=== PATIENT | female | born 1970 | race Caucasian/White ===

== ENCOUNTER 2018-01-24 02:21 | Inpatient (IN) | payer OTHER ==
[~2018-01-24] VITALS: Ht 157.5 cm; Wt 61.3 kg
[2018-01-24] VITALS (36 sets, daily range): BP systolic 116–159; BP diastolic 58–101; PULSE 80–172; RESP 15–47; TEMP 97.8–98.2; O2SAT 87–98
[~2018-01-24 02:21] MED LIST: AMLO5 PO; CLON.1 PO; FOLI1 PO; THIA100T PO; VITA100T15 PO
[2018-01-24] MEDS ORDERED: PROCHLORPERAZINE INJ 10 MG/2 ML VIAL IV PUSH ONE (02:45)
[2018-01-24] MEDS ORDERED: LORazepam 2 MG/ML VIAL IV PUSH ONE (02:45)
[2018-01-24] MEDS ORDERED: SODIUM CHLOR 0.9% 1000 ML INJ 1,000 ML IV ONE (02:45)
--- NOTE | 2018-01-24 02:48 | PD ---
HPI Chief Complaint: Alcohol/Drug Intoxication Time Seen by Provider: 02:38 Travel History International Travel<30 days: No Contact w/Intl Traveler<30days: No Traveled to known affect area: No History of Present Illness HPI The patient is a 47-year-old female who presents to the emergency department for possible alcohol withdrawal. The patient states she drinks heavily on a daily basis. The patient states her and herself will finish a large bottle of vodka and 1-1/2 days. The patient stopped drinking approximately 2 AM Tuesday morning, developed nausea and vomiting on Tuesday afternoon, presents to the emergency department tonight for tremors with persistent nausea and vomiting. The patient does have a history of alcohol withdrawal. She denies any abdominal pain, does complain of tremors, hallucinations, nausea, and vomiting. She denies any fever but does note intermittent chills with her tremors. Symptoms are moderate. She denies any illicit drug use. PFSH Past Medical History Depression: Yes Cancer: No Cardiovascular Problems: No Diabetes: No Diminished Hearing: No Endocrine: No Genitourinary: No Headaches: No Immune Disorder: No Musculoskeletal: No Neurologic: No Psychiatric: No Reproductive: No Respiratory: No Seizures: No : 1 Para: 1 Past Surgical History Section: Yes Other Surgery: Yes (LUMPECTOMY X2) Social History Alcohol Use: Yes (3 MIXED DRINKS TODAY) Tobacco Use: No Substance Use: Yes Allergies-Medications (Allergen,Severity, Reaction): Coded Allergies: No Known Allergies (Unverified , 05/08/15) Reported Meds & Prescriptions Reported Meds & Active Scripts Active No Active Prescriptions or Reported Medications Review of Systems Except as stated in HPI: all other systems reviewed are Neg General / Constitutional: No: Fever HENT: Positive: Lightheadedness Cardiovascular: No: Chest Pain or Discomfort Respiratory: No: Shortness of Breath Gastrointestinal: Positive: Nausea, Vomiting, No: Abdominal Pain Musculoskeletal: Positive: Weakness Neurologic: No: Change in Mentation Psychiatric: Positive: Substance Abuse (Alcohol abuse) Physical Exam Narrative GENERAL: Awake, alert, pleasant 47-year-old female who appears her stated age and is in no acute respiratory distress. SKIN: Focused skin assessment warm/dry. HEAD: Atraumatic. Normocephalic. EYES: Pupils equal and round. No scleral icterus. No injection or drainage. ENT: No nasal bleeding or discharge. Dry mucous membranes. NECK: Trachea midline. No JVD. CARDIOVASCULAR: Regular, tachycardic with a heart rate of 120. RESPIRATORY: No accessory muscle use. Clear to auscultation. Breath sounds equal bilaterally. GASTROINTESTINAL: Abdomen soft, non-tender, nondistended. No rebound tenderness. MUSCULOSKELETAL: Tremulous. NEUROLOGICAL: Awake and alert. No obvious cranial nerve deficits. Motor grossly within normal limits. Normal speech. Nonfocal. PSYCHIATRIC: Appears slightly agitated. Data Data Last Documented VS Vital Signs Date Time Temp Pulse Resp B/P (MAP) Pulse Ox O2 Delivery O2 Flow Rate FiO2 01/24/18 03:09 Room Air 01/24/18 02:29 97.8 120 18 126/58 (80) 98 Orders Orders Complete Blood Count With Diff (01/24/18 02:38) Comprehensive Metabolic Panel (01/24/18 02:38) Lipase (01/24/18 02:38) Alcohol (Ethanol) (01/24/18 02:38) Magnesium (Mg) (01/24/18 02:38) Urinalysis - C+S If Indicated (01/24/18 02:38) Sodium Chlor 0.9% 1000 Ml Inj (Ns 1000 M (01/24/18 02:45) Lorazepam Inj (Ativan Inj) (01/24/18 02:45) Prochlorperazine Inj (Compazine Inj) (01/24/18 02:45) Potassium Chlor 20 Meq Premix (Kcl 20 Me (01/24/18 03:30) Magnesium Sulfate 1 Gm Premix (Magnesium (01/24/18 03:30) Admit Order (Ed Use Only) (01/24/18 03:28) Labs Laboratory Tests Test 01/24/18 02:40 White Blood Count 9.1 TH/MM3 Red Blood Count 4.35 MIL/MM3 Hemoglobin 13.9 GM/DL Hematocrit 40.5 % Mean Corpuscular Volume 93.1 FL Mean Corpuscular Hemoglobin 32.0 PG Mean Corpuscular Hemoglobin Concent 34.4 % Red Cell Distribution Width 17.2 % Platelet Count 204 TH/MM3 Mean Platelet Volume 9.7 FL Neutrophils (%) (Auto) 66.1 % Lymphocytes (%) (Auto) 22.1 % Monocytes (%) (Auto) 11.3 % Eosinophils (%) (Auto) 0.0 % Basophils (%) (Auto) 0.5 % Neutrophils # (Auto) 6.1 TH/MM3 Lymphocytes # (Auto) 2.0 TH/MM3 Monocytes # (Auto) 1.0 TH/MM3 Eosinophils # (Auto) 0.0 TH/MM3 Basophils # (Auto) 0.0 TH/MM3 CBC Comment DIFF FINAL Differential Comment Blood Urea Nitrogen 7 MG/DL Creatinine 1.10 MG/DL Random Glucose 160 MG/DL Total Protein 9.2 GM/DL Albumin 3.1 GM/DL Calcium Level 9.3 MG/DL Magnesium Level 0.8 MG/DL Alkaline Phosphatase 246 U/L Aspartate Amino Transf (AST/SGOT) 304 U/L Alanine Aminotransferase (ALT/SGPT) 73 U/L Total Bilirubin 3.1 MG/DL Sodium Level 133 MEQ/L Potassium Level 2.7 MEQ/L Chloride Level 88 MEQ/L Carbon Dioxide Level 26.1 MEQ/L Anion Gap 19 MEQ/L Estimat Glomerular Filtration Rate 53 ML/MIN Lipase 69 U/L Ethyl Alcohol Level LESS THAN 3 MG/DL MDM Medical Decision Making Medical Screen Exam Complete: Yes Emergency Medical Condition: Yes Medical Record Reviewed: Yes Interpretation(s) Laboratory Tests Test 01/24/18 02:40 White Blood Count 9.1 TH/MM3 Red Blood Count 4.35 MIL/MM3 Hemoglobin 13.9 GM/DL Hematocrit 40.5 % Mean Corpuscular Volume 93.1 FL Mean Corpuscular Hemoglobin 32.0 PG Mean Corpuscular Hemoglobin Concent 34.4 % Red Cell Distribution Width 17.2 % Platelet Count 204 TH/MM3 Mean Platelet Volume 9.7 FL Neutrophils (%) (Auto) 66.1 % Lymphocytes (%) (Auto) 22.1 % Monocytes (%) (Auto) 11.3 % Eosinophils (%) (Auto) 0.0 % Basophils (%) (Auto) 0.5 % Neutrophils # (Auto) 6.1 TH/MM3 Lymphocytes # (Auto) 2.0 TH/MM3 Monocytes # (Auto) 1.0 TH/MM3 Eosinophils # (Auto) 0.0 TH/MM3 Basophils # (Auto) 0.0 TH/MM3 CBC Comment DIFF FINAL Differential Comment Blood Urea Nitrogen 7 MG/DL Creatinine 1.10 MG/DL Random Glucose 160 MG/DL Total Protein 9.2 GM/DL Albumin 3.1 GM/DL Calcium Level 9.3 MG/DL Magnesium Level 0.8 MG/DL Alkaline Phosphatase 246 U/L Aspartate Amino Transf (AST/SGOT) 304 U/L Alanine Aminotransferase (ALT/SGPT) 73 U/L Total Bilirubin 3.1 MG/DL Sodium Level 133 MEQ/L Potassium Level 2.7 MEQ/L Chloride Level 88 MEQ/L Carbon Dioxide Level 26.1 MEQ/L Anion Gap 19 MEQ/L Estimat Glomerular Filtration Rate 53 ML/MIN Lipase 69 U/L Ethyl Alcohol Level LESS THAN 3 MG/DL Differential Diagnosis Differential diagnosis includes delirium tremors, alcohol withdrawal, alcohol abuse, hypomagnesemia, hypokalemia, dehydration, acute kidney injury, anxiety. Narrative Course IV was established, labs are drawn and sent, and the patient was placed on cardiac telemetry monitoring and continuous pulse oximetry monitoring. The patient was administered Ativan 2 mg intravenously and 1 L of IV fluids. Magnesium level and potassium level were sent to lab. The patient's white count is unremarkable. Potassium was low at 2.7, magnesium is low at 0.8. Therefore, potassium and magnesium were replaced intravenously. The patient's CIWA score was 20. The patient's LFTs are elevated, AST greater than ALT consistent with alcoholic hepatitis. The patient will require IV fluids, replacement of electrolytes, and continuing Ativan for delirium tremors and alcohol withdrawal. Therefore, the on-call stock parts inspector was paged for admission. Critical Care Narrative Aggregate critical care time was 35 minutes. Time to perform other separately billable procedures was not included in the critical care time. My time did not include minutes spent treating any other patients simultaneously or on activities that did not directly contribute to the patient's treatment. The services I provided to this patient were to treat and/or prevent clinically significant deterioration that could result in: Seizure, respiratory distress, aspiration, hypoxia, anoxia, arrhythmia, . I provided critical care services requiring my management, as noted below: Chart data review, documentation time, medication orders and management, vital sign assessments/reviewing monitor data, ordering and reviewing lab tests, ordering and interpreting/reviewing x-rays and diagnostic studies, care of the patient and discussion of the patient with the admitting physicians. Physician Communication Physician Communication The on-call stock parts inspector was paged for admission. I discussed the patient with Dr. Kim who agrees with admission. Diagnosis Primary Impression: DTs (delirium tremens) Additional Impressions: Alcohol withdrawal Qualified Codes: F10.231 - Alcohol dependence with withdrawal delirium Hypokalemia Hypomagnesemia LFT elevation Admitting Information Admitting Physician Requests: Admit Scripts No Active Prescriptions or Reported Meds Condition: Stable Wellington Garber MD January 24, 2018 02:48
[2018-01-24 02:58] LABS: AUTOMATED NEUTROPHIL # 6.1 TH/MM3 (1.8-7.7); BASOPHIL % 0.5 % (0.0-2.0); HEMATOCRIT 40.5 % (35.0-46.0); HEMOGLOBIN 13.9 GM/DL (11.6-15.3); LYMPH % 22.1 % (9.0-44.0); MEAN CELL VOLUME 93.1 FL (80.0-100.0); MEAN CORPUSCULAR HGB CONC 34.4 % (32.0-36.0); MEAN PLATELET VOLUME 9.7 FL (7.0-11.0); MONO % 11.3 % (0.0-8.0); NEUT % 66.1 % (16.0-70.0); PLATELET COUNT 204 TH/MM3 (150-450); RED BLOOD COUNT 4.35 MIL/MM3 (4.00-5.30); RED CELL DISTRIBUTION WIDTH 17.2 % (11.6-17.2); WHITE BLOOD COUNT 9.1 TH/MM3 (4.0-11.0)
[2018-01-24 03:18] LABS: ALBUMIN 3.1 GM/DL (3.4-5.0); ALKALINE PHOSPHATASE 246 U/L (45-117); ALT (GPT) 73 U/L (10-53); AST (GOT) 304 U/L (15-37); BICARBONATE 26.1 MEQ/L (21.0-32.0); BLOOD UREA NITROGEN 7 MG/DL (7-18); CALCIUM 9.3 MG/DL (8.5-10.1); CHLORIDE 88 MEQ/L (98-107); GLOMERULAR FILTRATION RATE 53 ML/MIN (>89); GLUCOSE,RANDOM 160 MG/DL (74-106); MAGNESIUM 0.8 MG/DL (1.5-2.5); SODIUM (NA) 133 MEQ/L (136-145); TOTAL BILIRUBIN ADULT 3.1 MG/DL (0.2-1.0); TOTAL PROTEIN 9.2 GM/DL (6.4-8.2)
[2018-01-24] MEDS: MAGNESIUM SULFATE 1 GM PREMIX 100 ML IV SCH ×2 (03:30→05:03)
[2018-01-24] MEDS: POTASSIUM CHLOR 20 MEQ PREMIX 100 ML IV SCH ×2 (03:30→06:02)
[2018-01-24 05:19] LABS: BILIRUBIN, URINE NEG (NEG); BLOOD, URINE TRACE (NEG); GLUCOSE,URINE NEG (NEG); KETONE, URINE NEG (NEG); NITRITE,URINE NEG (NEG); URINE LEUKOCYTE ESTERASE TRACE (NEG)
[2018-01-24 05:24] LABS: BACTERIA, URINE OCC /hpf; RBC, URINE 0-3 /hpf (0-3); SQUAMOUS EPITHELIAL CELL URINE 0-5 /hpf (0-5); URINE COLOR ORANGE (YELLW/STRAW)
[2018-01-24] MEDS ORDERED: SODIUM CHLOR 0.9% 1000 ML INJ 1,000 ML IV SCH (05:43)
[2018-01-24] MEDS ORDERED: BISACODYL 10 MG SUPP RECTAL PRN (05:45)
[2018-01-24] MEDS ORDERED: MAGNESIUM HYDROXIDE SUSP 30 ML CUP PO PRN (05:45)
[2018-01-24] MEDS ORDERED: ACETAMINOPHEN 325 MG TAB PO PRN (05:45)
[2018-01-24] MEDS ORDERED: LACTULOSE SYRUP 20 GM/30 ML CUP PO PRN (05:45)
[2018-01-24] MEDS ORDERED: SENNOSIDES 8.6 MG TAB PO PRN (05:45)
[2018-01-24] MEDS ORDERED: NURSING INFORMATION XX SCH (05:45)
[2018-01-24] MEDS ORDERED: CHLORHEXIDINE GLUCONATE 2 % 1 PACK (2 CLOTHS) TOP PRN (05:45)
[2018-01-24] MEDS ORDERED: RESP: ALBUTEROL 2.5 MG/IPRATROPIUM 0.5 MG NEB (PRN) INH (05:45)
[2018-01-24] MEDS ORDERED: POTASSIUM PHOSPHATE INJ 30 MMOL in SODIUM CHLOR 0.9% 250 ML INJ 250 ML IV PRN (06:00)
[2018-01-24] MEDS ORDERED: SODIUM PHOSPHATE INJ 30 MMOL in SODIUM CHLOR 0.9% 250 ML INJ 240 ML IV PRN (06:00)
[2018-01-24] MEDS ORDERED: MAGNESIUM SULFATE INJ 4 GM in SODIUM CHLORIDE 0.9% INJ 92 ML IV PRN (06:00)
[2018-01-24] MEDS ORDERED: FLUMAZENIL 0.5 MG/5 ML VIAL IV PUSH PRN (06:00)
[2018-01-24] MEDS ORDERED: POTASSIUM PHOSPHATE MONOBASIC 500 MG TAB PO/TUBE PRN (06:00)
[2018-01-24] MEDS ORDERED: LORazepam 1 MG TAB PO PRN (06:00)
[2018-01-24] MEDS ORDERED: ONDANSETRON ODT 4 MG TAB PO PRN (06:00)
[2018-01-24] MEDS ORDERED: POTASSIUM PHOSPHATE MONOBASIC 500 MG TAB PO PRN (06:00)
[2018-01-24] MEDS ORDERED: MAGNESIUM OXIDE 400 MG TAB PO PRN (06:00)
[2018-01-24] MEDS ORDERED: POTASSIUM CHLOR 40 MEQ PREMIX 100 ML IV PRN ×2 (06:00)
[2018-01-24] MEDS ORDERED: POTASSIUM CHLORIDE 25 MEQ EFFERVESCENT TAB PO PRN (06:00)
[2018-01-24 06:07] LABS: PHOSPHORUS 2.7 MG/DL (2.5-4.9)
--- NOTE | 2018-01-24 06:25 | HHI.HP ---
HPI Service Critical Care Medicine Primary Care Physician No Primary Care Physician Admission Diagnosis Delirium tremors, alcohol withdrawal, hypomagnesemia, hypokalemia, a Diagnosis: Travel History International Travel<30 Days: No Contact w/Intl Traveler <30 Da: No Traveled to Known Affected Are: No History of Present Illness 47-year-old female with past medical history of alcohol dependence who presents to [facility] emergency department due to concern for alcohol withdrawal. She states that she and her share a 1.5 L of vodka chased with rubia servando every 2.5 days. She stopped drinking on Tuesday. She has been tremulous, has experienced some hallucinations and therefore her father brought her in. She states she intends to quit drinking indefinitely. She has been nauseous and vomited x1, nonbloody nonbilious. She denies headache or fall. CIWA was 20 upon presentation to the ED. She has received ativan 4 mg IV. She has also received 1 L normal saline bolus, Compazine 10 mg IV, magnesium 2 g IV. Review of Systems Constitutional: DENIES: Fever Cardiovascular: DENIES: Chest pain, Syncope Gastrointestinal: COMPLAINS OF: Nausea, Vomiting, DENIES: Abdominal pain, Bloody stools Genitourinary: DENIES: Dysuria Musculoskeletal: DENIES: Back pain, Neck pain Neurologic: COMPLAINS OF: Tremor, DENIES: Headache Psychiatric: COMPLAINS OF: Confusion, Hallucinations Past Family Social History Allergies: Coded Allergies: No Known Allergies (Unverified , 05/08/15) Past Medical History Alcohol dependence She states she She had IUD removed ~ 10 months ago due to PID Past Surgical History section Lumpectomy 2 Reported Medications None Family History Father had alcoholism. Social History Lifetime non-smoker. Her smokes heavily She and her shares sips out of a 1.5 L of vodka and go through that every 2-1/2 days. She used to work as a field sales manager. She has been out of work for 3 weeks because she states it is too stressful type of work and she does not want to do it anymore. Physical Exam Vital Signs Vital Signs Date Time Temp Pulse Resp B/P (MAP) Pulse Ox O2 Delivery O2 Flow Rate FiO2 01/24/18 06:20 98.0 95 18 154/87 (109) 98 Nasal Cannula 01/24/18 05:03 97.8 104 18 153/89 (110) 98 Room Air 01/24/18 03:48 105 18 158/85 (109) 98 Room Air 01/24/18 03:09 Room Air 01/24/18 02:29 97.8 120 18 126/58 (80) 98 Physical Exam Pulse 127, sinus tachycardia on monitor blood pressure 155/79 sats 96% on room air GENERAL: Overweight female who is sitting up in ED stretcher, tremulous, conversant. SKIN: Warm and dry. There is some ecchymosis over her right tibia. HEAD: Atraumatic. Normocephalic. EYES: Pupils equal and round, 4 mm and reactive to 2 mm bilaterally.. No scleral icterus. No injection or drainage. ENT: No nasal bleeding or discharge. Mucous membranes dry NECK: Trachea midline. No JVD. CARDIOVASCULAR: Tachycardic, sinus tachycardia on the monitor with rate in the 120s. No murmurs rubs or gallops. RESPIRATORY: Mildly tachypneic but is breathing comfortably with no accessory muscle use. Clear to auscultation. Breath sounds equal bilaterally. GASTROINTESTINAL: Abdomen soft, non-tender, nondistended. Hepatic and splenic margins not palpable. Bowel sounds present. MUSCULOSKELETAL: Extremities without clubbing, cyanosis, or edema. No obvious deformities. NEUROLOGICAL: Awake and alert, tremulous. Currently denies hallucinations but she states she knows she was hallucinating earlier. 5 out of 5 strength in all extremities. She follows commands. Oriented to self, year, [facility]. Normal speech Laboratory Laboratory Tests Test 01/24/18 02:40 01/24/18 05:08 White Blood Count 9.1 Red Blood Count 4.35 Hemoglobin 13.9 Hematocrit 40.5 Mean Corpuscular Volume 93.1 Mean Corpuscular Hemoglobin 32.0 Mean Corpuscular Hemoglobin Concent 34.4 Red Cell Distribution Width 17.2 Platelet Count 204 Mean Platelet Volume 9.7 Neutrophils (%) (Auto) 66.1 Lymphocytes (%) (Auto) 22.1 Monocytes (%) (Auto) 11.3 Eosinophils (%) (Auto) 0.0 Basophils (%) (Auto) 0.5 Neutrophils # (Auto) 6.1 Lymphocytes # (Auto) 2.0 Monocytes # (Auto) 1.0 Eosinophils # (Auto) 0.0 Basophils # (Auto) 0.0 CBC Comment DIFF FINAL Differential Comment Blood Urea Nitrogen 7 Creatinine 1.10 Random Glucose 160 Total Protein 9.2 Albumin 3.1 Calcium Level 9.3 Phosphorus Level 2.7 Magnesium Level 0.8 Alkaline Phosphatase 246 Aspartate Amino Transf (AST/SGOT) 304 Alanine Aminotransferase (ALT/SGPT) 73 Total Bilirubin 3.1 Sodium Level 133 Potassium Level 2.7 Chloride Level 88 Carbon Dioxide Level 26.1 Anion Gap 19 Estimat Glomerular Filtration Rate 53 Lipase 69 Ethyl Alcohol Level LESS THAN 3 Urine Color ORANGE Urine Turbidity CLEAR Urine pH 7.0 Urine Specific [place] LESS/EQUAL 1.005 Urine Protein 30 Urine Glucose (UA) NEG Urine Ketones NEG Urine Occult Blood TRACE Urine Nitrite NEG Urine Bilirubin NEG Urine Urobilinogen 1.0 Urine Leukocyte Esterase TRACE Urine RBC 0-3 Urine WBC 3-5 Urine Squamous Epithelial Cells 0-5 Urine Bacteria OCC Microscopic Urinalysis Comment CULT NOT INDICATED Result Diagram: 01/24/18 02401/24/18 0240 Caprini VTE Risk Assessment Caprini VTE Risk Assessment: Mod/High Risk (score >= 2) Caprini Risk Assessment Model Point Value = 1 Point Value = 2 Point Value = 3 Point Value = 5 Age 41-60 Minor surgery BMI > 25 kg/m2 Swollen legs Varicose veins or History of unexplained or recurrent spontaneous Oral contraceptives or hormone replacement Sepsis (< 1 month) Serious lung disease, including pneumonia (< 1 month) Abnormal pulmonary function Acute myocardial infarction Congestive heart failure (< 1 month) History of inflammatory bowel disease Medical patient at bed rest Age 61-74 Arthroscopic surgery Major open surgery (> 45 min) Laparoscopic surgery (> 45 min) Malignancy Confined to bed (> 72 hours) Immobilizing plaster cast Central venous access Age >= 75 History of VTE Family history of VTE Factor V Leiden Prothrombin [id number] Lupus anticoagulant Anticardiolipin antibodies Elevated serum homocysteine Heparin-induced thrombocytopenia Other congenital or acquired thrombophilia Stroke (< 1 month) Elective arthroplasty Hip, pelvis, or leg fracture Acute spinal cord injury (< 1 month) Prophylaxis Regimen Total Risk Factor Score Risk Level Prophylaxis Regimen 0-1 Low Early ambulation 2 Moderate Order ONE of the following: *Sequential Compression Device (SCD) *Heparin 5000 units SQ BID 3-4 Higher Order ONE of the following medications: *Heparin 5000 units SQ TID *Enoxaparin/Lovenox 40 mg SQ daily (WT < 150 kg, CrCl > 30 mL/min) *Enoxaparin/Lovenox 30 mg SQ daily (WT < 150 kg, CrCl > 10-29 mL/min) *Enoxaparin/Lovenox 30 mg SQ BID (WT < 150 kg, CrCl > 30 mL/min) AND/OR *Sequential Compression Device (SCD) 5 or more Highest Order ONE of the following medications: *Heparin 5000 units SQ TID (Preferred with Epidurals) *Enoxaparin/Lovenox 40 mg SQ daily (WT < 150 kg, CrCl > 30 mL/min) *Enoxaparin/Lovenox 30 mg SQ daily (WT < 150 kg, CrCl > 10-29 mL/min) *Enoxaparin/Lovenox 30 mg SQ BID (WT < 150 kg, CrCl > 30 mL/min) AND *Sequential Compression Device (SCD) Assessment and Plan Problem List: (1) EtOH dependence ICD Code: F10.20 - EtOH dependence Status: Acute (2) Tachycardia ICD Code: R00.0 - Tachycardia Status: Acute (3) Hypokalemia ICD Code: E87.6 - Hypokalemia Status: Acute (4) Hypomagnesemia ICD Code: E83.42 - Hypomagnesemia Status: Acute (5) Alcohol withdrawal ICD Code: F10.239 - Alcohol dependence with withdrawal, unspecified Status: Acute (6) LFT elevation ICD Code: R79.89 - LFT elevation Status: Acute (7) DTs (delirium tremens) ICD Code: F10.231 - Alcohol dependence with withdrawal delirium Status: Acute (8) Chronic hyponatremia ICD Code: E87.1 - Hypo-osmolality and hyponatremia Status: Acute Assessment and Plan NEURO: Alcohol dependence Alcohol withdrawal Librium 25 mg p.o. every 6 hours. Ativan as needed per CIWA protocol Add Precedex as needed Vitamin supplementation with thiamine/multivitamin/folic acid. RESP: Secondhand smoke exposure On room air She states has been is no longer smoking in the home CV: Sinus tachycardia due to alcohol withdrawal IVF as per below GI: Transaminitis Follow-up labs for discriminate function. Clear liquid diet Viral hepatitis panel Liver ultrasound FEN/RENAL: Hypokalemia Hypomagnesemia Acute dehydration Hyponatremia Received 1 L normal saline bolus in the emergency department. We will continue to 0.9 NaCl with 20 mg of KCl per liter at 100 milliliters per hour. Has received magnesium 2 g IV. Will reassess magnesium and replace per ICU electrolyte replacement protocol. Replace potassium per protocol. ID: Afebrile. No leukocytosis. Monitor for signs and symptoms of infection HEME: Monitor CBC. Follow-up coags. ENDO: Stress hyperglycemia. Follow glucose q8 and initiate low-dose insulin sliding scale as indicated. PROPH: SCDs for DVT prophylaxis. Will initiate pharmacologic DVT prophylaxis depending on results of coags. Famotidine for stress ulcer prophylaxis. ACCESS: Peripheral IV providing adequate access at this time. Full code Level 3 H&P Problem Qualifiers (1) Alcohol withdrawal: Qualified Codes: F10.231 - Alcohol dependence with withdrawal delirium Gail Middleton MD January 24, 2018 06:25
[2018-01-24] MEDS: LORazepam 2 MG/ML VIAL IV PUSH PRN ×10 (06:38→23:26)
[2018-01-24] MEDS ORDERED: MULTIVITAMIN INJ 10 ML, THIAMINE INJ 100 MG, FOLIC ACID INJ 1 MG in DEXT 5%-NACL 0.45% ... IV ONE (08:00)
[2018-01-24] MEDS: NS + KCL 20 MEQ INJ 1,000 ML IV SCH ×2 (09:26→17:15)
[2018-01-24] MEDS: FAMOTIDINE 20 MG/2 ML VIAL IV PUSH SCH ×2 (09:27→20:24)
[2018-01-24] MEDS: SODIUM CHLORIDE 0.9% FLUSH 10 ML FLUSH IV FLUSH SCH ×2 (09:27→20:25)
[2018-01-24] MEDS: chlordiazePOXIDE 25 MG CAP PO SCH ×4 (09:27→23:08)
[2018-01-24] MEDS: DOCUSATE SODIUM 50 MG/SENNA 8.6 MG TAB PO SCH ×2 (09:27→21:00)
--- NOTE | 2018-01-24 10:54 | RADRPT ---
EXAM DATE: 01/24/2018 10:32 AM EDT AGE/SEX: 47 years / Female INDICATIONS: Elevated labs. CLINICAL DATA: This is the patient's initial encounter. Patient reports that signs and symptoms have been present for 1 day and indicates a pain score of 4/10. MEDICAL/SURGICAL HISTORY: . ETOH abuse. Hallucinations. section. D&C. Lumpectomy x 2. COMPARISON: No prior [facility] exams available for comparison. [facility], US ABDOMEN C OMPLETE 2015-03-18 MEASUREMENTS (cm x cm x cm): Liver:__ 21.0 cm length Common Bile Duct:__ 4mm Right Kidney:__ 12.2 x 6.0 x 4.7 cm Spleen:__ 9.0 FINDINGS: Liver: The liver appears to be diffusely enlarged. There is increased echogenicity throughout the li kayla parenchyma suggestive of either fatty infiltration versus hepatocellular disease. No dilated bili shonda ducts are demonstrated. Portal Vein: Hepatopedal flow seen in portal vein. Common Duct: No intraluminal mass or stone visualized. Gallbladder: No evidence of gallstones. The gallbladder wall is mildly thickened at 4 mm. Pancreas: The visualized portions are within normal limits. Right Kidney: Normal in size shape and echogenicity. No hydronephrosis. Small extrarenal pelvis. CONCLUSION: 1. No evidence of gallstones or biliary tract obstruction. 2. Hepatomegaly with increased echogenicity throughout the liver suggestive of fatty infiltration an d/or hepatocellular disease. Electronically signed by: Milad Harvey MD 01/24/2018 10:53 AM EDT
[2018-01-24] MEDS: DEXMEDETOMIDINE INJ 200 MCG in SODIUM CHLORIDE 0.9% INJ 50 ML IV PRN ×2 (14:05→20:24)
[2018-01-25] VITALS (30 sets, daily range): BP systolic 97–159; BP diastolic 59–117; PULSE 84–182; RESP 22–63; TEMP 97.8–98.6; O2SAT 80–97
[2018-01-25 00:07] LABS: BICARBONATE 27.8 MEQ/L (21.0-32.0); CALCIUM 8.1 MG/DL (8.5-10.1); CREATININE 0.49 MG/DL (0.50-1.00); MAGNESIUM 1.5 MG/DL (1.5-2.5); PHOSPHORUS 1.1 MG/DL (2.5-4.9)
[2018-01-25] MEDS: MAGNESIUM SULFATE INJ 2 GM in SODIUM CHLORIDE 0.9% INJ 96 ML IV PRN (00:41)
[2018-01-25] MEDS: DEXMEDETOMIDINE INJ 200 MCG in SODIUM CHLORIDE 0.9% INJ 50 ML IV PRN ×4 (00:57→19:16)
[2018-01-25] MEDS: LORazepam 2 MG/ML VIAL IV PUSH PRN ×6 (01:48→21:55)
[2018-01-25] MEDS: CHLORHEXIDINE GLUCONATE 2 % 1 PACK (2 CLOTHS) TOP SCH (04:00)
[2018-01-25] MEDS: chlordiazePOXIDE 25 MG CAP PO SCH ×3 (05:40→17:20)
[2018-01-25] MEDS: NS + KCL 20 MEQ INJ 1,000 ML IV SCH ×3 (09:14→19:33)
[2018-01-25 10:12] LABS: AUTOMATED NEUTROPHIL # 4.6 TH/MM3 (1.8-7.7); BASOPHIL % 0.7 % (0.0-2.0); EOSINOPHIL % 0.2 % (0.0-4.0); HEMATOCRIT 37.7 % (35.0-46.0); HEMOGLOBIN 12.7 GM/DL (11.6-15.3); LYMPH % 25.2 % (9.0-44.0); LYMPHOCYTE # 1.7 TH/MM3 (1.0-4.8); MEAN CELL VOLUME 92.6 FL (80.0-100.0); MEAN CORPUSCULAR HEMOGLOBIN 31.2 PG (27.0-34.0); MEAN CORPUSCULAR HGB CONC 33.7 % (32.0-36.0); MEAN PLATELET VOLUME 10.1 FL (7.0-11.0); MONO % 6.5 % (0.0-8.0); MONOCYTE # 0.4 TH/MM3 (0-0.9); NEUT % 67.4 % (16.0-70.0); PLATELET COUNT 228 TH/MM3 (150-450); RED BLOOD COUNT 4.07 MIL/MM3 (4.00-5.30); RED CELL DISTRIBUTION WIDTH 17.2 % (11.6-17.2); WHITE BLOOD COUNT 6.7 TH/MM3 (4.0-11.0)
[2018-01-25 10:34] LABS: CHLORIDE 108 MEQ/L (98-107); SODIUM (NA) 144 MEQ/L (136-145)
[2018-01-25 10:37] LABS: CALCIUM 7.8 MG/DL (8.5-10.1)
[2018-01-25 10:38] LABS: INTERNATIONAL NORMALIZED RATIO 1.1 RATIO; PROTHROMBIN TIME - PATIENT 11.2 SEC (9.8-11.6)
[2018-01-25] MEDS: FAMOTIDINE 20 MG/2 ML VIAL IV PUSH SCH ×2 (10:41→21:55)
[2018-01-25] MEDS: DOCUSATE SODIUM 50 MG/SENNA 8.6 MG TAB PO SCH ×2 (10:41→21:00)
[2018-01-25] MEDS: SODIUM CHLORIDE 0.9% FLUSH 10 ML FLUSH IV FLUSH SCH ×2 (10:42→21:55)
[2018-01-25 11:06] LABS: ALBUMIN 2.3 GM/DL (3.4-5.0); ALKALINE PHOSPHATASE 177 U/L (45-117); ALT (GPT) 43 U/L (10-53); AST (GOT) 136 U/L (15-37); BICARBONATE 22.8 MEQ/L (21.0-32.0); BLOOD UREA NITROGEN 4 MG/DL (7-18); CREATININE 0.42 MG/DL (0.50-1.00); GLOMERULAR FILTRATION RATE 160 ML/MIN (>89); GLUCOSE,RANDOM 98 MG/DL (74-106); MAGNESIUM 1.6 MG/DL (1.5-2.5); PHOSPHORUS 3.1 MG/DL (2.5-4.9); TOTAL BILIRUBIN ADULT 1.7 MG/DL (0.2-1.0); TOTAL PROTEIN 7.2 GM/DL (6.4-8.2)
[2018-01-25] MEDS: POTASSIUM CHLOR 20 MEQ PREMIX 100 ML IV PRN ×2 (12:27→15:09)
--- NOTE | 2018-01-25 17:25 | HHI.CCPN ---
Subjective Remarks/Hospital Course 01/24: 47-year-old female with past medical history of alcohol dependence who presents to [facility] emergency department due to concern for alcohol withdrawal. She states that she and her share a 1.5 L of vodka chased with rubia servando every 2.5 days. She stopped drinking on Tuesday. She has been tremulous, has experienced some hallucinations and therefore her father brought her in. She states she intends to quit drinking indefinitely. She has been nauseous and vomited x1, nonbloody nonbilious. She denies headache or fall. CIWA was 20 upon presentation to the ED. She has received ativan 4 mg IV. She has also received 1 L normal saline bolus, Compazine 10 mg IV, magnesium 2 g IV. 01/25: Laying in bed on Precedex currently. Arouses easily. No she is at the intensive care unit at [facility]. Knew the month and year however was off on the date. Objective Vital Signs Date Time Temp Pulse Resp B/P (MAP) Pulse Ox O2 Delivery O2 Flow Rate FiO2 01/25/18 12:00 92 01/25/18 12:00 97.9 36 128/74 (92) 94 01/24/18 13:10 Room Air Intake and Output 01/25/18 01/25/18 01/26/18 08:00 16:00 00:00 Intake Total 1310 ml 484 ml Output Total 700 ml Balance 610 ml 484 ml Result Diagram: 01/25/18 1005 01/25/18 1005 Objective Remarks GENERAL: Overweight female who is laying in bed, drowsy though easily arousable not in any acute distress. SKIN: Warm and dry. There is some ecchymosis over her right tibia. HEAD: Atraumatic. Normocephalic. EYES: Pupils equal and round, 4 mm and reactive to 2 mm bilaterally.. No scleral icterus. No injection or drainage. ENT: No nasal bleeding or discharge. Mucous membranes dry NECK: Trachea midline. No JVD. CARDIOVASCULAR: Tachycardic, sinus tachycardia on the monitor with rate in the 120s. No murmurs rubs or gallops. RESPIRATORY: Mildly tachypneic but is breathing comfortably with no accessory muscle use. Clear to auscultation. Breath sounds equal bilaterally. GASTROINTESTINAL: Abdomen soft, non-tender, nondistended. Hepatic and splenic margins not palpable. Bowel sounds present. MUSCULOSKELETAL: Extremities without clubbing, cyanosis, or edema. No obvious deformities. NEUROLOGICAL: Drowsy, arousable easily, following commands, tremulous. 5 out of 5 strength in all extremities. She follows commands. Oriented to self, year , hospital. Normal speech A/P Problem List: (1) EtOH dependence ICD Code: F10.20 - EtOH dependence Status: Acute (2) Tachycardia ICD Code: R00.0 - Tachycardia Status: Acute (3) Hypokalemia ICD Code: E87.6 - Hypokalemia Status: Acute (4) Hypomagnesemia ICD Code: E83.42 - Hypomagnesemia Status: Acute (5) Alcohol withdrawal ICD Code: F10.239 - Alcohol dependence with withdrawal, unspecified Status: Acute (6) LFT elevation ICD Code: R79.89 - LFT elevation Status: Acute (7) DTs (delirium tremens) ICD Code: F10.231 - Alcohol dependence with withdrawal delirium Status: Acute (8) Chronic hyponatremia ICD Code: E87.1 - Hypo-osmolality and hyponatremia Status: Acute Assessment and Plan NEURO: Alcohol dependence Alcohol withdrawal Librium 25 mg p.o. every 6 hours. Ativan as needed per [facility] protocol Precedex as needed Vitamin supplementation with thiamine/multivitamin/folic acid. RESP: Secondhand smoke exposure On room air She states has been is no longer smoking in the home CV: Sinus tachycardia due to alcohol withdrawal IVF as per below GI: Transaminitis Follow-up labs for discriminate function. Clear liquid diet Viral hepatitis panel Liver ultrasound FEN/RENAL: Hypokalemia Hypomagnesemia Acute dehydration Hyponatremia Received 1 L normal saline bolus in the emergency department. We will continue to 0.9 NaCl with 20 mg of KCl per liter at 100 milliliters per hour. Has received magnesium 2 g IV. Monitor and replete electrolytes. ID: Afebrile. No leukocytosis. Monitor for signs and symptoms of infection HEME: Monitor CBC. Follow-up coags. ENDO: Stress hyperglycemia. Follow glucose q8 and initiate low-dose insulin sliding scale as indicated. PROPH: SCDs for DVT prophylaxis. Will initiate pharmacologic DVT prophylaxis depending on results of coags. Famotidine for stress ulcer prophylaxis. ACCESS: Peripheral IV providing adequate access at this time. Full code Problem Qualifiers (1) Alcohol withdrawal: Qualified Codes: F10.231 - Alcohol dependence with withdrawal delirium William Chauhan MD January 25, 2018 17:24
[2018-01-26] VITALS (48 sets, daily range): BP systolic 76–135; BP diastolic 52–89; PULSE 96–148; RESP 36–83; TEMP 98–100.1; O2SAT 92–100
[2018-01-26] MEDS: DEXMEDETOMIDINE INJ 200 MCG in SODIUM CHLORIDE 0.9% INJ 50 ML IV PRN ×3 (01:02→22:17)
[2018-01-26] MEDS: LORazepam 2 MG/ML VIAL IV PUSH PRN ×7 (02:29→18:59)
[2018-01-26] MEDS: SODIUM CHLORIDE 0.9% FLUSH 10 ML FLUSH IV FLUSH PRN (02:30)
[2018-01-26] MEDS: CHLORHEXIDINE GLUCONATE 2 % 1 PACK (2 CLOTHS) TOP SCH (04:00)
[2018-01-26 05:05] LABS: AUTOMATED NEUTROPHIL # 7.2 TH/MM3 (1.8-7.7); BASOPHIL % 0.3 % (0.0-2.0); HEMATOCRIT 34.6 % (35.0-46.0); HEMOGLOBIN 11.4 GM/DL (11.6-15.3); LYMPHOCYTE # 1.2 TH/MM3 (1.0-4.8); MEAN CELL VOLUME 94.3 FL (80.0-100.0); MEAN CORPUSCULAR HEMOGLOBIN 31.2 PG (27.0-34.0); MEAN CORPUSCULAR HGB CONC 33.1 % (32.0-36.0); MEAN PLATELET VOLUME 9.4 FL (7.0-11.0); MONO % 5.4 % (0.0-8.0); MONOCYTE # 0.5 TH/MM3 (0-0.9); NEUT % 81.3 % (16.0-70.0); PLATELET COUNT 205 TH/MM3 (150-450); RED BLOOD COUNT 3.67 MIL/MM3 (4.00-5.30); WHITE BLOOD COUNT 8.9 TH/MM3 (4.0-11.0)
[2018-01-26] MEDS: chlordiazePOXIDE 25 MG CAP PO SCH ×4 (05:50→17:14)
[2018-01-26] MEDS: NS + KCL 20 MEQ INJ 1,000 ML IV SCH ×2 (05:51→16:02)
[2018-01-26 05:55] LABS: CALCIUM 7.3 MG/DL (8.5-10.1); CALCIUM-PROTEIN CORRECTED 7.5 MG/DL (8.5-10.1); CREATININE 0.36 MG/DL (0.50-1.00); TOTAL BILIRUBIN ADULT 1.5 MG/DL (0.2-1.0); TOTAL PROTEIN 6.7 GM/DL (6.4-8.2)
[2018-01-26] MEDS ORDERED: LORazepam 2 MG/ML VIAL IV PUSH SCH (08:00)
[2018-01-26] MEDS: FAMOTIDINE 20 MG/2 ML VIAL IV PUSH SCH ×2 (08:17→20:27)
[2018-01-26] MEDS: SODIUM CHLORIDE 0.9% FLUSH 10 ML FLUSH IV FLUSH SCH ×2 (08:18→20:27)
[2018-01-26] MEDS: DOCUSATE SODIUM 50 MG/SENNA 8.6 MG TAB PO SCH ×2 (08:18→20:27)
[2018-01-26] MEDS: POTASSIUM CHLOR 20 MEQ PREMIX 100 ML IV PRN ×2 (08:32→10:44)
[2018-01-26] MEDS: QUEtiapine FUMARATE 25 MG TAB PO SCH ×2 (09:42→20:28)
--- NOTE | 2018-01-26 10:37 | RADRPT ---
EXAM DATE: 01/26/2018 10:33 AM EDT AGE/SEX: 47 years / Female INDICATIONS: Tachypnea. CLINICAL DATA: This is the patient's subsequent encounter. Patient reports that signs and symptoms h ave been present for 2 days and indicates a pain score of Nonresponsive. MEDICAL/SURGICAL HISTORY: . ETOH abuse . lumpectomy x 2 COMPARISON: [facility]PO, CHEST SINGLE AP, 01/26/2018. . FINDINGS: There are bilateral basilar and perihilar airspace consolidations with small effusions. Heart size is mildly enlarged. No pneumothorax. CONCLUSION: Bilateral airspace disease, mostly basilar with small effusions. Differential diagnosis includes braulio a and infection. Electronically signed by: Pato Ross MD 01/26/2018 10:35 AM EDT
--- NOTE | 2018-01-26 12:34 | RADRPT ---
EXAM DATE: 01/26/2018 12:11 PM EDT AGE/SEX: 47 years / Female INDICATIONS: Bilateral leg swelling. CLINICAL DATA: This is the patient's initial encounter. Patient reports that signs and symptoms have been present for 1 day and indicates a pain score of Nonresponsive. MEDICAL/SURGICAL HISTORY: . ETOH. section. Lumpectomy. Dilation and curettage. COMPARISON: No prior exams available for comparison. TECHNIQUE: Venous ultrasound of both lower extremities was performed from the inguinal ligament to t he proximal calf. Real-time, color Doppler and spectral tracing, compression and augmentation techni ques were used. FINDINGS: Right Leg: There is normal compressibility of the deep venous system from the inguinal region to the proximal calf. No echogenic clot is seen in the lumen of the common femoral, femoral, popliteal, an d posterior tibial veins. There is a normal response of the venous system to proximal and distal aug mentation and respiration. Left Leg: There is normal compressibility of the deep venous system from the inguinal region to the proximal calf. No echogenic clot is seen in the lumen of the common femoral, femoral, popliteal, and posterior tibial veins. There is a normal response of the venous system to proximal and distal augm entation and respiration. CONCLUSION: 1. No evidence of DVT. Electronically signed by: Milad Harvey MD 01/26/2018 12:32 PM EDT
[2018-01-26] MEDS: CEFEPIME INJ 2,000 MG in SODIUM CHLORIDE 0.9% INJ 100 ML IV SCH ×2 (14:41→22:26)
[2018-01-26] MEDS: AZITHROMYCIN INJ 500 MG in SODIUM CHLOR 0.9% 250 ML INJ 250 ML IV SCH (14:42)
[2018-01-26] MEDS: RESP: ALBUTEROL 2.5 MG/IPRATROPIUM 0.5 MG NEB (SCH) NEB ×2 (14:44→19:48)
--- NOTE | 2018-01-26 16:19 | HHI.CCPN ---
Subjective Remarks/Hospital Course 01/24: 47-year-old female with past medical history of alcohol dependence who presents to [facility] emergency department due to concern for alcohol withdrawal. She states that she and her share a 1.5 L of vodka chased with rubia al every 2.5 days. She stopped drinking on Tuesday. She has been tremulous, has experienced some hallucinations and therefore her father brought her in. She states she intends to quit drinking indefinitely. She has been nauseous and vomited x1, nonbloody nonbilious. She denies headache or fall. CIWA was 20 upon presentation to the ED. She has received ativan 4 mg IV. She has also received 1 L normal saline bolus, Compazine 10 mg IV, magnesium 2 g IV. 01/25: Laying in bed on Precedex currently. Arouses easily. No she is at the intensive care unit at [facility]. Knew the month and year however was off on the date. 01/26: Continues to have episodes of hallucinations and delirium at night. On Precedex gtt. Objective Vital Signs Date Time Temp Pulse Resp B/P (MAP) Pulse Ox O2 Delivery O2 Flow Rate FiO2 01/26/18 15:30 110 52 95/55 (68) 95 01/26/18 12:00 98.0 01/26/18 08:10 Nasal Cannula 4.00 01/25/18 19:54 21 Intake and Output 01/26/18 01/26/18 01/27/18 08:00 16:00 00:00 Intake Total 1360 ml 100 ml Output Total 300 ml Balance 1060 ml 100 ml Result Diagram: 01/26/18 0435 01/26/18 0435 Other Results Laboratory Tests Test 01/26/18 08:35 Blood Gas Puncture Site LT RADIAL Blood Gas Patient Temperature 37.0 Blood Gas HCO3 15 mmol/L (22-26) Blood Gas Base Excess -9.2 mmol/L (-2-2) Blood Gas Oxygen Saturation 93 % (90-100) Arterial Blood pH 7.41 (7.380-7.420) Arterial Blood Partial Pressure CO2 23 mmHg (38-42) Arterial Blood Partial Pressure O2 75 mmHg (61-120) Arterial Blood Oxygen Content 15.7 Vol % (12.0-20.0) Arterial Blood Carboxyhemoglobin 1.2 % (0-4) Arterial Blood Methemoglobin 1.1 % (0-2) Blood Gas Hemoglobin 12.0 G/DL (12.0-16.0) Oxygen Delivery Device NASAL CANNULA Blood Gas Liter Flow 4 L/M Objective Remarks GENERAL: Overweight female who is laying in bed, drowsy though easily arousable, slightly tachypneic. SKIN: Warm and dry. There is some ecchymosis over her right tibia. HEAD: Atraumatic. Normocephalic. EYES: Pupils equal and round, 4 mm and reactive to 2 mm bilaterally.. No scleral icterus. No injection or drainage. ENT: No nasal bleeding or discharge. Mucous membranes dry NECK: Trachea midline. No JVD. CARDIOVASCULAR: Tachycardic, sinus tachycardia on the monitor with rate in the 120s. No murmurs rubs or gallops. RESPIRATORY: Mildly tachypneic but is breathing comfortably with no accessory muscle use. Clear to auscultation. Breath sounds equal bilaterally. GASTROINTESTINAL: Abdomen soft, non-tender, nondistended. Hepatic and splenic margins not palpable. Bowel sounds present. MUSCULOSKELETAL: Extremities without clubbing, cyanosis, or edema. No obvious deformities. NEUROLOGICAL: Drowsy, arousable easily, following commands, tremulous. 5 out of 5 strength in all extremities. She follows commands. Oriented to self, year , hospital. Normal speech A/P Problem List: (1) EtOH dependence ICD Code: F10.20 - EtOH dependence Status: Acute (2) Tachycardia ICD Code: R00.0 - Tachycardia Status: Acute (3) Hypokalemia ICD Code: E87.6 - Hypokalemia Status: Acute (4) Hypomagnesemia ICD Code: E83.42 - Hypomagnesemia Status: Acute (5) Alcohol withdrawal ICD Code: F10.239 - Alcohol dependence with withdrawal, unspecified Status: Acute (6) LFT elevation ICD Code: R79.89 - LFT elevation Status: Acute (7) DTs (delirium tremens) ICD Code: F10.231 - Alcohol dependence with withdrawal delirium Status: Acute (8) Chronic hyponatremia ICD Code: E87.1 - Hypo-osmolality and hyponatremia Status: Acute Assessment and Plan NEURO: Alcohol dependence Alcohol withdrawal Librium 25 mg p.o. every 6 hours. Ativan 2 mg IV every 2 hourly 4 doses ordered on 01/26. Ativan as needed per CIWA protocol Precedex as needed. Added Seroquel 50 mg p.o. q. 12 hourly on 01/26 Vitamin supplementation with thiamine/multivitamin/folic acid. RESP: Secondhand smoke exposure Nasal cannula O2. Bronchodilators as needed. She states has been is no longer smoking in the home CV: Sinus tachycardia due to alcohol withdrawal IVF as per below GI: Transaminitis Follow-up labs for discriminate function. Clear liquid diet Viral hepatitis panel Liver ultrasound FEN/RENAL: Hypokalemia Hypomagnesemia Acute dehydration Hyponatremia Received 1 L normal saline bolus in the emergency department. We will continue to 0.9 NaCl with 20 mg of KCl per liter at 100 milliliters per hour. Has received magnesium 2 g IV. Monitor and replete electrolytes. ID: Afebrile. No leukocytosis. Monitor for signs and symptoms of infection HEME: Monitor CBC. Follow-up coags. ENDO: Stress hyperglycemia. Follow glucose q8 and initiate low-dose insulin sliding scale as indicated. PROPH: SCDs for DVT prophylaxis. Will initiate pharmacologic DVT prophylaxis depending on results of coags. Famotidine for stress ulcer prophylaxis. ACCESS: Peripheral IV providing adequate access at this time. Full code Problem Qualifiers (1) Alcohol withdrawal: Qualified Codes: F10.231 - Alcohol dependence with withdrawal delirium William Chauhan MD January 26, 2018 16:19
[2018-01-26] MEDS ORDERED: FUROSEMIDE 40 MG/4 ML VIAL IV PUSH ONE (16:30)
--- NOTE | 2018-01-26 21:21 | MB ---
cc: Ahsan Ayala MD, V J MD DATE: 01/26/2018 REASON FOR CONSULTATION: Respiratory failure and encephalopathy. HISTORY OF PRESENT ILLNESS: This is a 47-year-old white female who has had a past history of ethanolism who was brought to the emergency room for possible delirium tremens. The patient apparently has been drinking 1.5 liters of vodka every 2-3 days and apparently stopped drinking 3 days ago and has been tremulous, hallucinating and shaky and also somewhat short of breath and nauseated. She vomited dark fluid upon admission to the ER and she was given fluid boluses in the ER for dehydration. She also received some Ativan and was transferred to the intensive care unit on a nasal cannula at 4 liters. Initial blood gases demonstrated pH of 7.4, pCO2 of 23 with a pO2 of 75 on a nasal cannula at 4 liters. The patient has been poorly responsive and nonverbal and no history can be obtained from her. PAST MEDICAL HISTORY: Includes a history of ethanolism with probable liver disease, history of pelvic inflammatory disease, history of C second and history of breast lumpectomy. HABITS: The patient does not smoke. Alcohol use regular as mentioned above. She is exposed to secondhand smoke from her . FAMILY HISTORY: History of ethanolism in her father. REVIEW OF SYSTEMS: Unable to obtain. ALLERGIES: NONE LISTED. PHYSICAL EXAMINATION: GENERAL: This is a moderately obese, middle-aged, white female who is poorly responsive and pale. VITAL SIGNS: Blood pressure is 148/60, pulse is 105, respirations is 22, temperature 98.2. HEENT: Head is normocephalic. Pupils reactive. Sclerae were clear. Throat has no inflammation. Tongue was dry. Nasal mucosa was clear. NECK: Supple. No venous distention. No thyromegaly or lymphadenopathy. CHEST: Equal movements with wheezes scattered bilaterally, prolonged expirations. There are no crackles. HEART: Sounds are regular, S1 and S2. No murmur. ABDOMEN: Soft, obese without masses. No organomegaly or tenderness. EXTREMITIES: No edema. Peripheral pulses are well felt. NEUROLOGIC: Reflexes are 1+. Babinski negative. The patient is lethargic from Ativan and no further neuro exam could be done. SKIN: Dry and cool. ASSESSMENT: 1. Bilateral pneumonia with probable aspiration. 2. Respiratory failure. 3. Ethanolism. 4. Normal liver functions. 5. Delirium tremens. 6. Hyponatremia. 7. Encephalopathy. PLAN: The patient will be placed on oxygen at 4 liters. A blood gas study will be repeated in the morning. We will hold off on tranquilizers unless she is very restless. Continue with IV hydration and nebulized. DuoNeb solution was added q.i.d. She will also be placed on antibiotic coverage including Cefepime 2 gram every 8 hours and Zithromax 500 mg IV daily and Precedex drip as ordered. A followup chest x-ray to be done in the morning. Cultures from sputum and blood to be obtained when possible and continue with thiamine as ordered. Continue Librium 25 mg every 6 hours. Thank you, Dr. Chauhan, for this consultation. V. Darcie Ayala MD VJD/ , 08:28 PM , 09:19 PM
[2018-01-27] VITALS (51 sets, daily range): BP systolic 100–155; BP diastolic 53–113; PULSE 90–122; RESP 15–67; TEMP 97.5–98.7; O2SAT 88–98
[2018-01-27] MEDS: DEXMEDETOMIDINE INJ 200 MCG in SODIUM CHLORIDE 0.9% INJ 50 ML IV PRN ×3 (02:43→11:35)
[2018-01-27] MEDS: CHLORHEXIDINE GLUCONATE 2 % 1 PACK (2 CLOTHS) TOP SCH (04:00)
[2018-01-27 04:50] LABS: AUTOMATED NEUTROPHIL # 9.7 TH/MM3 (1.8-7.7); BASOPHIL % 0.3 % (0.0-2.0); EOSINOPHIL % 0.1 % (0.0-4.0); HEMATOCRIT 35.8 % (35.0-46.0); HEMOGLOBIN 11.8 GM/DL (11.6-15.3); LYMPH % 12.6 % (9.0-44.0); LYMPHOCYTE # 1.5 TH/MM3 (1.0-4.8); MEAN CELL VOLUME 94.9 FL (80.0-100.0); MEAN CORPUSCULAR HEMOGLOBIN 31.1 PG (27.0-34.0); MEAN CORPUSCULAR HGB CONC 32.8 % (32.0-36.0); MEAN PLATELET VOLUME 9.1 FL (7.0-11.0); MONO % 5.1 % (0.0-8.0); MONOCYTE # 0.6 TH/MM3 (0-0.9); NEUT % 81.9 % (16.0-70.0); PLATELET COUNT 279 TH/MM3 (150-450); RED BLOOD COUNT 3.78 MIL/MM3 (4.00-5.30); RED CELL DISTRIBUTION WIDTH 17.2 % (11.6-17.2); WHITE BLOOD COUNT 11.8 TH/MM3 (4.0-11.0)
[2018-01-27] MEDS: LORazepam 2 MG/ML VIAL IV PUSH PRN ×4 (05:03→14:57)
[2018-01-27] MEDS: CEFEPIME INJ 2,000 MG in SODIUM CHLORIDE 0.9% INJ 100 ML IV SCH ×3 (05:03→22:37)
[2018-01-27] MEDS: chlordiazePOXIDE 25 MG CAP PO SCH ×5 (05:04→22:47)
[2018-01-27 05:06] LABS: CHLORIDE 112 MEQ/L (98-107); SODIUM (NA) 146 MEQ/L (136-145)
[2018-01-27 05:09] LABS: CALCIUM 7.5 MG/DL (8.5-10.1)
[2018-01-27 05:10] LABS: ALBUMIN 2.1 GM/DL (3.4-5.0); BICARBONATE 20.4 MEQ/L (21.0-32.0); BLOOD UREA NITROGEN 12 MG/DL (7-18); GLUCOSE,RANDOM 128 MG/DL (74-106)
[2018-01-27 05:13] LABS: ALT (GPT) 37 U/L (10-53); AST (GOT) 110 U/L (15-37); CREATININE 0.44 MG/DL (0.50-1.00); GLOMERULAR FILTRATION RATE 152 ML/MIN (>89)
[2018-01-27 05:14] LABS: TOTAL BILIRUBIN ADULT 1.7 MG/DL (0.2-1.0); TOTAL PROTEIN 7.2 GM/DL (6.4-8.2)
[2018-01-27 05:16] LABS: ALKALINE PHOSPHATASE 156 U/L (45-117)
[2018-01-27] MEDS: RESP: ALBUTEROL 2.5 MG/IPRATROPIUM 0.5 MG NEB (SCH) NEB ×4 (07:18→19:34)
[2018-01-27] MEDS ORDERED: FUROSEMIDE 40 MG/4 ML VIAL IV PUSH ONE (07:45)
[2018-01-27] MEDS: FAMOTIDINE 20 MG/2 ML VIAL IV PUSH SCH ×2 (08:45→20:56)
[2018-01-27] MEDS: SODIUM CHLORIDE 0.9% FLUSH 10 ML FLUSH IV FLUSH SCH ×2 (08:45→20:56)
[2018-01-27] MEDS: DOCUSATE SODIUM 50 MG/SENNA 8.6 MG TAB PO SCH ×2 (08:45→20:57)
[2018-01-27] MEDS: QUEtiapine FUMARATE 25 MG TAB PO SCH ×2 (08:45→20:57)
--- NOTE | 2018-01-27 10:54 | ECHRPT ---
Indication: ASSESS LV FUNC, ETOH ABUSE CONCLUSIONS Mildly dilated left ventricle. Wall thickness is normal. The left ventricular systolic function is severely reduced with an estimated ejection fraction in th e range of 20-25%. There is diffuse global hypokinesis with distinct regional wall motion abnormalities. The left atrial size is mildly dilated. No atrial level shunt is demonstrated by color flow Doppler interrogation. Yeyw-aa-kqtkolhx mitral valve regurgitation. Aortic valve sclerosis is present. Mild aortic valve regurgitation. There is mild tricuspid valve regurgitation. The estimated pulmonary arterial pressure is 51 mmHg. BP: 155 / 101 HR: 122 Rhythm: Sinus MEASUREMENTS (Male / Female) Normal Values Technical Quality:Fair 2D ECHO LV Diastolic Diameter PLAX 5.5 cm 4.2 - 5.9 / 3.9 - 5.3 cm LV Systolic Diameter PLAX 5.0 cm IVS Diastolic Thickness 0.8 cm 0.6 - 1.0 / 0.6 - 0.9 cm LVPW Diastolic Thickness 0.8 cm 0.6 - 1.0 / 0.6 - 0.9 cm LV Relative Wall Thickness 0.3 RV Internal Dim ED PLAX 2.0 cm LVOT Diameter 1.9 cm Aortic Root Diameter 2.9 cm LA Systolic Diameter LX 3.5 cm 3.0 - 4.0 / 2.7 - 3.8 cm M-MODE AV Cusp Separation MM 2.0 cm DOPPLER AV Peak Velocity 130.0 cm/s AV Peak Gradient 6.8 mmHg AV Mean Gradient 4.0 mmHg AV Velocity Time Integral 22.1 cm AI Peak Velocity 441.0 cm/s AI Peak Gradient 77.8 mmHg AI Pressure Half Time 441.0 ms LVOT Peak Velocity 82.7 cm/s LVOT Peak Gradient 2.7 mmHg LVOT Velocity Time Integral 13.5 cm AV Area Cont Eq vti 1.7 cm AV Area Cont Eq pk 1.8 cm Mitral E Point Velocity 110.0 cm/s Mitral A Point Velocity 26.7 cm/s Mitral E to A Ratio 4.1 LV E' Septal Velocity 10.4 cm/s Mitral E to LV E' Septal Ratio 10.6 TR Peak Velocity 320.0 cm/s TR Peak Gradient 41.0 mmHg Right Atrial Pressure 10.0 mmHg Pulmonary Artery Systolic Pressu 51.0 mmHg Right Ventricular Systolic Press 51.0 mmHg PV Peak Velocity 39.9 cm/s PV Peak Gradient 0.6 mmHg FINDINGS LEFT VENTRICLE Mildly dilated left ventricle. Wall thickness is normal. The left ventricular systolic function is severely reduced with an estimated ejection fraction in th e range of 20-25%. There is diffuse global hypokinesis with distinct regional wall motion abnormalities. RIGHT VENTRICLE Normal right ventricular size and systolic function. LEFT ATRIUM The left atrial size is mildly dilated. RIGHT ATRIUM The right atrial size is normal. ATRIAL SEPTUM No atrial level shunt is demonstrated by color flow Doppler interrogation. AORTA The aortic root and proximal ascending aorta are normal in size on limited imaging. MITRAL VALVE [id number]-[id number] mitral valve regurgitation. AORTIC VALVE Aortic valve sclerosis is present. Mild aortic valve regurgitation. TRICUSPID VALVE There is mild tricuspid valve regurgitation. The estimated pulmonary arterial pressure is 51 mmHg. PULMONARY VALVE No pulmonary valve regurgitation or stenosis. VESSELS The inferior vena cava is normal in size. PERICARDIUM No pericardial effusion. Demar Carpio MD, FACC (Electronically Signed) Final Date:27 Jan 2018 10:53
[2018-01-27] MEDS: AZITHROMYCIN INJ 500 MG in SODIUM CHLOR 0.9% 250 ML INJ 250 ML IV SCH (14:19)
--- NOTE | 2018-01-27 16:47 | HHI.CCPN ---
Subjective Remarks/Hospital Course 01/24: 47-year-old female with past medical history of alcohol dependence who presents to [facility] emergency department due to concern for alcohol withdrawal. She states that she and her share a 1.5 L of vodka chased with rubia al every 2.5 days. She stopped drinking on Tuesday. She has been tremulous, has experienced some hallucinations and therefore her father brought her in. She states she intends to quit drinking indefinitely. She has been nauseous and vomited x1, nonbloody nonbilious. She denies headache or fall. CIWA was 20 upon presentation to the ED. She has received ativan 4 mg IV. She has also received 1 L normal saline bolus, Compazine 10 mg IV, magnesium 2 g IV. 01/25: Laying in bed on Precedex currently. Arouses easily. Knows she is at the intensive care unit at [facility]. Knew the month and year however was off on the date. 01/26: Continues to have episodes of hallucinations and delirium at night. On Precedex gtt. 01/27: Remains on Precedex gtt. On nasal cannula currently. Was more awake earlier and conversed with the family members per [employer]. She did diuresis with Lasix since yesterday. Her BNP is 3000. Awaiting 2D echo results. Patient has been started on antibiotics by pulmonary for suspicion of pneumonia. Objective Vital Signs Date Time Temp Pulse Resp B/P (MAP) Pulse Ox O2 Delivery O2 Flow Rate FiO2 01/27/18 16:03 96 Nasal Cannula 4.00 01/27/18 11:30 96 30 136/67 (90) 01/27/18 07:00 97.5 01/25/18 19:54 21 Intake and Output 01/27/18 01/27/18 01/28/18 08:00 16:00 00:00 Intake Total 0 ml Output Total 450 ml Balance -450 ml Result Diagram: 01/27/1843901/27/18439 Objective Remarks GENERAL: Overweight female who is laying in bed, drowsy though arousable, slightly tachypneic. SKIN: Warm and dry. There is some ecchymosis over her right tibia. HEAD: Atraumatic. Normocephalic. EYES: Pupils equal and round, 4 mm and reactive to 2 mm bilaterally.. No scleral icterus. No injection or drainage. ENT: No nasal bleeding or discharge. Mucous membranes dry NECK: Trachea midline. No JVD. CARDIOVASCULAR: Tachycardic, sinus tachycardia on the monitor with rate in the 120s. No murmurs rubs or gallops. RESPIRATORY: Mildly tachypneic but is breathing comfortably with no accessory muscle use. Clear to auscultation. Breath sounds equal bilaterally. GASTROINTESTINAL: Abdomen soft, non-tender, nondistended. Hepatic and splenic margins not palpable. Bowel sounds present. MUSCULOSKELETAL: Extremities without clubbing, cyanosis, or edema. No obvious deformities. NEUROLOGICAL: Drowsy, arousable easily, following commands, tremulous. 5 out of 5 strength in all extremities. She follows commands. Oriented to self, year , hospital. Normal speech A/P Problem List: (1) EtOH dependence ICD Code: F10.20 - EtOH dependence Status: Acute (2) Tachycardia ICD Code: R00.0 - Tachycardia Status: Acute (3) Hypokalemia ICD Code: E87.6 - Hypokalemia Status: Acute (4) Hypomagnesemia ICD Code: E83.42 - Hypomagnesemia Status: Acute (5) Alcohol withdrawal ICD Code: F10.239 - Alcohol dependence with withdrawal, unspecified Status: Acute (6) LFT elevation ICD Code: R79.89 - LFT elevation Status: Acute (7) DTs (delirium tremens) ICD Code: F10.231 - Alcohol dependence with withdrawal delirium Status: Acute (8) Chronic hyponatremia ICD Code: E87.1 - Hypo-osmolality and hyponatremia Status: Acute Assessment and Plan NEURO: Alcohol dependence Alcohol withdrawal Librium 25 mg p.o. every 6 hours. Ativan 2 mg IV every 2 hourly 4 doses ordered on 01/26. Ativan as needed per [facility] protocol Precedex as needed. Added Seroquel 50 mg p.o. q. 12 hourly on 01/26 Vitamin supplementation with thiamine/multivitamin/folic acid. RESP: Secondhand smoke exposure Nasal cannula O2. Bronchodilators as needed. She states has been is no longer smoking in the home CV: Sinus tachycardia due to alcohol withdrawal Suspected pulmonary edema Elevated BNP. Awaiting 2D echo. Diuresed with Lasix. IV fluids KVO GI: Transaminitis Clear liquid diet Viral hepatitis panel Liver ultrasound FEN/RENAL: Hypokalemia Hypomagnesemia Acute dehydration Hyponatremia Initially recieved IVF. KVO IVF. Diuresed with lasix. Has received magnesium 2 g IV. Monitor and replete electrolytes. ID: Started on empiric antibiotics by pulmonary for suspicion of pneumonia. Currently on cefepime and Zithromax. HEME: Monitor CBC. Follow-up coags. ENDO: Stress hyperglycemia. Follow glucose q8 and initiate low-dose insulin sliding scale as indicated. PROPH: SCDs for DVT prophylaxis. Will initiate pharmacologic DVT prophylaxis depending on results of coags. Famotidine for stress ulcer prophylaxis. ACCESS: Peripheral IV providing adequate access at this time. Full code Problem Qualifiers (1) Alcohol withdrawal: Qualified Codes: F10.231 - Alcohol dependence with withdrawal delirium William Chauhan MD January 27, 2018 16:47
[2018-01-27] MEDS: LISINOPRIL 5 MG TAB PO SCH (18:00)
[2018-01-27] MEDS ORDERED: MAGNESIUM SULFATE 1 GM PREMIX 100 ML IV ONE (18:00)
[2018-01-27] MEDS: FUROSEMIDE 40 MG/4 ML VIAL IV PUSH SCH (18:36)
[2018-01-27] MEDS: NS + KCL 20 MEQ INJ 1,000 ML IV SCH (19:15)
--- NOTE | 2018-01-27 19:21 | HHI.PR ---
Subjective Remarks More awake and talking and coherent. Output was good. O2 sat 96 on 3 L Objective Vital Signs Date Time Temp Pulse Resp B/P (MAP) Pulse Ox O2 Delivery O2 Flow Rate FiO2 01/27/18 19:00 96 32 120/63 (82) 94 01/27/18 18:30 96 29 121/72 (88) 97 01/27/18 18:00 100 48 115/66 (82) 96 01/27/18 17:30 102 34 119/74 (89) 95 01/27/18 17:00 102 30 119/80 (93) 98 01/27/18 16:30 106 46 119/64 (82) 96 01/27/18 16:30 106 01/27/18 16:03 96 Nasal Cannula 4.00 01/27/18 16:00 96 01/27/18 16:00 98.5 96 37 118/70 (86) 94 01/27/18 15:30 98 01/27/18 15:30 98 61 112/54 (73) 93 01/27/18 15:00 102 01/27/18 15:00 102 65 119/75 (90) 93 01/27/18 14:30 104 67 123/70 (87) 94 01/27/18 14:30 104 01/27/18 14:00 104 01/27/18 14:00 104 35 125/72 (89) 96 01/27/18 13:30 104 51 125/69 (87) 97 01/27/18 13:30 104 01/27/18 13:00 108 15 128/73 (91) 96 01/27/18 13:00 108 01/27/18 12:30 110 54 113/69 (84) 94 01/27/18 12:30 110 01/27/18 12:00 98.5 108 35 128/76 (93) 95 01/27/18 12:00 108 01/27/18 11:42 97 Nasal Cannula 6.00 01/27/18 11:30 96 01/27/18 11:30 96 30 136/67 (90) 95 01/27/18 11:00 98 42 123/85 (98) 96 01/27/18 11:00 98 01/27/18 10:30 98 01/27/18 10:30 98 40 132/78 (96) 93 5/25/18 10:00 98 5/25/18 10:00 98 33 130/80 (97) 97 525/18 09:30 100 5/25/18 09:30 100 35 135/80 (98) 95 5/18 09:00 102 5//18 09:00 102 34 135/78 (97) 93 18 08:34 104 18 08:34 104 50 134/66 (88) 96 18 08:30 106 18 08:30 106 46 121/113 (116) 94 18 08:00 108 52 139/75 (96) 97 18 08:00 108 01/27/18 07:30 104 42 131/85 (100) 93 01/27/18 07:22 90 Nasal Cannula 4.00 01/27/18 07:00 97.5 108 48 137/89 (105) 89 01/27/18 06:30 122 01/27/18 06:30 122 50 155/101 (119) 88 01/27/18 06:00 120 518 06:00 120 49 153/75 (101) 90 18 05:00 102 50 143/61 (88) 94 18 04:30 100 518 04:30 100 50 137/68 (91) 92 18 04:02 104 56 138/83 (101) 97 18 04:02 104 18 04:00 97.7 108 63 133/105 (114) 93 18 04:00 108 18 03:30 104 5/18 03:30 104 33 123/75 (91) 95 01/27/18 03:00 96 36 131/77 (95) 97 01/27/18 03:00 96 01/27/18 02:30 94 34 113/74 (87) 97 01/27/18 02:30 94 01/27/18 02:00 94 01/27/18 02:00 94 36 122/73 (89) 97 01/27/18 01:30 96 35 121/67 (85) 97 01/27/18 01:30 96 5/18 01:00 96 34 117/73 (88) 97 525/18 00:30 96 39 122/71 (88) 97 01/27/18 00:00 96 01/27/18 00:00 98.0 96 39 117/68 (84) 98 01/26/18 23:30 98 01/26/18 23:30 98 48 116/67 (83) 97 01/26/18 23:00 100 01/26/18 23:00 100 41 117/65 (82) 95 01/26/18 22:00 106 50 116/65 (82) 98 01/26/18 22:00 106 01/26/18 21:30 108 36 115/62 (79) 98 01/26/18 21:00 114 51 111/60 (77) 96 01/26/18 21:00 114 01/26/18 20:30 118 45 110/64 (79) 97 01/26/18 20:00 110 01/26/18 20:00 110 50 110/69 (83) 95 01/26/18 19:50 96 Nasal Cannula 4.00 01/26/18 19:49 118 83 128/71 (90) 92 01/26/18 19:30 148 41 96 I/O 01/26/18 01/26/18 01/26/18 01/27/18 01/27/18 01/27/18 07:00 15:00 23:00 07:00 15:00 23:00 Intake Total 1360 ml 200 ml 450 ml 0 ml 502 ml Output Total 300 ml 450 ml 1320 ml Balance 1060 ml 200 ml 450 ml -450 ml -818 ml Intake Oral 120 ml 0 ml 0 ml 252 ml IV Total 1240 ml 200 ml 450 ml 250 ml Output Urine Total 300 ml 450 ml 1320 ml # Voids 2 4 2 # Bowel Movements 3 1 3 1 Result Diagram: 01/27/18 0440 01/27/18 0440 Objective Remarks GENERAL: This is a moderately obese, middle-aged, white female who is responsive and answers . HEENT: Head is normocephalic. Pupils reactive. Sclerae were clear. Throat has no inflammation. Tongue was dry. Nasal mucosa was clear. NECK: Supple. No venous distention. No thyromegaly or lymphadenopathy. CHEST: Equal movements with wheezes scattered bilaterally, prolonged expirations. Occ crackles. HEART: Sounds are regular, S1 and S2. No murmur. ABDOMEN: Soft, obese without masses. No organomegaly or tenderness. EXTREMITIES: No edema. Peripheral pulses are well felt. NEUROLOGIC: Reflexes are 1+. Babinski negative. The patient is responding appropriately. SKIN: Dry and cool. Assessment and Plan Assessment and Plan ASSESSMENT: 1. Bilateral pneumonia with probable aspiration. 2. Respiratory failure. 3. Ethanolism. 4. Normal liver functions. 5. Delirium tremens. 6. Hyponatremia. 7. Encephalopathy. Plan : 1. Wean sedation. 2. O2 2 L N/C . 3. Continue Ativan/ Librium PRN 4. PO diet as tolerated 5. Nebs qid PRN 6. Thiamine 100 mg daily 7. CXR ,BMP in am. Ahsan Ayala MD January 27, 2018 19:21
[2018-01-27] MEDS: CARVEDILOL 3.125 MG TAB PO SCH (20:56)
[2018-01-27] MEDS: POTASSIUM CHLORIDE 20 MEQ CONTROLLED RELEASE TAB PO SCH (20:57)
[2018-01-28] VITALS (19 sets, daily range): BP systolic 112–150; BP diastolic 71–89; PULSE 76–124; RESP 22–40; TEMP 97.7–100.9; O2SAT 95–99
[2018-01-28] MEDS: DEXMEDETOMIDINE INJ 200 MCG in SODIUM CHLORIDE 0.9% INJ 50 ML IV PRN ×2 (01:09→09:41)
[2018-01-28] MEDS: CHLORHEXIDINE GLUCONATE 2 % 1 PACK (2 CLOTHS) TOP SCH (03:53)
[2018-01-28 04:13] LABS: AUTOMATED NEUTROPHIL # 5.8 TH/MM3 (1.8-7.7); BASOPHIL % 0.4 % (0.0-2.0); EOSINOPHIL % 0.1 % (0.0-4.0); HEMATOCRIT 35.1 % (35.0-46.0); HEMOGLOBIN 11.6 GM/DL (11.6-15.3); LYMPH % 17.5 % (9.0-44.0); LYMPHOCYTE # 1.4 TH/MM3 (1.0-4.8); MEAN CORPUSCULAR HEMOGLOBIN 31.5 PG (27.0-34.0); MEAN CORPUSCULAR HGB CONC 33.2 % (32.0-36.0); MEAN PLATELET VOLUME 9.5 FL (7.0-11.0); MONO % 9.6 % (0.0-8.0); MONOCYTE # 0.8 TH/MM3 (0-0.9); NEUT % 72.4 % (16.0-70.0); PLATELET COUNT 301 TH/MM3 (150-450); RED BLOOD COUNT 3.69 MIL/MM3 (4.00-5.30)
--- NOTE | 2018-01-28 04:44 | RADRPT ---
EXAM DATE: 01/28/2018 4:39 AM EDT AGE/SEX: 47 years / Female INDICATIONS: Shortness of breath, possible pulmonary disease. CLINICAL DATA: This is the patient's subsequent encounter. Patient reports that signs and symptoms h ave been present for 4 - 6 days and indicates a pain score of Nonresponsive. MEDICAL/SURGICAL HISTORY: . ETOH Abuse . Lumpectomy COMPARISON: [facility]PO, CHEST SINGLE AP, 01/26/2018. . FINDINGS: Parenchymal consolidation at the base and a small pleural effusion seen on the right, worse. No pneum othorax. Heart size stable, within normal limits. CONCLUSION: Worsening consolidation and pleural effusion on the right. Electronically signed by: Stone Bonilla MD 01/28/2018 4:43 AM EDT
[2018-01-28 04:56] LABS: ALBUMIN 1.8 GM/DL (3.4-5.0); BICARBONATE 25.8 MEQ/L (21.0-32.0); CALCIUM 7.4 MG/DL (8.5-10.1); CREATININE 0.46 MG/DL (0.50-1.00); MAGNESIUM 1.4 MG/DL (1.5-2.5)
[2018-01-28 05:02] LABS: CALCIUM-PROTEIN CORRECTED 7.6 MG/DL (8.5-10.1); TOTAL BILIRUBIN ADULT 1.6 MG/DL (0.2-1.0); TOTAL PROTEIN 6.8 GM/DL (6.4-8.2)
[2018-01-28] MEDS: chlordiazePOXIDE 25 MG CAP PO SCH ×4 (06:36→18:21)
[2018-01-28] MEDS: CEFEPIME INJ 2,000 MG in SODIUM CHLORIDE 0.9% INJ 100 ML IV SCH ×3 (06:37→22:48)
[2018-01-28] MEDS: MAGNESIUM SULFATE 1 GM PREMIX 100 ML IV SCH ×2 (07:00→08:41)
[2018-01-28] MEDS ORDERED: POTASSIUM CHLORIDE 20 MEQ CONTROLLED RELEASE TAB PO ONE (08:00)
[2018-01-28] MEDS: RESP: ALBUTEROL 2.5 MG/IPRATROPIUM 0.5 MG NEB (SCH) NEB ×4 (08:02→21:21)
[2018-01-28] MEDS: LORazepam 2 MG/ML VIAL IV PUSH PRN ×2 (08:14→09:35)
[2018-01-28] MEDS: FUROSEMIDE 40 MG/4 ML VIAL IV PUSH SCH ×2 (08:14→18:21)
[2018-01-28] MEDS: POTASSIUM CHLORIDE 20 MEQ CONTROLLED RELEASE TAB PO SCH ×2 (08:14→20:56)
[2018-01-28] MEDS: FAMOTIDINE 20 MG/2 ML VIAL IV PUSH SCH ×2 (08:14→20:56)
[2018-01-28] MEDS: THIAMINE HCL 100 MG TAB PO SCH (08:15)
[2018-01-28] MEDS: CARVEDILOL 3.125 MG TAB PO SCH ×2 (08:15→20:56)
[2018-01-28] MEDS: LISINOPRIL 5 MG TAB PO SCH (08:15)
[2018-01-28] MEDS: SODIUM CHLORIDE 0.9% FLUSH 10 ML FLUSH IV FLUSH SCH ×2 (08:15→20:56)
[2018-01-28] MEDS: DOCUSATE SODIUM 50 MG/SENNA 8.6 MG TAB PO SCH ×2 (08:41→20:56)
[2018-01-28] MEDS: QUEtiapine FUMARATE 25 MG TAB PO SCH ×2 (09:00→20:56)
--- NOTE | 2018-01-28 09:01 | PD.CONS ---
HPI Service cardiology Consult Requested By Reason for Consult cardiomyopathy Primary Care Physician No Primary Care Physician History of Present Illness 47 yo F with no known cardiac history and alcohol dependence presented to ED 4 days ago in alcohol withdrawal. She apparently had been drinking 1.5L liquor every 2-3 days with her last drink 5-6 days ago. She has developed respiratory distress, encephalopathy and pneumonia. She is currently obtunded and tachypneic on 5L O2 via nasal cannula. Her father is at the bedside. Echocardiogram shows severely reduced EF 20-25% with elevated pulmonary arterial pressure 51mmHg and mild-moderate mitral regurgitation. (Angelika Reeves) Review of Systems patient is delirious and unable to respond to questioning (Angelika Reeves) Past Family Social History Allergies: Coded Allergies: No Known Allergies (Unverified , 05/08/15) Past Medical History Alcohol dependence She states she She had IUD removed ~ 10 months ago due to PID Past Surgical History section Lumpectomy 2 Reported Medications Reported Meds & Active Scripts Active No Active Prescriptions or Reported Medications Active Ordered Medications Current Medications Medications (Trade) Dose Ordered Sig/Sarah Route Start Time Stop Time Status Last Admin (NS Flush) 2 ml UNSCH PRN IV FLUSH 01/24/18 05:45 01/26/18 02:30 (NS Flush) 2 ml BID IV FLUSH 01/24/18 09:00 01/28/18 08:15 (Tylenol) 650 mg Q6H PRN PO 01/24/18 05:45 (Pepcid Inj) 20 mg Q12HR IV PUSH 01/24/18 09:00 01/28/18 08:14 (Zofran Odt) 4 mg Q6H PRN PO 01/24/18 06:00 (Restoril) 15 mg HS PRN PO 01/24/18 05:45 (Duoneb Neb) 1 ampule Q2HR NEB PRN INH 01/24/18 05:45 01/26/18 08:07 ([facility] Nursing Information) 1 Q361D XX 01/24/18 05:45 01/24/18 20:30 (Chlorhexidine 2% Cloth) 3 pack Taper DAILY@04 TOP 01/25/18 04:00 01/21/19 03:59 01/28/18 03:53 (Chlorhexidine 2% Cloth) 3 pack UNSCH PRN TOP 01/24/18 05:45 (Bouchra-Colace) 1 tab BID PO 01/24/18 09:00 01/28/18 08:41 (Milk Of Magnesia Liq) 30 ml Q12H PRN PO 01/24/18 05:45 (Senokot) 17.2 mg Q12H PRN PO 01/24/18 05:45 (Dulcolax Supp) 10 mg DAILY PRN RECTAL 01/24/18 05:45 (Lactulose Liq) 30 ml DAILY PRN PO 01/24/18 05:45 Potassium Chloride 100 ml @ 50 mls/hr Q2H PRN IV 01/24/18 06:00 Potassium Chloride 100 ml @ 50 mls/hr Q2H PRN IV 01/24/18 06:00 (K-Lyte Cl Eff) 50 meq UNSCH PRN PO 01/24/18 06:00 Potassium Chloride 100 ml @ 25 mls/hr UNSCH PRN IV 01/24/18 06:00 Potassium Chloride 100 ml @ 50 mls/hr Q2H PRN IV 01/24/18 06:00 01/26/18 10:44 Magnesium Sulfate 4 gm/Sodium Chloride 100 ml @ 50 mls/hr UNSCH PRN IV 01/24/18 06:00 (Mag-Ox) 800 mg UNSCH PRN PO 01/24/18 06:00 Magnesium Sulfate 2 gm/Sodium Chloride 100 ml @ 50 mls/hr UNSCH PRN IV 01/24/18 06:00 01/25/18 00:41 (K-Phos) 2,000 mg Q4H PRN PO 01/24/18 06:00 Sodium Phosphate 30 mmol/Sodium Chloride 250 ml @ 42 mls/hr UNSCH PRN IV 01/24/18 06:00 (K-Phos) 2,000 mg UNSCH PRN PO/TUBE 01/24/18 06:00 Potassium Phosphate 30 mmol/ Sodium Chloride 260 ml @ 42 mls/hr UNSCH PRN IV 01/24/18 06:00 01/25/18 00:41 (Romazicon Inj) 0.2 mg Q1M PRN IV PUSH 01/24/18 06:00 (Ativan) 1 mg Q4H PRN PO 01/24/18 06:00 (Ativan Inj) 1 mg Q4H PRN IV PUSH 01/24/18 06:00 01/25/18 16:24 (Ativan) 2 mg Q2H PRN PO 01/24/18 06:00 (Ativan Inj) 2 mg Q2H PRN IV PUSH 01/24/18 06:00 01/27/18 14:13 (Ativan Inj) 2 mg Q1H PRN IV PUSH 01/24/18 06:00 01/28/18 08:14 (Ativan Inj) 2 mg Q15M PRN IV PUSH 01/24/18 06:00 01/27/18 14:57 (Librium) 25 mg Q6HR PO 01/24/18 07:00 01/28/18 06:36 Dexmedetomidine HCl 200 mcg/ Sodium Chloride 52 ml @ 3.48 mls/hr TITRATE PRN IV 01/24/18 07:00 01/28/18 01:09 Potassium Chloride/Sodium Chloride 1,000 ml @ 20 mls/hr Q24H IV 01/24/18 07:15 01/26/18 16:02 (SEROquel) 50 mg BID PO 01/26/18 09:00 01/27/18 20:57 Cefepime HCl 2000 mg/Sodium Chloride 100 ml @ 200 mls/hr Q8HR IV 01/26/18 14:00 01/28/18 06:37 Azithromycin 500 mg/Sodium Chloride 250 ml @ 250 mls/hr Q24H IV 01/26/18 15:00 01/27/18 14:19 (Duoneb Neb) 1 ampule QID NEB NEB 01/26/18 16:00 01/28/18 08:02 (Lasix Inj) 40 mg BID@09,18 IV PUSH 01/27/18 18:00 01/28/18 08:14 (Prinivil) 5 mg DAILY PO 01/27/18 18:00 01/28/18 08:15 (Coreg) 3.125 mg Q12HR PO 01/27/18 21:00 01/28/18 08:15 (KCl) 20 meq Q12HR PO 01/27/18 21:00 01/28/18 08:14 (Vitamin B1) 100 mg DAILY PO 01/28/18 09:00 01/28/18 08:15 Magnesium Sulfate/ Dextrose 100 ml @ 100 mls/hr Q1H IV 01/28/18 07:00 01/28/18 08:59 01/28/18 08:41 Family History Father had alcoholism. Social History Lifetime non-smoker. Her smokes heavily She and her shares sips out of a 1.5 L of vodka and go through that every 2-1/2 days. She used to work as a manager restaurant. She has been out of work for 3 weeks because she states it is too stressful type of work and she does not want to do it anymore. (Angelika Reeves) Physical Exam Vital Signs Vital Signs Date Time Temp Pulse Resp B/P (MAP) Pulse Ox O2 Delivery O2 Flow Rate FiO2 01/28/18 08:02 97 Nasal Cannula 5.00 01/28/18 04:00 79 01/28/18 03:00 97.7 97 40 126/89 (101) 98 01/28/18 00:00 98.5 94 32 118/78 (91) 99 01/28/18 00:00 92 01/27/18 23:00 90 29 105/53 (70) 97 01/27/18 22:30 92 29 107/63 (78) 97 01/27/18 22:00 94 31 100/54 (69) 96 01/27/18 22:00 91 01/27/18 21:30 98 40 109/57 (74) 97 01/27/18 21:00 102 41 112/62 (79) 97 01/27/18 20:15 108 01/27/18 20:00 98.7 110 38 115/65 (82) 96 01/27/18 19:34 97 Nasal Cannula 4.00 01/27/18 19:00 96 01/27/18 19:00 96 32 120/63 (82) 94 01/27/18 18:30 96 29 121/72 (88) 97 01/27/18 18:30 96 01/27/18 18:00 100 01/27/18 18:00 100 48 115/66 (82) 96 01/27/18 17:30 102 34 119/74 (89) 95 01/27/18 17:00 102 30 119/80 (93) 98 01/27/18 16:30 106 46 119/64 (82) 96 01/27/18 16:30 106 01/27/18 16:03 96 Nasal Cannula 4.00 01/27/18 16:00 96 01/27/18 16:00 98.5 96 37 118/70 (86) 94 01/27/18 15:30 98 01/27/18 15:30 98 61 112/54 (73) 93 01/27/18 15:00 102 01/27/18 15:00 102 65 119/75 (90) 93 01/27/18 14:30 104 67 123/70 (87) 94 01/27/18 14:30 104 01/27/18 14:00 104 01/27/18 14:00 104 35 125/72 (89) 96 01/27/18 13:30 104 51 125/69 (87) 97 01/27/18 13:30 104 01/27/18 13:00 108 15 128/73 (91) 96 01/27/18 13:00 108 01/27/18 12:30 110 54 113/69 (84) 94 01/27/18 12:30 110 01/27/18 12:00 98.5 108 35 128/76 (93) 95 01/27/18 12:00 108 01/27/18 11:42 97 Nasal Cannula 6.00 01/27/18 11:30 96 01/27/18 11:30 96 30 136/67 (90) 95 01/27/18 11:00 98 42 123/85 (98) 96 01/27/18 11:00 98 01/27/18 10:30 98 01/27/18 10:30 98 40 132/78 (96) 93 01/27/18 10:00 98 01/27/18 10:00 98 33 130/80 (97) 97 01/27/18 09:30 100 01/27/18 09:30 100 35 135/80 (98) 95 01/27/18 09:00 102 01/27/18 09:00 102 34 135/78 (97) 93 Physical Exam GENERAL: SKIN: Warm and dry. HEAD: Atraumatic. Normocephalic. EYES: Pupils equal and round. No scleral icterus. No injection or drainage. ENT: No nasal bleeding or discharge. . NECK: Trachea midline. No JVD. CARDIOVASCULAR: Regular rate and rhythm. no murmurs RESPIRATORY: No accessory muscle use. Clear to auscultation. Breath sounds equal bilaterally. GASTROINTESTINAL: Abdomen soft, non-tender, nondistended. Hepatic and splenic margins not palpable. MUSCULOSKELETAL: Extremities without clubbing, cyanosis, or edema. No obvious deformities. NEUROLOGICAL: obtunded and tachypneic Laboratory Laboratory Tests Test 01/28/18 03:33 White Blood Count 8.0 Red Blood Count 3.69 Hemoglobin 11.6 Hematocrit 35.1 Mean Corpuscular Volume 95.0 Mean Corpuscular Hemoglobin 31.5 Mean Corpuscular Hemoglobin Concent 33.2 Red Cell Distribution Width 18.0 Platelet Count 301 Mean Platelet Volume 9.5 Neutrophils (%) (Auto) 72.4 Lymphocytes (%) (Auto) 17.5 Monocytes (%) (Auto) 9.6 Eosinophils (%) (Auto) 0.1 Basophils (%) (Auto) 0.4 Neutrophils # (Auto) 5.8 Lymphocytes # (Auto) 1.4 Monocytes # (Auto) 0.8 Eosinophils # (Auto) 0.0 Basophils # (Auto) 0.0 CBC Comment DIFF FINAL Differential Comment Blood Urea Nitrogen 12 Creatinine 0.46 Random Glucose 99 Total Protein 6.8 Albumin 1.8 Calcium Level 7.4 Magnesium Level 1.4 Alkaline Phosphatase 144 Aspartate Amino Transf (AST/SGOT) 75 Alanine Aminotransferase (ALT/SGPT) 31 Total Bilirubin 1.6 Sodium Level 147 Potassium Level 3.1 Chloride Level 111 Carbon Dioxide Level 25.8 Anion Gap 10 Estimat Glomerular Filtration Rate 144 Protein Corrected Calcium 7.6 B-Type Natriuretic Peptide 2241 (Angelika Reeves) Result Diagram: 01/28/18 0333 01/28/18 0333 Imaging Last 48 hours Impressions Chest X-Ray 01/28/18 0600 Signed Impressions: CONCLUSION: Worsening consolidation and pleural effusion on the right. Chest X-Ray 01/26/18 1018 Addendum Impressions: CONCLUSION: Bilateral airspace disease, mostly basilar with small effusions. Differential d iagnosis includes edema and infection. (Angelika Reeves) Assessment and Plan Problem List: (1) Cardiomyopathy ICD Codes: I42.9 - Cardiomyopathy, unspecified Assessment and Plan 47 yo F with no known cardiac history and alcohol dependence presented to ED 4 days ago in alcohol withdrawal. She apparently had been drinking 1.5L liquor every 2-3 days with her last drink 5-6 days ago. She has developed respiratory distress, encephalopathy and pneumonia. She is currently obtunded and tachypneic on 5L O2 via nasal cannula. Her father is at the bedside. Echocardiogram shows severely reduced EF 20-25% with elevated pulmonary arterial pressure 51mmHg and mild-moderate mitral regurgitation. cardiomyopathy- EF 20-25%, likely nonischemic due to alcohol abuse. will need ischemic workup when she clinically improves currently recovering from delirium tremens in ICU will require LifeVest consider increasing carvedilol dose, cont lisinopril (Angelika Reeves) Assessment and Plan ------ patient is actively withdrawing from Etoh with DTs, tachypnea, diaphoresis and confusion. Underlying CM EF 20-25%, likely nonischemic, however will need ischemia evaluation prior to discharge with Lexiscan stress test once she has recovered from Etoh withdrawal increase carvedilol to 6.25mg bid and Prinivil to 10mg daily LifeVest at time of d/c ASA 81mg daily and check lipid profile (Ramirez Quinteros DO) Problem Qualifiers (1) Cardiomyopathy: Qualified Codes: I42.9 - Cardiomyopathy, unspecified Angelika Reeves January 28, 2018 09:01 Ramirez Quinteros DO January 28, 2018 13:31
--- NOTE | 2018-01-28 11:42 | HHI.CCPN ---
Subjective Remarks/Hospital Course 01/24: 47-year-old female with past medical history of alcohol dependence who presents to [facility] emergency department due to concern for alcohol withdrawal. She states that she and her share a 1.5 L of vodka chased with rubia al every 2.5 days. She stopped drinking on Tuesday. She has been tremulous, has experienced some hallucinations and therefore her father brought her in. She states she intends to quit drinking indefinitely. She has been nauseous and vomited x1, nonbloody nonbilious. She denies headache or fall. CIWA was 20 upon presentation to the ED. She has received ativan 4 mg IV. She has also received 1 L normal saline bolus, Compazine 10 mg IV, magnesium 2 g IV. 01/25: Laying in bed on Precedex currently. Arouses easily. Knows she is at the intensive care unit at [facility]. Knew the month and year however was off on the date. 01/26: Continues to have episodes of hallucinations and delirium at night. On Precedex gtt. 01/27: Remains on Precedex gtt. On nasal cannula currently. Was more awake earlier and conversed with the family members per ENVIRONMENTAL SERVICES TECH. She did diuresis with Lasix since yesterday. Her BNP is 3000. Awaiting 2D echo results. Patient has been started on antibiotics by pulmonary for suspicion of pneumonia. 01/28: Transferred to [facility] by cardiology for possible cardiac cath. On nasal cannula. Objective Vital Signs Date Time Temp Pulse Resp B/P (MAP) Pulse Ox O2 Delivery O2 Flow Rate FiO2 01/28/18 08:02 97 Nasal Cannula 5.00 01/28/18 04:00 79 01/28/18 03:00 97.7 40 126/89 (101) 01/25/18 19:54 21 Intake and Output 01/28/18 01/28/18 01/29/18 08:00 16:00 00:00 Intake Total 457 ml 150 ml Output Total 250 ml Balance 207 ml 150 ml Result Diagram: 01/28/18 0333 01/28/18 0333 Objective Remarks GENERAL: Overweight female who is laying in bed, drowsy though arousable, slightly tachypneic. SKIN: Warm and dry. There is some ecchymosis over her right tibia. HEAD: Atraumatic. Normocephalic. EYES: Pupils equal and round, 4 mm and reactive to 2 mm bilaterally.. No scleral icterus. No injection or drainage. ENT: No nasal bleeding or discharge. Mucous membranes dry NECK: Trachea midline. No JVD. CARDIOVASCULAR: Tachycardic, sinus tachycardia on the monitor with rate in the 120s. No murmurs rubs or gallops. RESPIRATORY: Mildly tachypneic but is breathing comfortably with no accessory muscle use. Clear to auscultation. Breath sounds equal bilaterally. GASTROINTESTINAL: Abdomen soft, non-tender, nondistended. Hepatic and splenic margins not palpable. Bowel sounds present. MUSCULOSKELETAL: Extremities without clubbing, cyanosis, or edema. No obvious deformities. NEUROLOGICAL: Drowsy, arousable easily, following commands, tremulous. 5 out of 5 strength in all extremities. She follows commands. Oriented to self, year , hospital. Normal speech A/P Problem List: (1) EtOH dependence ICD Code: F10.20 - EtOH dependence Status: Acute (2) Tachycardia ICD Code: R00.0 - Tachycardia Status: Acute (3) Hypokalemia ICD Code: E87.6 - Hypokalemia Status: Acute (4) Hypomagnesemia ICD Code: E83.42 - Hypomagnesemia Status: Acute (5) Alcohol withdrawal ICD Code: F10.239 - Alcohol dependence with withdrawal, unspecified Status: Acute (6) LFT elevation ICD Code: R79.89 - LFT elevation Status: Acute (7) DTs (delirium tremens) ICD Code: F10.231 - Alcohol dependence with withdrawal delirium Status: Acute (8) Chronic hyponatremia ICD Code: E87.1 - Hypo-osmolality and hyponatremia Status: Acute Assessment and Plan NEURO: Alcohol dependence Alcohol withdrawal Librium 25 mg p.o. every 6 hours. Ativan 2 mg IV every 2 hourly 4 doses ordered on 01/26. Ativan as needed per [facility] protocol Precedex as needed. Added Seroquel 50 mg p.o. q. 12 hourly on 01/26 Vitamin supplementation with thiamine/multivitamin/folic acid. RESP: Secondhand smoke exposure Nasal cannula O2. Bronchodilators as needed. She states has been is no longer smoking in the home CV: Sinus tachycardia due to alcohol withdrawal Suspected pulmonary edema Cardiomyopathy with LVEF 20-25% Elevated BNP. 2D echo. Diuresed with Lasix. IV fluids KVO Started coreg, lisinopril. lasix. Further recs per cardiology-Dr. Carpio who is planning possible cath. GI: Transaminitis PO diet as tolerated Viral hepatitis panel Liver ultrasound FEN/RENAL: Hypokalemia Hypomagnesemia Acute dehydration Hyponatremia Initially recieved IVF. KVO IVF. Diuresed with lasix. Has received magnesium 2 g IV. Monitor and replete electrolytes. ID: Started on empiric antibiotics by pulmonary for suspicion of pneumonia. Currently on cefepime and Zithromax. HEME: Monitor CBC. Follow-up coags. ENDO: Stress hyperglycemia. Follow glucose q8 and initiate low-dose insulin sliding scale as indicated. PROPH: SCDs for DVT prophylaxis. Will initiate pharmacologic DVT prophylaxis depending on results of coags. Famotidine for stress ulcer prophylaxis. ACCESS: Peripheral IV providing adequate access at this time. Full code Problem Qualifiers (1) Alcohol withdrawal: Qualified Codes: F10.231 - Alcohol dependence with withdrawal delirium William Chauhan MD January 28, 2018 11:42
--- NOTE | 2018-01-28 13:33 | EKG ---
Date Performed: 01/27/2018 Time Performed: 17:09:00 PTAGE: 47 years EKG: SINUS TACHYARDAI PROMINENT PRECORDIAL VOLTAGE DIFFUSE NONPECIFIC ST-T WAVE CHANGE QT INTERV AL IS PROLONGED FOR RATE ABNORMAL ECG Compared to PREVIOUS TRACING , the T-wave changes anteriorly are much more prominent. Clinical correl ation is recommended. PREVIOUS TRACIN05/08/2015 23.55 DOCTOR: Clint Berman Interpretating Date/Time 01/28/2018 13:32:56
[2018-01-28] MEDS: AZITHROMYCIN INJ 500 MG in SODIUM CHLOR 0.9% 250 ML INJ 250 ML IV SCH (15:29)
--- NOTE | 2018-01-28 17:46 | HHI.PR ---
Subjective Remarks Lethargic today and breathing shallow. Cardiac W/U in progress. Chest Xray shows increased right lung infiltrate/effusion O2 sat 94 on 3 L Objective Vital Signs Date Time Temp Pulse Resp B/P (MAP) Pulse Ox O2 Delivery O2 Flow Rate FiO2 01/28/18 16:26 98 Nasal Cannula 3.00 01/28/18 16:00 99.1 90 32 112/77 (89) 96 01/28/18 15:00 91 01/28/18 14:00 77 01/28/18 13:00 76 01/28/18 12:22 99 Nasal Cannula 4.00 01/28/18 12:00 100.9 95 32 117/77 (90) 98 01/28/18 12:00 77 01/28/18 11:00 97 01/28/18 10:00 103 01/28/18 09:00 103 01/28/18 08:02 97 Nasal Cannula 5.00 01/28/18 08:00 124 01/28/18 08:00 98.8 124 23 150/82 (104) 96 01/28/18 08:00 98.8 124 28 150/82 (104) 96 01/28/18 04:00 79 01/28/18 03:00 97.7 97 40 126/89 (101) 98 01/28/18 00:00 98.5 94 32 118/78 (91) 99 01/28/18 00:00 92 01/27/18 23:00 90 29 105/53 (70) 97 01/27/18 22:30 92 29 107/63 (78) 97 01/27/18 22:00 94 31 100/54 (69) 96 01/27/18 22:00 91 01/27/18 21:30 98 40 109/57 (74) 97 01/27/18 21:00 102 41 112/62 (79) 97 01/27/18 20:15 108 01/27/18 20:00 98.7 110 38 115/65 (82) 96 01/27/18 19:34 97 Nasal Cannula 4.00 01/27/18 19:00 96 01/27/18 19:00 96 32 120/63 (82) 94 01/27/18 18:30 96 29 121/72 (88) 97 01/27/18 18:30 96 01/27/18 18:00 100 01/27/18 18:00 100 48 115/66 (82) 96 I/O 01/27/18 01/27/18 01/27/18 01/28/18 01/28/18 01/28/18 07:00 15:00 23:00 07:00 15:00 23:00 Intake Total 0 ml 602 ml 457 ml 250 ml Output Total 450 ml 2520 ml 250 ml Balance -450 ml -1918 ml 207 ml 250 ml Intake Oral 0 ml 252 ml 240 ml IV Total 350 ml 217 ml 250 ml Output Urine Total 450 ml 2520 ml 200 ml Stool Total 50 ml # Voids 2 # Bowel Movements 3 1 Result Diagram: 01/28/18 03301/28/18 033 Objective Remarks GENERAL: This is a moderately obese, middle-aged, white female who is lethargic. HEENT: Head is normocephalic. Pupils reactive. Sclerae were clear. Throat has no inflammation. Tongue was dry. Nasal mucosa was clear. NECK: Supple. No venous distention. No thyromegaly or lymphadenopathy. CHEST: Equal movements with wheezes scattered bilaterally, prolonged expirations. Occ crackles right lower chest.. HEART: Sounds are regular, S1 and S2. No murmur. ABDOMEN: Soft, obese without masses. No organomegaly or tenderness. EXTREMITIES: No edema. Peripheral pulses are well felt. NEUROLOGIC: Reflexes are 1+. Babinski negative. The patient is drowsy. SKIN: Dry and cool. Assessment and Plan Assessment and Plan ASSESSMENT: 1. Bilateral pneumonia with probable aspiration. 2. Respiratory failure. 3. Ethanolism. 4. Normal liver functions. 5. Delirium tremens. 6. Hyponatremia. 7. Encephalopathy. Plan : 1. Reduce sedation. 2. O2 2 L N/C . 3. Will ask IR to do thoracentesis on Right. 4. PO diet as tolerated 5. Nebs qid PRN 6. Continue antibiotics, Cefipime and Zithromax 7. CXR ,CBC,BMP in am. Ahsan Ayala MD January 28, 2018 17:46
[2018-01-29] VITALS (10 sets, daily range): BP systolic 85–135; BP diastolic 42–91; PULSE 83–118; RESP 20–30; TEMP 97.8–98.4; O2SAT 93–99
[2018-01-29] MEDS: CHLORHEXIDINE GLUCONATE 2 % 1 PACK (2 CLOTHS) TOP SCH (04:00)
--- NOTE | 2018-01-29 05:34 | RADRPT ---
EXAM DATE: 01/29/2018 4:52 AM EDT AGE/SEX: 47 years / Female INDICATIONS: Shortness of breath, possible pulmonary disease. CLINICAL DATA: This is the patient's subsequent encounter. Patient reports that signs and symptoms h ave been present for 4 - 6 days and indicates a pain score of 0/10. MEDICAL/SURGICAL HISTORY: . ETOH Abuse . Lumpectomy COMPARISON: [facility], CHEST SINGLE AP, 01/28/2018. . FINDINGS: Parenchymal consolidation and small effusion at the right lung base considerably improved in the inte rim. There is mild atelectasis of the left lung base not significantly changed. No pneumothorax seen. Heart size stable, upper limits of normal. CONCLUSION: Improved consolidation and small pleural effusion at the right lung base. Mild left base atelectasis not significantly changed. Electronically signed by: Stone Bonilla MD 01/29/2018 5:32 AM EDT
[2018-01-29] MEDS: CEFEPIME INJ 2,000 MG in SODIUM CHLORIDE 0.9% INJ 100 ML IV SCH ×3 (06:26→22:30)
[2018-01-29] MEDS: chlordiazePOXIDE 25 MG CAP PO SCH ×4 (06:26→17:17)
[2018-01-29] MEDS: POTASSIUM CHLORIDE 20 MEQ CONTROLLED RELEASE TAB PO SCH ×2 (07:41→22:24)
[2018-01-29] MEDS: LORazepam 2 MG TAB PO PRN (07:41)
[2018-01-29] MEDS: LISINOPRIL 5 MG TAB PO SCH (07:41)
[2018-01-29] MEDS: THIAMINE HCL 100 MG TAB PO SCH (07:41)
[2018-01-29] MEDS: CARVEDILOL 3.125 MG TAB PO SCH (07:41)
[2018-01-29] MEDS: FAMOTIDINE 20 MG/2 ML VIAL IV PUSH SCH ×2 (07:42→21:00)
[2018-01-29] MEDS: SODIUM CHLORIDE 0.9% FLUSH 10 ML FLUSH IV FLUSH SCH ×2 (07:42→21:00)
[2018-01-29] MEDS: FUROSEMIDE 40 MG/4 ML VIAL IV PUSH SCH ×2 (07:42→17:17)
[2018-01-29] MEDS: DOCUSATE SODIUM 50 MG/SENNA 8.6 MG TAB PO SCH ×2 (07:42→21:00)
--- NOTE | 2018-01-29 08:27 | PD.CARD.PN ---
Subjective Subjective Remarks more alert this morning, able to answer simple questions. RN reports she is still delirious at times; eating popsicle with assist. no chest pain, tachypnea improved Objective Medications Current Medications Medications (Trade) Dose Ordered Sig/Sarah Route Start Time Stop Time Status Last Admin (NS Flush) 2 ml UNSCH PRN IV FLUSH 01/24/18 05:45 01/26/18 02:30 (NS Flush) 2 ml BID IV FLUSH 01/24/18 09:00 01/29/18 07:42 (Tylenol) 650 mg Q6H PRN PO 01/24/18 05:45 (Pepcid Inj) 20 mg Q12HR IV PUSH 01/24/18 09:00 01/29/18 07:42 (Zofran Odt) 4 mg Q6H PRN PO 01/24/18 06:00 (Restoril) 15 mg HS PRN PO 01/24/18 05:45 (Duoneb Neb) 1 ampule Q2HR NEB PRN INH 01/24/18 05:45 01/26/18 08:07 ([facility] [place] [facility]) 1 Q361D XX 01/24/18 05:45 01/24/18 20:30 (Chlorhexidine 2% Cloth) 3 pack Taper DAILY@04 TOP 01/25/18 04:00 01/21/19 03:59 01/28/18 03:53 (Chlorhexidine 2% Cloth) 3 pack UNSCH PRN TOP 01/24/18 05:45 (Bouchra-Colace) 1 tab BID PO 01/24/18 09:00 01/28/18 20:56 (Milk Of Magnesia Liq) 30 ml Q12H PRN PO 01/24/18 05:45 (Senokot) 17.2 mg Q12H PRN PO 01/24/18 05:45 (Dulcolax Supp) 10 mg DAILY PRN RECTAL 01/24/18 05:45 (Lactulose Liq) 30 ml DAILY PRN PO 01/24/18 05:45 Potassium Chloride 100 ml @ 50 mls/hr Q2H PRN IV 01/24/18 06:00 Potassium Chloride 100 ml @ 50 mls/hr Q2H PRN IV 01/24/18 06:00 (K-Lyte Cl Eff) 50 meq UNSCH PRN PO 01/24/18 06:00 Potassium Chloride 100 ml @ 25 mls/hr UNSCH PRN IV 01/24/18 06:00 Potassium Chloride 100 ml @ 50 mls/hr Q2H PRN IV 01/24/18 06:00 01/26/18 10:44 Magnesium Sulfate 4 gm/Sodium Chloride 100 ml @ 50 mls/hr UNSCH PRN IV 01/24/18 06:00 (Mag-Ox) 800 mg UNSCH PRN PO 01/24/18 06:00 Magnesium Sulfate 2 gm/Sodium Chloride 100 ml @ 50 mls/hr UNSCH PRN IV 01/24/18 06:00 01/25/18 00:41 (K-Phos) 2,000 mg Q4H PRN PO 01/24/18 06:00 Sodium Phosphate 30 mmol/Sodium Chloride 250 ml @ 42 mls/hr UNSCH PRN IV 01/24/18 06:00 (K-Phos) 2,000 mg UNSCH PRN PO/TUBE 01/24/18 06:00 Potassium Phosphate 30 mmol/ Sodium Chloride 260 ml @ 42 mls/hr UNSCH PRN IV 01/24/18 06:00 01/25/18 00:41 (Romazicon Inj) 0.2 mg Q1M PRN IV PUSH 01/24/18 06:00 (Ativan) 1 mg Q4H PRN PO 01/24/18 06:00 01/28/18 12:25 (Ativan Inj) 1 mg Q4H PRN IV PUSH 01/24/18 06:00 01/25/18 16:24 (Ativan) 2 mg Q2H PRN PO 01/24/18 06:00 01/29/18 07:41 (Ativan Inj) 2 mg Q2H PRN IV PUSH 01/24/18 06:00 01/27/18 14:13 (Ativan Inj) 2 mg Q1H PRN IV PUSH 01/24/18 06:00 01/28/18 09:35 (Ativan Inj) 2 mg Q15M PRN IV PUSH 01/24/18 06:00 01/27/18 14:57 (Librium) 25 mg Q6HR PO 01/24/18 07:00 01/29/18 06:26 Dexmedetomidine HCl 200 mcg/ Sodium Chloride 52 ml @ 3.48 mls/hr TITRATE PRN IV 01/24/18 07:00 01/28/18 09:41 (SEROquel) 50 mg BID PO 01/26/18 09:00 01/28/18 20:56 Cefepime HCl 2000 mg/Sodium Chloride 100 ml @ 200 mls/hr Q8HR IV 01/26/18 14:00 01/29/18 06:26 Azithromycin 500 mg/Sodium Chloride 250 ml @ 250 mls/hr Q24H IV 01/26/18 15:00 01/28/18 15:29 (Duoneb Neb) 1 ampule QID NEB NEB 01/26/18 16:00 01/28/18 21:21 (Lasix Inj) 40 mg BID@18 IV PUSH 01/27/18 18:00 01/29/18 07:42 (Prinivil) 5 mg DAILY PO 01/27/18 18:00 01/29/18 07:41 (Coreg) 3.125 mg Q12HR PO 01/27/18 21:00 01/29/18 07:41 (KCl) 20 meq Q12HR PO 01/27/18 21:00 01/29/18 07:41 (Vitamin B1) 100 mg DAILY PO 01/28/18 09:00 01/29/18 07:41 Vital Signs / I&O Vital Signs Date Time Temp Pulse Resp B/P (MAP) Pulse Ox O2 Delivery O2 Flow Rate FiO2 01/29/18 03:38 98.3 86 30 127/88 (101) 95 01/29/18 03:35 95 Nasal Cannula 5.00 01/29/18 03:00 88 01/29/18 00:15 89 Nasal Cannula 5.00 01/28/18 23:00 95 Nasal Cannula 4.00 01/28/18 23:00 97.9 93 40 124/71 (88) 95 01/28/18 23:00 92 01/28/18 21:21 95 Nasal Cannula 3.00 01/28/18 19:30 96 Nasal Cannula 4.00 01/28/18 19:30 98.6 87 25 123/82 (96) 95 01/28/18 19:00 94 01/28/18 16:26 98 Nasal Cannula 3.00 01/28/18 16:00 99.1 90 32 112/77 (89) 96 01/28/18 15:00 91 01/28/18 14:00 77 01/28/18 13:00 76 01/28/18 12:22 99 Nasal Cannula 4.00 01/28/18 12:00 100.9 95 32 117/77 (90) 98 01/28/18 12:00 77 01/28/18 11:00 97 01/28/18 10:00 103 01/28/18 09:00 103 I/O 01/28/18 01/28/18 01/28/18 01/29/18 01/29/18 01/29/18 07:00 15:00 23:00 07:00 15:00 23:00 Intake Total 457 ml 250 ml 240 ml 450 ml Output Total 250 ml 1250 ml 1525 ml Balance 207 ml 250 ml -1010 ml -1075 ml Intake Oral 240 ml 240 ml 350 ml IV Total 217 ml 250 ml 100 ml Output Urine Total 200 ml 1250 ml 1525 ml Stool Total 50 ml # Bowel Movements 1 1 Physical Exam GENERAL: SKIN: Warm and dry. HEAD: Atraumatic. Normocephalic. EYES: Pupils equal and round. No scleral icterus. ENT: No nasal bleeding or discharge. NECK: Trachea midline. No JVD. CARDIOVASCULAR: Regular rate and rhythm. no murmurs RESPIRATORY: No accessory muscle use. decreased breath sounds R base GASTROINTESTINAL: Abdomen soft, non-tender, nondistended. MUSCULOSKELETAL: Extremities without clubbing, cyanosis, or edema. No obvious deformities. NEUROLOGICAL: Awake and alert. No obvious cranial nerve deficits. Normal speech. PSYCHIATRIC: somnolent but more alert Imaging Last 24 hours Impressions Chest X-Ray 01/29/18 0600 Signed Impressions: CONCLUSION: Improved consolidation and small pleural effusion at the right lung base. Mild left base atelectasis not significantly changed. Assessment and Plan Problem List: (1) Cardiomyopathy ICD Codes: I42.9 - Cardiomyopathy, unspecified Assessment and Plan 47 yo F with no known cardiac history and alcohol dependence presented to ED 4 days ago in alcohol withdrawal. cardiomyopathy- EF 20-25%, likely nonischemic currently recovering from delirium tremens in ICU, improving alertness. tachypnea and tachycardia improved. cont carvedilol and ACEi, add asa check lipid profile will need ischemic workup with lexiscan when she clinically improves, will require LifeVest Angelika Reeves January 29, 2018 08:27
--- NOTE | 2018-01-29 08:51 | HHI.CCPN ---
Subjective Remarks/Hospital Course 01/24: 47-year-old female with past medical history of alcohol dependence who presents to [facility] emergency department due to concern for alcohol withdrawal. She states that she and her share a 1.5 L of vodka chased with rubia al every 2.5 days. She stopped drinking on Tuesday. She has been tremulous, has experienced some hallucinations and therefore her father brought her in. She states she intends to quit drinking indefinitely. She has been nauseous and vomited x1, nonbloody nonbilious. She denies headache or fall. CIWA was 20 upon presentation to the ED. She has received ativan 4 mg IV. She has also received 1 L normal saline bolus, Compazine 10 mg IV, magnesium 2 g IV. 01/25: Laying in bed on Precedex currently. Arouses easily. Knows she is at the intensive care unit at [facility]. Knew the month and year however was off on the date. 01/26: Continues to have episodes of hallucinations and delirium at night. On Precedex gtt. 01/27: Remains on Precedex gtt. On nasal cannula currently. Was more awake earlier and conversed with the family members per VASCULAR TECHNICIAN. She did diuresis with Lasix since yesterday. Her BNP is 3000. Awaiting 2D echo results. Patient has been started on antibiotics by pulmonary for suspicion of pneumonia. 01/28: Transferred to [facility] by cardiology for possible cardiac cath. On nasal cannula. 01/29: Breathing seems to have improved since yesterday. Patient remains on nasal cannula. Objective Vital Signs Date Time Temp Pulse Resp B/P (MAP) Pulse Ox O2 Delivery O2 Flow Rate FiO2 01/29/18 03:38 98.3 86 30 127/88 (101) 95 01/29/18 03:35 Nasal Cannula 5.00 01/25/18 19:54 21 Intake and Output 01/29/18 01/29/18 01/30/18 08:00 16:00 00:00 Intake Total 350 ml Output Total 1525 ml Balance -1175 ml Result Diagram: 01/28/18 0333 01/28/18 033 Objective Remarks GENERAL: Overweight female who is laying in bed, drowsy though arousable, slightly tachypneic. SKIN: Warm and dry. There is some ecchymosis over her right tibia. HEAD: Atraumatic. Normocephalic. EYES: Pupils equal and round, 4 mm and reactive to 2 mm bilaterally.. No scleral icterus. No injection or drainage. ENT: No nasal bleeding or discharge. Mucous membranes dry NECK: Trachea midline. No JVD. CARDIOVASCULAR: Tachycardic, sinus tachycardia on the monitor with rate in the 120s. No murmurs rubs or gallops. RESPIRATORY: Mildly tachypneic but is breathing comfortably with no accessory muscle use. Clear to auscultation. Breath sounds equal bilaterally. GASTROINTESTINAL: Abdomen soft, non-tender, nondistended. Hepatic and splenic margins not palpable. Bowel sounds present. MUSCULOSKELETAL: Extremities without clubbing, cyanosis, or edema. No obvious deformities. NEUROLOGICAL: Drowsy, arousable easily, following commands. 5 out of 5 strength in all extremities. Oriented to self, year, Knows she is at hospital.. Normal speech A/P Problem List: (1) EtOH dependence ICD Code: F10.20 - EtOH dependence Status: Acute (2) Tachycardia ICD Code: R00.0 - Tachycardia Status: Acute (3) Hypokalemia ICD Code: E87.6 - Hypokalemia Status: Acute (4) Hypomagnesemia ICD Code: E83.42 - Hypomagnesemia Status: Acute (5) Alcohol withdrawal ICD Code: F10.239 - Alcohol dependence with withdrawal, unspecified Status: Acute (6) LFT elevation ICD Code: R79.89 - LFT elevation Status: Acute (7) DTs (delirium tremens) ICD Code: F10.231 - Alcohol dependence with withdrawal delirium Status: Acute (8) Chronic hyponatremia ICD Code: E87.1 - Hypo-osmolality and hyponatremia Status: Acute Assessment and Plan NEURO: Alcohol dependence Alcohol withdrawal Librium 25 mg p.o. every 6 hours. Ativan 2 mg IV every 2 hourly 4 doses ordered on 01/26. Ativan as needed per [facility] protocol Precedex as needed. Added Seroquel 50 mg p.o. q. 12 hourly on 01/26 Vitamin supplementation with thiamine/multivitamin/folic acid. RESP: Secondhand smoke exposure Nasal cannula O2. Bronchodilators as needed. She states has been is no longer smoking in the home CV: Sinus tachycardia due to alcohol withdrawal pulmonary edema Cardiomyopathy with LVEF 20-25% Elevated BNP. 2D echo. Diuresed with Lasix. IV fluids KVO Started coreg, lisinopril. lasix, ASA. Further recs per cardiology-planning stress test. GI: Transaminitis PO diet as tolerated Viral hepatitis panel Liver ultrasound FEN/RENAL: Hypokalemia Hypomagnesemia Acute dehydration Hyponatremia Initially recieved IVF. KVO IVF. Diuresed with lasix. Has received magnesium 2 g IV. Monitor and replete electrolytes. ID: Started on empiric antibiotics by pulmonary for suspicion of pneumonia. Currently on cefepime and Zithromax. HEME: Monitor CBC. Follow-up coags. ENDO: Stress hyperglycemia. Follow glucose q8 and initiate low-dose insulin sliding scale as indicated. PROPH: SCDs for DVT prophylaxis. Will initiate pharmacologic DVT prophylaxis depending on results of coags. Famotidine for stress ulcer prophylaxis. ACCESS: Peripheral IV providing adequate access at this time. Full code Problem Qualifiers (1) Alcohol withdrawal: Qualified Codes: F10.231 - Alcohol dependence with withdrawal delirium William Chauhan MD January 29, 2018 08:51
[2018-01-29] MEDS ORDERED: CARVEDILOL 3.125 MG TAB PO ONE (09:00)
[2018-01-29] MEDS ORDERED: CARVEDILOL 6.25 MG TAB PO SCH (09:00)
[2018-01-29] MEDS: QUEtiapine FUMARATE 25 MG TAB PO SCH ×2 (09:09→22:23)
[2018-01-29] MEDS: RESP: ALBUTEROL 2.5 MG/IPRATROPIUM 0.5 MG NEB (SCH) NEB ×4 (09:40→20:59)
[2018-01-29 10:13] LABS: AUTOMATED NEUTROPHIL # 2.9 TH/MM3 (1.8-7.7); BASOPHIL % 0.7 % (0.0-2.0); EOSINOPHIL % 0.8 % (0.0-4.0); HEMATOCRIT 33.7 % (35.0-46.0); HEMOGLOBIN 11.4 GM/DL (11.6-15.3); LYMPH % 25.3 % (9.0-44.0); LYMPHOCYTE # 1.2 TH/MM3 (1.0-4.8); MEAN CELL VOLUME 96.4 FL (80.0-100.0); MEAN CORPUSCULAR HEMOGLOBIN 32.5 PG (27.0-34.0); MEAN CORPUSCULAR HGB CONC 33.7 % (32.0-36.0); MEAN PLATELET VOLUME 9.8 FL (7.0-11.0); MONO % 10.5 % (0.0-8.0); MONOCYTE # 0.5 TH/MM3 (0-0.9); NEUT % 62.7 % (16.0-70.0); PLATELET COUNT 337 TH/MM3 (150-450); RED CELL DISTRIBUTION WIDTH 17.7 % (11.6-17.2); WHITE BLOOD COUNT 4.6 TH/MM3 (4.0-11.0)
[2018-01-29 10:39] LABS: ALBUMIN 1.9 GM/DL (3.4-5.0); ALT (GPT) 27 U/L (10-53); AST (GOT) 76 U/L (15-37); BICARBONATE 28.3 MEQ/L (21.0-32.0); BLOOD UREA NITROGEN 12 MG/DL (7-18); CALCIUM 8.1 MG/DL (8.5-10.1); CHLORIDE 107 MEQ/L (98-107); CREATININE 0.56 MG/DL (0.50-1.00); GLOMERULAR FILTRATION RATE 115 ML/MIN (>89); GLUCOSE,RANDOM 129 MG/DL (74-106); SODIUM (NA) 145 MEQ/L (136-145)
[2018-01-29 10:42] LABS: ALKALINE PHOSPHATASE 131 U/L (45-117); TOTAL BILIRUBIN ADULT 1.4 MG/DL (0.2-1.0)
[2018-01-29] MEDS: POTASSIUM CHLOR 20 MEQ PREMIX 100 ML IV PRN ×4 (11:07→17:10)
[2018-01-29 11:17] LABS: CHOLESTEROL/ HDL RATIO 11.88 RATIO; HDL CHOLESTEROL 12.7 MG/DL (40.0-60.0)
[2018-01-29] MEDS: LORazepam 2 MG/ML VIAL IV PUSH PRN ×2 (14:15→19:58)
--- NOTE | 2018-01-29 14:47 | HHI.PR ---
Subjective Remarks More alert today and breathing easier. Off Precedex Cardiac W/U in progress. Chest Xray shows increased right lung infiltrate/effusion O2 sat 94 on 3 L Objective Vital Signs Date Time Temp Pulse Resp B/P (MAP) Pulse Ox O2 Delivery O2 Flow Rate FiO2 01/29/18 12:50 99 Nasal Cannula 2.00 01/29/18 11:00 93 Nasal Cannula 3.00 01/29/18 11:00 98.0 96 20 85/42 (56) 93 01/29/18 11:00 102 01/29/18 09:40 95 Nasal Cannula 3.00 01/29/18 07:00 98.1 94 24 122/82 (95) 98 01/29/18 07:00 98 Nasal Cannula 3.00 01/29/18 07:00 83 01/29/18 03:38 98.3 86 30 127/88 (101) 95 01/29/18 03:35 95 Nasal Cannula 5.00 01/29/18 03:00 88 01/29/18 00:15 89 Nasal Cannula 5.00 01/28/18 23:00 95 Nasal Cannula 4.00 01/28/18 23:00 97.9 93 40 124/71 (88) 95 01/28/18 23:00 92 01/28/18 21:21 95 Nasal Cannula 3.00 01/28/18 19:30 96 Nasal Cannula 4.00 01/28/18 19:30 98.6 87 25 123/82 (96) 95 01/28/18 19:00 94 01/28/18 16:26 98 Nasal Cannula 3.00 01/28/18 16:00 99.1 90 32 112/77 (89) 96 01/28/18 15:00 91 I/O 01/28/18 01/28/18 01/28/18 01/29/18 01/29/18 01/29/18 07:00 15:00 23:00 07:00 15:00 23:00 Intake Total 457 ml 250 ml 490 ml 550 ml 100 ml Output Total 250 ml 1250 ml 1525 ml Balance 207 ml 250 ml -760 ml -975 ml 100 ml Intake Oral 240 ml 240 ml 350 ml IV Total 217 ml 250 ml 250 ml 200 ml 100 ml Output Urine Total 200 ml 1250 ml 1525 ml Stool Total 50 ml # Bowel Movements 1 1 Result Diagram: 01/29/1849 01/29/18948 Objective Remarks GENERAL: This is a moderately obese, middle-aged, white female who is alert HEENT: Head is normocephalic. Pupils reactive. Sclerae were clear. Throat has no inflammation. Tongue was dry. Nasal mucosa was clear. NECK: Supple. No venous distention. No thyromegaly or lymphadenopathy. CHEST: Equal movements with wheezes scattered bilaterally, prolonged expirations. Occ crackles right lower chest.. HEART: Sounds are regular, S1 and S2. No murmur. ABDOMEN: Soft, obese without masses. No organomegaly or tenderness. EXTREMITIES: No edema. Peripheral pulses are well felt. NEUROLOGIC: Reflexes are 1+. Babinski negative. The patient is awake. SKIN: Dry and cool. Assessment and Plan Assessment and Plan ASSESSMENT: 1. Bilateral pneumonia with probable aspiration. 2. Respiratory failure. 3. Ethanolism. 4. Normal liver functions. 5. Delirium tremens. 6. Hyponatremia. 7. Encephalopathy. Plan : 1. Reduce sedation. 2. O2 2 L N/C . 3. Will ask IR to do thoracentesis on Right. 4. PO diet as tolerated 5. Nebs qid PRN 6. Continue antibiotics. 7. CXR ,CBC,BMP in am. 8. Librium, Ativan PRN. for agitation Ahsan Ayala MD January 29, 2018 14:47
[2018-01-29] MEDS: AZITHROMYCIN INJ 500 MG in SODIUM CHLOR 0.9% 250 ML INJ 250 ML IV SCH (15:04)
[2018-01-29] MEDS: CARVEDILOL 6.25 MG TAB PO SCH (22:23)
[2018-01-29 23:19] LABS: ALBUMIN 2.1 GM/DL (3.4-5.0); AST (GOT) 79 U/L (15-37); BICARBONATE 28.1 MEQ/L (21.0-32.0); BLOOD UREA NITROGEN 10 MG/DL (7-18); CALCIUM 8.8 MG/DL (8.5-10.1); CHLORIDE 106 MEQ/L (98-107); CREATININE 0.56 MG/DL (0.50-1.00); GLOMERULAR FILTRATION RATE 115 ML/MIN (>89); GLUCOSE,RANDOM 101 MG/DL (74-106); SODIUM (NA) 143 MEQ/L (136-145)
[2018-01-29 23:20] LABS: ALT (GPT) 28 U/L (10-53); PHOSPHORUS 2.4 MG/DL (2.5-4.9)
[2018-01-29 23:22] LABS: ALKALINE PHOSPHATASE 142 U/L (45-117); TOTAL BILIRUBIN ADULT 1.5 MG/DL (0.2-1.0); TOTAL PROTEIN 7.2 GM/DL (6.4-8.2)
[2018-01-30] VITALS (8 sets, daily range): BP systolic 107–138; BP diastolic 69–87; PULSE 102–113; RESP 24–26; TEMP 98.2–100.2; O2SAT 92–97
[2018-01-30] MEDS: chlordiazePOXIDE 25 MG CAP PO SCH ×6 (03:54→18:09)
[2018-01-30] MEDS: LORazepam 2 MG/ML VIAL IV PUSH PRN ×2 (03:54→09:48)
[2018-01-30] MEDS: SODIUM CHLORIDE 0.9% FLUSH 10 ML FLUSH IV FLUSH PRN (03:54)
[2018-01-30] MEDS: CHLORHEXIDINE GLUCONATE 2 % 1 PACK (2 CLOTHS) TOP SCH (04:00)
[2018-01-30] MEDS: CEFEPIME INJ 2,000 MG in SODIUM CHLORIDE 0.9% INJ 100 ML IV SCH ×3 (05:45→21:02)
[2018-01-30] MEDS: RESP: ALBUTEROL 2.5 MG/IPRATROPIUM 0.5 MG NEB (SCH) NEB ×3 (07:37→15:52)
[2018-01-30 08:29] LABS: AUTOMATED NEUTROPHIL # 2.4 TH/MM3 (1.8-7.7); BASOPHIL # 0.1 TH/MM3 (0-0.2); BASOPHIL % 1.4 % (0.0-2.0); EOSINOPHIL % 0.9 % (0.0-4.0); HEMATOCRIT 36.2 % (35.0-46.0); LYMPH % 27.7 % (9.0-44.0); LYMPHOCYTE # 1.2 TH/MM3 (1.0-4.8); MEAN CELL VOLUME 94.8 FL (80.0-100.0); MEAN CORPUSCULAR HEMOGLOBIN 31.6 PG (27.0-34.0); MEAN CORPUSCULAR HGB CONC 33.3 % (32.0-36.0); MEAN PLATELET VOLUME 9.5 FL (7.0-11.0); MONO % 15.5 % (0.0-8.0); MONOCYTE # 0.7 TH/MM3 (0-0.9); NEUT % 54.5 % (16.0-70.0); PLATELET COUNT 423 TH/MM3 (150-450); RED BLOOD COUNT 3.82 MIL/MM3 (4.00-5.30); RED CELL DISTRIBUTION WIDTH 17.7 % (11.6-17.2); WHITE BLOOD COUNT 4.5 TH/MM3 (4.0-11.0)
[2018-01-30] MEDS: FAMOTIDINE 20 MG/2 ML VIAL IV PUSH SCH ×2 (08:42→21:01)
[2018-01-30] MEDS: CARVEDILOL 6.25 MG TAB PO SCH ×2 (08:42→21:01)
[2018-01-30] MEDS: POTASSIUM CHLORIDE 20 MEQ CONTROLLED RELEASE TAB PO SCH ×2 (08:42→21:02)
[2018-01-30] MEDS: FUROSEMIDE 40 MG/4 ML VIAL IV PUSH SCH ×2 (08:43→17:58)
[2018-01-30] MEDS: THIAMINE HCL 100 MG TAB PO SCH (08:43)
[2018-01-30] MEDS: LISINOPRIL 5 MG TAB PO SCH (08:43)
[2018-01-30] MEDS: QUEtiapine FUMARATE 25 MG TAB PO SCH ×2 (08:43→21:01)
[2018-01-30] MEDS: SODIUM CHLORIDE 0.9% FLUSH 10 ML FLUSH IV FLUSH SCH ×2 (09:00→21:00)
[2018-01-30] MEDS: DOCUSATE SODIUM 50 MG/SENNA 8.6 MG TAB PO SCH ×2 (09:00→21:00)
--- NOTE | 2018-01-30 09:45 | PD.CARD.PN ---
Subjective Subjective Remarks more alert this morning, able to answer simple questions. RN reports she is still delirious at times. no chest pain, tachypnea improved Objective Medications Current Medications Medications (Trade) Dose Ordered Sig/Sarah Route Start Time Stop Time Status Last Admin (NS Flush) 2 ml UNSCH PRN IV FLUSH 01/24/18 05:45 01/30/18 03:54 (NS Flush) 2 ml BID IV FLUSH 01/24/18 09:00 01/29/18 21:00 (Tylenol) 650 mg Q6H PRN PO 01/24/18 05:45 (Pepcid Inj) 20 mg Q12HR IV PUSH 01/24/18 09:00 01/30/18 08:42 (Zofran Odt) 4 mg Q6H PRN PO 01/24/18 06:00 (Restoril) 15 mg HS PRN PO 01/24/18 05:45 (Duoneb Neb) 1 ampule Q2HR NEB PRN INH 01/24/18 05:45 01/26/18 08:07 ([facility] [place] [facility] [place]) 1 Q361D XX 01/24/18 05:45 01/24/18 20:30 (Chlorhexidine 2% Cloth) Taper DAILY@04 TOP 01/25/18 04:00 01/21/19 03:59 01/30/18 04:00 (Chlorhexidine 2% Cloth) 3 pack UNSCH PRN TOP 01/24/18 05:45 (Bouchra-Colace) 1 tab BID PO 01/24/18 09:00 01/28/18 20:56 (Milk Of Magnesia Liq) 30 ml Q12H PRN PO 01/24/18 05:45 (Senokot) 17.2 mg Q12H PRN PO 01/24/18 05:45 (Dulcolax Supp) 10 mg DAILY PRN RECTAL 01/24/18 05:45 (Lactulose Liq) 30 ml DAILY PRN PO 01/24/18 05:45 Potassium Chloride 100 ml @ 50 mls/hr Q2H PRN IV 01/24/18 06:00 Potassium Chloride 100 ml @ 50 mls/hr Q2H PRN IV 01/24/18 06:00 01/29/18 17:10 (K-Lyte Cl Eff) 50 meq UNSCH PRN PO 01/24/18 06:00 Potassium Chloride 100 ml @ 25 mls/hr UNSCH PRN IV 01/24/18 06:00 Potassium Chloride 100 ml @ 50 mls/hr Q2H PRN IV 01/24/18 06:00 01/26/18 10:44 Magnesium Sulfate 4 gm/Sodium Chloride 100 ml @ 50 mls/hr UNSCH PRN IV 01/24/18 06:00 01/30/18 00:30 (Mag-Ox) 800 mg UNSCH PRN PO 01/24/18 06:00 Magnesium Sulfate 2 gm/Sodium Chloride 100 ml @ 50 mls/hr UNSCH PRN IV 01/24/18 06:00 01/25/18 00:41 (K-Phos) 2,000 mg Q4H PRN PO 01/24/18 06:00 Sodium Phosphate 30 mmol/Sodium Chloride 250 ml @ 42 mls/hr UNSCH PRN IV 01/24/18 06:00 01/30/18 00:30 (K-Phos) 2,000 mg UNSCH PRN PO/TUBE 01/24/18 06:00 Potassium Phosphate 30 mmol/ Sodium Chloride 260 ml @ 42 mls/hr UNSCH PRN IV 01/24/18 06:00 01/25/18 00:41 (Romazicon Inj) 0.2 mg Q1M PRN IV PUSH 01/24/18 06:00 (Ativan) 1 mg Q4H PRN PO 01/24/18 06:00 01/28/18 12:25 (Ativan Inj) 1 mg Q4H PRN IV PUSH 01/24/18 06:00 01/30/18 03:54 (Ativan) 2 mg Q2H PRN PO 01/24/18 06:00 01/29/18 07:41 (Ativan Inj) 2 mg Q2H PRN IV PUSH 01/24/18 06:00 01/29/18 14:15 (Ativan Inj) 2 mg Q1H PRN IV PUSH 01/24/18 06:00 01/29/18 19:58 (Ativan Inj) 2 mg Q15M PRN IV PUSH 01/24/18 06:00 01/27/18 14:57 (Librium) 25 mg Q6HR PO 01/24/18 07:00 01/30/18 06:13 Dexmedetomidine HCl 200 mcg/ Sodium Chloride 52 ml @ 3.48 mls/hr TITRATE PRN IV 01/24/18 07:00 01/28/18 09:41 (SEROquel) 50 mg BID PO 01/26/18 09:00 01/30/18 08:43 Cefepime HCl 2000 mg/Sodium Chloride 100 ml @ 200 mls/hr Q8HR IV 01/26/18 14:00 01/30/18 05:45 Azithromycin 500 mg/Sodium Chloride 250 ml @ 250 mls/hr Q24H IV 01/26/18 15:00 01/29/18 15:04 (Duoneb Neb) 1 ampule QID NEB NEB 01/26/18 16:00 01/30/18 07:37 (Lasix Inj) 40 mg BID@,18 IV PUSH 01/27/18 18:00 01/30/18 08:43 (Prinivil) 5 mg DAILY PO 01/27/18 18:00 01/30/18 08:43 (KCl) 20 meq Q12HR PO 01/27/18 21:00 01/30/18 08:42 (Vitamin B1) 100 mg DAILY PO 01/28/18 09:00 01/30/18 08:43 (Coreg) 6.25 mg Q12HR PO 01/29/18 21:00 01/30/18 08:42 Vital Signs / I&O Vital Signs Date Time Temp Pulse Resp B/P (MAP) Pulse Ox O2 Delivery O2 Flow Rate FiO2 01/30/18 07:38 95 Nasal Cannula 5.00 01/30/18 07:00 97 Nasal Cannula 4.00 01/30/18 07:00 99.4 112 26 138/87 (104) 97 01/30/18 07:00 112 01/30/18 03:00 92 Nasal Cannula 4.00 01/30/18 03:00 111 01/30/18 03:00 99.0 111 26 121/75 (90) 92 01/29/18 23:00 96 Nasal Cannula 3.00 01/29/18 23:00 97.8 118 24 135/91 (106) 96 01/29/18 23:00 118 01/29/18 20:59 94 Nasal Cannula 3.00 01/29/18 19:00 95 Nasal Cannula 3.00 01/29/18 19:00 106 01/29/18 19:00 98.4 106 28 104/64 (77) 95 01/29/18 15:00 98.1 95 28 110/71 (84) 94 01/29/18 15:00 95 01/29/18 15:00 94 Nasal Cannula 3.00 01/29/18 12:50 99 Nasal Cannula 2.00 01/29/18 11:00 93 Nasal Cannula 3.00 01/29/18 11:00 98.0 96 20 85/42 (56) 93 01/29/18 11:00 102 I/O 01/29/18 01/29/18 01/29/18 01/30/18 01/30/18 01/30/18 07:00 15:00 23:00 07:00 15:00 23:00 Intake Total 550 ml 200 ml 1800 ml 750 ml Output Total 1525 ml 800 ml 1600 ml Balance -975 ml 200 ml 1000 ml -850 ml Intake Oral 350 ml 1200 ml 200 ml IV Total 200 ml 200 ml 600 ml 550 ml Output Urine Total 1525 ml 800 ml 1600 ml # Bowel Movements 1 1 1 Physical Exam GENERAL: SKIN: Warm and dry. HEAD: Atraumatic. Normocephalic. EYES: Pupils equal and round. No scleral icterus. ENT: No nasal bleeding or discharge. NECK: Trachea midline. No JVD. CARDIOVASCULAR: tachycardic, regular rhythm. no murmurs RESPIRATORY: No accessory muscle use. decreased breath sounds R base GASTROINTESTINAL: Abdomen soft, non-tender, nondistended. MUSCULOSKELETAL: Extremities without clubbing, cyanosis, or edema. No obvious deformities. NEUROLOGICAL: Awake and alert. No obvious cranial nerve deficits. Normal speech. PSYCHIATRIC: alert but delirious Laboratory Laboratory Tests Test 01/29/18 09:49 01/29/18 22:31 01/30/18 08:20 White Blood Count 4.6 TH/MM3 4.5 TH/MM3 Red Blood Count 3.50 MIL/MM3 3.82 MIL/MM3 Hemoglobin 11.4 GM/DL 12.0 GM/DL Hematocrit 33.7 % 36.2 % Mean Corpuscular Volume 96.4 FL 94.8 FL Mean Corpuscular Hemoglobin 32.5 PG 31.6 PG Mean Corpuscular Hemoglobin Concent 33.7 % 33.3 % Red Cell Distribution Width 17.7 % 17.7 % Platelet Count 337 TH/MM3 423 TH/MM3 Mean Platelet Volume 9.8 FL 9.5 FL Neutrophils (%) (Auto) 62.7 % 54.5 % Lymphocytes (%) (Auto) 25.3 % 27.7 % Monocytes (%) (Auto) 10.5 % 15.5 % Eosinophils (%) (Auto) 0.8 % 0.9 % Basophils (%) (Auto) 0.7 % 1.4 % Neutrophils # (Auto) 2.9 TH/MM3 2.4 TH/MM3 Lymphocytes # (Auto) 1.2 TH/MM3 1.2 TH/MM3 Monocytes # (Auto) 0.5 TH/MM3 0.7 TH/MM3 Eosinophils # (Auto) 0.0 TH/MM3 0.0 TH/MM3 Basophils # (Auto) 0.0 TH/MM3 0.1 TH/MM3 CBC Comment DIFF FINAL DIFF FINAL Differential Comment Blood Urea Nitrogen 12 MG/DL 10 MG/DL Creatinine 0.56 MG/DL 0.56 MG/DL Random Glucose 129 MG/DL 101 MG/DL Total Protein 7.0 GM/DL 7.2 GM/DL Albumin 1.9 GM/DL 2.1 GM/DL Calcium Level 8.1 MG/DL 8.8 MG/DL Alkaline Phosphatase 131 U/L 142 U/L Aspartate Amino Transf (AST/SGOT) 76 U/L 79 U/L Alanine Aminotransferase (ALT/SGPT) 27 U/L 28 U/L Total Bilirubin 1.4 MG/DL 1.5 MG/DL Sodium Level 145 MEQ/L 143 MEQ/L Potassium Level 3.2 MEQ/L 3.8 MEQ/L Chloride Level 107 MEQ/L 106 MEQ/L Carbon Dioxide Level 28.3 MEQ/L 28.1 MEQ/L Anion Gap 10 MEQ/L 9 MEQ/L Estimat Glomerular Filtration Rate 115 ML/MIN 115 ML/MIN Triglycerides Level 169 MG/DL Cholesterol Level 151 MG/DL LDL Cholesterol 105 MG/DL HDL Cholesterol 12.7 MG/DL Cholesterol/HDL Ratio 11.88 RATIO Phosphorus Level 2.4 MG/DL Magnesium Level 1.0 MG/DL Assessment and Plan Problem List: (1) Cardiomyopathy ICD Codes: I42.9 - Cardiomyopathy, unspecified Assessment and Plan 47 yo F with no known cardiac history and alcohol dependence presented to ED in alcohol withdrawal. cardiomyopathy- EF 20-25%, likely nonischemic currently recovering from delirium tremens in ICU, improving alertness. tachypnea and tachycardia improved. increase lisinopril to 10mg, cont carvedilol, titrate doses upward as tolerated. cont asa will need ischemic workup with lexiscan when she clinically improves, LifeVest ordered Angelika Reeves January 30, 2018 09:45
--- NOTE | 2018-01-30 14:40 | HHI.PR ---
Subjective Remarks More alert today and breathing easier. Wants to eat. Chest Xray shows increased right lung infiltrate/effusion O2 sat 96 on 4 L Objective Vital Signs Date Time Temp Pulse Resp B/P (MAP) Pulse Ox O2 Delivery O2 Flow Rate FiO2 01/30/18 11:11 97 Nasal Cannula 4.00 01/30/18 11:11 112 01/30/18 11:11 100.2 112 26 107/69 (82) 97 01/30/18 07:38 95 Nasal Cannula 5.00 01/30/18 07:00 97 Nasal Cannula 4.00 01/30/18 07:00 99.4 112 26 138/87 (104) 97 01/30/18 07:00 112 01/30/18 03:00 92 Nasal Cannula 4.00 01/30/18 03:00 111 01/30/18 03:00 99.0 111 26 121/75 (90) 92 01/29/18 23:00 96 Nasal Cannula 3.00 01/29/18 23:00 97.8 118 24 135/91 (106) 96 01/29/18 23:00 118 01/29/18 20:59 94 Nasal Cannula 3.00 01/29/18 19:00 95 Nasal Cannula 3.00 01/29/18 19:00 106 01/29/18 19:00 98.4 106 28 104/64 (77) 95 01/29/18 15:00 98.1 95 28 110/71 (84) 94 01/29/18 15:00 95 01/29/18 15:00 94 Nasal Cannula 3.00 I/O 01/29/18 01/29/18 01/29/18 01/30/18 01/30/18 01/30/18 07:00 15:00 23:00 07:00 15:00 23:00 Intake Total 550 ml 200 ml 1800 ml 750 ml Output Total 1525 ml 800 ml 1600 ml Balance -975 ml 200 ml 1000 ml -850 ml Intake Oral 350 ml 1200 ml 200 ml IV Total 200 ml 200 ml 600 ml 550 ml Output Urine Total 1525 ml 800 ml 1600 ml # Bowel Movements 1 1 1 Result Diagram: 01/30/18 0820 01/29/18 5211 Objective Remarks GENERAL: This is a moderately obese, middle-aged, white female who is alert HEENT: Head is normocephalic. Pupils reactive. Sclerae were clear. Throat has no inflammation. Tongue was clear. Nasal mucosa was clear. NECK: Supple. No venous distention. No thyromegaly or lymphadenopathy. CHEST: Equal movements with wheezes scattered bilaterally, prolonged expirations. Occ crackles at bases HEART: Sounds are regular, S1 and S2. No murmur. ABDOMEN: Soft, obese without masses. No organomegaly or tenderness. EXTREMITIES: No edema. Peripheral pulses are well felt. NEUROLOGIC: Reflexes are 1+. Babinski negative. The patient is awake. SKIN: Dry and cool. Assessment and Plan Assessment and Plan ASSESSMENT: 1. Bilateral pneumonia with probable aspiration. 2. Respiratory failure. 3. Ethanolism. 4. Abnormal liver functions. 5. Delirium tremens. 6. Hyponatremia. 7. Encephalopathy. Plan : 1. Reduce sedation. 2. O2 2 L N/C . 3. Will ask IR to do thoracentesis on Right. 4. PO diet as tolerated 5. Nebs qid PRN 6. Continue antibiotics. 7. CXR ,CBC,BMP in am. 8. Librium, Ativan PRN. for agitation Ahsan Ayala MD January 30, 2018 14:40
[2018-01-30] MEDS: AZITHROMYCIN INJ 500 MG in SODIUM CHLOR 0.9% 250 ML INJ 250 ML IV SCH (14:55)
--- NOTE | 2018-01-30 15:31 | HHI.CCPN ---
Subjective Remarks/Hospital Course 01/24: 47-year-old female with past medical history of alcohol dependence who presents to [facility] emergency department due to concern for alcohol withdrawal. She states that she and her share a 1.5 L of vodka chased with rubia al every 2.5 days. She stopped drinking on Tuesday. She has been tremulous, has experienced some hallucinations and therefore her father brought her in. She states she intends to quit drinking indefinitely. She has been nauseous and vomited x1, nonbloody nonbilious. She denies headache or fall. CIWA was 20 upon presentation to the ED. She has received ativan 4 mg IV. She has also received 1 L normal saline bolus, Compazine 10 mg IV, magnesium 2 g IV. 01/25: Laying in bed on Precedex currently. Arouses easily. Knows she is at the intensive care unit at [facility]. Knew the month and year however was off on the date. 01/26: Continues to have episodes of hallucinations and delirium at night. On Precedex gtt. 01/27: Remains on Precedex gtt. On nasal cannula currently. Was more awake earlier and conversed with the family members per CLOTH DOUBLING MACHINE OPERATOR. She did diuresis with Lasix since yesterday. Her BNP is 3000. Awaiting 2D echo results. Patient has been started on antibiotics by pulmonary for suspicion of pneumonia. 01/28: Transferred to [facility] by cardiology for possible cardiac cath. On nasal cannula. 01/29: Breathing seems to have improved since yesterday. Patient remains on nasal cannula. 01/30: Still having hallucinations. Remains on nasal cannula with O2 sats borderline. Objective Vital Signs Date Time Temp Pulse Resp B/P (MAP) Pulse Ox O2 Delivery O2 Flow Rate FiO2 01/30/18 11:11 97 Nasal Cannula 4.00 01/30/18 11:11 112 01/30/18 11:11 100.2 26 107/69 (82) Intake and Output 01/30/18 01/30/18 01/31/18 08:00 16:00 00:00 Intake Total 650 ml Output Total 1600 ml Balance -950 ml Result Diagram: 01/30/18 0820 01/29/18 1751 Objective Remarks GENERAL: Overweight female who is laying in bed, drowsy though arousable, slightly tachypneic. SKIN: Warm and dry. There is some ecchymosis over her right tibia. HEAD: Atraumatic. Normocephalic. EYES: Pupils equal and round, 4 mm and reactive to 2 mm bilaterally.. No scleral icterus. No injection or drainage. ENT: No nasal bleeding or discharge. Mucous membranes dry NECK: Trachea midline. No JVD. CARDIOVASCULAR: Tachycardic, sinus tachycardia on the monitor with rate in the 120s. No murmurs rubs or gallops. RESPIRATORY: Mildly tachypneic but is breathing comfortably with no accessory muscle use. Clear to auscultation. Breath sounds equal bilaterally. GASTROINTESTINAL: Abdomen soft, non-tender, nondistended. Hepatic and splenic margins not palpable. Bowel sounds present. MUSCULOSKELETAL: Extremities without clubbing, cyanosis, or edema. No obvious deformities. NEUROLOGICAL: Drowsy, arousable easily, following commands. 5 out of 5 strength in all extremities. Oriented to self, Normal speech A/P Problem List: (1) EtOH dependence ICD Code: F10.20 - EtOH dependence Status: Acute (2) Tachycardia ICD Code: R00.0 - Tachycardia Status: Acute (3) Hypokalemia ICD Code: E87.6 - Hypokalemia Status: Acute (4) Hypomagnesemia ICD Code: E83.42 - Hypomagnesemia Status: Acute (5) Alcohol withdrawal ICD Code: F10.239 - Alcohol dependence with withdrawal, unspecified Status: Acute (6) LFT elevation ICD Code: R79.89 - LFT elevation Status: Acute (7) DTs (delirium tremens) ICD Code: F10.231 - Alcohol dependence with withdrawal delirium Status: Acute (8) Chronic hyponatremia ICD Code: E87.1 - Hypo-osmolality and hyponatremia Status: Acute Assessment and Plan NEURO: Alcohol dependence Alcohol withdrawal Librium 25 mg p.o. every 6 hours. Ativan 2 mg IV every 2 hourly 4 doses ordered on 01/26. Ativan as needed per [facility] protocol Precedex as needed. Added Seroquel 50 mg p.o. q. 12 hourly on 01/26 Vitamin supplementation with thiamine/multivitamin/folic acid. RESP: Acute resp failure Pulm edema Secondhand smoke exposure Nasal cannula O2. Bronchodilators as needed. She states has been is no longer smoking in the home Pulm following. Scheduled for rt thoracentesis by pulm. CV: Sinus tachycardia due to alcohol withdrawal pulmonary edema Cardiomyopathy with LVEF 20-25% Elevated BNP. 2D echo. Diuresed with Lasix. IV fluids KVO Started coreg, lisinopril. lasix, ASA. Further recs per cardiology-planning stress test. GI: Transaminitis PO diet as tolerated Viral hepatitis panel Liver ultrasound FEN/RENAL: Hypokalemia Hypomagnesemia Acute dehydration Hyponatremia Initially recieved IVF. KVO IVF. Diuresed with lasix. Has received magnesium 2 g IV. Monitor and replete electrolytes. ID: Started on empiric antibiotics by pulmonary for suspicion of pneumonia. Currently on cefepime and Zithromax. HEME: Monitor CBC. Follow-up coags. ENDO: Stress hyperglycemia. Follow glucose q8 and initiate low-dose insulin sliding scale as indicated. PROPH: SCDs for DVT prophylaxis. Will initiate pharmacologic DVT prophylaxis depending on results of coags. Famotidine for stress ulcer prophylaxis. ACCESS: Peripheral IV providing adequate access at this time. Full code Problem Qualifiers (1) Alcohol withdrawal: Qualified Codes: F10.231 - Alcohol dependence with withdrawal delirium William Chauhan MD January 30, 2018 15:31
[2018-01-31] VITALS (12 sets, daily range): BP systolic 99–128; BP diastolic 51–92; PULSE 102–110; RESP 18–36; TEMP 98–99.6; O2SAT 93–99
[2018-01-31 03:39] LABS: AUTOMATED NEUTROPHIL # 3.6 TH/MM3 (1.8-7.7); BASOPHIL # 0.1 TH/MM3 (0-0.2); BASOPHIL % 1.3 % (0.0-2.0); EOSINOPHIL % 0.7 % (0.0-4.0); HEMOGLOBIN 12.4 GM/DL (11.6-15.3); LYMPHOCYTE # 1.3 TH/MM3 (1.0-4.8); MEAN CELL VOLUME 95.5 FL (80.0-100.0); MEAN CORPUSCULAR HEMOGLOBIN 32.1 PG (27.0-34.0); MEAN CORPUSCULAR HGB CONC 33.6 % (32.0-36.0); MEAN PLATELET VOLUME 10.2 FL (7.0-11.0); MONO % 17.7 % (0.0-8.0); MONOCYTE # 1.1 TH/MM3 (0-0.9); NEUT % 59.3 % (16.0-70.0); PLATELET COUNT 453 TH/MM3 (150-450); RED BLOOD COUNT 3.87 MIL/MM3 (4.00-5.30); RED CELL DISTRIBUTION WIDTH 17.5 % (11.6-17.2); WHITE BLOOD COUNT 6.1 TH/MM3 (4.0-11.0)
[2018-01-31] MEDS: CHLORHEXIDINE GLUCONATE 2 % 1 PACK (2 CLOTHS) TOP SCH (04:00)
[2018-01-31 04:31] LABS: ALBUMIN 2.2 GM/DL (3.4-5.0); ALKALINE PHOSPHATASE 127 U/L (45-117); ALT (GPT) 26 U/L (10-53); AST (GOT) 62 U/L (15-37); BLOOD UREA NITROGEN 14 MG/DL (7-18); CALCIUM 8.7 MG/DL (8.5-10.1); CHLORIDE 105 MEQ/L (98-107); CREATININE 0.69 MG/DL (0.50-1.00); GLOMERULAR FILTRATION RATE 90 ML/MIN (>89); GLUCOSE,RANDOM 104 MG/DL (74-106); MAGNESIUM 1.6 MG/DL (1.5-2.5); PHOSPHORUS 5.2 MG/DL (2.5-4.9); SODIUM (NA) 146 MEQ/L (136-145); TOTAL BILIRUBIN ADULT 1.5 MG/DL (0.2-1.0); TOTAL PROTEIN 7.9 GM/DL (6.4-8.2)
--- NOTE | 2018-01-31 05:02 | RADRPT ---
EXAM DATE: 01/31/2018 4:58 AM EDT AGE/SEX: 47 years / Female INDICATIONS: Short of breath. CLINICAL DATA: This is the patient's subsequent encounter. Patient reports that signs and symptoms h ave been present for 2 days and indicates a pain score of 0/10. MEDICAL/SURGICAL HISTORY: None. . Lumpectomy. [place] [facility] [place] . FINDINGS: There is further improvement in aeration of lungs since the prior exam. Mild left lung base atelectas is remains without definite pleural effusion. CONCLUSION: Further improvement in aeration of the lungs with slight left lung base atelectasis remaining. Electronically signed by: Phillip Brady MD 01/31/2018 5:00 AM EDT
[2018-01-31] MEDS: CEFEPIME INJ 2,000 MG in SODIUM CHLORIDE 0.9% INJ 100 ML IV SCH ×3 (06:00→20:22)
[2018-01-31] MEDS: MAGNESIUM SULFATE INJ 2 GM in SODIUM CHLORIDE 0.9% INJ 96 ML IV PRN (06:06)
[2018-01-31] MEDS: chlordiazePOXIDE 25 MG CAP PO SCH ×4 (06:23→20:23)
--- NOTE | 2018-01-31 08:14 | PD.CARD.PN ---
Subjective Subjective Remarks sedated currently; given Librium this morning. RN reports she did ok overnight. Objective Medications Current Medications Medications (Trade) Dose Ordered Sig/Sarah Route Start Time Stop Time Status Last Admin (NS Flush) 2 ml UNSCH PRN IV FLUSH 01/24/18 05:45 01/30/18 03:54 (NS Flush) 2 ml BID IV FLUSH 01/24/18 09:00 01/30/18 21:00 (Tylenol) 650 mg Q6H PRN PO 01/24/18 05:45 (Pepcid Inj) 20 mg Q12HR IV PUSH 01/24/18 09:00 01/30/18 21:01 (Zofran Odt) 4 mg Q6H PRN PO 01/24/18 06:00 (Restoril) 15 mg HS PRN PO 01/24/18 05:45 (Duoneb Neb) 1 ampule Q2HR NEB PRN INH 01/24/18 05:45 01/26/18 08:07 [place] [place] 1 Q361D XX 01/24/18 05:45 01/24/18 20:30 (Chlorhexidine 2% Cloth) Taper DAILY@04 TOP 01/25/18 04:00 01/21/19 03:59 01/31/18 04:00 (Chlorhexidine 2% Cloth) 3 pack UNSCH PRN TOP 01/24/18 05:45 (Bouchra-Colace) 1 tab BID PO 01/24/18 09:00 01/28/18 20:56 (Milk Of Magnesia Liq) 30 ml Q12H PRN PO 01/24/18 05:45 (Senokot) 17.2 mg Q12H PRN PO 01/24/18 05:45 (Dulcolax Supp) 10 mg DAILY PRN RECTAL 01/24/18 05:45 (Lactulose Liq) 30 ml DAILY PRN PO 01/24/18 05:45 Potassium Chloride 100 ml @ 50 mls/hr Q2H PRN IV 01/24/18 06:00 Potassium Chloride 100 ml @ 50 mls/hr Q2H PRN IV 01/24/18 06:00 01/29/18 17:10 (K-Lyte Cl Eff) 50 meq UNSCH PRN PO 01/24/18 06:00 01/31/18 06:23 Potassium Chloride 100 ml @ 25 mls/hr UNSCH PRN IV 01/24/18 06:00 Potassium Chloride 100 ml @ 50 mls/hr Q2H PRN IV 01/24/18 06:00 01/26/18 10:44 Magnesium Sulfate 4 gm/Sodium Chloride 100 ml @ 50 mls/hr UNSCH PRN IV 01/24/18 06:00 01/30/18 00:30 (Mag-Ox) 800 mg UNSCH PRN PO 01/24/18 06:00 Magnesium Sulfate 2 gm/Sodium Chloride 100 ml @ 50 mls/hr UNSCH PRN IV 01/24/18 06:00 01/31/18 06:06 (K-Phos) 2,000 mg Q4H PRN PO 01/24/18 06:00 Sodium Phosphate 30 mmol/Sodium Chloride 250 ml @ 42 mls/hr UNSCH PRN IV 01/24/18 06:00 01/30/18 00:30 (K-Phos) 2,000 mg UNSCH PRN PO/TUBE 01/24/18 06:00 Potassium Phosphate 30 mmol/ Sodium Chloride 260 ml @ 42 mls/hr UNSCH PRN IV 01/24/18 06:00 01/25/18 00:41 (Romazicon Inj) 0.2 mg Q1M PRN IV PUSH 01/24/18 06:00 (Ativan) 1 mg Q4H PRN PO 01/24/18 06:00 01/28/18 12:25 (Ativan Inj) 1 mg Q4H PRN IV PUSH 01/24/18 06:00 01/30/18 09:48 (Ativan) 2 mg Q2H PRN PO 01/24/18 06:00 01/29/18 07:41 (Ativan Inj) 2 mg Q2H PRN IV PUSH 01/24/18 06:00 01/29/18 14:15 (Ativan Inj) 2 mg Q1H PRN IV PUSH 01/24/18 06:00 01/29/18 19:58 (Ativan Inj) 2 mg Q15M PRN IV PUSH 01/24/18 06:00 01/27/18 14:57 (Librium) 25 mg Q6HR PO 01/24/18 07:00 01/31/18 06:23 Dexmedetomidine HCl 200 mcg/ Sodium Chloride 52 ml @ 3.48 mls/hr TITRATE PRN IV 01/24/18 07:00 01/28/18 09:41 (SEROquel) 50 mg BID PO 01/26/18 09:00 01/30/18 21:01 Cefepime HCl 2000 mg/Sodium Chloride 100 ml @ 200 mls/hr Q8HR IV 01/26/18 14:00 01/31/18 06:00 Azithromycin 500 mg/Sodium Chloride 250 ml @ 250 mls/hr Q24H IV 01/26/18 15:00 01/30/18 14:55 (Lasix Inj) 40 mg BID@09,18 IV PUSH 01/27/18 18:00 01/30/18 17:58 (KCl) 20 meq Q12HR PO 01/27/18 21:00 01/30/18 21:02 (Vitamin B1) 100 mg DAILY PO 01/28/18 09:00 01/30/18 08:43 (Coreg) 6.25 mg Q12HR PO 01/29/18 21:00 01/30/18 21:01 (Prinivil) 10 mg DAILY PO 01/31/18 09:00 Vital Signs / I&O Vital Signs Date Time Temp Pulse Resp B/P (MAP) Pulse Ox O2 Delivery O2 Flow Rate FiO2 01/31/18 07:54 97 Nasal Cannula 6.00 01/31/18 07:53 106 01/31/18 07:52 99.5 103 18 99/62 (74) 97 01/31/18 03:00 109 01/31/18 03:00 95 Nasal Cannula 4.00 01/31/18 03:00 99.6 109 24 128/92 (104) 95 01/30/18 23:00 98.7 113 24 117/77 (90) 94 01/30/18 23:00 113 01/30/18 23:00 94 Nasal Cannula 4.00 01/30/18 22:05 92 Nasal Cannula 3.00 01/30/18 19:00 112 01/30/18 19:00 98 Nasal Cannula 3.00 01/30/18 19:00 99.6 112 24 117/80 (92) 93 01/30/18 15:02 98.2 102 26 115/70 (85) 97 01/30/18 15:02 97 Nasal Cannula 4.00 01/30/18 15:02 105 01/30/18 11:11 97 Nasal Cannula 4.00 01/30/18 11:11 112 01/30/18 11:11 100.2 112 26 107/69 (82) 97 I/O 01/30/18 01/30/18 01/30/18 01/31/18 01/31/18 01/31/18 07:00 15:00 23:00 07:00 15:00 23:00 Intake Total 750 ml 240 ml Output Total 1600 ml 1350 ml 850 ml Balance -850 ml -1110 ml -850 ml Intake Oral 200 ml 240 ml IV Total 550 ml Output Urine Total 1600 ml 1350 ml 850 ml # Bowel Movements 1 0 Physical Exam GENERAL: SKIN: Warm and dry. HEAD: Atraumatic. Normocephalic. EYES: Pupils equal and round. No scleral icterus. ENT: No nasal bleeding or discharge. NECK: Trachea midline. No JVD. CARDIOVASCULAR: tachycardic, regular rhythm. no murmurs RESPIRATORY: No accessory muscle use. decreased breath sounds R base GASTROINTESTINAL: Abdomen soft, non-tender, nondistended. MUSCULOSKELETAL: Extremities without clubbing, cyanosis, or edema. No obvious deformities. NEUROLOGICAL: Awake and alert. No obvious cranial nerve deficits. Normal speech. PSYCHIATRIC: sedated, somnolent Laboratory Laboratory Tests Test 01/30/18 08:20 01/31/18 03:03 White Blood Count 4.5 TH/MM3 6.1 TH/MM3 Red Blood Count 3.82 MIL/MM3 3.87 MIL/MM3 Hemoglobin 12.0 GM/DL 12.4 GM/DL Hematocrit 36.2 % 37.0 % Mean Corpuscular Volume 94.8 FL 95.5 FL Mean Corpuscular Hemoglobin 31.6 PG 32.1 PG Mean Corpuscular Hemoglobin Concent 33.3 % 33.6 % Red Cell Distribution Width 17.7 % 17.5 % Platelet Count 423 TH/MM3 453 TH/MM3 Mean Platelet Volume 9.5 FL 10.2 FL Neutrophils (%) (Auto) 54.5 % 59.3 % Lymphocytes (%) (Auto) 27.7 % 21.0 % Monocytes (%) (Auto) 15.5 % 17.7 % Eosinophils (%) (Auto) 0.9 % 0.7 % Basophils (%) (Auto) 1.4 % 1.3 % Neutrophils # (Auto) 2.4 TH/MM3 3.6 TH/MM3 Lymphocytes # (Auto) 1.2 TH/MM3 1.3 TH/MM3 Monocytes # (Auto) 0.7 TH/MM3 1.1 TH/MM3 Eosinophils # (Auto) 0.0 TH/MM3 0.0 TH/MM3 Basophils # (Auto) 0.1 TH/MM3 0.1 TH/MM3 CBC Comment DIFF FINAL DIFF FINAL Differential Comment Blood Urea Nitrogen 14 MG/DL Creatinine 0.69 MG/DL Random Glucose 104 MG/DL Total Protein 7.9 GM/DL Albumin 2.2 GM/DL Calcium Level 8.7 MG/DL Phosphorus Level 5.2 MG/DL Magnesium Level 1.6 MG/DL Alkaline Phosphatase 127 U/L Aspartate Amino Transf (AST/SGOT) 62 U/L Alanine Aminotransferase (ALT/SGPT) 26 U/L Total Bilirubin 1.5 MG/DL Sodium Level 146 MEQ/L Potassium Level 3.4 MEQ/L Chloride Level 105 MEQ/L Carbon Dioxide Level 30.0 MEQ/L Anion Gap 11 MEQ/L Estimat Glomerular Filtration Rate 90 ML/MIN Imaging Last 24 hours Impressions Chest X-Ray 01/31/18 0600 Signed Impressions: CONCLUSION: Further improvement in aeration of the lungs with slight left lung base atelect asis remaining. Assessment and Plan Problem List: (1) Cardiomyopathy ICD Codes: I42.9 - Cardiomyopathy, unspecified Assessment and Plan 47 yo F with no known cardiac history and alcohol dependence presented to ED in alcohol withdrawal. cardiomyopathy- EF 20-25%, likely nonischemic currently recovering from delirium tremens in ICU, improving alertness. tachypnea and tachycardia improved. cont lisinopril and carvedilol; will need ischemic workup with lexiscan when she clinically improves, LifeVest ordered Angelika Reeves January 31, 2018 08:14
[2018-01-31] MEDS ORDERED: DEFIB EXTERNAL (08:17)
[2018-01-31] MEDS: FUROSEMIDE 40 MG/4 ML VIAL IV PUSH SCH ×2 (09:00→18:00)
[2018-01-31] MEDS: CARVEDILOL 6.25 MG TAB PO SCH ×2 (09:00→20:22)
[2018-01-31] MEDS: FAMOTIDINE 20 MG/2 ML VIAL IV PUSH SCH (09:00)
[2018-01-31] MEDS: DOCUSATE SODIUM 50 MG/SENNA 8.6 MG TAB PO SCH ×2 (09:00→20:24)
[2018-01-31] MEDS: THIAMINE HCL 100 MG TAB PO SCH (09:00)
[2018-01-31] MEDS: QUEtiapine FUMARATE 25 MG TAB PO SCH ×2 (09:00→20:23)
[2018-01-31] MEDS: POTASSIUM CHLORIDE 20 MEQ CONTROLLED RELEASE TAB PO SCH ×2 (09:00→20:23)
[2018-01-31] MEDS: LISINOPRIL 10 MG TAB PO SCH (09:00)
[2018-01-31] MEDS: SODIUM CHLORIDE 0.9% FLUSH 10 ML FLUSH IV FLUSH SCH ×2 (09:01→20:23)
--- NOTE | 2018-01-31 12:21 | HHI.PR ---
Subjective Remarks Sleepy today and breathing shallow On a NRB mask 80 % FIO2 Chest Xray shows increased right lung infiltrate/effusion Objective Vital Signs Date Time Temp Pulse Resp B/P (MAP) Pulse Ox O2 Delivery O2 Flow Rate FiO2 01/31/18 11:31 98 Non-Rebreather 15.00 01/31/18 08:40 96 Nasal Cannula 3.00 01/31/18 07:54 97 Nasal Cannula 6.00 01/31/18 07:53 106 01/31/18 07:52 99.5 103 18 99/62 (74) 97 01/31/18 03:00 109 01/31/18 03:00 95 Nasal Cannula 4.00 01/31/18 03:00 99.6 109 24 128/92 (104) 95 01/30/18 23:00 98.7 113 24 117/77 (90) 94 01/30/18 23:00 113 01/30/18 23:00 94 Nasal Cannula 4.00 01/30/18 22:05 92 Nasal Cannula 3.00 01/30/18 19:00 112 01/30/18 19:00 98 Nasal Cannula 3.00 01/30/18 19:00 99.6 112 24 117/80 (92) 93 01/30/18 15:02 98.2 102 26 115/70 (85) 97 01/30/18 15:02 97 Nasal Cannula 4.00 01/30/18 15:02 105 I/O 01/30/18 01/30/18 01/30/18 01/31/18 01/31/18 01/31/18 06:59 14:59 22:59 06:59 14:59 22:59 Intake Total 750 ml 240 ml 100 ml Output Total 1600 ml 1350 ml 850 ml Balance -850 ml -1110 ml -850 ml 100 ml Intake Oral 200 ml 240 ml IV Total 550 ml 100 ml Output Urine Total 1600 ml 1350 ml 850 ml # Bowel Movements 1 0 Result Diagram: 01/31/18 0303 01/31/18 0303 Objective Remarks GENERAL: This is a moderately obese, middle-aged, white female who is lethargic HEENT: Head is normocephalic. Pupils reactive. Sclerae were clear. Throat has no inflammation. Tongue was clear. Nasal mucosa was clear. NECK: Supple. No venous distention. No thyromegaly or lymphadenopathy. CHEST: Equal movements with wheezes scattered bilaterally, prolonged expirations. Occ crackles at bases HEART: Sounds are regular, S1 and S2. No murmur. ABDOMEN: Soft, obese without masses. No organomegaly or tenderness. EXTREMITIES: No edema. Peripheral pulses are well felt. NEUROLOGIC: Reflexes are 1+. The patient is awake. SKIN: Dry and cool. Assessment and Plan Assessment and Plan ASSESSMENT: 1. Bilateral pneumonia with probable aspiration. 2. Respiratory failure. 3. Ethanolism. 4. Abnormal liver functions. 5. Delirium tremens. 6. Hyponatremia. 7. Encephalopathy. Plan : 1. Reduce sedation. 2. O2 5 L N/C . 3. Cancel IR Thoracentesis 4. PO diet as tolerated 5. Nebs qid PRN 6. Continue antibiotics. 7. CBC,BMP in am. 8. Librium, Ativan PRN. for agitation 9. Use BIPAP 12/5 CM if sats <92 and at HS. Ahsan Ayala MD January 31, 2018 12:21
[2018-01-31] MEDS: AZITHROMYCIN INJ 500 MG in SODIUM CHLOR 0.9% 250 ML INJ 250 ML IV SCH (15:00)
[2018-01-31] MEDS: LORazepam 2 MG/ML VIAL IV PUSH PRN ×3 (16:12→21:17)
--- NOTE | 2018-01-31 16:18 | RADRPT ---
EXAM DATE: 01/31/2018 10:48 AM EDT AGE/SEX: 47 years / Female INDICATIONS: Right pleural effusion. CLINICAL DATA: This is the patient's initial encounter. Patient reports that signs and symptoms have been present for 3 days and indicates a pain score of Nonresponsive. MEDICAL/SURGICAL HISTORY: . Tremors. Confusion. Nausea/vomiting. Hallucinations. Depression. section. D&C. Lumpectomy x2. COMPARISON: No prior [facility] exams available for comparison. No external comparison. MEASUREMENTS: Skin To Parietal Pleura:__Inadequate fluid cm Skin To Max Safe Depth:__Inadequate fluid cm Estimated Fluid Volume:__13.0 cc Fluid Composition:__inadequate fluid FINDINGS: No marking was performed. CONCLUSION: 1. Inadequate fluid. Thoracentesis not performed. Electronically signed by: Edwar Edwards MD 01/31/2018 4:17 PM EDT
--- NOTE | 2018-01-31 16:48 | HHI.CCPN ---
Subjective Remarks/Hospital Course 01/24: 47-year-old female with past medical history of alcohol dependence who presents to [facility] emergency department due to concern for alcohol withdrawal. She states that she and her share a 1.5 L of vodka chased with rubia al every 2.5 days. She stopped drinking on Tuesday. She has been tremulous, has experienced some hallucinations and therefore her father brought her in. She states she intends to quit drinking indefinitely. She has been nauseous and vomited x1, nonbloody nonbilious. She denies headache or fall. CIWA was 20 upon presentation to the ED. She has received ativan 4 mg IV. She has also received 1 L normal saline bolus, Compazine 10 mg IV, magnesium 2 g IV. 01/25: Laying in bed on Precedex currently. Arouses easily. Knows she is at the intensive care unit at [facility]. Knew the month and year however was off on the date. 01/26: Continues to have episodes of hallucinations and delirium at night. On Precedex gtt. 01/27: Remains on Precedex gtt. On nasal cannula currently. Was more awake earlier and conversed with the family members per BUSINESS PERFORMANCE ADVISOR. She did diuresis with Lasix since yesterday. Her BNP is 3000. Awaiting 2D echo results. Patient has been started on antibiotics by pulmonary for suspicion of pneumonia. 01/28: Transferred to [facility] by cardiology for possible cardiac cath. On nasal cannula. 01/29: Breathing seems to have improved since yesterday. Patient remains on nasal cannula. 01/30: Still having hallucinations. Remains on nasal cannula with O2 sats borderline. 01/31: Awake and alert, on nasal cannula. Not in any acute respiratory distress. Neurologic status seems to have improved. She knows she is in the hospital and knew it was January 2018. She could identify her mother and new I was a doctor. She also gave me her home address. No tremors noted. Objective Vital Signs Date Time Temp Pulse Resp B/P (MAP) Pulse Ox O2 Delivery O2 Flow Rate FiO2 01/31/18 16:40 95 Nasal Cannula 3.00 01/31/18 07:53 106 01/31/18 07:52 99.5 18 99/62 (74) Intake and Output 01/31/18 01/31/18 02/01/18 08:00 16:00 00:00 Intake Total 100 ml Output Total 850 ml Balance -850 ml 100 ml Result Diagram: 01/31/18 0303 01/31/18 0303 Objective Remarks GENERAL: Overweight female who is laying in bed, drowsy though arousable, slightly tachypneic. SKIN: Warm and dry. There is some ecchymosis over her right tibia. HEAD: Atraumatic. Normocephalic. EYES: Pupils equal and round, 4 mm and reactive to 2 mm bilaterally.. No scleral icterus. No injection or drainage. ENT: No nasal bleeding or discharge. Mucous membranes dry NECK: Trachea midline. No JVD. CARDIOVASCULAR: Tachycardic, sinus tachycardia on the monitor with rate in the 120s. No murmurs rubs or gallops. RESPIRATORY: Mildly tachypneic but is breathing comfortably with no accessory muscle use. Clear to auscultation. Breath sounds equal bilaterally. GASTROINTESTINAL: Abdomen soft, non-tender, nondistended. Hepatic and splenic margins not palpable. Bowel sounds present. MUSCULOSKELETAL: Extremities without clubbing, cyanosis, or edema. No obvious deformities. NEUROLOGICAL: Awake and alert, oriented 3, following commands. 5 out of 5 strength in all extremities. Normal speech A/P Problem List: (1) EtOH dependence ICD Code: F10.20 - EtOH dependence Status: Acute (2) Tachycardia ICD Code: R00.0 - Tachycardia Status: Acute (3) Hypokalemia ICD Code: E87.6 - Hypokalemia Status: Acute (4) Hypomagnesemia ICD Code: E83.42 - Hypomagnesemia Status: Acute (5) Alcohol withdrawal ICD Code: F10.239 - Alcohol dependence with withdrawal, unspecified Status: Acute (6) LFT elevation ICD Code: R79.89 - LFT elevation Status: Acute (7) DTs (delirium tremens) ICD Code: F10.231 - Alcohol dependence with withdrawal delirium Status: Acute (8) Chronic hyponatremia ICD Code: E87.1 - Hypo-osmolality and hyponatremia Status: Acute Assessment and Plan NEURO: Alcohol dependence Alcohol withdrawal Librium 25 mg p.o. every 6 hours. Ativan 2 mg IV every 2 hourly 4 doses ordered on 01/26. Ativan as needed per [facility] protocol Off Precedex. Added Seroquel 50 mg p.o. q. 12 hourly on 01/26 Vitamin supplementation with thiamine/multivitamin/folic acid. Consult psychiatry in view of hallucinations/delirium RESP: Acute resp failure Pulm edema Secondhand smoke exposure Nasal cannula O2. Bronchodilators as needed. Pulm following. CV: Sinus tachycardia due to alcohol withdrawal pulmonary edema Cardiomyopathy with LVEF 20-25% Elevated BNP. 2D echo. Diuresed with Lasix. IV fluids KVO Started coreg, lisinopril. lasix, ASA. Further recs per cardiology-planning stress test. GI: Transaminitis PO diet as tolerated Viral hepatitis panel FEN/RENAL: Hypokalemia Hypomagnesemia Acute dehydration Hyponatremia Initially recieved IVF. KVO IVF. Diuresed with lasix. Has received magnesium 2 g IV. Monitor and replete electrolytes. ID: Started on empiric antibiotics by pulmonary for suspicion of pneumonia. Currently on cefepime and Zithromax. HEME: Monitor CBC. Follow-up coags. ENDO: Stress hyperglycemia. Follow glucose q8 and initiate low-dose insulin sliding scale as indicated. PROPH: SCDs for DVT prophylaxis. Will initiate pharmacologic DVT prophylaxis depending on results of coags. Famotidine for stress ulcer prophylaxis. ACCESS: Peripheral IV providing adequate access at this time. Full code Problem Qualifiers (1) Alcohol withdrawal: Qualified Codes: F10.231 - Alcohol dependence with withdrawal delirium William Chauhan MD January 31, 2018 16:48
[2018-01-31] MEDS: FAMOTIDINE 20 MG TAB PO SCH (20:23)
[2018-02-01] VITALS (16 sets, daily range): BP systolic 102–143; BP diastolic 56–90; PULSE 84–109; RESP 20–22; TEMP 98.5–98.6; O2SAT 94–100
[2018-02-01] MEDS: LORazepam 2 MG/ML VIAL IV PUSH PRN ×4 (00:07→16:14)
[2018-02-01] MEDS: CHLORHEXIDINE GLUCONATE 2 % 1 PACK (2 CLOTHS) TOP SCH (04:00)
[2018-02-01] MEDS: CEFEPIME INJ 2,000 MG in SODIUM CHLORIDE 0.9% INJ 100 ML IV SCH ×3 (05:12→21:08)
[2018-02-01 05:55] LABS: PHOSPHORUS 3.7 MG/DL (2.5-4.9)
--- NOTE | 2018-02-01 07:24 | PD.PSY.CON ---
Provisional Diagnosis Admission Date January 24, 2018 at 03:30 [place] I. 1. Delirium, multifactorial with possible component of alcohol withdrawal delirium 2. Alcohol use disorder [place] II. Deferred History of Present Illness Service Psychiatry Consult Requested By Dr. Chauhan Reason for Consult "Alcohol abuse/dependence, hallucinations/delirium" Primary Care Physician No Primary Care Physician HPI Ms. Dang is a 47-year-old female with a chart history of mood disorder and alcohol dependence who presented to the emergency department on 01/24 out of concern for possible alcohol withdrawal. She was admitted to the [facility] for management of delirium tremens. Reviewing the electronic medical record, I note that the patient was admitted under Dr. Hodges to the inpatient psychiatric unit in 2014 following a medication overdose in the setting of alcohol intoxication. Patient seen and examined. Chart reviewed. Benzo requirement reviewed: 01/29 Librium 50mg + Ativan 2mg PO + Ativan 4mg IV = ~8mg Ativan equivalent 01/30 Librium 75mg + Ativan 0mg PO + Ativan 2mg IV = ~5mg "" 01/31 Librium 50mg + Ativan 0mg PO + Ativan 5mg IV = ~7mg "" Case discussed with nursing staff. Patient has reportedly been hallucinating overnight. On my exam today, patient is quite confused. Registration 3, recall 09/07 at 3 ". Oriented to person and [place] only. Able to spell WORLD forward but not backward. Unable to name items. Able to repeat a phrase. Denies AVH but appears preoccupied. No delusions. She exhibits some utilization behavior. Denies SI/HI. Denies subjective confusion. No mood symptoms. Psychiatric interview is limited because of patient's acute confusional state. Past psychiatric history: Patient is a poor historian. She reports that she saw a psychiatrist when she was very young when her parents were . She denies a history of suicide attempts. Family history: Patient denies family history of mental illness. Chemical dependency history: Patient reports that she drinks several cocktails with her after they finish up at their restaurant and then she has a nightcap. Unable to exactly quantify alcohol consumption. Denies a history of DTs or seizures. No other substance use reported but she does note "I take a lot of medicine." Social history: Limited as patient is a poor historian. She is and apparently works at [employer]. Review of Systems ROS Limitations: Poor Historian Except as stated in HPI: all other systems reviewed are Neg Past Family Social History Coded Allergies: No Known Allergies (Unverified , 05/08/15) Past Medical History See EMR Active Scripts Defibrillator Jacket (Defibrillator Jacket) 1 Ea Device, EA EXTERNAL ONCE Y for cardiomyopathy, #1 1 Refill Energy = 150 Joules; VT Threshold = 150 BPM; VF Threshold = 200 BPM Use up to 90 days only Prov:Angelika Reeves 01/31/18 Current Medications Medications (Trade) Dose Ordered Sig/Sarah Route Start Time Stop Time Status Last Admin (NS Flush) 2 ml UNSCH PRN IV FLUSH 01/24/18 05:45 01/30/18 03:54 (NS Flush) 2 ml BID IV FLUSH 01/24/18 09:00 01/31/18 20:23 (Tylenol) 650 mg Q6H PRN PO 01/24/18 05:45 (Zofran Odt) 4 mg Q6H PRN PO 01/24/18 06:00 (Restoril) 15 mg HS PRN PO 01/24/18 05:45 (Duoneb Neb) 1 ampule Q2HR NEB PRN INH 01/24/18 05:45 01/26/18 08:07 ([facility] [place] 1 Q361D XX 01/24/18 05:45 01/24/18 20:30 (Chlorhexidine 2% Cloth) Taper DAILY@04 TOP 01/25/18 04:00 01/21/19 03:59 01/31/18 04:00 (Chlorhexidine 2% Cloth) 3 pack UNSCH PRN TOP 01/24/18 05:45 (Bouchra-Colace) 1 tab BID PO 01/24/18 09:00 01/28/18 20:56 (Milk Of Magnesia Liq) 30 ml Q12H PRN PO 01/24/18 05:45 (Senokot) 17.2 mg Q12H PRN PO 01/24/18 05:45 (Dulcolax Supp) 10 mg DAILY PRN RECTAL 01/24/18 05:45 (Lactulose Liq) 30 ml DAILY PRN PO 01/24/18 05:45 Potassium Chloride 100 ml @ 50 mls/hr Q2H PRN IV 01/24/18 06:00 Potassium Chloride 100 ml @ 50 mls/hr Q2H PRN IV 01/24/18 06:00 01/29/18 17:10 (K-Lyte Cl Eff) 50 meq UNSCH PRN PO 01/24/18 06:00 01/31/18 06:23 Potassium Chloride 100 ml @ 25 mls/hr UNSCH PRN IV 01/24/18 06:00 Potassium Chloride 100 ml @ 50 mls/hr Q2H PRN IV 01/24/18 06:00 01/26/18 10:44 Magnesium Sulfate 4 gm/Sodium Chloride 100 ml @ 50 mls/hr UNSCH PRN IV 01/24/18 06:00 01/30/18 00:30 (Mag-Ox) 800 mg UNSCH PRN PO 01/24/18 06:00 Magnesium Sulfate 2 gm/Sodium Chloride 100 ml @ 50 mls/hr UNSCH PRN IV 01/24/18 06:00 01/31/18 06:06 (K-Phos) 2,000 mg Q4H PRN PO 01/24/18 06:00 Sodium Phosphate 30 mmol/Sodium Chloride 250 ml @ 42 mls/hr UNSCH PRN IV 01/24/18 06:00 01/30/18 00:30 (K-Phos) 2,000 mg UNSCH PRN PO/TUBE 01/24/18 06:00 Potassium Phosphate 30 mmol/ Sodium Chloride 260 ml @ 42 mls/hr UNSCH PRN IV 01/24/18 06:00 01/25/18 00:41 (Romazicon Inj) 0.2 mg Q1M PRN IV PUSH 01/24/18 06:00 (Ativan) 1 mg Q4H PRN PO 01/24/18 06:00 01/28/18 12:25 (Ativan Inj) 1 mg Q4H PRN IV PUSH 01/24/18 06:00 01/31/18 16:12 (Ativan) 2 mg Q2H PRN PO 01/24/18 06:00 01/29/18 07:41 (Ativan Inj) 2 mg Q2H PRN IV PUSH 01/24/18 06:00 01/29/18 14:15 (Ativan Inj) 2 mg Q1H PRN IV PUSH 01/24/18 06:00 02/01/18 05:12 (Ativan Inj) 2 mg Q15M PRN IV PUSH 01/24/18 06:00 01/27/18 14:57 (SEROquel) 50 mg BID PO 01/26/18 09:00 01/31/18 20:23 Cefepime HCl 2000 mg/Sodium Chloride 100 ml @ 200 mls/hr Q8HR IV 01/26/18 14:00 02/01/18 05:12 Azithromycin 500 mg/Sodium Chloride 250 ml @ 250 mls/hr Q24H IV 01/26/18 15:00 01/31/18 15:00 (Lasix Inj) 40 mg BID@,18 IV PUSH 01/27/18 18:00 01/31/18 18:00 (KCl) 20 meq Q12HR PO 01/27/18 21:00 01/31/18 20:23 (Vitamin B1) 100 mg DAILY PO 01/28/18 09:00 01/30/18 08:43 (Coreg) 6.25 mg Q12HR PO 01/29/18 21:00 01/31/18 20:22 (Prinivil) 10 mg DAILY PO 01/31/18 09:00 (Pepcid) 20 mg BID PO 01/31/18 21:00 01/31/18 20:23 (Librium) 25 mg Q12HR PO 01/31/18 21:00 01/31/18 20:23 Patient's Strengths (min. 2) In a monitored setting. Verbally fluent. Physical Exam Physical examination completed by primary team. On my examination today, patient appears to be in no acute physical distress. She exhibits no tremor, no mydriasis, no diaphoresis, no tongue fasciculations. EOMI. No other motor abnormalities noted. Labs and vital signs reviewed: Vital Signs Vital Signs Date Time Temp Pulse Resp B/P (MAP) Pulse Ox O2 Delivery O2 Flow Rate FiO2 02/01/18 06:00 109 02/01/18 04:00 92 Nasal Cannula 6.00 02/01/18 04:00 20 139/80 (99) 02/01/18 00:00 98.5 I/O 02/01/18 02/01/18 02/02/18 08:00 16:00 00:00 Intake Total 100 ml Output Total 850 ml Balance -750 ml Lab Results Laboratory Tests Test 01/24/18 02:40 01/24/18 05:08 01/24/18 10:41 01/25/18 10:05 Lipase 69 U/L Ethyl Alcohol Level LESS THAN 3 MG/DL Urine Color ORANGE Urine Turbidity CLEAR Urine pH 7.0 Urine Specific [place] LESS/EQUAL 1.005 Urine Protein 30 mg/dL Urine Glucose (UA) NEG mg/dL Urine Ketones NEG mg/dL Urine Occult Blood TRACE Urine Nitrite NEG Urine Bilirubin NEG Urine Urobilinogen 1.0 MG/DL Urine Leukocyte Esterase TRACE Urine RBC 0-3 /hpf Urine WBC 3-5 /hpf Urine Squamous Epithelial Cells 0-5 /hpf Urine Bacteria OCC /hpf Microscopic Urinalysis Comment CULT NOT INDICATED Hepatitis A IgM Antibody NONREACTIVE Hepatitis B Surface Antigen NONREACTIVE Hepatitis B Core IgM Antibody NONREACTIVE Hepatitis C IgG Antibody NONREACTIVE Prothrombin Time 11.2 SEC Prothromb Time International Ratio 1.1 RATIO Activated Partial Thromboplast Time 25.2 SEC Lactic Acid Level 1.7 mmol/L Test 01/26/18 04:35 01/26/18 08:35 01/28/18 03:33 01/29/18 09:49 Troponin I 0.29 NG/ML Human Chorionic Gonadotropin, Quant 2 MIU/ML Blood Gas Puncture Site LT RADIAL Blood Gas Patient Temperature 37.0 Blood Gas HCO3 15 mmol/L Blood Gas Base Excess -9.2 mmol/L Blood Gas Oxygen Saturation 93 % Arterial Blood pH 7.41 Arterial Blood Partial Pressure CO2 23 mmHg Arterial Blood Partial Pressure O2 75 mmHg Arterial Blood Oxygen Content 15.7 Vol % Arterial Blood Carboxyhemoglobin 1.2 % Arterial Blood Methemoglobin 1.1 % Blood Gas Hemoglobin 12.0 G/DL Oxygen Delivery Device NASAL CANNULA Blood Gas Liter Flow 4 L/M Protein Corrected Calcium 7.6 MG/DL B-Type Natriuretic Peptide 2241 PG/ML Triglycerides Level 169 MG/DL Cholesterol Level 151 MG/DL LDL Cholesterol 105 MG/DL HDL Cholesterol 12.7 MG/DL Cholesterol/HDL Ratio 11.88 RATIO Test 01/31/18 03:03 01/31/18 11:00 02/01/18 04:31 White Blood Count 6.1 TH/MM3 Red Blood Count 3.87 MIL/MM3 Hemoglobin 12.4 GM/DL Hematocrit 37.0 % Mean Corpuscular Volume 95.5 FL Mean Corpuscular Hemoglobin 32.1 PG Mean Corpuscular Hemoglobin Concent 33.6 % Red Cell Distribution Width 17.5 % Platelet Count 453 TH/MM3 Mean Platelet Volume 10.2 FL Neutrophils (%) (Auto) 59.3 % Lymphocytes (%) (Auto) 21.0 % Monocytes (%) (Auto) 17.7 % Eosinophils (%) (Auto) 0.7 % Basophils (%) (Auto) 1.3 % Neutrophils # (Auto) 3.6 TH/MM3 Lymphocytes # (Auto) 1.3 TH/MM3 Monocytes # (Auto) 1.1 TH/MM3 Eosinophils # (Auto) 0.0 TH/MM3 Basophils # (Auto) 0.1 TH/MM3 CBC Comment DIFF FINAL Differential Comment Blood Urea Nitrogen 14 MG/DL Creatinine 0.69 MG/DL Random Glucose 104 MG/DL Total Protein 7.9 GM/DL Albumin 2.2 GM/DL Calcium Level 8.7 MG/DL Phosphorus Level 5.2 MG/DL 3.7 MG/DL Magnesium Level 1.6 MG/DL 2.0 MG/DL Alkaline Phosphatase 127 U/L Aspartate Amino Transf (AST/SGOT) 62 U/L Alanine Aminotransferase (ALT/SGPT) 26 U/L Total Bilirubin 1.5 MG/DL Sodium Level 146 MEQ/L Potassium Level 3.4 MEQ/L Chloride Level 105 MEQ/L Carbon Dioxide Level 30.0 MEQ/L Anion Gap 11 MEQ/L Estimat Glomerular Filtration Rate 90 ML/MIN Nasal Screen MRSA (PCR) MRSA NOT DETECTED Last Impressions Chest X-Ray 01/31/18 0600 Signed Impressions: CONCLUSION: Further improvement in aeration of the lungs with slight left lung base atelect asis remaining. Chest Ultrasound 01/31/18 Signed Impressions: CONCLUSION: 1. Inadequate fluid. Thoracentesis not performed. Lower Extremity Ultrasound 01/26/18 Signed Impressions: CONCLUSION: 1. No evidence of DVT. Liver Ultrasound 01/24/18 Signed Impressions: CONCLUSION: 1. No evidence of gallstones or biliary tract obstruction. 2. Hepatomegaly with increased echogenicity throughout the liver suggestive of fatty infiltration and/or hepatocellular disease. Mild resolving transaminitis. Mild electrolyte abnormalities. BNP elevated, trending down. Mental Status Examination Appearance: Disheveled Consciousness: Clouded Orientation: Person Motor Activity: Other (Motor exam as above) Speech: Slow Language: Other (Rambling) Fund of Knowledge: Inadequate Attention and Concentration: Easily Distracted Memory: Impaired Mood: Other (Calm) Affect: Blunt Thought Process & Associations: Tangential Thought Content: Hallucinations Hallucination Type: Other (Appears somewhat internally preoccupied) Delusion Type: None Suicidal Ideation: No Homicidal Ideation: No Insight: Poor Judgment: Poor Assessment & Plan Problem List: (1) Delirium ICD Codes: R41.0 - Disorientation, unspecified Assessment & Plan 47-year-old female with psychiatric history as detailed above who is presently admitted to the [facility] for management of possible alcohol withdrawal delirium. Psychiatry is consulted to assist with this issue. On my exam, patient has no real stigmata of alcohol withdrawal and besides very mild tachycardia her vital signs are stable. I suspect delirium may be taking on a mixed picture. I recommend the following: --Recommend discontinuing scheduled Librium and using CIWA for any breakthrough withdrawal symptoms to avoid 're-toxifying' the patient. It is also important to differentiate between elevated CIWAs from agitated delirium and kar angy withdrawal. --Recommend expanding workup for other possible causes of delirium. Consider checking head imaging, EEG, thiamine/folate, B12, TFTs, ammonia, RPR, HIV. --QTc was borderline prolonged when checked on 01/27. Consider rechecking EKG and replacing Seroquel with Abilify (e.g. 1-2mg PO BID to start) as the latter agent has minimal if any association with torsades de pointes. --Nonpharmacologic delirium management measures including frequent reorientation , early mobilization, limiting use of restraints and preferring a sitter for behavioral redirection, aggressive treatment of any urinary retention or constipation. Case discussed with RN. Thank you very much for this consultation. Please call or page [phone] with any questions. I will sign the case out to Dr. Katz upon his return tomorrow. Monty Bennett MD February 01, 2018 07:24
[2018-02-01] MEDS: QUEtiapine FUMARATE 25 MG TAB PO SCH (07:34)
[2018-02-01] MEDS: chlordiazePOXIDE 25 MG CAP PO SCH ×2 (07:34→19:43)
[2018-02-01] MEDS: CARVEDILOL 6.25 MG TAB PO SCH (07:34)
[2018-02-01] MEDS: THIAMINE HCL 100 MG TAB PO SCH (07:34)
[2018-02-01] MEDS: LISINOPRIL 10 MG TAB PO SCH (07:34)
[2018-02-01] MEDS: FAMOTIDINE 20 MG TAB PO SCH ×2 (07:34→19:43)
[2018-02-01] MEDS: DOCUSATE SODIUM 50 MG/SENNA 8.6 MG TAB PO SCH ×2 (07:35→19:44)
[2018-02-01] MEDS: POTASSIUM CHLORIDE 20 MEQ CONTROLLED RELEASE TAB PO SCH ×2 (07:36→19:43)
[2018-02-01] MEDS: FUROSEMIDE 40 MG/4 ML VIAL IV PUSH SCH (07:36)
--- NOTE | 2018-02-01 08:10 | PD.CARD.PN ---
Subjective Subjective Remarks awake and alert; oriented x 3, somewhat somnolent. no chest pain or sob Objective Medications Current Medications Medications (Trade) Dose Ordered Sig/Sarah Route Start Time Stop Time Status Last Admin (NS Flush) 2 ml UNSCH PRN IV FLUSH 01/24/18 05:45 01/30/18 03:54 (NS Flush) 2 ml BID IV FLUSH 01/24/18 09:00 01/31/18 20:23 (Tylenol) 650 mg Q6H PRN PO 01/24/18 05:45 (Zofran Odt) 4 mg Q6H PRN PO 01/24/18 06:00 (Restoril) 15 mg HS PRN PO 01/24/18 05:45 (Duoneb Neb) 1 ampule Q2HR NEB PRN INH 01/24/18 05:45 01/26/18 08:07 ([facility] Information) 1 Q361D XX 01/24/18 05:45 01/24/18 20:30 (Chlorhexidine 2% Cloth) Taper DAILY@04 TOP 01/25/18 04:00 01/21/19 03:59 01/31/18 04:00 (Chlorhexidine 2% Cloth) 3 pack UNSCH PRN TOP 01/24/18 05:45 (Bouchra-Colace) 1 tab BID PO 01/24/18 09:00 02/01/18 07:35 (Milk Of Magnesia Liq) 30 ml Q12H PRN PO 01/24/18 05:45 (Senokot) 17.2 mg Q12H PRN PO 01/24/18 05:45 (Dulcolax Supp) 10 mg DAILY PRN RECTAL 01/24/18 05:45 (Lactulose Liq) 30 ml DAILY PRN PO 01/24/18 05:45 Potassium Chloride 100 ml @ 50 mls/hr Q2H PRN IV 01/24/18 06:00 Potassium Chloride 100 ml @ 50 mls/hr Q2H PRN IV 01/24/18 06:00 01/29/18 17:10 (K-Lyte Cl Eff) 50 meq UNSCH PRN PO 01/24/18 06:00 01/31/18 06:23 Potassium Chloride 100 ml @ 25 mls/hr UNSCH PRN IV 01/24/18 06:00 Potassium Chloride 100 ml @ 50 mls/hr Q2H PRN IV 01/24/18 06:00 01/26/18 10:44 Magnesium Sulfate 4 gm/Sodium Chloride 100 ml @ 50 mls/hr UNSCH PRN IV 01/24/18 06:00 01/30/18 00:30 (Mag-Ox) 800 mg UNSCH PRN PO 01/24/18 06:00 Magnesium Sulfate 2 gm/Sodium Chloride 100 ml @ 50 mls/hr UNSCH PRN IV 01/24/18 06:00 01/31/18 06:06 (K-Phos) 2,000 mg Q4H PRN PO 01/24/18 06:00 Sodium Phosphate 30 mmol/Sodium Chloride 250 ml @ 42 mls/hr UNSCH PRN IV 01/24/18 06:00 01/30/18 00:30 (K-Phos) 2,000 mg UNSCH PRN PO/TUBE 01/24/18 06:00 Potassium Phosphate 30 mmol/ Sodium Chloride 260 ml @ 42 mls/hr UNSCH PRN IV 01/24/18 06:00 01/25/18 00:41 (Romazicon Inj) 0.2 mg Q1M PRN IV PUSH 01/24/18 06:00 (Ativan) 1 mg Q4H PRN PO 01/24/18 06:00 01/28/18 12:25 (Ativan Inj) 1 mg Q4H PRN IV PUSH 01/24/18 06:00 02/01/18 07:35 (Ativan) 2 mg Q2H PRN PO 01/24/18 06:00 01/29/18 07:41 (Ativan Inj) 2 mg Q2H PRN IV PUSH 01/24/18 06:00 01/29/18 14:15 (Ativan Inj) 2 mg Q1H PRN IV PUSH 01/24/18 06:00 02/01/18 05:12 (Ativan Inj) 2 mg Q15M PRN IV PUSH 01/24/18 06:00 01/27/18 14:57 (SEROquel) 50 mg BID PO 01/26/18 09:00 02/01/18 07:34 Cefepime HCl 2000 mg/Sodium Chloride 100 ml @ 200 mls/hr Q8HR IV 01/26/18 14:00 02/01/18 05:12 Azithromycin 500 mg/Sodium Chloride 250 ml @ 250 mls/hr Q24H IV 01/26/18 15:00 01/31/18 15:00 (Lasix Inj) 40 mg BID@09,18 IV PUSH 01/27/18 18:00 02/01/18 07:36 (KCl) 20 meq Q12HR PO 01/27/18 21:00 02/01/18 07:36 (Vitamin B1) 100 mg DAILY PO 01/28/18 09:00 02/01/18 07:34 (Coreg) 6.25 mg Q12HR PO 01/29/18 21:00 02/01/18 07:34 (Prinivil) 10 mg DAILY PO 01/31/18 09:00 02/01/18 07:34 (Pepcid) 20 mg BID PO 01/31/18 21:00 02/01/18 07:34 (Librium) 25 mg Q12HR PO 01/31/18 21:00 02/01/18 07:34 Vital Signs / I&O Vital Signs Date Time Temp Pulse Resp B/P (MAP) Pulse Ox O2 Delivery O2 Flow Rate FiO2 02/01/18 06:00 109 02/01/18 04:00 92 Nasal Cannula 6.00 02/01/18 04:00 108 02/01/18 04:00 93 20 139/80 (99) 94 02/01/18 02:00 100 02/01/18 00:00 103 02/01/18 00:00 96 Nasal Cannula 6.00 02/01/18 00:00 98.5 84 102/58 (73) 95 01/31/18 22:00 102 01/31/18 21:15 93 Nasal Cannula 3.00 01/31/18 20:00 98.0 110 36 109/82 (91) 94 01/31/18 20:00 94 Nasal Cannula 6.00 01/31/18 20:00 110 01/31/18 18:00 Nasal Cannula 6.00 01/31/18 16:40 95 Nasal Cannula 3.00 01/31/18 16:00 109 103/54 (70) 01/31/18 12:00 97 Nasal Cannula 6.00 01/31/18 12:00 105 31 115/78 (90) 99 01/31/18 11:31 98 Non-Rebreather 15.00 01/31/18 11:00 98.9 106 35 100/51 (67) 93 01/31/18 08:40 96 Nasal Cannula 3.00 I/O 01/31/18 01/31/18 01/31/18 02/01/18 02/01/18 02/01/18 07:00 15:00 23:00 07:00 15:00 23:00 Intake Total 100 ml 220 ml 100 ml Output Total 850 ml 550 ml 850 ml Balance -850 ml 100 ml -330 ml -750 ml Intake Oral 120 ml 100 ml IV Total 100 ml 100 ml Output Urine Total 850 ml 550 ml 850 ml # Bowel Movements 0 0 Physical Exam GENERAL: SKIN: Warm and dry. HEAD: Atraumatic. Normocephalic. EYES: Pupils equal and round. No scleral icterus. ENT: No nasal bleeding or discharge. NECK: Trachea midline. No JVD. CARDIOVASCULAR regular rate and rhythm. no murmurs RESPIRATORY: No accessory muscle use. decreased breath sounds R base GASTROINTESTINAL: Abdomen soft, non-tender, nondistended. MUSCULOSKELETAL: Extremities without clubbing, cyanosis, or edema. No obvious deformities. NEUROLOGICAL: Awake and alert. No obvious cranial nerve deficits. Normal speech. PSYCHIATRIC: awake and alert, oriented x 3 Laboratory Laboratory Tests Test 01/31/18 11:00 02/01/18 04:31 Nasal Screen MRSA (PCR) MRSA NOT DETECTED Phosphorus Level 3.7 MG/DL Magnesium Level 2.0 MG/DL Assessment and Plan Problem List: (1) Cardiomyopathy ICD Codes: I42.9 - Cardiomyopathy, unspecified Assessment and Plan 47 yo F with no known cardiac history and alcohol dependence presented to ED in alcohol withdrawal. cardiomyopathy- EF 20-25%, likely nonischemic currently recovering from delirium tremens in ICU, today more alert and oriented. remains tachycardic. increase carvedilol to 25mg BID, cont lisinopril 10mg. lexiscan today to evaluate for ischemia, keep npo LifeVest ordered Problem Qualifiers (1) Cardiomyopathy: Qualified Codes: I42.9 - Cardiomyopathy, unspecified Angelika Reeves February 01, 2018 08:10
[2018-02-01] MEDS ORDERED: CARVEDILOL 12.5 MG TAB PO SCH (09:00)
[2018-02-01] MEDS ORDERED: PILL SPLITTER OTHER PRN (10:30)
--- NOTE | 2018-02-01 12:46 | HHI.PR ---
Subjective Remarks More alert and taking PO liquids On N/C 4 L CXR stable Objective Vital Signs Date Time Temp Pulse Resp B/P (MAP) Pulse Ox O2 Delivery O2 Flow Rate FiO2 02/01/18 08:36 98 Nasal Cannula 3.00 02/01/18 08:00 98.5 104 22 135/70 (91) 95 02/01/18 08:00 96 Nasal Cannula 6.00 02/01/18 08:00 109 02/01/18 06:00 109 02/01/18 04:00 92 Nasal Cannula 6.00 02/01/18 04:00 108 02/01/18 04:00 93 20 139/80 (99) 94 02/01/18 02:00 100 02/01/18 00:00 103 02/01/18 00:00 96 Nasal Cannula 6.00 02/01/18 00:00 98.5 84 102/58 (73) 95 01/31/18 22:00 102 01/31/18 21:15 93 Nasal Cannula 3.00 01/31/18 20:00 98.0 110 36 109/82 (91) 94 01/31/18 20:00 94 Nasal Cannula 6.00 01/31/18 20:00 110 01/31/18 18:00 Nasal Cannula 6.00 01/31/18 16:40 95 Nasal Cannula 3.00 01/31/18 16:00 109 103/54 (70) I/O 01/31/18 01/31/18 01/31/18 02/01/18 02/01/18 02/01/18 07:00 15:00 23:00 07:00 15:00 23:00 Intake Total 100 ml 220 ml 100 ml Output Total 850 ml 550 ml 850 ml Balance -850 ml 100 ml -330 ml -750 ml Intake Oral 120 ml 100 ml IV Total 100 ml 100 ml Output Urine Total 850 ml 550 ml 850 ml # Bowel Movements 0 0 Result Diagram: 01/31/18 0303 01/31/18 0303 Objective Remarks GENERAL: This is a moderately obese, middle-aged, white female who is awake. HEENT: Head is normocephalic. Pupils reactive. Sclerae were clear. Throat has no inflammation. Tongue was clear. Nasal mucosa was clear. NECK: Supple. No venous distention. No thyromegaly or lymphadenopathy. CHEST: Equal movements with wheezes scattered bilaterally, prolonged expirations. HEART: Sounds are regular, S1 and S2. No murmur. ABDOMEN: Soft, obese without masses. No organomegaly or tenderness. EXTREMITIES: No edema. Peripheral pulses are well felt. NEUROLOGIC: Reflexes are 1+. The patient is awake. SKIN: Dry and cool. Assessment and Plan Assessment and Plan ASSESSMENT: 1. Bilateral pneumonia with probable aspiration. 2. Respiratory failure. 3. Ethanolism. 4. Abnormal liver functions. 5. Delirium tremens. 6. Hyponatremia. 7. Encephalopathy. Plan : 1. Reduce sedation. 2. O2 5 L N/C . 3. Chest Xray in am 4. PO diet as tolerated 5. Nebs qid PRN 6. Continue antibiotics. 7. Advance diet 8. Librium, Ativan PRN. for agitation 9. Use BIPAP 12/5 CM if sats <92 and at HS. Ahsan Ayala MD February 01, 2018 12:46
[2018-02-01] MEDS ORDERED: DOPamine 400 MG/250 ML INJ 250 ML ONE (13:24)
[2018-02-01] MEDS ORDERED: NOREPINEPHRINE-DEXTROSE DRIP 250 ML IV ONE (13:39)
[2018-02-01] MEDS ORDERED: DOPamine 800 MG/D5W PREMIX 500 ML IV PRN (14:00)
[2018-02-01] MEDS ORDERED: TERBUTALINE INJ 1 MG/ML AMP SQ PRN (14:00)
[2018-02-01] MEDS ORDERED: MIDAZOLAM HCL 5 MG/ML VIAL (1 ML) ONE (14:43)
[2018-02-01] MEDS ORDERED: LIDOCAINE HCL 1% 50 ML VIAL ONE (14:48)
--- NOTE | 2018-02-01 15:39 | RADRPT ---
EXAM DATE: 02/01/2018 3:33 PM EDT AGE/SEX: 47 years / Female INDICATIONS: Central line placement. CLINICAL DATA: This is the patient's subsequent encounter. Patient reports that signs and symptoms h ave been present for 3 days and indicates a pain score of Nonresponsive. MEDICAL/SURGICAL HISTORY: None. None. COMPARISON: [facility], CHEST SINGLE AP, 01/31/2018. . FINDINGS: A single AP view of the chest demonstrates the lungs to be symmetrically aerated without evidence of mass, infiltrate or effusion. The cardiomediastinal contours are unremarkable. Osseous structures a re intact. There has been interval placement of a left internal jugular central venous line with tip projected over the superior vena cava. There is no pneumothorax. CONCLUSION: Interval placement of central venous catheter with no pneumothorax. Electronically signed by: Guilherme Tan MD 02/01/2018 3:37 PM EDT
--- NOTE | 2018-02-01 16:10 | PD.PROCEDR ---
Procedure Note Procedure PROCEDURE PERFORMED Left internal jugular vein central venous catheter placement under ultrasound guidance. PREOPERATIVE DIAGNOSIS Cardiomyopathy, hypotension POSTOPERATIVE DIAGNOSIS Same INDICATIONS Vasopressor infusion INFORMED CONSENT Informed consent obtained from patient's and documented on chart. ANESTHESIA 1% Lidocaine for local infiltration anesthesia. PROCEDURE After sterile prepping and draping using 1% lidocaine for local infiltration anesthesia, the left internal jugular vein was visualized using an ultrasound vessel finder and under direct visualization was cannulated using an introducer Angiocath with dark non-pulsatile blood return. An Angiocath was advanced into the internal jugular vein without any resistance and the needle was then removed. Blood return was confirmed through the Angiocath following which a guidewire was passed through the Angiocath into the left internal jugular vein without any resistance and the Angiocath was then removed. After making a skin elma and dilation of tract, a 20 cm antimicrobial coated triple lumen catheter was passed over the guidewire by modified Seldinger technique into the right internal jugular vein up to the 19 cm jim and the guidewire was then removed. Good blood return obtained through all three ports which were then flushed and capped. After securing the catheter in place with a statlock, a Bio-occlusive dressing with Biopatch was applied to the site. The patient tolerated the procedure well with no immediate complications noted. A postprocedure chest x-ray was ordered and reviewed with good placement of Left IJ central venous catheter with tip overlying SVC. No pneumothorax on post -procedure film. (Of note there was failed attempt at left subclavian central line placement though vein was accessed with introducer needle guidewire could not be passed.) William Chauhan MD February 01, 2018 16:10
[2018-02-01] MEDS: AZITHROMYCIN INJ 500 MG in SODIUM CHLOR 0.9% 250 ML INJ 250 ML IV SCH (16:32)
--- NOTE | 2018-02-01 16:49 | ECHRPT ---
Indication: CONCLUSIONS Normal left ventricular size. Wall thickness is normal. The left ventricular systolic function is moderately reduced with an estimated ejection fraction in the range of 40%. Mitral annular calcification is present. BP: / HR: Rhythm: MEASUREMENTS (Male / Female) Normal Values Technical Quality: 2D ECHO LV Diastolic Diameter PLAX 4.2 cm 4.2 - 5.9 / 3.9 - 5.3 cm IVS Diastolic Thickness 0.8 cm 0.6 - 1.0 / 0.6 - 0.9 cm LVPW Diastolic Thickness 0.6 cm 0.6 - 1.0 / 0.6 - 0.9 cm LV Relative Wall Thickness 0.3 RV Internal Dim ED PLAX 1.8 cm DOPPLER Mitral E Point Velocity 69.4 cm/s Mitral A Point Velocity 95.0 cm/s Mitral E to A Ratio 0.7 TR Peak Velocity 153.0 cm/s TR Peak Gradient 9.4 mmHg FINDINGS LEFT VENTRICLE Normal left ventricular size. Wall thickness is normal. The left ventricular systolic function is moderately reduced with an estimated ejection fraction in the range of 40%. RIGHT VENTRICLE Normal right ventricular size and systolic function. LEFT ATRIUM The left atrial size is normal. RIGHT ATRIUM The right atrial size is normal. ATRIAL SEPTUM Normal atrial septal thickness without atrial level shunting by limited color doppler interrogation. AORTA The aortic root and proximal ascending aorta are normal in size on limited imaging. MITRAL VALVE Mitral annular calcification is present. AORTIC VALVE Trileaflet aortic valve. No aortic valve stenosis or regurgitation. TRICUSPID VALVE Structurally normal tricuspid valve. No tricuspid valve stenosis or regurgitation. PULMONARY VALVE The pulmonary valve is not well visualized. VESSELS The inferior vena cava is normal in size. PERICARDIUM No pericardial effusion. Glenn Rios MD, FACC, [facility] (Electronically Signed) Final Date:01 Feb 2018 16:47
[2018-02-01 17:52] LABS: TROPONIN I 0.09 NG/ML (0.02-0.05)
[2018-02-01] MEDS ORDERED: NOREPINEPHRINE 4 MG/D5W 250 ML IV PRN (19:45)
[2018-02-01] MEDS: SODIUM CHLORIDE 0.9% FLUSH 10 ML FLUSH IV FLUSH SCH (19:45)
[2018-02-01] MEDS: SODIUM CHLORIDE 0.9% FLUSH 10 ML FLUSH IV FLUSH PRN (19:45)
[2018-02-01] MEDS: LORazepam 2 MG TAB PO PRN (22:25)
[2018-02-02] VITALS (14 sets, daily range): BP systolic 103–147; BP diastolic 57–73; PULSE 89–112; RESP 17–25; TEMP 98–98.3; O2SAT 92–96
[2018-02-02] MEDS: CHLORHEXIDINE GLUCONATE 2 % 1 PACK (2 CLOTHS) TOP SCH (04:00)
[2018-02-02 05:13] LABS: FOLATE 8.5 NG/ML (3.1-17.5)
[2018-02-02] MEDS: LORazepam 2 MG/ML VIAL IV PUSH PRN ×3 (06:05→23:25)
[2018-02-02] MEDS: CEFEPIME INJ 2,000 MG in SODIUM CHLORIDE 0.9% INJ 100 ML IV SCH ×3 (06:05→20:38)
--- NOTE | 2018-02-02 06:52 | RADRPT ---
EXAM DATE: 02/02/2018 6:14 AM EDT AGE/SEX: 47 years / Female INDICATIONS: Shortness of breath, possible pulmonary disease. CLINICAL DATA: This is the patient's subsequent encounter. Patient reports that signs and symptoms h ave been present for 4 - 6 days and indicates a pain score of 0/10. MEDICAL/SURGICAL HISTORY: None. None. COMPARISON: [facility], CHEST SINGLE AP, 02/01/2018. . FINDINGS: The lungs are clear without infiltrate, nodule, or mass. There is no appreciable pleural effusion for technique. Heart and mediastinum are unremarkable. Left IJ line has not changed. CONCLUSION: No acute cardiopulmonary disease. Electronically signed by: Phillip Brady MD 02/02/2018 6:51 AM EDT
--- NOTE | 2018-02-02 07:19 | MG ---
cc: Kelli Mckeon MD DATE: 02/01/2018 ELECTROENCEPHALOGRAM NUMBER: [id number]. REFERRING PHYSICIAN: Dr. Chauhan ROOM: 525. INDICATIONS: Lethargic, arousable, confused hallucinations. Only photic done. Tachycardic at 132. No imaging reported. Admitted with possible alcohol withdrawal, history of heavy drinking. Stopped drinking about 2:00 the morning Tuesday, with tremors, confusion, on Coreg Abilify, lisinopril, thiamine, Lasix, cefepime, Ativan 3 mg given 8:00 in the morning on 02/01, with good social record. DESCRIPTION: The patient has 5-6 Hz, 20 microvolts background rhythm. There is a lot and moving around, noncompliant with solar fabrication technician trying to do the study, moaning. She is tachycardic. Overall, some mild slowing, no epileptic activity. A lot of background muscle artifact. Photic stimulation with a mild driving response. IMPRESSION: Mild to moderate slowing of the background, consistent with encephalopathy. No epileptiform features. Clinical correlation. MD STEFANIE Cash/IBIS , 04:50 PM , 05:10 PM
--- NOTE | 2018-02-02 08:49 | PD.CARD.PN ---
Subjective Subjective Remarks became suddenly hypotensive yesterday; central line placed. awake but delirious. Objective Medications Current Medications Medications (Trade) Dose Ordered Sig/Sarah Route Start Time Stop Time Status Last Admin (NS Flush) 2 ml UNSCH PRN IV FLUSH 01/24/18 05:45 02/01/18 19:45 (NS Flush) 2 ml BID IV FLUSH 01/24/18 09:00 02/01/18 19:45 (Tylenol) 650 mg Q6H PRN PO 01/24/18 05:45 (Zofran Odt) 4 mg Q6H PRN PO 01/24/18 06:00 (Restoril) 15 mg HS PRN PO 01/24/18 05:45 (Duoneb Neb) 1 ampule Q2HR NEB PRN INH 01/24/18 05:45 01/26/18 08:07 ([facility] Nursing Information) 1 Q361D XX 01/24/18 05:45 01/24/18 20:30 (Chlorhexidine 2% Cloth) Taper DAILY@04 TOP 01/25/18 04:00 01/21/19 03:59 01/31/18 04:00 (Chlorhexidine 2% Cloth) 3 pack UNSCH PRN TOP 01/24/18 05:45 (Bouchra-Colace) 1 tab BID PO 01/24/18 09:00 02/01/18 07:35 (Milk Of Magnesia Liq) 30 ml Q12H PRN PO 01/24/18 05:45 (Senokot) 17.2 mg Q12H PRN PO 01/24/18 05:45 (Dulcolax Supp) 10 mg DAILY PRN RECTAL 01/24/18 05:45 (Lactulose Liq) 30 ml DAILY PRN PO 01/24/18 05:45 Potassium Chloride 100 ml @ 50 mls/hr Q2H PRN IV 01/24/18 06:00 Potassium Chloride 100 ml @ 50 mls/hr Q2H PRN IV 01/24/18 06:00 01/29/18 17:10 (K-Lyte Cl Eff) 50 meq UNSCH PRN PO 01/24/18 06:00 01/31/18 06:23 Potassium Chloride 100 ml @ 25 mls/hr UNSCH PRN IV 01/24/18 06:00 Potassium Chloride 100 ml @ 50 mls/hr Q2H PRN IV 01/24/18 06:00 01/26/18 10:44 Magnesium Sulfate 4 gm/Sodium Chloride 100 ml @ 50 mls/hr UNSCH PRN IV 01/24/18 06:00 01/30/18 00:30 (Mag-Ox) 800 mg UNSCH PRN PO 01/24/18 06:00 Magnesium Sulfate 2 gm/Sodium Chloride 100 ml @ 50 mls/hr UNSCH PRN IV 01/24/18 06:00 01/31/18 06:06 (K-Phos) 2,000 mg Q4H PRN PO 01/24/18 06:00 Sodium Phosphate 30 mmol/Sodium Chloride 250 ml @ 42 mls/hr UNSCH PRN IV 01/24/18 06:00 01/30/18 00:30 (K-Phos) 2,000 mg UNSCH PRN PO/TUBE 01/24/18 06:00 Potassium Phosphate 30 mmol/ Sodium Chloride 260 ml @ 42 mls/hr UNSCH PRN IV 01/24/18 06:00 01/25/18 00:41 (Romazicon Inj) 0.2 mg Q1M PRN IV PUSH 01/24/18 06:00 (Ativan) 1 mg Q4H PRN PO 01/24/18 06:00 01/28/18 12:25 (Ativan Inj) 1 mg Q4H PRN IV PUSH 01/24/18 06:00 02/01/18 07:35 (Ativan) 2 mg Q2H PRN PO 01/24/18 06:00 02/01/18 22:25 (Ativan Inj) 2 mg Q2H PRN IV PUSH 01/24/18 06:00 02/02/18 06:05 (Ativan Inj) 2 mg Q1H PRN IV PUSH 01/24/18 06:00 02/01/18 05:12 (Ativan Inj) 2 mg Q15M PRN IV PUSH 01/24/18 06:00 01/27/18 14:57 Cefepime HCl 2000 mg/Sodium Chloride 100 ml @ 200 mls/hr Q8HR IV 01/26/18 14:00 02/02/18 06:05 Azithromycin 500 mg/Sodium Chloride 250 ml @ 250 mls/hr Q24H IV 01/26/18 15:00 02/01/18 16:32 (Lasix Inj) 40 mg BID@,18 IV PUSH 01/27/18 18:00 Future Hold 02/01/18 07:36 (KCl) 20 meq Q12HR PO 01/27/18 21:00 02/01/18 19:43 (Vitamin B1) 100 mg DAILY PO 01/28/18 09:00 02/01/18 07:34 (Prinivil) 10 mg DAILY PO 01/31/18 09:00 Future Hold 02/01/18 07:34 (Pepcid) 20 mg BID PO 01/31/18 21:00 02/01/18 19:43 (Coreg) 25 mg Q12HR PO 02/01/18 09:00 Future Hold 02/01/18 09:25 (Librium) 25 mg HS PO 02/01/18 21:00 02/01/18 19:43 (Abilify) 1 mg DAILY PO 02/02/18 09:00 (Pill Splitter) 1 ea UNSCH PRN OTHER 02/01/18 10:30 Dopamine HCl/ Dextrose 500 ml @ 23.438 mls/ hr TITRATE PRN IV 02/01/18 14:00 (Brethine Inj) 1 mg UNSCH PRN SQ 02/01/18 14:00 Norepinephrine Bitartrate 250 ml @ 7.5 mls/hr TITRATE PRN IV 02/01/18 19:45 02/01/18 19:33 Vital Signs / I&O Vital Signs Date Time Temp Pulse Resp B/P (MAP) Pulse Ox O2 Delivery O2 Flow Rate FiO2 02/02/18 06:00 112 02/02/18 04:00 110 20 122/57 (78) 94 02/02/18 04:00 110 02/02/18 04:00 95 Nasal Cannula 6.00 02/02/18 02:00 101 02/02/18 00:00 96 Nasal Cannula 6.00 02/02/18 00:00 98.0 102 147/73 (97) 94 02/02/18 00:00 100 02/01/18 22:00 90 02/01/18 21:00 106 20 138/90 (106) 98 02/01/18 20:30 98 144/67 02/01/18 20:00 95 20 143/70 (94) 96 02/01/18 20:00 90 02/01/18 20:00 97 Nasal Cannula 6.00 02/01/18 19:45 96 140/69 02/01/18 19:40 97 Nasal Cannula 3.00 02/01/18 19:33 91 150/66 02/01/18 19:19 90 158/77 02/01/18 19:00 92 20 131/63 (85) 100 02/01/18 18:00 85 02/01/18 16:00 96 Nasal Cannula 6.00 02/01/18 16:00 98.6 93 22 130/60 (83) 95 02/01/18 16:00 97 02/01/18 14:00 109 02/01/18 12:00 109 02/01/18 12:00 96 Nasal Cannula 6.00 02/01/18 12:00 109 02/01/18 12:00 98.6 96 22 130/56 (80) 95 02/01/18 12:00 96 Nasal Cannula 6.00 02/01/18 10:00 96 Nasal Cannula 6.00 02/01/18 10:00 109 I/O 02/01/18 02/01/18 02/01/18 02/02/18 02/02/18 02/02/18 07:00 15:00 23:00 07:00 15:00 23:00 Intake Total 100 ml 3188 ml 100 ml Output Total 850 ml 850 ml 400 ml Balance -750 ml 2338 ml -300 ml Intake Oral 100 ml 0 ml IV Total 3188 ml 100 ml Output Urine Total 850 ml 850 ml 400 ml # Bowel Movements 0 0 Physical Exam GENERAL: SKIN: Warm and dry. HEAD: Atraumatic. Normocephalic. EYES: Pupils equal and round. No scleral icterus. ENT: No nasal bleeding or discharge. NECK: Trachea midline. No JVD. CARDIOVASCULAR regular rate and rhythm. no murmurs RESPIRATORY: No accessory muscle use. decreased breath sounds R base GASTROINTESTINAL: Abdomen soft, non-tender, nondistended. MUSCULOSKELETAL: Extremities without clubbing, cyanosis, or edema. No obvious deformities. NEUROLOGICAL: Awake and alert. No obvious cranial nerve deficits. Normal speech. PSYCHIATRIC: awake but delirious Laboratory Laboratory Tests Test 02/01/18 16:25 02/02/18 04:10 Total Creatine Kinase 33 U/L Troponin I 0.09 NG/ML Ammonia 32 MCMOL/L Vitamin B12 Level 1490 PG/ML Folate 8.5 NG/ML Imaging Last 24 hours Impressions Chest X-Ray 02/02/18 0600 Signed Impressions: CONCLUSION: No acute cardiopulmonary disease. Assessment and Plan Problem List: (1) Cardiomyopathy ICD Codes: I42.9 - Cardiomyopathy, unspecified Assessment and Plan 47 yo F with no known cardiac history and alcohol dependence presented to ED in alcohol withdrawal. cardiomyopathy- EF 20-25%, likely nonischemic; repeat echo yesterday shows improved EF 40% currently recovering from delirium tremens in ICU became hypotensive yesterday; central line placed. lexiscan yesterday cancelled and on hold for now until she clinically improves. LifeVest ordered Problem Qualifiers (1) Cardiomyopathy: Qualified Codes: I42.9 - Cardiomyopathy, unspecified Angelika Reeves February 02, 2018 08:49
[2018-02-02 09:12] LABS: RPR SCREEN FOR REFLEX NON-REACTIVE (NON-REACTVE)
--- NOTE | 2018-02-02 09:24 | HHI.CCPN ---
Subjective Remarks/Hospital Course 01/24: 47-year-old female with past medical history of alcohol dependence who presents to [facility] emergency department due to concern for alcohol withdrawal. She states that she and her share a 1.5 L of vodka chased with rubia al every 2.5 days. She stopped drinking on Tuesday. She has been tremulous, has experienced some hallucinations and therefore her father brought her in. She states she intends to quit drinking indefinitely. She has been nauseous and vomited x1, nonbloody nonbilious. She denies headache or fall. CIWA was 20 upon presentation to the ED. She has received ativan 4 mg IV. She has also received 1 L normal saline bolus, Compazine 10 mg IV, magnesium 2 g IV. 01/25: Laying in bed on Precedex currently. Arouses easily. Knows she is at the intensive care unit at [facility]. Knew the month and year however was off on the date. 01/26: Continues to have episodes of hallucinations and delirium at night. On Precedex gtt. 01/27: Remains on Precedex gtt. On nasal cannula currently. Was more awake earlier and conversed with the family members per [employer]. She did diuresis with Lasix since yesterday. Her BNP is 3000. Awaiting 2D echo results. Patient has been started on antibiotics by pulmonary for suspicion of pneumonia. 01/28: Transferred to [facility] by cardiology for possible cardiac cath. On nasal cannula. 01/29: Breathing seems to have improved since yesterday. Patient remains on nasal cannula. 01/30: Still having hallucinations. Remains on nasal cannula with O2 sats borderline. 01/31: Awake and alert, on nasal cannula. Not in any acute respiratory distress. Neurologic status seems to have improved. She knows she is in the hospital and knew it was January 2018. She could identify her mother and new I was a doctor. She also gave me her home address. No tremors noted. 02/01: Pt very anxious requiring 4mg Versed for cental line placement. Pt became transiently hypotensive. 02/02: Cardiology deferring lexiscan; ordering lifevest with concern for pt still unstable w/hypotension yesterday. ECHO 02/01 showing normal LV & wall thickness w/EF 40%, MV annular calcification present; however, pt was on Levophed and dopamine during procedure; low likelihood of improvement from EF of 25%. BP normalized today. Ordering Pulm CTA to r/o PE and CT head due to concern for encephalopathy. Changing Lasix to 20mg PO, Coreg 6.25mg BID, and restart Lisinopril 10mg tomorrow. Objective Vital Signs Date Time Temp Pulse Resp B/P (MAP) Pulse Ox O2 Delivery O2 Flow Rate FiO2 02/02/18 08:00 103 02/02/18 08:00 98.1 20 144/70 (94) 94 02/02/18 08:00 Nasal Cannula 4.00 Intake and Output 02/02/18 02/02/18 02/03/18 08:00 16:00 00:00 Intake Total 100 ml Output Total 400 ml Balance -300 ml Result Diagram: 01/31/18 0303 01/31/18 0303 Imaging Last Impressions Chest X-Ray 02/02/18 0600 Signed Impressions: CONCLUSION: No acute cardiopulmonary disease. Chest Ultrasound 01/31/18 0000 Signed Impressions: CONCLUSION: 1. Inadequate fluid. Thoracentesis not performed. Lower Extremity Ultrasound 01/26/18 0000 Signed Impressions: CONCLUSION: 1. No evidence of DVT. Liver Ultrasound 01/24/18 0000 Signed Impressions: CONCLUSION: 1. No evidence of gallstones or biliary tract obstruction. 2. Hepatomegaly with increased echogenicity throughout the liver suggestive of fatty infiltration and/or hepatocellular disease. Objective Remarks GENERAL: Overweight female who is laying in bed, drowsy though arousable. AO x2. SKIN: Warm and dry. There is some ecchymosis over her right tibia. HEAD: Atraumatic. Normocephalic. EYES: Pupils equal and round, 4 mm and reactive to 2 mm bilaterally.. No scleral icterus. No injection or drainage. ENT: No nasal bleeding or discharge. MMM. NECK: Trachea midline. No JVD. CARDIOVASCULAR: RRR. No murmurs rubs or gallops. RESPIRATORY: Breathing comfortably with no accessory muscle use. Clear to auscultation. Breath sounds equal bilaterally. GASTROINTESTINAL: Abdomen soft, non-tender, nondistended. Hepatic and splenic margins not palpable. Bowel sounds present. MUSCULOSKELETAL: Extremities without clubbing, cyanosis, or edema. No obvious deformities. NEUROLOGICAL: Awake and alert but drowsy, oriented 2, following commands. 5 out of 5 strength in all extremities. Normal speech A/P Problem List: (1) EtOH dependence ICD Code: F10.20 - EtOH dependence Status: Acute (2) Tachycardia ICD Code: R00.0 - Tachycardia Status: Acute (3) Hypokalemia ICD Code: E87.6 - Hypokalemia Status: Acute (4) Hypomagnesemia ICD Code: E83.42 - Hypomagnesemia Status: Acute (5) Alcohol withdrawal ICD Code: F10.239 - Alcohol dependence with withdrawal, unspecified Status: Acute (6) LFT elevation ICD Code: R79.89 - LFT elevation Status: Acute (7) DTs (delirium tremens) ICD Code: F10.231 - Alcohol dependence with withdrawal delirium Status: Acute (8) Chronic hyponatremia ICD Code: E87.1 - Hypo-osmolality and hyponatremia Status: Acute Assessment and Plan NEURO: Alcohol dependence Alcohol withdrawal Librium 25 mg p.o. QHS. Ativan as needed per [facility] protocol Off Precedex. Seroquel switched ro Abilify per Psych recommendations Vitamin supplementation with thiamine/multivitamin/folic acid. Consulted psychiatry in view of hallucinations/delirium RESP: Acute resp failure Pulm edema Secondhand smoke exposure Nasal cannula O2. Bronchodilators as needed. Pulm following. CV: Sinus tachycardia due to alcohol withdrawal pulmonary edema Cardiomyopathy with LVEF 20-25% Elevated BNP. 2D echo. Diuresed with Lasix. IV fluids KVO Pt developed hypotension on 02/01 and placed on Levophed and dopamine Resumed coreg 6.25 bid, lisinopril 10mg daily and Lasix changed to 20mg daily. ASA. Further recs per cardiology. OK for stress test at this time per critical care. GI: Transaminitis PO diet as tolerated Viral hepatitis panel FEN/RENAL: Hypokalemia Hypomagnesemia Acute dehydration Hyponatremia Initially recieved IVF. KVO IVF. Diuresed with lasix. Has received magnesium 2 g IV. Monitor and replete electrolytes. ID: Started on empiric antibiotics by pulmonary for suspicion of pneumonia. Currently on cefepime and Zithromax-Will stop on 02/02. HEME: Monitor CBC. Follow-up coags. ENDO: Stress hyperglycemia. Follow glucose q8 and initiate low-dose insulin sliding scale as indicated. PROPH: SCDs for DVT prophylaxis. Will initiate pharmacologic DVT prophylaxis depending on results of coags. Famotidine for stress ulcer prophylaxis. ACCESS: Peripheral IV providing adequate access at this time. Full code Physician Patient seen and examined with Dr. Louie. Discussed findings/ assessment and plan as outlined above. Agree with above note. Problem Qualifiers (1) Alcohol withdrawal: Qualified Codes: F10.231 - Alcohol dependence with withdrawal delirium Uche Louie MD R1 February 02, 2018 09:24 William Chauhan MD February 02, 2018 13:34
[2018-02-02 11:47] LABS: BASOPHIL # 0.1 TH/MM3 (0-0.2); BASOPHIL % 1.3 % (0.0-2.0); EOSINOPHIL % 0.9 % (0.0-4.0); HEMATOCRIT 35.2 % (35.0-46.0); HEMOGLOBIN 11.7 GM/DL (11.6-15.3); LYMPH % 24.2 % (9.0-44.0); LYMPHOCYTE # 1.2 TH/MM3 (1.0-4.8); MEAN CELL VOLUME 98.3 FL (80.0-100.0); MEAN CORPUSCULAR HEMOGLOBIN 32.7 PG (27.0-34.0); MEAN CORPUSCULAR HGB CONC 33.3 % (32.0-36.0); MEAN PLATELET VOLUME 10.6 FL (7.0-11.0); MONO % 15.6 % (0.0-8.0); MONOCYTE # 0.8 TH/MM3 (0-0.9); PLATELET COUNT 339 TH/MM3 (150-450); RED BLOOD COUNT 3.58 MIL/MM3 (4.00-5.30); RED CELL DISTRIBUTION WIDTH 16.9 % (11.6-17.2); WHITE BLOOD COUNT 5.1 TH/MM3 (4.0-11.0)
[2018-02-02 12:16] LABS: ALKALINE PHOSPHATASE 106 U/L (45-117); ALT (GPT) 26 U/L (10-53); AST (GOT) 70 U/L (15-37); BICARBONATE 20.8 MEQ/L (21.0-32.0); BLOOD UREA NITROGEN 25 MG/DL (7-18); CALCIUM 8.7 MG/DL (8.5-10.1); CHLORIDE 112 MEQ/L (98-107); CREATININE 0.51 MG/DL (0.50-1.00); GLOMERULAR FILTRATION RATE 128 ML/MIN (>89); GLUCOSE,RANDOM 75 MG/DL (74-106); SODIUM (NA) 147 MEQ/L (136-145); TOTAL BILIRUBIN ADULT 1.2 MG/DL (0.2-1.0); TOTAL PROTEIN 6.9 GM/DL (6.4-8.2); TROPONIN I 0.08 NG/ML (0.02-0.05)
--- NOTE | 2018-02-02 13:56 | RADRPT ---
EXAM DATE: 02/02/2018 1:53 PM EDT AGE/SEX: 47 years / Female INDICATIONS: Altered mental status. CLINICAL DATA: This is the patient's initial encounter. Patient reports that signs and symptoms have been present for 1 day and indicates a pain score of 0/10. MEDICAL/SURGICAL HISTORY: None. None. RADIATION DOSE: 56.35 CTDI (mGy) COMPARISON: No prior [place] exams available for comparison. TECHNIQUE: CT of the head without contrast. Using automated exposure control and adjustment of the mA and/or kV according to patient size, radiation dose was kept as low as reasonably achievable to ob tain optimal diagnostic quality images. FINDINGS: Cerebrum: Low-density left basal ganglia. The ventricles are normal for age. No evidence of midline shift, mass lesion, hemorrhage or acute infarction. No extraaxial fluid collections are seen. Posterior Fossa: The cerebellum and brainstem are intact. The 4th ventricle is midline. The cerebe llopontine angle is unremarkable. Extracranial: The visualized portion of the orbits is intact. Skull: The calvaria is intact. No evidence of skull fracture. CONCLUSION: 1. Low-density left basal ganglia could be lacunar infarct in the right clinical setting. 2. Otherwise unremarkable CT brain. Electronically signed by: Edwar Edwards MD 02/02/2018 1:54 PM EDT
[2018-02-02] MEDS ORDERED: IOHEXOL 350 MG/ML 10 ML VIAL (for RAD DIAG) IVCONTRAST ONE (13:57)
--- NOTE | 2018-02-02 14:22 | RADRPT ---
EXAM DATE: 02/02/2018 1:58 PM EDT AGE/SEX: 47 years / Female INDICATIONS: Shortness of breath; evaluate for embolism. CLINICAL DATA: This is the patient's initial encounter. Patient reports that signs and symptoms have been present for 1 day and indicates a pain score of 0/10. MEDICAL/SURGICAL HISTORY: None. None. RADIATION DOSE: 8.63 CTDI (mGy) COMPARISON: No prior [place] exams available for comparison. TECHNIQUE: Volumetric scanning was performed using a multi-row detector CT scanner during bolus infu rashaad of 74 ml Omnipaque 350 (iohexol) nonionic water-soluble contrast as a single exam dose. The isidoro a was post processed with a variety of visualization algorithms including full volume maximum intensi ty projection and sliding thin slab reformation. Using automated exposure control and adjustment of the mA and/or kV according to patient size, radiation dose was kept as low as reasonably achievable t o obtain optimal diagnostic quality images. FINDINGS: The examination is of good diagnostic quality. No pulmonary embolus is identified. The heart is normal in size. There is no pericardial effusion. There is no significant hilar, mediastinal or axillary adenopathy. Imaging through the pulmonary parenchyma demonstrates small areas of atelectasis in the lung bases. T here is no significant pleural effusion. Limited imaging through the upper abdomen demonstrates decreased attenuation of the liver suggesting fatty infiltration. CONCLUSION: 1. No pulmonary embolus is identified. 2. Small areas of atelectasis within the lung bases. 3. Probable fatty infiltration of the liver. Electronically signed by: Steffen Sharma MD 02/02/2018 2:20 PM EDT
[2018-02-02] MEDS: AZITHROMYCIN INJ 500 MG in SODIUM CHLOR 0.9% 250 ML INJ 250 ML IV SCH (14:39)
[2018-02-02] MEDS: POTASSIUM CHLORIDE 20 MEQ CONTROLLED RELEASE TAB PO SCH ×2 (14:40→20:37)
[2018-02-02] MEDS: ARIPiprazole 2 MG TAB PO SCH (14:40)
[2018-02-02] MEDS: SODIUM CHLORIDE 0.9% FLUSH 10 ML FLUSH IV FLUSH SCH ×2 (14:41→20:39)
[2018-02-02] MEDS: FAMOTIDINE 20 MG TAB PO SCH ×2 (14:41→20:38)
[2018-02-02] MEDS: THIAMINE HCL 100 MG TAB PO SCH (14:41)
[2018-02-02] MEDS: DOCUSATE SODIUM 50 MG/SENNA 8.6 MG TAB PO SCH ×2 (14:41→20:38)
--- NOTE | 2018-02-02 14:45 | EKG ---
Date Performed: 02/01/2018 Time Performed: 14:03:22 PTAGE: 47 years EKG: Supraventricular tachycardia Inferior/lateral ST-T changes suggest myocardial injury/ischem ia Abnormal ECG PREVIOUS TRACING : 01/27/2018 17.09 DOCTOR: Glenn Rios Interpretating Date/Time 02/02/2018 14:43:41
[2018-02-02] MEDS: CARVEDILOL 6.25 MG TAB PO SCH ×2 (14:47→20:38)
[2018-02-02] MEDS: FUROSEMIDE 20 MG TAB PO SCH (14:47)
--- NOTE | 2018-02-02 17:45 | RADRPT ---
EXAM DATE: 02/02/2018 5:35 PM EDT AGE/SEX: 47 years / Female INDICATIONS: CVA. CLINICAL DATA: This is the patient's initial encounter. Patient reports that signs and symptoms have been present for 1 day and indicates a pain score of 0/10. MEDICAL/SURGICAL HISTORY: . Cardiomyopathy and ETOH abuse. section. COMPARISON: No prior [place] exams available for comparison. TECHNIQUE: Multiplanar, multisequence examination of the brain was performed without contrast. FINDINGS: The ventricular system is normal in size and configuration. No mass lesion is identified. No abnormal inter or extra-axial fluid collections are seen. The sulci and gyri are intact. The diffusion restricted imaging through the posterior fossa demonstrates a small area of abnormal re stricted diffusion signal within the central aspect of the brenda. This is concerning for a punctate la cunar infarct within the brenda. No other areas of abnormal diffusion signal is seen. The cerebral pontine angles are unremarkable in appearance. The cerebellar hemispheres are intact. The visualized portion of orbit is intact bilaterally. Evaluation of the sinuses demonstrates mucoper iosteal thickening involving the right side of the frontal sinus. CONCLUSION: 1. Punctate area of abnormal diffusion signal in the central aspect of the brenda. This is concerning for a punctate area of lacunar infarct. 2. Mucoperiosteal sinus disease involving the right side of the frontal sinus. Electronically signed by: Steffen Sharma MD 02/02/2018 5:43 PM EDT
--- NOTE | 2018-02-02 18:22 | HHI.PR ---
Subjective Remarks More alert and taking a PO diet On N/C 4 L. No fever. Objective Vital Signs Date Time Temp Pulse Resp B/P (MAP) Pulse Ox O2 Delivery O2 Flow Rate FiO2 02/02/18 18:00 100 02/02/18 16:00 92 Room Air 02/02/18 16:00 94 Room Air 02/02/18 16:00 100 02/02/18 16:00 98.0 101 17 94 02/02/18 14:00 95 02/02/18 12:21 92 Nasal Cannula 3.00 02/02/18 12:00 98.0 100 20 146/65 (92) 92 02/02/18 12:00 100 02/02/18 12:00 92 Room Air 02/02/18 11:00 92 Room Air 02/02/18 10:00 103 02/02/18 08:00 103 02/02/18 08:00 98.1 103 20 144/70 (94) 94 02/02/18 08:00 94 Nasal Cannula 4.00 02/02/18 06:00 112 02/02/18 04:00 110 20 122/57 (78) 94 02/02/18 04:00 110 02/02/18 04:00 95 Nasal Cannula 6.00 02/02/18 02:00 101 02/02/18 00:00 96 Nasal Cannula 6.00 02/02/18 00:00 98.0 102 147/73 (97) 94 02/02/18 00:00 100 02/01/18 22:00 90 02/01/18 21:00 106 20 138/90 (106) 98 02/01/18 20:30 98 144/67 02/01/18 20:00 95 20 143/70 (94) 96 02/01/18 20:00 90 02/01/18 20:00 97 Nasal Cannula 6.00 02/01/18 19:45 96 140/69 02/01/18 19:40 97 Nasal Cannula 3.00 02/01/18 19:33 91 150/66 02/01/18 19:19 90 158/77 02/01/18 19:00 92 20 131/63 (85) 100 I/O 5/30/18 5/30/18 5/30/18 5/31/18 5/31/18 5/31/18 07:00 15:00 23:00 07:00 15:00 23:00 Intake Total 100 ml 3188 ml 100 ml 350 ml Output Total 850 ml 850 ml 400 ml 1000 ml Balance -750 ml 2338 ml -300 ml -650 ml Intake Oral 100 ml 0 ml IV Total 3188 ml 100 ml 350 ml Output Urine Total 850 ml 850 ml 400 ml 1000 ml # Bowel Movements 0 0 0 Result Diagram: 02/02/18 1120 02/02/18 1120 Objective Remarks GENERAL: This is a moderately obese, middle-aged, white female who is awake. HEENT: Head is normocephalic. Pupils reactive. Sclerae were clear. Throat has no inflammation. Tongue was clear. Nasal mucosa was clear. NECK: Supple. No venous distention. No thyromegaly or lymphadenopathy. CHEST: Equal movements with wheezes scattered bilaterally and decreased breath sounds at bases. HEART: Sounds are regular, S1 and S2. No murmur. ABDOMEN: Soft, obese without masses. No organomegaly or tenderness. EXTREMITIES: No edema. Peripheral pulses are well felt. NEUROLOGIC: Reflexes are 1+. The patient is awake. SKIN: Dry and cool. Assessment and Plan Assessment and Plan ASSESSMENT: 1. Bilateral pneumonia with probable aspiration. 2. Respiratory failure. 3. Ethanolism. 4. Abnormal liver functions. 5. Delirium tremens. 6. Hyponatremia. 7. Encephalopathy. Plan : 1. IS q3h. 2. O2 5 L N/C and wean to keep sat >92. 3. CBC, BMP in am 4. PO diet as tolerated 5. Nebs qid PRN 6. Continue antibiotics. 7. Advance diet 8. Librium, Ativan PRN. for agitation 9. Use BIPAP 12/5 CM if sats <92 and at HS. Ahsan Ayala MD February 02, 2018 18:22
[2018-02-02] MEDS: chlordiazePOXIDE 25 MG CAP PO SCH (20:37)
--- NOTE | 2018-02-02 22:20 | MB ---
cc: Nestor Quigley MD, PhD Nestor Quigley MD PhD DATE: 02/02/2018 REASON FOR CONSULTATION: Possible stroke. HISTORY OF PRESENT ILLNESS: This is a 47-year-old female with history of alcohol abuse who presents with impending . On T2 weighted images, there is also an area of increased signal corresponding to the same region. She denies any focal neurologic deficits. NEUROLOGIC EXAMINATION: VITAL SIGNS: Blood pressure is 146/55, pulse 100, respirations are 16, temperature 98 degrees. Higher cortical function: Alert, oriented. Speech fluent. Cranial nerves intact. The extraocular movements are full. Pupils equal and reactive. On motor exam, she has normal strength of all major groups. There is no dysmetria. Reflexes are symmetric. IMAGING STUDIES: MRI of the brain is reviewed. There is a central area in the brenda with increased signal on T2 flair images as well as a diffusion abnormality. LABORATORY DATA: The white count 5100, hemoglobin 11.7, hematocrit 35%, platelet count 339,000. Sodium is 147, potassium 3.9, chloride 112, CO2 of 20.8, BUN is 25, creatinine 0.51. IMPRESSION: Central pontine abnormality on the MRI. She does not have any clinical correlate to suggest a pontine infarction. 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 RECOMMENDATIONS: I would recommend further evaluation with an MR angiogram of the brain to be sure there is no sign of basilar artery thrombosis. Also, we will get an echocardiogram, MRA of the neck as well to rule out any thrombosis or stenosis. Recommend aspirin 81 mg daily for the possibility of stroke. We will also check a lipid panel. Nestor Quigley MD, PhD RICH/ , 08:55 PM , 10:19 PM
[2018-02-02] MEDS: ASPIRIN EC 81 MG TABEC PO SCH (23:12)
[2018-02-03] VITALS (12 sets, daily range): BP systolic 109–168; BP diastolic 55–85; PULSE 90–110; RESP 18–29; TEMP 97.8–98.6; O2SAT 95–100
[2018-02-03] MEDS: LORazepam 2 MG/ML VIAL IV PUSH PRN (01:12)
[2018-02-03] MEDS: CHLORHEXIDINE GLUCONATE 2 % 1 PACK (2 CLOTHS) TOP SCH (04:00)
[2018-02-03 05:26] LABS: AUTOMATED NEUTROPHIL # 2.9 TH/MM3 (1.8-7.7); BASOPHIL # 0.1 TH/MM3 (0-0.2); BASOPHIL % 1.3 % (0.0-2.0); EOSINOPHIL # 0.1 TH/MM3 (0-0.4); EOSINOPHIL % 1.1 % (0.0-4.0); HEMATOCRIT 43.2 % (35.0-46.0); HEMOGLOBIN 14.4 GM/DL (11.6-15.3); LYMPH % 25.4 % (9.0-44.0); LYMPHOCYTE # 1.3 TH/MM3 (1.0-4.8); MEAN CELL VOLUME 98.5 FL (80.0-100.0); MEAN CORPUSCULAR HEMOGLOBIN 32.9 PG (27.0-34.0); MEAN CORPUSCULAR HGB CONC 33.4 % (32.0-36.0); MEAN PLATELET VOLUME 10.9 FL (7.0-11.0); MONO % 15.9 % (0.0-8.0); MONOCYTE # 0.8 TH/MM3 (0-0.9); NEUT % 56.3 % (16.0-70.0); PLATELET COUNT 396 TH/MM3 (150-450); RED BLOOD COUNT 4.39 MIL/MM3 (4.00-5.30); RED CELL DISTRIBUTION WIDTH 17.4 % (11.6-17.2); WHITE BLOOD COUNT 5.2 TH/MM3 (4.0-11.0)
[2018-02-03] MEDS: CEFEPIME INJ 2,000 MG in SODIUM CHLORIDE 0.9% INJ 100 ML IV SCH (05:43)
[2018-02-03 06:27] LABS: ALBUMIN 2.5 GM/DL (3.4-5.0); ALKALINE PHOSPHATASE 128 U/L (45-117); ALT (GPT) 33 U/L (10-53); AST (GOT) 87 U/L (15-37); BICARBONATE 20.3 MEQ/L (21.0-32.0); BLOOD UREA NITROGEN 17 MG/DL (7-18); CHLORIDE 109 MEQ/L (98-107); CHOLESTEROL 204 MG/DL (120-200); CHOLESTEROL/ HDL RATIO 11.39 RATIO; CREATININE 0.56 MG/DL (0.50-1.00); GLOMERULAR FILTRATION RATE 115 ML/MIN (>89); GLUCOSE,RANDOM 73 MG/DL (74-106); HDL CHOLESTEROL 17.9 MG/DL (40.0-60.0); LDL CHOLESTEROL 146 MG/DL (0-99); SODIUM (NA) 144 MEQ/L (136-145); TOTAL BILIRUBIN ADULT 1.5 MG/DL (0.2-1.0); TOTAL PROTEIN 8.6 GM/DL (6.4-8.2); TRIGLYCERIDES 203 MG/DL (42-150)
[2018-02-03] MEDS: DOCUSATE SODIUM 50 MG/SENNA 8.6 MG TAB PO SCH ×2 (07:01→21:03)
[2018-02-03] MEDS: CARVEDILOL 6.25 MG TAB PO SCH ×2 (07:49→21:03)
[2018-02-03] MEDS: FUROSEMIDE 20 MG TAB PO SCH (07:49)
[2018-02-03] MEDS: ASPIRIN EC 81 MG TABEC PO SCH (07:49)
[2018-02-03] MEDS: THIAMINE HCL 100 MG TAB PO SCH (07:49)
[2018-02-03] MEDS: ARIPiprazole 2 MG TAB PO SCH (07:49)
[2018-02-03] MEDS: LISINOPRIL 10 MG TAB PO SCH (07:50)
[2018-02-03] MEDS: FAMOTIDINE 20 MG TAB PO SCH ×2 (07:50→21:03)
[2018-02-03] MEDS: SODIUM CHLORIDE 0.9% FLUSH 10 ML FLUSH IV FLUSH SCH ×2 (07:50→21:02)
[2018-02-03] MEDS: POTASSIUM CHLORIDE 20 MEQ CONTROLLED RELEASE TAB PO SCH ×2 (07:50→21:03)
--- NOTE | 2018-02-03 08:18 | PD.CARD.PN ---
Subjective Subjective Remarks more alert today; drowsy. No chest pain. She is breathing room air comfortably. (Angelika Reeves) Objective Medications Current Medications Medications (Trade) Dose Ordered Sig/Sarah Route Start Time Stop Time Status Last Admin (NS Flush) 2 ml UNSCH PRN IV FLUSH 01/24/18 05:45 02/01/18 19:45 (NS Flush) 2 ml BID IV FLUSH 01/24/18 09:00 02/03/18 07:50 (Tylenol) 650 mg Q6H PRN PO 01/24/18 05:45 (Zofran Odt) 4 mg Q6H PRN PO 01/24/18 06:00 (Restoril) 15 mg HS PRN PO 01/24/18 05:45 (Duoneb Neb) 1 ampule Q2HR NEB PRN INH 01/24/18 05:45 01/26/18 08:07 ([facility]) 1 Q361D XX 01/24/18 05:45 01/24/18 20:30 (Chlorhexidine 2% Cloth) Taper DAILY@04 TOP 01/25/18 04:00 01/21/19 03:59 02/03/18 04:00 (Chlorhexidine 2% Cloth) 3 pack UNSCH PRN TOP 01/24/18 05:45 (Bouchra-Colace) 1 tab BID PO 01/24/18 09:00 02/02/18 20:38 (Milk Of Magnesia Liq) 30 ml Q12H PRN PO 01/24/18 05:45 (Senokot) 17.2 mg Q12H PRN PO 01/24/18 05:45 (Dulcolax Supp) 10 mg DAILY PRN RECTAL 01/24/18 05:45 (Lactulose Liq) 30 ml DAILY PRN PO 01/24/18 05:45 Potassium Chloride 100 ml @ 50 mls/hr Q2H PRN IV 01/24/18 06:00 02/02/18 18:40 Potassium Chloride 100 ml @ 50 mls/hr Q2H PRN IV 01/24/18 06:00 01/29/18 17:10 (K-Lyte Cl Eff) 50 meq UNSCH PRN PO 01/24/18 06:00 01/31/18 06:23 Potassium Chloride 100 ml @ 25 mls/hr UNSCH PRN IV 01/24/18 06:00 Potassium Chloride 100 ml @ 50 mls/hr Q2H PRN IV 01/24/18 06:00 01/26/18 10:44 Magnesium Sulfate 4 gm/Sodium Chloride 100 ml @ 50 mls/hr UNSCH PRN IV 01/24/18 06:00 01/30/18 00:30 (Mag-Ox) 800 mg UNSCH PRN PO 01/24/18 06:00 Magnesium Sulfate 2 gm/Sodium Chloride 100 ml @ 50 mls/hr UNSCH PRN IV 01/24/18 06:00 01/31/18 06:06 (K-Phos) 2,000 mg Q4H PRN PO 01/24/18 06:00 Sodium Phosphate 30 mmol/Sodium Chloride 250 ml @ 42 mls/hr UNSCH PRN IV 01/24/18 06:00 01/30/18 00:30 (K-Phos) 2,000 mg UNSCH PRN PO/TUBE 01/24/18 06:00 Potassium Phosphate 30 mmol/ Sodium Chloride 260 ml @ 42 mls/hr UNSCH PRN IV 01/24/18 06:00 01/25/18 00:41 (Romazicon Inj) 0.2 mg Q1M PRN IV PUSH 01/24/18 06:00 (Ativan) 1 mg Q4H PRN PO 01/24/18 06:00 01/28/18 12:25 (Ativan Inj) 1 mg Q4H PRN IV PUSH 01/24/18 06:00 02/01/18 07:35 (Ativan) 2 mg Q2H PRN PO 01/24/18 06:00 02/01/18 22:25 (Ativan Inj) 2 mg Q2H PRN IV PUSH 01/24/18 06:00 02/02/18 23:13 (Ativan Inj) 2 mg Q1H PRN IV PUSH 01/24/18 06:00 02/03/18 01:12 (Ativan Inj) 2 mg Q15M PRN IV PUSH 01/24/18 06:00 02/02/18 23:25 Cefepime HCl 2000 mg/Sodium Chloride 100 ml @ 200 mls/hr Q8HR IV 01/26/18 14:00 02/03/18 05:43 Azithromycin 500 mg/Sodium Chloride 250 ml @ 250 mls/hr Q24H IV 01/26/18 15:00 02/02/18 14:39 (KCl) 20 meq Q12HR PO 01/27/18 21:00 02/03/18 07:50 (Vitamin B1) 100 mg DAILY PO 01/28/18 09:00 02/03/18 07:49 (Prinivil) 10 mg DAILY PO 01/31/18 09:00 Future hold 02/01/18 07:34 (Pepcid) 20 mg BID PO 01/31/18 21:00 02/03/18 07:50 (Librium) 25 mg HS PO 02/01/18 21:00 02/02/18 20:37 (Abilify) 1 mg DAILY PO 02/02/18 09:00 02/03/18 07:49 (Pill Splitter) 1 ea UNSCH PRN OTHER 02/01/18 10:30 Dopamine HCl/ Dextrose 500 ml @ 23.438 mls/ hr TITRATE PRN IV 02/01/18 14:00 (Brethine Inj) 1 mg UNSCH PRN SQ 02/01/18 14:00 Norepinephrine Bitartrate 250 ml @ 7.5 mls/hr TITRATE PRN IV 02/01/18 19:45 02/01/18 19:33 (Lasix) 20 mg DAILY PO 02/02/18 11:15 02/03/18 07:49 (Coreg) 6.25 mg BID PO 02/02/18 11:15 02/03/18 07:49 (Ecotrin Ec) 81 mg DAILY PO 02/02/18 21:15 02/03/18 07:49 Vital Signs / I&O Vital Signs Date Time Temp Pulse Resp B/P (MAP) Pulse Ox O2 Delivery O2 Flow Rate FiO2 02/03/18 06:00 103 02/03/18 04:00 95 Room Air 02/03/18 04:00 91 02/03/18 04:00 98.3 91 29 168/74 (105) 96 02/03/18 02:00 97 02/03/18 00:00 100 02/03/18 00:00 97.8 100 28 137/85 (102) 95 02/03/18 00:00 95 Room Air 02/02/18 22:00 103 02/02/18 21:34 96 02/02/18 20:00 89 02/02/18 20:00 93 Nasal Cannula 3.00 21 02/02/18 20:00 98.3 89 25 103/67 (79) 93 02/02/18 18:00 100 02/02/18 16:00 92 Room Air 02/02/18 16:00 94 Room Air 02/02/18 16:00 100 02/02/18 16:00 98.0 101 17 94 02/02/18 14:00 95 02/02/18 12:21 92 Nasal Cannula 3.00 02/02/18 12:00 98.0 100 20 146/65 (92) 92 02/02/18 12:00 100 02/02/18 12:00 92 Room Air 02/02/18 11:00 92 Room Air 02/02/18 10:00 103 I/O 02/02/18 02/02/18 02/02/18 02/03/18 02/03/18 02/03/18 07:00 15:00 23:00 07:00 15:00 23:00 Intake Total 100 ml 350 ml Output Total 400 ml 1000 ml 1 ml Balance -300 ml -650 ml -1 ml Intake Oral 0 ml IV Total 100 ml 350 ml Output Urine Total 400 ml 1000 ml Stool Total 1 ml # Voids 4 # Bowel Movements 0 0 1 Physical Exam GENERAL: SKIN: Warm and dry. HEAD: Atraumatic. Normocephalic. EYES: Pupils equal and round. No scleral icterus. ENT: No nasal bleeding or discharge. NECK: Trachea midline. No JVD. CARDIOVASCULAR regular rate and rhythm. no murmurs RESPIRATORY: No accessory muscle use. decreased breath sounds R base GASTROINTESTINAL: Abdomen soft, non-tender, nondistended. MUSCULOSKELETAL: Extremities without clubbing, cyanosis, or edema. No obvious deformities. NEUROLOGICAL: Awake and alert. No obvious cranial nerve deficits. Normal speech. PSYCHIATRIC: awake but drowsy Laboratory Laboratory Tests Test 02/02/18 11:20 02/03/18 04:30 White Blood Count 5.1 TH/MM3 5.2 TH/MM3 Red Blood Count 3.58 MIL/MM3 4.39 MIL/MM3 Hemoglobin 11.7 GM/DL 14.4 GM/DL Hematocrit 35.2 % 43.2 % Mean Corpuscular Volume 98.3 FL 98.5 FL Mean Corpuscular Hemoglobin 32.7 PG 32.9 PG Mean Corpuscular Hemoglobin Concent 33.3 % 33.4 % Red Cell Distribution Width 16.9 % 17.4 % Platelet Count 339 TH/MM3 396 TH/MM3 Mean Platelet Volume 10.6 FL 10.9 FL Neutrophils (%) (Auto) 58.0 % 56.3 % Lymphocytes (%) (Auto) 24.2 % 25.4 % Monocytes (%) (Auto) 15.6 % 15.9 % Eosinophils (%) (Auto) 0.9 % 1.1 % Basophils (%) (Auto) 1.3 % 1.3 % Neutrophils # (Auto) 3.0 TH/MM3 2.9 TH/MM3 Lymphocytes # (Auto) 1.2 TH/MM3 1.3 TH/MM3 Monocytes # (Auto) 0.8 TH/MM3 0.8 TH/MM3 Eosinophils # (Auto) 0.0 TH/MM3 0.1 TH/MM3 Basophils # (Auto) 0.1 TH/MM3 0.1 TH/MM3 CBC Comment DIFF FINAL DIFF FINAL Differential Comment Blood Urea Nitrogen 25 MG/DL 17 MG/DL Creatinine 0.51 MG/DL 0.56 MG/DL Random Glucose 75 MG/DL 73 MG/DL Total Protein 6.9 GM/DL 8.6 GM/DL Albumin 2.0 GM/DL 2.5 GM/DL Calcium Level 8.7 MG/DL 10.0 MG/DL Alkaline Phosphatase 106 U/L 128 U/L Aspartate Amino Transf (AST/SGOT) 70 U/L 87 U/L Alanine Aminotransferase (ALT/SGPT) 26 U/L 33 U/L Total Bilirubin 1.2 MG/DL 1.5 MG/DL Sodium Level 147 MEQ/L 144 MEQ/L Potassium Level 3.9 MEQ/L 4.1 MEQ/L Chloride Level 112 MEQ/L 109 MEQ/L Carbon Dioxide Level 20.8 MEQ/L 20.3 MEQ/L Anion Gap 14 MEQ/L 15 MEQ/L Estimat Glomerular Filtration Rate 128 ML/MIN 115 ML/MIN Troponin I 0.08 NG/ML B-Type Natriuretic Peptide 914 PG/ML Triglycerides Level 203 MG/DL Cholesterol Level 204 MG/DL LDL Cholesterol 146 MG/DL HDL Cholesterol 17.9 MG/DL Cholesterol/HDL Ratio 11.39 RATIO Imaging Last 48 hours Impressions Chest X-Ray 02/02/18 0600 Signed Impressions: CONCLUSION: No acute cardiopulmonary disease. Head CT 02/02/18 Signed Impressions: CONCLUSION: 1. Low-density left basal ganglia could be lacunar infarct in the right clinic al setting. 2. Otherwise unremarkable CT brain. CT Angiography 02/02/18 Signed Impressions: CONCLUSION: 1. No pulmonary embolus is identified. 2. Small areas of atelectasis within the lung bases. 3. Probable fatty infiltration of the liver. Brain MRI 02/02/18 Signed Impressions: CONCLUSION: 1. Punctate area of abnormal diffusion signal in the central aspect of the julisa s. This is concerning for a punctate area of lacunar infarct. 2. Mucoperiosteal sinus disease involving the right side of the frontal sinus. (Angelika Reeves) Assessment and Plan Problem List: (1) Cardiomyopathy ICD Codes: I42.9 - Cardiomyopathy, unspecified Assessment and Plan 47 yo F with no known cardiac history and alcohol dependence presented to ED in alcohol withdrawal. cardiomyopathy- EF 20-25%, likely nonischemic; repeat echo yesterday shows improved EF 40% (was on Levophed and dopamine during procedure) currently recovering from delirium tremens in ICU. lexiscan when she clinically improves; sometime before discharge LifeVest ordered CTA- no P.E. more alert today Coreg 6.25 BID resumed (Angelika Reeves) Problem Qualifiers (1) Cardiomyopathy: Qualified Codes: I42.9 - Cardiomyopathy, unspecified Angelika Reeves Feb 03, 2018 08:18 Ramirez Quinteros DO Feb 07, 2018 07:33
--- NOTE | 2018-02-03 09:49 | RADRPT ---
EXAM DATE: 02/03/2018 9:32 AM EDT AGE/SEX: 47 years / Female INDICATIONS: Altered mental status. CLINICAL DATA: This is the patient's initial encounter. Patient reports that signs and symptoms have been present for 2 days and indicates a pain score of 0/10. MEDICAL/SURGICAL HISTORY: . Cardiomegaly. section. COMPARISON: No prior [facility] exams available for comparison. TECHNIQUE: 3D [id number] MRA was performed. Source images, multiplanar STS MIP, and 3D volum e MIP reconstructions were reviewed. FINDINGS: The distal internal carotid arteries are widely patent bilaterally. The appearance of the anterior an d middle cerebral circulation is within normal limits. The right vertebral somewhat smaller in size in the left. Both are patent. The basilar is widely montero nt. The posterior cerebral circulations within normal limits. CONCLUSION: 1. Negative MRA examination. No large or central vessel occlusion identified. Electronically signed by: Steffen Sharma MD 02/03/2018 9:48 AM EDT
--- NOTE | 2018-02-03 10:01 | RADRPT ---
EXAM DATE: 02/03/2018 9:45 AM EDT AGE/SEX: 47 years / Female INDICATIONS: Altered mental status. CLINICAL DATA: This is the patient's initial encounter. Patient reports that signs and symptoms have been present for 2 days and indicates a pain score of 0/10. MEDICAL/SURGICAL HISTORY: . Cardiomyopathy. section. COMPARISON: No prior [facility] exams available for comparison. TECHNIQUE: 20 ml Omniscan (gadodiamide) contrast infused MRA (single exam dose) of the extracranial circulation was performed using a neurovascular coil. Postprocessing was performed, including rotat ing sub-volume maximum intensity projections of each carotid artery, rotating full-volume maximum int ensity projections of both carotid arteries, sagittal and coronal sliding thin-slab reformations of e ach carotid artery, and left oblique sliding thin-slab reformation through the aortic arch to include the origin of the arch branch vessels. FINDINGS: There is normal anatomic branching of the great vessels from the arch. The origins of the great vesse ls are widely patent. Right carotid: Right common carotid, internal carotid and external carotid are widely patent. Left carotid: The left common carotid, internal carotid and external carotid are widely patent. Vertebral circulation: The left vertebral artery is dominant blood supply to the basilar. The right v ertebral is small in size and partially terminates in a PICA. It is patent throughout its course. The basilar is patent. CONCLUSION: 1. No hemodynamically significant carotid artery stenosis identified. 2. The vertebral circulation is patent bilaterally. Percent stenosis is calculated using the diameter of the stenotic region over the diameter of the nor mal distal internal carotid artery Electronically signed by: Steffen Sharma MD 02/03/2018 9:59 AM EDT
[2018-02-03] MEDS ORDERED: GADODIAMIDE PF 287 MG/ML 20 ML VIAL (for RAD MRI) IV PUSH ONE (11:02)
--- NOTE | 2018-02-03 11:02 | HHI.CCPN ---
Subjective Remarks/Hospital Course 01/24: 47-year-old female with past medical history of alcohol dependence who presents to [facility] emergency department due to concern for alcohol withdrawal. She states that she and her share a 1.5 L of vodka chased with rubia al every 2.5 days. She stopped drinking on Tuesday. She has been tremulous, has experienced some hallucinations and therefore her father brought her in. She states she intends to quit drinking indefinitely. She has been nauseous and vomited x1, nonbloody nonbilious. She denies headache or fall. CIWA was 20 upon presentation to the ED. She has received ativan 4 mg IV. She has also received 1 L normal saline bolus, Compazine 10 mg IV, magnesium 2 g IV. 01/25: Laying in bed on Precedex currently. Arouses easily. Knows she is at the intensive care unit at [facility]. Knew the month and year however was off on the date. 01/26: Continues to have episodes of hallucinations and delirium at night. On Precedex gtt. 01/27: Remains on Precedex gtt. On nasal cannula currently. Was more awake earlier and conversed with the family members per [employer]. She did diuresis with Lasix since yesterday. Her BNP is 3000. Awaiting 2D echo results. Patient has been started on antibiotics by pulmonary for suspicion of pneumonia. 01/28: Transferred to [facility] by cardiology for possible cardiac cath. On nasal cannula. 01/29: Breathing seems to have improved since yesterday. Patient remains on nasal cannula. 01/30: Still having hallucinations. Remains on nasal cannula with O2 sats borderline. 01/31: Awake and alert, on nasal cannula. Not in any acute respiratory distress. Neurologic status seems to have improved. She knows she is in the hospital and knew it was January 2018. She could identify her mother and new I was a doctor. She also gave me her home address. No tremors noted. 02/01: Pt very anxious requiring 4mg Versed for cental line placement. Pt became transiently hypotensive. 02/02: Cardiology deferring lexiscan; ordering lifevest with concern for pt still unstable w/hypotension yesterday. ECHO 02/01 showing normal LV & wall thickness w/EF 40%, MV annular calcification present; however, pt was on Levophed and dopamine during procedure; low likelihood of improvement from EF of 25%. BP normalized today. Ordering Pulm CTA to r/o PE and CT head due to concern for encephalopathy. Changing Lasix to 20mg PO, Coreg 6.25mg BID, and restart Lisinopril 10mg tomorrow. 02/03: No acute events overnight with VSS. Weaning librium. Pt with resolving withdrawal from EtOH. Neurology workup proceeding with MRI indicating possible demyelination vs punctate pontine infarct/lesion. MRA brain and neck showing patent vasculature with no lesions. Awaiting lexiscan; however, Dr Quinteros believes low EF due to EtOH-induced cardiomyopathy and is in no hurry for stress test. Lifevest ordered. Objective Vital Signs Date Time Temp Pulse Resp B/P (MAP) Pulse Ox O2 Delivery O2 Flow Rate FiO2 02/03/18 10:00 96 02/03/18 08:00 95 Room Air 02/03/18 08:00 98.6 24 153/67 (95) 02/02/18 20:00 3.00 21 Intake and Output 02/03/18 02/03/18 02/04/18 08:00 16:00 00:00 Output Total 1 ml Balance -1 ml Result Diagram: 02/03/18 0430 02/03/18 0430 Imaging Last Impressions Neck Magnetic Resonance Angiography 02/03/18 0000 Signed Impressions: CONCLUSION: 1. No hemodynamically significant carotid artery stenosis identified. 2. The vertebral circulation is patent bilaterally. Percent stenosis is calculated using the diameter of the stenotic region over t he diameter of the normal distal internal carotid artery Head Magnetic Resonance Angiography 02/03/18 Signed Impressions: CONCLUSION: 1. Negative MRA examination. No large or central vessel occlusion identified. Chest X-Ray 02/02/18599 Signed Impressions: CONCLUSION: No acute cardiopulmonary disease. Head CT 02/02/18 Signed Impressions: CONCLUSION: 1. Low-density left basal ganglia could be lacunar infarct in the right clinic al setting. 2. Otherwise unremarkable CT brain. CT Angiography 02/02/18 Signed Impressions: CONCLUSION: 1. No pulmonary embolus is identified. 2. Small areas of atelectasis within the lung bases. 3. Probable fatty infiltration of the liver. Brain MRI 02/02/18 Signed Impressions: CONCLUSION: 1. Punctate area of abnormal diffusion signal in the central aspect of the julisa s. This is concerning for a punctate area of lacunar infarct. 2. Mucoperiosteal sinus disease involving the right side of the frontal sinus. Chest Ultrasound 01/31/18 Signed Impressions: CONCLUSION: 1. Inadequate fluid. Thoracentesis not performed. Lower Extremity Ultrasound 01/26/18 Signed Impressions: CONCLUSION: 1. No evidence of DVT. Liver Ultrasound 01/24/18 Signed Impressions: CONCLUSION: 1. No evidence of gallstones or biliary tract obstruction. 2. Hepatomegaly with increased echogenicity throughout the liver suggestive of fatty infiltration and/or hepatocellular disease. Objective Remarks GENERAL: Overweight female who is laying in bed, drowsy though arousable. AO x2. SKIN: Warm and dry. There is some ecchymosis over her right tibia. HEAD: Atraumatic. Normocephalic. EYES: Pupils equal and round, 4 mm and reactive to 2 mm bilaterally.. No scleral icterus. No injection or drainage. ENT: No nasal bleeding or discharge. MMM. NECK: Trachea midline. No JVD. CARDIOVASCULAR: RRR. No murmurs rubs or gallops. RESPIRATORY: Breathing comfortably with no accessory muscle use. Clear to auscultation. Breath sounds equal bilaterally. GASTROINTESTINAL: Abdomen soft, non-tender, nondistended. Hepatic and splenic margins not palpable. Bowel sounds present. MUSCULOSKELETAL: Extremities without clubbing, cyanosis, or edema. No obvious deformities. NEUROLOGICAL: Awake and alert but drowsy, oriented 2, following commands. 5 out of 5 strength in all extremities. Normal speech Vascular Central Line Catheter: Yes Assessment to: Remove A/P Problem List: (1) EtOH dependence ICD Code: F10.20 - EtOH dependence Status: Acute (2) Tachycardia ICD Code: R00.0 - Tachycardia Status: Acute (3) Hypokalemia ICD Code: E87.6 - Hypokalemia Status: Acute (4) Hypomagnesemia ICD Code: E83.42 - Hypomagnesemia Status: Acute (5) Alcohol withdrawal ICD Code: F10.239 - Alcohol dependence with withdrawal, unspecified Status: Acute (6) LFT elevation ICD Code: R79.89 - LFT elevation Status: Acute (7) DTs (delirium tremens) ICD Code: F10.231 - Alcohol dependence with withdrawal delirium Status: Acute (8) Chronic hyponatremia ICD Code: E87.1 - Hypo-osmolality and hyponatremia Status: Acute Assessment and Plan NEURO: Alcohol dependence Alcohol withdrawal DC'd Librium 25 mg p.o. QHS. Ativan as needed per CIWA protocol Off Precedex. Seroquel switched ro Abilify per Psych recommendations Vitamin supplementation with thiamine/multivitamin/folic acid. Consulted psychiatry in view of hallucinations/delirium Neurology consulted; MRI showing possible punctate lesion at brenda vs demyelination; MRA head and neck showing patent vasculature PT/OT to assess movement, balance, coordination; ability to perform ADL/IADLs RESP: Acute resp failure Pulm edema Secondhand smoke exposure Nasal cannula O2. Bronchodilators as needed. Pulm following. CV: Sinus tachycardia due to alcohol withdrawal pulmonary edema Cardiomyopathy with LVEF 20-25% Elevated BNP. 2D echo. Diuresed with Lasix. IV fluids KVO Pt developed hypotension on 02/01 and placed on Levophed and dopamine; resolved Resumed coreg 6.25 bid, lisinopril 10mg daily and Lasix changed to 20mg daily. ASA. Further recs per cardiology. OK for stress test at this time per critical care. 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 GI: Transaminitis PO diet as tolerated Viral hepatitis panel FEN/RENAL: Hypokalemia Hypomagnesemia Acute dehydration Hyponatremia Initially recieved IVF. KVO IVF. Diuresed with lasix. Has received magnesium 2 g IV. Monitor and replete electrolytes. ID: Started on empiric antibiotics by pulmonary for suspicion of pneumonia. Cefepime and Zithromax-DC'd 02/03. HEME: Monitor CBC. Follow-up coags. ENDO: Stress hyperglycemia. Follow glucose q8 and initiate low-dose insulin sliding scale as indicated. PROPH: SCDs for DVT prophylaxis. Will initiate pharmacologic DVT prophylaxis depending on results of coags. Famotidine for stress ulcer prophylaxis. ACCESS: Peripheral IV providing adequate access at this time. DC central line. Full code Physician Addendum: Patient seen and examined earlier. Discussed findings, assessment and plan with Dr. Louie. Agree with above note. Discussed with cardiology. Okay to transfer out of ICU. Will consult and transfer to hospitalist service for further medical management. Critical care will be signing off. Patient needs to have stress test prior to discharge per discussion with Dr. Quinteros. Updated family regarding plan of care and they voiced understanding and were agreeable. Problem Qualifiers (1) Alcohol withdrawal: Qualified Codes: F10.231 - Alcohol dependence with withdrawal delirium Uche Louie MD R1 Feb 03, 2018 11:02 William Chauhan MD Feb 03, 2018 14:25
[2018-02-03] MEDS: ENOXAPARIN SODIUM 40 MG/0.4 ML SYRINGE SQ SCH (16:47)
--- NOTE | 2018-02-03 17:58 | HHI.PR ---
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 Diagnosis/Plan: Subjective Subjective Comments No acute events reported Active Medications Current Medications Medications (Trade) Dose Ordered Sig/Sarah Route Start Time Stop Time Status Last Admin (NS Flush) 2 ml UNSCH PRN IV FLUSH 01/24/18 05:45 02/01/18 19:45 (NS Flush) 2 ml BID IV FLUSH 01/24/18 09:00 02/03/18 07:50 (Tylenol) 650 mg Q6H PRN PO 01/24/18 05:45 (Zofran Odt) 4 mg Q6H PRN PO 01/24/18 06:00 (Restoril) 15 mg HS PRN PO 01/24/18 05:45 (Duoneb Neb) 1 ampule Q2HR NEB PRN INH 01/24/18 05:45 01/26/18 08:07 ([facility]) 1 Q361D XX 01/24/18 05:45 01/24/18 20:30 (Chlorhexidine 2% Cloth) Taper DAILY@04 TOP 01/25/18 04:00 01/21/19 03:59 02/03/18 04:00 (Chlorhexidine 2% Cloth) 3 pack UNSCH PRN TOP 01/24/18 05:45 (Bouchra-Colace) 1 tab BID PO 01/24/18 09:00 02/02/18 20:38 (Milk Of Magnesia Liq) 30 ml Q12H PRN PO 01/24/18 05:45 (Senokot) 17.2 mg Q12H PRN PO 01/24/18 05:45 (Dulcolax Supp) 10 mg DAILY PRN RECTAL 01/24/18 05:45 (Lactulose Liq) 30 ml DAILY PRN PO 01/24/18 05:45 (KCl) 20 meq Q12HR PO 01/27/18 21:00 02/03/18 07:50 (Vitamin B1) 100 mg DAILY PO 01/28/18 09:00 02/03/18 07:49 (Prinivil) 10 mg DAILY PO 01/31/18 09:00 Future hold 02/01/18 07:34 (Pepcid) 20 mg BID PO 01/31/18 21:00 02/03/18 07:50 (Abilify) 1 mg DAILY PO 02/02/18 09:00 02/03/18 07:49 (Pill Splitter) 1 ea UNSCH PRN OTHER 02/01/18 10:30 (Brethine Inj) 1 mg UNSCH PRN SQ 02/01/18 14:00 (Lasix) 20 mg DAILY PO 02/02/18 11:15 02/03/18 07:49 (Coreg) 6.25 mg BID PO 02/02/18 11:15 02/03/18 07:49 (Ecotrin Ec) 81 mg DAILY PO 02/02/18 21:15 02/03/18 07:49 (Ativan Inj) 1 mg Q4H PRN IV PUSH 02/03/18 15:00 (Lovenox Inj) 40 mg Q24H SQ 02/03/18 16:00 02/03/18 16:47 Allergies Allergies Coded Allergies No Known Allergies (Unverified05/08/15) Exam I&O / VS 02/03/18 02/03/18 02/04/18 15:00 23:00 07:00 Intake Total 200 ml Output Total 300 ml Balance 200 ml -300 ml IV Total 200 ml Output Urine Total 300 ml Vital Signs Date Time Temp Pulse Resp B/P (MAP) Pulse Ox O2 Delivery O2 Flow Rate FiO2 02/03/18 16:00 98.5 103 22 109/55 (73) 100 02/03/18 16:00 103 02/03/18 14:00 90 02/03/18 12:00 91 02/03/18 12:00 98.5 91 22 109/55 (73) 100 02/03/18 11:26 95 Nasal Cannula 3.00 02/03/18 10:00 96 02/03/18 08:00 95 Room Air 02/03/18 08:00 98.6 100 24 153/67 (95) 95 02/03/18 08:00 100 02/03/18 06:00 103 02/03/18 04:00 95 Room Air 02/03/18 04:00 91 02/03/18 04:00 98.3 91 29 168/74 (105) 96 02/03/18 02:00 97 02/03/18 00:00 100 02/03/18 00:00 97.8 100 28 137/85 (102) 95 02/03/18 00:00 95 Room Air 02/02/18 22:00 103 02/02/18 21:34 96 02/02/18 20:00 89 02/02/18 20:00 93 Nasal Cannula 3.00 21 02/02/18 20:00 98.3 89 25 103/67 (79) 93 02/02/18 18:00 100 Exam Comments alert, follow commands PERRL, extraoccular motility normal MOTOR --no focal weakness. Objective Radiology Results MRA brain--normal with no sign of basilar artery disease MRA neck normal Micro and Labs Laboratory Tests Test 02/03/18 04:30 White Blood Count 5.2 Red Blood Count 4.39 Hemoglobin 14.4 Hematocrit 43.2 Mean Corpuscular Volume 98.5 Mean Corpuscular Hemoglobin 32.9 Mean Corpuscular Hemoglobin Concent 33.4 Red Cell Distribution Width 17.4 Platelet Count 396 Mean Platelet Volume 10.9 Neutrophils (%) (Auto) 56.3 Lymphocytes (%) (Auto) 25.4 Monocytes (%) (Auto) 15.9 Eosinophils (%) (Auto) 1.1 Basophils (%) (Auto) 1.3 Neutrophils # (Auto) 2.9 Lymphocytes # (Auto) 1.3 Monocytes # (Auto) 0.8 Eosinophils # (Auto) 0.1 Basophils # (Auto) 0.1 CBC Comment DIFF FINAL Differential Comment Blood Urea Nitrogen 17 Creatinine 0.56 Random Glucose 73 Total Protein 8.6 Albumin 2.5 Calcium Level 10.0 Alkaline Phosphatase 128 Aspartate Amino Transf (AST/SGOT) 87 Alanine Aminotransferase (ALT/SGPT) 33 Total Bilirubin 1.5 Sodium Level 144 Potassium Level 4.1 Chloride Level 109 Carbon Dioxide Level 20.3 Anion Gap 15 Estimat Glomerular Filtration Rate 115 Triglycerides Level 203 Cholesterol Level 204 LDL Cholesterol 146 HDL Cholesterol 17.9 Cholesterol/HDL Ratio 11.39 Nestor Quigley MD PhD Feb 03, 2018 17:58
--- NOTE | 2018-02-03 18:26 | HHI.PR ---
Subjective Remarks More alert and talking well. Off O2 and Sats 94. No fever. Objective Vital Signs Date Time Temp Pulse Resp B/P (MAP) Pulse Ox O2 Delivery O2 Flow Rate FiO2 02/03/18 16:00 98.5 103 22 109/55 (73) 100 02/03/18 16:00 103 02/03/18 14:00 90 02/03/18 12:00 91 02/03/18 12:00 98.5 91 22 109/55 (73) 100 02/03/18 11:26 95 Nasal Cannula 3.00 02/03/18 10:00 96 02/03/18 08:00 95 Room Air 02/03/18 08:00 98.6 100 24 153/67 (95) 95 02/03/18 08:00 100 02/03/18 06:00 103 02/03/18 04:00 95 Room Air 02/03/18 04:00 91 02/03/18 04:00 98.3 91 29 168/74 (105) 96 02/03/18 02:00 97 02/03/18 00:00 100 02/03/18 00:00 97.8 100 28 137/85 (102) 95 02/03/18 00:00 95 Room Air 02/02/18 22:00 103 02/02/18 21:34 96 02/02/18 20:00 89 02/02/18 20:00 93 Nasal Cannula 3.00 21 02/02/18 20:00 98.3 89 25 103/67 (79) 93 I/O 02/02/18 02/02/18 02/02/18 02/03/18 02/03/18 02/03/18 07:00 15:00 23:00 07:00 15:00 23:00 Intake Total 100 ml 350 ml 200 ml Output Total 400 ml 1000 ml 1 ml 300 ml Balance -300 ml -650 ml -1 ml 200 ml -300 ml Intake Oral 0 ml IV Total 100 ml 350 ml 200 ml Output Urine Total 400 ml 1000 ml 300 ml Stool Total 1 ml # Voids 4 # Bowel Movements 0 0 1 Result Diagram: 02/03/18 0430 02/03/18 0430 Objective Remarks GENERAL: This is a moderately obese, middle-aged, white female who is awake. HEENT: Head is normocephalic. Pupils reactive. Sclerae were clear. Throat has no inflammation. Tongue was clear. Nasal mucosa was clear. NECK: Supple. No venous distention. No thyromegaly or lymphadenopathy. CHEST: Equal movements with decreased breath sounds at bases. HEART: Sounds are regular, S1 and S2. No murmur. ABDOMEN: Soft, obese without masses. No organomegaly or tenderness. EXTREMITIES: No edema. Peripheral pulses are well felt. NEUROLOGIC: Reflexes are 1+. The patient is awake. SKIN: Dry and cool. Assessment and Plan Assessment and Plan ASSESSMENT: 1. Bilateral pneumonia resolving 2. Respiratory failure. 3. Ethanolism. 4. Abnormal liver functions. 5. Delirium tremens. 6. Hyponatremia. 7. Encephalopathy. Plan : 1. IS q3h. 2. O2 2 L PRN 3. CBC, BMP in am 4. PO diet as tolerated 5. Nebs qid PRN 6. Continue antibiotics. 7. Advance diet 8. Librium, Ativan PRN. for agitation 9. D/C BIPAP Ahsan Ayala MD Feb 03, 2018 18:26
[2018-02-04] VITALS (11 sets, daily range): BP systolic 100–140; BP diastolic 57–78; PULSE 85–99; RESP 17–18; TEMP 97.6–98.5; O2SAT 93–98
[2018-02-04] MEDS: CHLORHEXIDINE GLUCONATE 2 % 1 PACK (2 CLOTHS) TOP SCH (04:00)
[2018-02-04] MEDS: LORazepam 2 MG/ML VIAL IV PUSH PRN (06:11)
[2018-02-04] MEDS: SODIUM CHLORIDE 0.9% FLUSH 10 ML FLUSH IV FLUSH SCH ×2 (09:00→22:16)
[2018-02-04] MEDS: THIAMINE HCL 100 MG TAB PO SCH (09:56)
[2018-02-04] MEDS: POTASSIUM CHLORIDE 20 MEQ CONTROLLED RELEASE TAB PO SCH ×2 (09:56→22:15)
[2018-02-04] MEDS: LISINOPRIL 10 MG TAB PO SCH (09:57)
[2018-02-04] MEDS: CARVEDILOL 6.25 MG TAB PO SCH ×2 (09:57→22:14)
[2018-02-04] MEDS: FUROSEMIDE 20 MG TAB PO SCH (09:57)
[2018-02-04] MEDS: ASPIRIN EC 81 MG TABEC PO SCH (09:57)
[2018-02-04] MEDS: ARIPiprazole 2 MG TAB PO SCH (09:57)
[2018-02-04] MEDS: FAMOTIDINE 20 MG TAB PO SCH ×2 (09:57→22:15)
[2018-02-04] MEDS: DOCUSATE SODIUM 50 MG/SENNA 8.6 MG TAB PO SCH ×2 (09:57→21:00)
--- NOTE | 2018-02-04 14:06 | HHI.PR ---
Subjective Remarks Seems confused . Off O2 and Sats 96. No fever. Objective Vital Signs Date Time Temp Pulse Resp B/P (MAP) Pulse Ox O2 Delivery O2 Flow Rate FiO2 02/04/18 12:00 98.2 94 18 116/57 (76) 94 02/04/18 08:00 98.0 99 17 127/70 (89) 98 02/04/18 05:29 98 02/04/18 04:35 98.4 96 17 131/68 (89) 98 02/04/18 00:50 98.1 91 18 100/68 (79) 93 02/04/18 00:00 93 02/03/18 22:03 98 02/03/18 20:45 98.2 110 18 139/69 (92) 96 02/03/18 16:00 98.5 103 22 109/55 (73) 100 02/03/18 16:00 103 I/O 02/03/18 02/03/18 02/03/18 02/04/18 02/04/18 02/04/18 07:00 15:00 23:00 07:00 15:00 23:00 Intake Total 200 ml 240 ml Output Total 1 ml 300 ml Balance -1 ml 200 ml -300 ml 240 ml Intake Oral 240 ml IV Total 200 ml Output Urine Total 300 ml Stool Total 1 ml # Voids 4 3 # Bowel Movements 1 1 Result Diagram: 02/03/18 0430 02/03/18 0430 Objective Remarks GENERAL: This is a moderately obese, middle-aged, white female who is awake. HEENT: Head is normocephalic. Pupils reactive. Sclerae were clear. Throat no inflammation. . Nasal mucosa was clear. NECK: Supple. No venous distention. No thyromegaly or lymphadenopathy. CHEST: Equal movements with decreased breath sounds at bases. HEART: Sounds are regular, S1 and S2. No murmur. ABDOMEN: Soft, obese without masses. No organomegaly or tenderness. EXTREMITIES: No edema. Peripheral pulses are well felt. NEUROLOGIC: Reflexes are 1+. The patient is awake. SKIN: Dry and cool. Assessment and Plan Assessment and Plan ASSESSMENT: 1. Bilateral pneumonia resolving 2. Respiratory failure. 3. Ethanolism. 4. Abnormal liver functions. 5. Delirium tremens. 6. Hyponatremia. 7. Encephalopathy. Plan : 1. IS q3h. 2. O2 2 L PRN 3. Labs in am 4. PO diet as tolerated 5. Albuterol Nebs qid PRN 6. Continue antibiotics. 7. Advance diet 8. Librium, Ativan PRN. for agitation Ahsan Ayala MD Feb 04, 2018 14:06
--- NOTE | 2018-02-04 15:57 | HHI.PR ---
Subjective Remarks Patient resting in bed she is in two-point restraint in her wrist Discussed with the nurse patient was agitated earlier which preclude her from going to stress test Lexserenityan will try tomorrow Objective Vitals Vital Signs Date Time Temp Pulse Resp B/P (MAP) Pulse Ox O2 Delivery O2 Flow Rate FiO2 02/04/18 12:00 98.2 94 18 116/57 (76) 94 02/04/18 08:00 98.0 99 17 127/70 (89) 98 02/04/18 05:29 98 02/04/18 04:35 98.4 96 17 131/68 (89) 98 02/04/18 00:50 98.1 91 18 100/68 (79) 93 02/04/18 00:00 93 02/03/18 22:03 98 02/03/18 20:45 98.2 110 18 139/69 (92) 96 02/03/18 16:00 98.5 103 22 109/55 (73) 100 02/03/18 16:00 103 I/O 02/03/18 02/03/18 02/03/18 02/04/18 02/04/18 02/04/18 07:00 15:00 23:00 07:00 15:00 23:00 Intake Total 200 ml 240 ml Output Total 1 ml 300 ml Balance -1 ml 200 ml -300 ml 240 ml Intake Oral 240 ml IV Total 200 ml Output Urine Total 300 ml Stool Total 1 ml # Voids 4 3 # Bowel Movements 1 1 Result Diagram: 02/03/18 0430 02/03/18 0430 Objective Remarks GENERAL: This is a well-nourished, well-developed patient, in no apparent distress. In upper extremity restrain CARDIOVASCULAR: RRR, no gallops, or rubs. RESPIRATORY: Fair air entry bilaterally. No W, R, or R GASTROINTESTINAL: Abdomen soft, non-tender, nondistended. Positive bowel sounds MUSCULOSKELETAL: Extremities without clubbing, cyanosis, or edema. Pedal pulses appreciated NEUROLOGICAL: Awake and alert. Moves all extremity. Normal speech.no focal neurological deficit A/P Assessment and Plan 01/24: 47-year-old female with past medical history of alcohol dependence who presents to [facility] emergency department due to concern for alcohol withdrawal. She states that she and her share a 1.5 L of vodka chased with rubia servando every 2.5 days. She stopped drinking on Tuesday. She has been tremulous, has experienced some hallucinations and therefore her father brought her in. She states she intends to quit drinking indefinitely. She has been nauseous and vomited x1, nonbloody nonbilious. She denies headache or fall. CIWA was 20 upon presentation to the ED. She has received ativan 4 mg IV. She has also received 1 L normal saline bolus, Compazine 10 mg IV, magnesium 2 g IV. 01/25: Laying in bed on Precedex currently. Arouses easily. Knows she is at the intensive care unit at [facility]. Knew the month and year however was off on the date. 01/26: Continues to have episodes of hallucinations and delirium at night. On Precedex gtt. 01/27: Remains on Precedex gtt. On nasal cannula currently. Was more awake earlier and conversed with the family members per [employer]. She did diuresis with Lasix since yesterday. Her BNP is 3000. Awaiting 2D echo results. Patient has been started on antibiotics by pulmonary for suspicion of pneumonia. 01/28: Transferred to [facility] by cardiology for possible cardiac cath. On nasal cannula. 01/29: Breathing seems to have improved since yesterday. Patient remains on nasal cannula. 01/30: Still having hallucinations. Remains on nasal cannula with O2 sats borderline. 01/31: Awake and alert, on nasal cannula. Not in any acute respiratory distress. Neurologic status seems to have improved. She knows she is in the hospital and knew it was January 2018. She could identify her mother and new I was a doctor. She also gave me her home address. No tremors noted. 02/01: Pt very anxious requiring 4mg Versed for cental line placement. Pt became transiently hypotensive. 02/02: Cardiology deferring lexiscan; ordering lifevest with concern for pt still unstable w/hypotension yesterday. ECHO 02/01 showing normal LV & wall thickness w/EF 40%, MV annular calcification present; however, pt was on Levophed and dopamine during procedure; low likelihood of improvement from EF of 25%. BP normalized today. Ordering Pulm CTA to r/o PE and CT head due to concern for encephalopathy. Changing Lasix to 20mg PO, Coreg 6.25mg BID, and restart Lisinopril 10mg tomorrow. 02/03: No acute events overnight with VSS. Weaning librium. Pt with resolving withdrawal from EtOH. Neurology workup proceeding with MRI indicating possible demyelination vs punctate pontine infarct/lesion. MRA brain and neck showing patent vasculature with no lesions. Awaiting lexiscan; however, Dr Quinteros believes low EF due to EtOH-induced cardiomyopathy and is in no hurry for stress test. Lifevest ordered. 02/04: No acute issue, continue neuro check watch out for ethanol withdrawal recurrent symptoms, patient and restrain she could not go to stress test today due to being agitated earlier A/P: Alcohol dependence Alcohol withdrawal DC'd Librium 25 mg p.o. QHS. Ativan as needed per [facility] protocol Off Precedex. Seroquel switched ro Abilify per Psych recommendations Vitamin supplementation with thiamine/multivitamin/folic acid. Consulted psychiatry in view of hallucinations/delirium Neurology consulted; MRI showing possible punctate lesion at brenda vs demyelination; MRA head and neck showing patent vasculature PT/OT to assess movement, balance, coordination; ability to perform ADL/IADLs RESP: Acute resp failure Pulm edema Secondhand smoke exposure Nasal cannula O2. Bronchodilators as needed. Pulm following. CV: Sinus tachycardia due to alcohol withdrawal pulmonary edema Cardiomyopathy with LVEF 20-25% Elevated BNP. 2D echo. Diuresed with Lasix. IV fluids KVO Pt developed hypotension on 02/01 and placed on Levophed and dopamine; resolved Resumed coreg 6.25 bid, lisinopril 10mg daily and Lasix changed to 20mg daily. ASA. Further recs per cardiology. OK for stress test at this time per critical care. 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 GI: Transaminitis PO diet as tolerated Viral hepatitis panel FEN/RENAL: Hypokalemia Hypomagnesemia Acute dehydration Hyponatremia Initially recieved IVF. KVO IVF. Diuresed with lasix. Has received magnesium 2 g IV. Monitor and replete electrolytes. ID: Started on empiric antibiotics by pulmonary for suspicion of pneumonia. Cefepime and Zithromax-DC'd 02/03. HEME: Monitor CBC. Follow-up coags. ENDO: Stress hyperglycemia. Follow glucose q8 and initiate low-dose insulin sliding scale as indicated. PROPH: SCDs for DVT prophylaxis. Will initiate pharmacologic DVT prophylaxis depending on results of coags. Famotidine for stress ulcer prophylaxis. ACCESS: Peripheral IV providing adequate access at this time. DC central line. Luis Man MD Feb 04, 2018 15:57
[2018-02-04] MEDS: ENOXAPARIN SODIUM 40 MG/0.4 ML SYRINGE SQ SCH (16:36)
[2018-02-04] MEDS: TEMAZEPAM 15 MG CAP PO PRN (23:47)
[2018-02-05] VITALS (7 sets, daily range): BP systolic 94–156; BP diastolic 51–70; PULSE 82–104; RESP 16–18; TEMP 97.7–98.4; O2SAT 94–98
[2018-02-05] MEDS: LORazepam 2 MG/ML VIAL IV PUSH PRN ×2 (03:38→19:42)
[2018-02-05] MEDS: SODIUM CHLORIDE 0.9% FLUSH 10 ML FLUSH IV FLUSH PRN (03:39)
[2018-02-05] MEDS: CHLORHEXIDINE GLUCONATE 2 % 1 PACK (2 CLOTHS) TOP SCH (04:00)
[2018-02-05 05:44] LABS: BICARBONATE 20.4 MEQ/L (21.0-32.0); CALCIUM 9.8 MG/DL (8.5-10.1); CREATININE 0.62 MG/DL (0.50-1.00)
[2018-02-05] MEDS: DOCUSATE SODIUM 50 MG/SENNA 8.6 MG TAB PO SCH ×2 (09:00→19:42)
[2018-02-05] MEDS: THIAMINE HCL 100 MG TAB PO SCH (09:24)
[2018-02-05] MEDS: FAMOTIDINE 20 MG TAB PO SCH ×2 (09:25→19:42)
[2018-02-05] MEDS: ASPIRIN EC 81 MG TABEC PO SCH (09:25)
[2018-02-05] MEDS: FUROSEMIDE 20 MG TAB PO SCH (09:25)
[2018-02-05] MEDS: ARIPiprazole 2 MG TAB PO SCH (09:25)
[2018-02-05] MEDS: CARVEDILOL 6.25 MG TAB PO SCH ×2 (09:25→19:42)
[2018-02-05] MEDS: POTASSIUM CHLORIDE 20 MEQ CONTROLLED RELEASE TAB PO SCH ×2 (09:25→19:41)
[2018-02-05] MEDS: LISINOPRIL 10 MG TAB PO SCH (09:25)
[2018-02-05] MEDS: SODIUM CHLORIDE 0.9% FLUSH 10 ML FLUSH IV FLUSH SCH ×2 (09:26→19:42)
--- NOTE | 2018-02-05 12:52 | HHI.PR ---
Subjective Remarks Resting in bed Patient still and restrain, discussed with the nurse still not being able to perform stress test yet due to agitation Objective Vitals Vital Signs Date Time Temp Pulse Resp B/P (MAP) Pulse Ox O2 Delivery O2 Flow Rate FiO2 02/05/18 08:00 98.1 82 16 109/67 (81) 98 02/05/18 04:20 98.0 104 18 156/70 (98) 97 02/05/18 03:52 103 02/05/18 00:26 97.7 94 18 133/63 (86) 98 02/04/18 23:47 95 02/04/18 21:23 21 02/04/18 20:05 85 02/04/18 19:50 98.5 90 18 130/78 (95) 98 02/04/18 18:27 94 02/04/18 16:00 97.6 92 17 140/67 (91) 98 I/O 02/04/18 02/04/18 02/04/18 02/05/18 02/05/18 02/05/18 07:00 15:00 23:00 07:00 15:00 23:00 Intake Total 240 ml 400 ml 200 ml Balance 240 ml 400 ml 200 ml Intake Oral 240 ml 400 ml 200 ml # Voids 3 3 # Bowel Movements 1 0 Result Diagram: 02/03/18 0430 02/05/18 0449 Objective Remarks GENERAL: This is a well-nourished, well-developed patient, in no apparent distress. In upper extremity restrain CARDIOVASCULAR: RRR, no gallops, or rubs. RESPIRATORY: Fair air entry bilaterally. No W, R, or R GASTROINTESTINAL: Abdomen soft, non-tender, nondistended. Positive bowel sounds MUSCULOSKELETAL: Extremities without clubbing, cyanosis, or edema. Pedal pulses appreciated NEUROLOGICAL: Awake and alert. Moves all extremity. Normal speech.no focal neurological deficit A/P Assessment and Plan 01/24: 47-year-old female with past medical history of alcohol dependence who presents to [facility] emergency department due to concern for alcohol withdrawal. She states that she and her share a 1.5 L of vodka chased with rubia servando every 2.5 days. She stopped drinking on Tuesday. She has been tremulous, has experienced some hallucinations and therefore her father brought her in. She states she intends to quit drinking indefinitely. She has been nauseous and vomited x1, nonbloody nonbilious. She denies headache or fall. CIWA was 20 upon presentation to the ED. She has received ativan 4 mg IV. She has also received 1 L normal saline bolus, Compazine 10 mg IV, magnesium 2 g IV. 01/25: Laying in bed on Precedex currently. Arouses easily. Knows she is at the intensive care unit at [facility]. Knew the month and year however was off on the date. 01/26: Continues to have episodes of hallucinations and delirium at night. On Precedex gtt. 01/27: Remains on Precedex gtt. On nasal cannula currently. Was more awake earlier and conversed with the family members per BOTTOM PRECIPITATOR OPERATOR. She did diuresis with Lasix since yesterday. Her BNP is 3000. Awaiting 2D echo results. Patient has been started on antibiotics by pulmonary for suspicion of pneumonia. 01/28: Transferred to [facility] hospital by cardiology for possible cardiac cath. On nasal cannula. 01/29: Breathing seems to have improved since yesterday. Patient remains on nasal cannula. 01/30: Still having hallucinations. Remains on nasal cannula with O2 sats borderline. 01/31: Awake and alert, on nasal cannula. Not in any acute respiratory distress. Neurologic status seems to have improved. She knows she is in the hospital and knew it was January 2018. She could identify her mother and new I was a doctor. She also gave me her home address. No tremors noted. 02/01: Pt very anxious requiring 4mg Versed for cental line placement. Pt became transiently hypotensive. 02/02: Cardiology deferring lexiscan; ordering lifevest with concern for pt still unstable w/hypotension yesterday. ECHO 02/01 showing normal LV & wall thickness w/EF 40%, MV annular calcification present; however, pt was on Levophed and dopamine during procedure; low likelihood of improvement from EF of 25%. BP normalized today. Ordering Pulm CTA to r/o PE and CT head due to concern for encephalopathy. Changing Lasix to 20mg PO, Coreg 6.25mg BID, and restart Lisinopril 10mg tomorrow. 02/03: No acute events overnight with VSS. Weaning librium. Pt with resolving withdrawal from EtOH. Neurology workup proceeding with MRI indicating possible demyelination vs punctate pontine infarct/lesion. MRA brain and neck showing patent vasculature with no lesions. Awaiting lexiscan; however, Dr Quinteros believes low EF due to EtOH-induced cardiomyopathy and is in no hurry for stress test. Lifevest ordered. 02/04: No acute issue, continue neuro check watch out for ethanol withdrawal recurrent symptoms, patient and restrain she could not go to stress test today due to being agitated earlier 02/05: Continue neuro check and monitoring, try to release restrain and get patient to have stress test, will probably need rehab placement A/P: Alcohol dependence Alcohol withdrawal DC'd Librium 25 mg p.o. QHS. Ativan as needed per CIWA protocol Off Precedex. Seroquel switched ro Abilify per Psych recommendations Vitamin supplementation with thiamine/multivitamin/folic acid. Consulted psychiatry in view of hallucinations/delirium Neurology consulted; MRI showing possible punctate lesion at brenda vs demyelination; MRA head and neck showing patent vasculature PT/OT to assess movement, balance, coordination; ability to perform ADL/IADLs RESP: Acute resp failure Pulm edema Secondhand smoke exposure Nasal cannula O2. Bronchodilators as needed. Pulm following. CV: Sinus tachycardia due to alcohol withdrawal pulmonary edema Cardiomyopathy with LVEF 20-25% Elevated BNP. 2D echo. Diuresed with Lasix. IV fluids KVO Pt developed hypotension on 02/01 and placed on Levophed and dopamine; resolved Resumed coreg 6.25 bid, lisinopril 10mg daily and Lasix changed to 20mg daily. ASA. Further recs per cardiology. OK for stress test at this time per critical care. 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 GI: Transaminitis PO diet as tolerated Viral hepatitis panel FEN/RENAL: Hypokalemia Hypomagnesemia Acute dehydration Hyponatremia Initially recieved IVF. KVO IVF. Diuresed with lasix. Has received magnesium 2 g IV. Monitor and replete electrolytes. ID: Started on empiric antibiotics by pulmonary for suspicion of pneumonia. Cefepime and Zithromax-DC'd 02/03. HEME: Monitor CBC. Follow-up coags. ENDO: Stress hyperglycemia. Follow glucose q8 and initiate low-dose insulin sliding scale as indicated. PROPH: SCDs for DVT prophylaxis. Will initiate pharmacologic DVT prophylaxis depending on results of coags. Famotidine for stress ulcer prophylaxis. ACCESS: Peripheral IV providing adequate access at this time. DC central line. Luis Man MD Feb 05, 2018 12:52
[2018-02-05] MEDS: ENOXAPARIN SODIUM 40 MG/0.4 ML SYRINGE SQ SCH (16:47)
[2018-02-06] VITALS (13 sets, daily range): BP systolic 93–179; BP diastolic 52–81; PULSE 78–106; RESP 14–18; TEMP 97.8–99.2; O2SAT 94–99
[2018-02-06] MEDS: CHLORHEXIDINE GLUCONATE 2 % 1 PACK (2 CLOTHS) TOP SCH (04:00)
[2018-02-06] MEDS: LORazepam 2 MG/ML VIAL IV PUSH PRN (04:54)
[2018-02-06] MEDS: SODIUM CHLORIDE 0.9% FLUSH 10 ML FLUSH IV FLUSH PRN (04:54)
[2018-02-06] MEDS: FAMOTIDINE 20 MG TAB PO SCH ×2 (09:00→20:52)
[2018-02-06] MEDS: ARIPiprazole 2 MG TAB PO SCH (09:00)
[2018-02-06] MEDS: POTASSIUM CHLORIDE 20 MEQ CONTROLLED RELEASE TAB PO SCH ×2 (09:00→20:52)
[2018-02-06] MEDS: SODIUM CHLORIDE 0.9% FLUSH 10 ML FLUSH IV FLUSH SCH ×2 (09:00→20:52)
[2018-02-06] MEDS: ASPIRIN EC 81 MG TABEC PO SCH (09:00)
[2018-02-06] MEDS: LISINOPRIL 10 MG TAB PO SCH (09:00)
[2018-02-06] MEDS: FUROSEMIDE 20 MG TAB PO SCH (09:00)
[2018-02-06] MEDS: CARVEDILOL 6.25 MG TAB PO SCH ×2 (09:00→20:53)
[2018-02-06] MEDS: DOCUSATE SODIUM 50 MG/SENNA 8.6 MG TAB PO SCH ×2 (09:00→20:53)
[2018-02-06] MEDS: THIAMINE HCL 100 MG TAB PO SCH (09:00)
--- NOTE | 2018-02-06 10:13 | HHI.PR ---
Subjective Remarks Patient still and restrain, currently she is doing her PT session Patient is telling me "I just found out yesterday that I am "patient is noncoherent Past with the nurse, the stress test lab counseled her test awaiting for her mental status to improve and get off restrain Objective Vitals Vital Signs Date Time Temp Pulse Resp B/P (MAP) Pulse Ox O2 Delivery O2 Flow Rate FiO2 02/06/18 07:03 Room Air 02/06/18 07:01 93 02/06/18 04:00 98.3 98 18 136/63 (87) 96 02/06/18 00:00 97.8 90 18 93/53 (66) 95 02/05/18 19:59 97.7 101 18 138/63 (88) 96 02/05/18 16:00 98.4 99 16 143/67 (92) 96 02/05/18 12:00 98.3 94 16 94/51 (65) 94 I/O 02/05/18 02/05/18 02/05/18 02/06/18 02/06/18 02/06/18 07:00 15:00 23:00 07:00 15:00 23:00 Intake Total 200 ml 240 ml 600 ml Balance 200 ml 240 ml 600 ml Intake Oral 200 ml 240 ml 600 ml # Voids 3 4 # Bowel Movements 0 2 Result Diagram: 02/03/18 0430 02/05/18 0449 Objective Remarks GENERAL: This is a well-nourished, well-developed patient, in no apparent distress. In upper extremity restrain CARDIOVASCULAR: RRR, no gallops, or rubs. RESPIRATORY: Fair air entry bilaterally. No W, R, or R GASTROINTESTINAL: Abdomen soft, non-tender, nondistended. Positive bowel sounds MUSCULOSKELETAL: Extremities without clubbing, cyanosis, or edema. Pedal pulses appreciated NEUROLOGICAL: Awake and alert. Moves all extremity. Normal speech.no focal neurological deficit A/P Assessment and Plan 01/24: 47-year-old female with past medical history of alcohol dependence who presents to [facility] emergency department due to concern for alcohol withdrawal. She states that she and her share a 1.5 L of vodka chased with rubia servando every 2.5 days. She stopped drinking on Tuesday. She has been tremulous, has experienced some hallucinations and therefore her father brought her in. She states she intends to quit drinking indefinitely. She has been nauseous and vomited x1, nonbloody nonbilious. She denies headache or fall. CIWA was 20 upon presentation to the ED. She has received ativan 4 mg IV. She has also received 1 L normal saline bolus, Compazine 10 mg IV, magnesium 2 g IV. 01/25: Laying in bed on Precedex currently. Arouses easily. Knows she is at the intensive care unit at [facility]. Knew the month and year however was off on the date. 01/26: Continues to have episodes of hallucinations and delirium at night. On Precedex gtt. 01/27: Remains on Precedex gtt. On nasal cannula currently. Was more awake earlier and conversed with the family members per SIDE PANEL HANGER. She did diuresis with Lasix since yesterday. Her BNP is 3000. Awaiting 2D echo results. Patient has been started on antibiotics by pulmonary for suspicion of pneumonia. 01/28: Transferred to [facility] hospital by cardiology for possible cardiac cath. On nasal cannula. 01/29: Breathing seems to have improved since yesterday. Patient remains on nasal cannula. 01/30: Still having hallucinations. Remains on nasal cannula with O2 sats borderline. 01/31: Awake and alert, on nasal cannula. Not in any acute respiratory distress. Neurologic status seems to have improved. She knows she is in the hospital and knew it was January 2018. She could identify her mother and new I was a doctor. She also gave me her home address. No tremors noted. 02/01: Pt very anxious requiring 4mg Versed for cental line placement. Pt became transiently hypotensive. 02/02: Cardiology deferring lexiscan; ordering lifevest with concern for pt still unstable w/hypotension yesterday. ECHO 02/01 showing normal LV & wall thickness w/EF 40%, MV annular calcification present; however, pt was on Levophed and dopamine during procedure; low likelihood of improvement from EF of 25%. BP normalized today. Ordering Pulm CTA to r/o PE and CT head due to concern for encephalopathy. Changing Lasix to 20mg PO, Coreg 6.25mg BID, and restart Lisinopril 10mg tomorrow. 02/03: No acute events overnight with VSS. Weaning librium. Pt with resolving withdrawal from EtOH. Neurology workup proceeding with MRI indicating possible demyelination vs punctate pontine infarct/lesion. MRA brain and neck showing patent vasculature with no lesions. Awaiting lexiscan; however, Dr Quinteros believes low EF due to EtOH-induced cardiomyopathy and is in no hurry for stress test. Lifevest ordered. 02/04: No acute issue, continue neuro check watch out for ethanol withdrawal recurrent symptoms, patient and restrain she could not go to stress test today due to being agitated earlier 02/05: Continue neuro check and monitoring, try to release restrain and get patient to have stress test, will probably need rehab placement 02/06: Patient continued to be noncoherent with her speech, confabulation, will hold on stress test until she become mentally more suitable to do the test A/P: Alcohol dependence Alcohol withdrawal DC'd Librium 25 mg p.o. QHS. Ativan as needed per CIUT protocol Off Precedex. Seroquel switched ro Abilify per Psych recommendations Vitamin supplementation with thiamine/multivitamin/folic acid. Consulted psychiatry in view of hallucinations/delirium Neurology consulted; MRI showing possible punctate lesion at brenda vs demyelination; MRA head and neck showing patent vasculature PT/OT to assess movement, balance, coordination; ability to perform ADL/IADLs RESP: Acute resp failure Pulm edema Secondhand smoke exposure Nasal cannula O2. Bronchodilators as needed. Pulm following. CV: Sinus tachycardia due to alcohol withdrawal pulmonary edema Cardiomyopathy with LVEF 20-25% Elevated BNP. 2D echo. Diuresed with Lasix. IV fluids KVO Pt developed hypotension on 02/01 and placed on Levophed and dopamine; resolved Resumed coreg 6.25 bid, lisinopril 10mg daily and Lasix changed to 20mg daily. ASA. Further recs per cardiology. OK for stress test at this time per critical care. 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 GI: Transaminitis PO diet as tolerated Viral hepatitis panel FEN/RENAL: Hypokalemia Hypomagnesemia Acute dehydration Hyponatremia Initially recieved IVF. KVO IVF. Diuresed with lasix. Has received magnesium 2 g IV. Monitor and replete electrolytes. ID: Started on empiric antibiotics by pulmonary for suspicion of pneumonia. Cefepime and Zithromax-DC'd 02/03. HEME: Monitor CBC. Follow-up coags. ENDO: Stress hyperglycemia. Follow glucose q8 and initiate low-dose insulin sliding scale as indicated. PROPH: SCDs for DVT prophylaxis. Will initiate pharmacologic DVT prophylaxis depending on results of coags. Famotidine for stress ulcer prophylaxis. ACCESS: Peripheral IV providing adequate access at this time. DC central line. Luis Man MD Feb 06, 2018 10:13
--- NOTE | 2018-02-06 13:08 | HHI.PR ---
Subjective Remarks Still confused . Off O2 and Sats 99. Poor Appetite Objective Vital Signs Date Time Temp Pulse Resp B/P (MAP) Pulse Ox O2 Delivery O2 Flow Rate FiO2 02/06/18 07:03 Room Air 02/06/18 07:01 93 02/06/18 04:00 98.3 98 18 136/63 (87) 96 02/06/18 00:00 97.8 90 18 93/53 (66) 95 02/05/18 19:59 97.7 101 18 138/63 (88) 96 02/05/18 16:00 98.4 99 16 143/67 (92) 96 I/O 02/05/18 02/05/18 02/05/18 02/06/18 02/06/18 02/06/18 07:00 15:00 23:00 07:00 15:00 23:00 Intake Total 200 ml 240 ml 600 ml Balance 200 ml 240 ml 600 ml Intake Oral 200 ml 240 ml 600 ml # Voids 3 4 # Bowel Movements 0 2 Result Diagram: 02/03/18 0430 02/05/18 0449 Objective Remarks GENERAL: This is a moderately obese, middle-aged, white female who is awake. HEENT: Head is normocephalic. Pupils reactive. Sclerae were clear. Throat no inflammation. Nasal mucosa was clear. NECK: Supple. No venous distention. No thyromegaly or lymphadenopathy. CHEST: Equal movements with decreased breath sounds at bases. HEART: Sounds are regular, S1 and S2. No murmur. ABDOMEN: Soft, obese without masses. No organomegaly or tenderness. EXTREMITIES: No edema. Peripheral pulses are well felt. NEUROLOGIC: Reflexes are 1+. The patient is awake. SKIN: Dry and cool. Assessment and Plan Assessment and Plan ASSESSMENT: 1. Bilateral pneumonia resolved 2. Respiratory failure. 3. Ethanolism. 4. Abnormal liver functions. 5. Delirium tremens. 6. Hyponatremia. 7. Encephalopathy. Plan : 1. IS q3h. 2. O2 2 L PRN 3. Ensure 1 can BID 4. PO diet as tolerated 5. Albuterol Nebs qid PRN 6. Continue antibiotics. 7. BMP ,CBC 8. Librium, PRN. for agitation Ahsan Ayala MD Feb 06, 2018 13:08
[2018-02-06] MEDS: ENOXAPARIN SODIUM 40 MG/0.4 ML SYRINGE SQ SCH (15:16)
[2018-02-07] VITALS (13 sets, daily range): BP systolic 98–143; BP diastolic 50–72; PULSE 89–110; RESP 16–18; TEMP 97.8–98.5; O2SAT 96–99
[2018-02-07] MEDS: CHLORHEXIDINE GLUCONATE 2 % 1 PACK (2 CLOTHS) TOP SCH (04:00)
[2018-02-07] MEDS: LORazepam 2 MG/ML VIAL IV PUSH PRN (04:42)
[2018-02-07] MEDS: SODIUM CHLORIDE 0.9% FLUSH 10 ML FLUSH IV FLUSH SCH ×2 (10:14→20:30)
[2018-02-07] MEDS: FAMOTIDINE 20 MG TAB PO SCH ×2 (10:15→20:30)
[2018-02-07] MEDS: CARVEDILOL 6.25 MG TAB PO SCH ×2 (10:15→20:30)
[2018-02-07] MEDS: ARIPiprazole 2 MG TAB PO SCH (10:15)
[2018-02-07] MEDS: LISINOPRIL 10 MG TAB PO SCH (10:16)
[2018-02-07] MEDS: THIAMINE HCL 100 MG TAB PO SCH (10:16)
[2018-02-07] MEDS: DOCUSATE SODIUM 50 MG/SENNA 8.6 MG TAB PO SCH ×2 (10:16→20:30)
[2018-02-07] MEDS: FUROSEMIDE 20 MG TAB PO SCH (10:16)
[2018-02-07] MEDS: ASPIRIN EC 81 MG TABEC PO SCH (10:16)
[2018-02-07] MEDS: POTASSIUM CHLORIDE 20 MEQ CONTROLLED RELEASE TAB PO SCH ×2 (10:17→20:30)
[2018-02-07 13:05] LABS: ALT (GPT) 38 U/L (10-53)
[2018-02-07 13:07] LABS: ALKALINE PHOSPHATASE 104 U/L (45-117); TOTAL BILIRUBIN ADULT 1.3 MG/DL (0.2-1.0); TOTAL PROTEIN 8.7 GM/DL (6.4-8.2)
[2018-02-07 13:08] LABS: ALBUMIN 3.1 GM/DL (3.4-5.0); AST (GOT) 83 U/L (15-37); BICARBONATE 19.7 MEQ/L (21.0-32.0); BLOOD UREA NITROGEN 25 MG/DL (7-18); CALCIUM 10.6 MG/DL (8.5-10.1); CHLORIDE 107 MEQ/L (98-107); CREATININE 0.82 MG/DL (0.50-1.00); GLOMERULAR FILTRATION RATE 74 ML/MIN (>89); GLUCOSE,RANDOM 100 MG/DL (74-106); SODIUM (NA) 141 MEQ/L (136-145)
[2018-02-07] MEDS: ENOXAPARIN SODIUM 40 MG/0.4 ML SYRINGE SQ SCH (17:18)
--- NOTE | 2018-02-07 17:30 | HHI.PR ---
Subjective Remarks Patient resting in bed she is in restrain she is smiling not agitated at this point But with discussion with the nurse patient has been getting agitated and physical with the nurses and therapist at some points Objective Vitals Vital Signs Date Time Temp Pulse Resp B/P (MAP) Pulse Ox O2 Delivery O2 Flow Rate FiO2 02/07/18 10:45 98.0 110 18 112/62 (79) 99 02/07/18 08:00 97.8 107 18 140/67 (91) 96 02/07/18 08:00 Room Air 02/07/18 07:05 102 02/07/18 06:45 98.2 101 17 143/72 (95) 97 02/07/18 04:09 102 02/07/18 02:45 97.8 106 17 138/65 (89) 96 02/06/18 23:51 103 02/06/18 22:45 98.3 106 17 126/62 (83) 94 02/06/18 21:16 94 02/06/18 20:04 98 02/06/18 20:00 94 Room Air 02/06/18 18:45 98.0 99 16 117/64 (81) 94 I/O 02/06/18 02/06/18 02/06/18 02/07/18 02/07/18 02/07/18 07:00 15:00 23:00 07:00 15:00 23:00 Intake Total 600 ml 400 ml 360 ml Balance 600 ml 400 ml 360 ml Intake Oral 600 ml 400 ml 360 ml # Voids 4 4 4 # Bowel Movements 2 1 1 Result Diagram: 02/03/18 0430 02/07/18 1221 Objective Remarks GENERAL: This is a well-nourished, well-developed patient, in no apparent distress. In upper extremity restrain CARDIOVASCULAR: RRR, no gallops, or rubs. RESPIRATORY: Fair air entry bilaterally. No W, R, or R GASTROINTESTINAL: Abdomen soft, non-tender, nondistended. Positive bowel sounds MUSCULOSKELETAL: Extremities without clubbing, cyanosis, or edema. Pedal pulses appreciated NEUROLOGICAL: Awake and alert. Moves all extremity. Normal speech.no focal neurological deficit A/P Assessment and Plan 01/24: 47-year-old female with past medical history of alcohol dependence who presents to [facility] emergency department due to concern for alcohol withdrawal. She states that she and her share a 1.5 L of vodka chased with rubia al every 2.5 days. She stopped drinking on Tuesday. She has been tremulous, has experienced some hallucinations and therefore her father brought her in. She states she intends to quit drinking indefinitely. She has been nauseous and vomited x1, nonbloody nonbilious. She denies headache or fall. CIWA was 20 upon presentation to the ED. She has received ativan 4 mg IV. She has also received 1 L normal saline bolus, Compazine 10 mg IV, magnesium 2 g IV. 01/25: Laying in bed on Precedex currently. Arouses easily. Knows she is at the intensive care unit at [facility]. Knew the month and year however was off on the date. 01/26: Continues to have episodes of hallucinations and delirium at night. On Precedex gtt. 01/27: Remains on Precedex gtt. On nasal cannula currently. Was more awake earlier and conversed with the family members per ORNAMENTAL METAL FABRICATOR APPRENTICE. She did diuresis with Lasix since yesterday. Her BNP is 3000. Awaiting 2D echo results. Patient has been started on antibiotics by pulmonary for suspicion of pneumonia. 01/28: Transferred to [facility] hospital by cardiology for possible cardiac cath. On nasal cannula. 01/29: Breathing seems to have improved since yesterday. Patient remains on nasal cannula. 01/30: Still having hallucinations. Remains on nasal cannula with O2 sats borderline. 01/31: Awake and alert, on nasal cannula. Not in any acute respiratory distress. Neurologic status seems to have improved. She knows she is in the hospital and knew it was January 2018. She could identify her mother and new I was a doctor. She also gave me her home address. No tremors noted. 02/01: Pt very anxious requiring 4mg Versed for cental line placement. Pt became transiently hypotensive. 02/02: Cardiology deferring lexiscan; ordering lifevest with concern for pt still unstable w/hypotension yesterday. ECHO 02/01 showing normal LV & wall thickness w/EF 40%, MV annular calcification present; however, pt was on Levophed and dopamine during procedure; low likelihood of improvement from EF of 25%. BP normalized today. Ordering Pulm CTA to r/o PE and CT head due to concern for encephalopathy. Changing Lasix to 20mg PO, Coreg 6.25mg BID, and restart Lisinopril 10mg tomorrow. 02/03: No acute events overnight with VSS. Weaning librium. Pt with resolving withdrawal from EtOH. Neurology workup proceeding with MRI indicating possible demyelination vs punctate pontine infarct/lesion. MRA brain and neck showing patent vasculature with no lesions. Awaiting lexiscan; however, Dr Quinteros believes low EF due to EtOH-induced cardiomyopathy and is in no hurry for stress test. Lifevest ordered. 02/04: No acute issue, continue neuro check watch out for ethanol withdrawal recurrent symptoms, patient and restrain she could not go to stress test today due to being agitated earlier 02/05: Continue neuro check and monitoring, try to release restrain and get patient to have stress test, will probably need rehab placement 02/06: Patient continued to be noncoherent with her speech, confabulation, will hold on stress test until she become mentally more suitable to do the test 02/07: Patient continued to be delusional, noted that she will need stress test done whenever she is calm enough to do it, psychiatry on board will need to reassess if she needs to go to psych [facility] A/P: Alcohol dependence Alcohol withdrawal DC'd Librium 25 mg p.o. QHS. Ativan as needed per CIID protocol Off Precedex. Seroquel switched ro Abilify per Psych recommendations Vitamin supplementation with thiamine/multivitamin/folic acid. Consulted psychiatry in view of hallucinations/delirium Neurology consulted; MRI showing possible punctate lesion at brenda vs demyelination; MRA head and neck showing patent vasculature PT/OT to assess movement, balance, coordination; ability to perform ADL/IADLs RESP: Acute resp failure Pulm edema Secondhand smoke exposure Nasal cannula O2. Bronchodilators as needed. Pulm following. CV: Sinus tachycardia due to alcohol withdrawal pulmonary edema Cardiomyopathy with LVEF 20-25% Elevated BNP. 2D echo. Diuresed with Lasix. IV fluids KVO Pt developed hypotension on 02/01 and placed on Levophed and dopamine; resolved Resumed coreg 6.25 bid, lisinopril 10mg daily and Lasix changed to 20mg daily. ASA. Further recs per cardiology. OK for stress test at this time per critical care. 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 GI: Transaminitis PO diet as tolerated Viral hepatitis panel FEN/RENAL: Hypokalemia Hypomagnesemia Acute dehydration Hyponatremia Initially recieved IVF. KVO IVF. Diuresed with lasix. Has received magnesium 2 g IV. Monitor and replete electrolytes. ID: Started on empiric antibiotics by pulmonary for suspicion of pneumonia. Cefepime and Zithromax-DC'd 02/03. HEME: Monitor CBC. Follow-up coags. ENDO: Stress hyperglycemia. Follow glucose q8 and initiate low-dose insulin sliding scale as indicated. PROPH: SCDs for DVT prophylaxis. Will initiate pharmacologic DVT prophylaxis depending on results of coags. Famotidine for stress ulcer prophylaxis. ACCESS: Peripheral IV providing adequate access at this time. DC central line. Luis Man MD Feb 07, 2018 17:30
[2018-02-08] VITALS (9 sets, daily range): BP systolic 96–142; BP diastolic 49–87; PULSE 92–110; RESP 17–19; TEMP 97–98.4; O2SAT 95–99
[2018-02-08] MEDS: CHLORHEXIDINE GLUCONATE 2 % 1 PACK (2 CLOTHS) TOP SCH ×2 (04:00→19:55)
[2018-02-08] MEDS: THIAMINE HCL 100 MG TAB PO SCH (08:46)
[2018-02-08] MEDS: FAMOTIDINE 20 MG TAB PO SCH ×2 (08:46→19:57)
[2018-02-08] MEDS: LISINOPRIL 10 MG TAB PO SCH (08:47)
[2018-02-08] MEDS: ARIPiprazole 2 MG TAB PO SCH (08:47)
[2018-02-08] MEDS: ASPIRIN EC 81 MG TABEC PO SCH (08:47)
[2018-02-08] MEDS: CARVEDILOL 6.25 MG TAB PO SCH ×2 (08:47→19:57)
[2018-02-08] MEDS: DOCUSATE SODIUM 50 MG/SENNA 8.6 MG TAB PO SCH ×2 (08:47→19:57)
[2018-02-08] MEDS: POTASSIUM CHLORIDE 20 MEQ CONTROLLED RELEASE TAB PO SCH (08:47)
[2018-02-08] MEDS: LORazepam 2 MG/ML VIAL IV PUSH PRN (08:49)
[2018-02-08] MEDS: FUROSEMIDE 20 MG TAB PO SCH (08:51)
[2018-02-08] MEDS: SODIUM CHLORIDE 0.9% FLUSH 10 ML FLUSH IV FLUSH SCH ×2 (08:52→19:57)
--- NOTE | 2018-02-08 13:08 | HHI.PR ---
Subjective Remarks Pt tells me "I'm doing good, thanks for asking" then she tells me that she is going to get out of bed "Sophie's style". She is going to put deodorant on and hair spray and tells me that bottle is in the lower drawer. She also tells me that she will be wearing a pink dress w white pearls and she points near the door telling me that is where the dress is. Discussed w RN, pt still agitated at times and still requiring restraints. Objective Vitals Vital Signs Date Time Temp Pulse Resp B/P (MAP) Pulse Ox O2 Delivery O2 Flow Rate FiO2 02/08/18 12:11 98.0 110 18 110/69 (83) 96 02/08/18 08:06 97.9 107 19 142/64 (90) 97 02/08/18 04:30 98.0 101 18 112/62 (79) 96 02/08/18 04:10 100 02/08/18 00:57 98.4 97 17 106/56 (73) 95 02/08/18 00:03 92 02/07/18 20:50 98.5 89 16 98/50 (66) 98 02/07/18 20:11 89 02/07/18 20:00 98 Room Air 02/07/18 18:00 96 02/07/18 16:00 102 02/07/18 14:00 104 I/O 02/07/18 02/07/18 02/07/18 02/08/18 02/08/18 02/08/18 07:00 15:00 23:00 07:00 15:00 23:00 Intake Total 360 ml 240 ml 360 ml Balance 360 ml 240 ml 360 ml Intake Oral 360 ml 240 ml 360 ml # Voids 4 3 4 # Bowel Movements 1 0 3 Result Diagram: 02/07/18 1221 Imaging Last Impressions Neck Magnetic Resonance Angiography 02/03/18 0000 Signed Impressions: CONCLUSION: 1. No hemodynamically significant carotid artery stenosis identified. 2. The vertebral circulation is patent bilaterally. Percent stenosis is calculated using the diameter of the stenotic region over t he diameter of the normal distal internal carotid artery Head Magnetic Resonance Angiography 02/03/18 Signed Impressions: CONCLUSION: 1. Negative MRA examination. No large or central vessel occlusion identified. Chest X-Ray 02/02/18 0600 Signed Impressions: CONCLUSION: No acute cardiopulmonary disease. Head CT 02/02/18 Signed Impressions: CONCLUSION: 1. Low-density left basal ganglia could be lacunar infarct in the right clinic al setting. 2. Otherwise unremarkable CT brain. CT Angiography 02/02/18 Signed Impressions: CONCLUSION: 1. No pulmonary embolus is identified. 2. Small areas of atelectasis within the lung bases. 3. Probable fatty infiltration of the liver. Brain MRI 02/02/18 Signed Impressions: CONCLUSION: 1. Punctate area of abnormal diffusion signal in the central aspect of the julisa s. This is concerning for a punctate area of lacunar infarct. 2. Mucoperiosteal sinus disease involving the right side of the frontal sinus. Chest Ultrasound 01/31/18 Signed Impressions: CONCLUSION: 1. Inadequate fluid. Thoracentesis not performed. Lower Extremity Ultrasound 01/26/18 Signed Impressions: CONCLUSION: 1. No evidence of DVT. Liver Ultrasound 01/24/18 Signed Impressions: CONCLUSION: 1. No evidence of gallstones or biliary tract obstruction. 2. Hepatomegaly with increased echogenicity throughout the liver suggestive of fatty infiltration and/or hepatocellular disease. Objective Remarks GENERAL: laying in bed, upper ext restraints in place. appears calm however per RN had been agitated this morning. CARDIOVASCULAR: RRR, no gallops, or rubs. RESPIRATORY: Fair air entry bilaterally. No wheezing GASTROINTESTINAL: Abdomen soft, non-tender, nondistended. Positive bowel sounds MUSCULOSKELETAL: Extremities without edema. NEUROLOGICAL: Awake and alert. Moves all extremity. Normal speech. psych: visual hallucinations A/P Assessment and Plan 01/24: 47-year-old female with past medical history of alcohol dependence who presents to [facility] emergency department due to concern for alcohol withdrawal. She states that she and her share a 1.5 L of vodka chased with rubia al every 2.5 days. She stopped drinking on Tuesday. She has been tremulous, has experienced some hallucinations and therefore her father brought her in. She states she intends to quit drinking indefinitely. She has been nauseous and vomited x1, nonbloody nonbilious. She denies headache or fall. CIWA was 20 upon presentation to the ED. She has received ativan 4 mg IV. She has also received 1 L normal saline bolus, Compazine 10 mg IV, magnesium 2 g IV. 01/25: Laying in bed on Precedex currently. Arouses easily. Knows she is at the intensive care unit at [facility]. Knew the month and year however was off on the date. 01/26: Continues to have episodes of hallucinations and delirium at night. On Precedex gtt. 01/27: Remains on Precedex gtt. On nasal cannula currently. Was more awake earlier and conversed with the family members per [employer]TERMINATION INSPECTOR. She did diuresis with Lasix since yesterday. Her BNP is 3000. Awaiting 2D echo results. Patient has been started on antibiotics by pulmonary for suspicion of pneumonia. 01/28: Transferred [facility] by cardiology for possible cardiac cath. On nasal cannula. 01/29: Breathing seems to have improved since yesterday. Patient remains on nasal cannula. 01/30: Still having hallucinations. Remains on nasal cannula with O2 sats borderline. 01/31: Awake and alert, on nasal cannula. Not in any acute respiratory distress. Neurologic status seems to have improved. She knows she is in the hospital and knew it was January 2018. She could identify her mother and new I was a doctor. She also gave me her home address. No tremors noted. 02/01: Pt very anxious requiring 4mg Versed for cental line placement. Pt became transiently hypotensive. 02/02: Cardiology deferring lexiscan; ordering lifevest with concern for pt still unstable w/hypotension yesterday. ECHO 02/01 showing normal LV & wall thickness w/EF 40%, MV annular calcification present; however, pt was on Levophed and dopamine during procedure; low likelihood of improvement from EF of 25%. BP normalized today. Ordering Pulm CTA to r/o PE and CT head due to concern for encephalopathy. Changing Lasix to 20mg PO, Coreg 6.25mg BID, and restart Lisinopril 10mg tomorrow. 02/03: No acute events overnight with VSS. Weaning librium. Pt with resolving withdrawal from EtOH. Neurology workup proceeding with MRI indicating possible demyelination vs punctate pontine infarct/lesion. MRA brain and neck showing patent vasculature with no lesions. Awaiting lexiscan; however, Dr Quinteros believes low EF due to EtOH-induced cardiomyopathy and is in no hurry for stress test. Lifevest ordered. 02/04: No acute issue, continue neuro check watch out for ethanol withdrawal recurrent symptoms, patient and restrain she could not go to stress test today due to being agitated earlier 02/05: Continue neuro check and monitoring, try to release restrain and get patient to have stress test, will probably need rehab placement 02/06: Patient continued to be noncoherent with her speech, confabulation, will hold on stress test until she become mentally more suitable to do the test 02/07: Patient continued to be delusional, noted that she will need stress test done whenever she is calm enough to do it, psychiatry on board will need to reassess if she needs to go to psych [facility]e 02/08: pt w visual hallucinations, talking about pink dress w white pearls that she will be wearing and wants to use hair spray, all of which are not present in the room. Psych evaluated the pt. Per last note from cards 02/03/18 lexiscan when she clinically improves; sometime before discharge. LifeVest ordered. no new changes to current management. A/P: Alcohol dependence Alcohol withdrawal DC'd Librium 25 mg p.o. QHS. Ativan as needed per CIWA protocol Off Precedex. Seroquel switched ro Abilify per Psych recommendations Vitamin supplementation with thiamine/multivitamin/folic acid. Consulted psychiatry in view of hallucinations/delirium Neurology consulted; MRI showing possible punctate lesion at brenda vs demyelination; MRA head and neck showing patent vasculature PT/OT to assess movement, balance, coordination; ability to perform ADL/IADLs RESP: Acute resp failure Pulm edema Secondhand smoke exposure Nasal cannula O2. Bronchodilators as needed. Pulm following. CV: Sinus tachycardia due to alcohol withdrawal pulmonary edema Cardiomyopathy with LVEF 20-25% Elevated BNP. 2D echo. Diuresed with Lasix. IV fluids KVO Pt developed hypotension on 02/01 and placed on Levophed and dopamine; resolved Resumed coreg 6.25 bid, lisinopril 10mg daily and Lasix changed to 20mg daily. ASA. Further recs per cardiology. OK for stress test at this time per critical care. 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 GI: Transaminitis PO diet as tolerated Viral hepatitis panel FEN/RENAL: Hypokalemia Hypomagnesemia Acute dehydration Hyponatremia Initially recieved IVF. KVO IVF. Diuresed with lasix. Has received magnesium 2 g IV. Monitor and replete electrolytes. ID: Started on empiric antibiotics by pulmonary for suspicion of pneumonia. Cefepime and Zithromax-DC'd 02/03. HEME: Monitor CBC. Follow-up coags. ENDO: Stress hyperglycemia. Follow glucose q8 and initiate low-dose insulin sliding scale as indicated. PROPH: SCDs for DVT prophylaxis. Will initiate pharmacologic DVT prophylaxis depending on results of coags. Famotidine for stress ulcer prophylaxis. ACCESS: Peripheral IV providing adequate access at this time. DC central line. Discharge Planning still requiring restraints. will need lexiscan when she clinically improves; sometime before discharge. LifeVest ordered by Lotus Ayon MD Feb 08, 2018 13:08
[2018-02-08] MEDS: ENOXAPARIN SODIUM 40 MG/0.4 ML SYRINGE SQ SCH (16:00)
--- NOTE | 2018-02-08 16:22 | HHI.PR ---
Subjective Remarks Still confused and hallucinating. No leg edema. Off O2 and Sats 99. Last CXR was clear. Objective Vital Signs Date Time Temp Pulse Resp B/P (MAP) Pulse Ox O2 Delivery O2 Flow Rate FiO2 02/08/18 12:11 98.0 110 18 110/69 (83) 96 02/08/18 08:06 97.9 107 19 142/64 (90) 97 02/08/18 08:00 97 Room Air 02/08/18 04:30 98.0 101 18 112/62 (79) 96 02/08/18 04:10 100 02/08/18 00:57 98.4 97 17 106/56 (73) 95 02/08/18 00:03 92 02/07/18 20:50 98.5 89 16 98/50 (66) 98 02/07/18 20:11 89 02/07/18 20:00 98 Room Air 02/07/18 18:00 96 I/O 02/07/18 02/07/18 02/07/18 02/08/18 02/08/18 02/08/18 07:00 15:00 23:00 07:00 15:00 23:00 Intake Total 360 ml 240 ml 360 ml Balance 360 ml 240 ml 360 ml Intake Oral 360 ml 240 ml 360 ml # Voids 4 3 4 # Bowel Movements 1 0 3 Result Diagram: 02/07/18 1221 Objective Remarks GENERAL: This is a moderately obese, middle-aged, white female who is awake. HEENT: Head is normocephalic. Pupils reactive. Sclerae were clear. Throat no inflammation. Nasal mucosa was clear. NECK: Supple. No venous distention. No thyromegaly or lymphadenopathy. CHEST: Equal movements with decreased breath sounds at bases.Occ wheeze . HEART: Sounds are regular, S1 and S2. No murmur. ABDOMEN: Soft, obese without masses. No organomegaly or tenderness. EXTREMITIES: No edema. Peripheral pulses are well felt. NEUROLOGIC: Reflexes are 1+. The patient is awake. SKIN: no lesions. Assessment and Plan Assessment and Plan ASSESSMENT: 1. Bilateral pneumonia resolved 2. Respiratory failure. 3. Ethanolism. 4. Abnormal liver functions. 5. Delirium tremens. 6. Hyponatremia. 7. Encephalopathy. Plan : 1. IS q3h. 2. D/C O2 3. Ensure 1 can BID 4. PO diet as tolerated 5. Albuterol Nebs qid PRN 6. PT evaluation 7. Chest Xray in am Ahsan Ayala MD Feb 08, 2018 16:22
[2018-02-09] VITALS (8 sets, daily range): BP systolic 98–140; BP diastolic 53–86; PULSE 90–123; RESP 16–20; TEMP 97.3–98.3; O2SAT 93–98
[2018-02-09] MEDS: LORazepam 2 MG/ML VIAL IV PUSH PRN (05:47)
[2018-02-09] MEDS: FAMOTIDINE 20 MG TAB PO SCH ×2 (08:37→19:54)
[2018-02-09] MEDS: CARVEDILOL 6.25 MG TAB PO SCH ×2 (08:37→19:54)
[2018-02-09] MEDS: DOCUSATE SODIUM 50 MG/SENNA 8.6 MG TAB PO SCH ×2 (08:38→19:54)
[2018-02-09] MEDS: THIAMINE HCL 100 MG TAB PO SCH (08:38)
[2018-02-09] MEDS: ASPIRIN EC 81 MG TABEC PO SCH (08:38)
[2018-02-09] MEDS: ARIPiprazole 2 MG TAB PO SCH (08:38)
[2018-02-09] MEDS: LISINOPRIL 10 MG TAB PO SCH (08:38)
[2018-02-09] MEDS: SODIUM CHLORIDE 0.9% FLUSH 10 ML FLUSH IV FLUSH SCH ×2 (08:39→19:54)
--- NOTE | 2018-02-09 08:58 | RADRPT ---
EXAM DATE: 02/09/2018 8:33 AM EDT AGE/SEX: 47 years / Female INDICATIONS: Shortness of breath. CLINICAL DATA: This is the patient's initial encounter. Patient reports that signs and symptoms have been present for 1 day and indicates a pain score of 0/10. MEDICAL/SURGICAL HISTORY: . Cardiomyopathy. section. [place] [facility] [place]. . FINDINGS: Portable AP view of the chest demonstrates a normal-sized cardiac silhouette. The lungs demonstrate n o definite effusion, consolidation, or pneumothorax. The bones and soft tissues demonstrate no acute finding. EKG lines overlie the patient. CONCLUSION: No acute cardiopulmonary abnormality is identified. Electronically signed by: Stone Claire MD 02/09/2018 8:57 AM EDT
--- NOTE | 2018-02-09 11:08 | HHI.PR ---
Subjective Remarks Follow-up alcohol withdrawal, alcoholic induced cardiomyopathy. Patient seen and examined, with continued bilateral upper extremity restraints. Patient is calm and alert and oriented to self and time. Reports of patient attempting to get out of bed today and leave. Vital signs stable. Afebrile. Denies any acute complaints. Tolerating p.o. intake. Objective Vitals Vital Signs Date Time Temp Pulse Resp B/P (MAP) Pulse Ox O2 Delivery O2 Flow Rate FiO2 02/09/18 08:17 97.9 113 19 133/64 (87) 96 02/09/18 07:23 98.0 90 19 140/86 (104) 98 02/09/18 05:23 123 02/09/18 04:00 97.6 101 20 129/61 (83) 98 02/09/18 00:00 97.6 100 19 110/53 (72) 98 02/08/18 20:00 97.0 96 17 96/49 (65) 99 02/08/18 17:56 96 21 02/08/18 16:00 97.5 106 17 126/87 (100) 02/08/18 12:11 98.0 110 18 110/69 (83) 96 I/O 02/08/18 02/08/18 02/08/18 02/09/18 02/09/18 02/09/18 07:00 15:00 23:00 07:00 15:00 23:00 Intake Total 360 ml 600 ml 240 ml Balance 360 ml 600 ml 240 ml Intake Oral 360 ml 600 ml 240 ml # Voids 4 2 3 # Bowel Movements 3 1 1 Result Diagram: 02/07/18 1221 Imaging Last Impressions Chest X-Ray 02/09/18 0000 Signed Impressions: CONCLUSION: No acute cardiopulmonary abnormality is identified. Neck Magnetic Resonance Angiography 02/03/18 0000 Signed Impressions: CONCLUSION: 1. No hemodynamically significant carotid artery stenosis identified. 2. The vertebral circulation is patent bilaterally. Percent stenosis is calculated using the diameter of the stenotic region over t he diameter of the normal distal internal carotid artery Head Magnetic Resonance Angiography 02/03/18 Signed Impressions: CONCLUSION: 1. Negative MRA examination. No large or central vessel occlusion identified. Head CT 02/02/18 Signed Impressions: CONCLUSION: 1. Low-density left basal ganglia could be lacunar infarct in the right clinic al setting. 2. Otherwise unremarkable CT brain. CT Angiography 02/02/18 Signed Impressions: CONCLUSION: 1. No pulmonary embolus is identified. 2. Small areas of atelectasis within the lung bases. 3. Probable fatty infiltration of the liver. Brain MRI 02/02/18 Signed Impressions: CONCLUSION: 1. Punctate area of abnormal diffusion signal in the central aspect of the julisa s. This is concerning for a punctate area of lacunar infarct. 2. Mucoperiosteal sinus disease involving the right side of the frontal sinus. Chest Ultrasound 01/31/18 Signed Impressions: CONCLUSION: 1. Inadequate fluid. Thoracentesis not performed. Lower Extremity Ultrasound 01/26/18 Signed Impressions: CONCLUSION: 1. No evidence of DVT. Liver Ultrasound 01/24/18 Signed Impressions: CONCLUSION: 1. No evidence of gallstones or biliary tract obstruction. 2. Hepatomegaly with increased echogenicity throughout the liver suggestive of fatty infiltration and/or hepatocellular disease. Objective Remarks GENERAL: laying in bed, upper ext restraints in place. appears calm however per RN had been agitated this morning. CARDIOVASCULAR: RRR, no gallops, or rubs. RESPIRATORY: Fair air entry bilaterally. No wheezing GASTROINTESTINAL: Abdomen soft, non-tender, nondistended. Positive bowel sounds MUSCULOSKELETAL: Extremities without edema. NEUROLOGICAL: Awake and alert. Moves all extremity. Normal speech. psych: visual hallucinations A/P Assessment and Plan 47-year-old female with past medical history of alcohol dependence who presents to [facility] emergency department due to concern for alcohol withdrawal: Alcohol dependence Alcohol withdrawal DC'd Librium 25 mg p.o. QHS. Ativan as needed per CIWA protocol Off Precedex. Seroquel switched ro Abilify per Psych recommendations Vitamin supplementation with thiamine/multivitamin/folic acid. Consulted psychiatry in view of hallucinations/delirium Neurology consulted; MRI showing possible punctate lesion at brenda vs demyelination; MRA head and neck showing patent vasculature PT/OT to assess movement, balance, coordination; ability to perform ADL/IADLs Acute resp failure secondary to bilateral pneumonia Pulm edema Secondhand smoke exposure - Nasal cannula O2. Patient comfortable on room air adequate oxygen saturations. Bronchodilators as needed. Encourage incentive spirometer. - Pulm following. Appreciate input recommendations. Chest x-ray this morning, pneumonia resolved. Status post cefepime and azithromycin. Sinus tachycardia due to alcohol withdrawal Pulmonary edema Cardiomyopathy with LVEF 20-25% Elevated BNP. 2D echo. Diuresed with Lasix. IV fluids KVO Pt developed hypotension on 02/01 and placed on Levophed and dopamine; resolved Resumed coreg 6.25 bid, lisinopril 10mg daily and Lasix changed to 20mg daily. ASA. Further recs per cardiology. 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 Transaminitis suspect secondary to alcohol PO diet as tolerated Viral hepatitis panel negative. Hypokalemia Hypomagnesemia Acute dehydration Hyponatremia Resolved. Initially received IVF. Diuresed with Lasix. Status post replacement. Monitor and replete electrolytes. DVT prophylaxis: SCDs. Lovenox. Discharge Planning Still requiring restraints. Request for neurology to reevaluate patient for further recommendations. Will need Lexiscan when she clinically improves, sometime before discharge. LifeVest ordered by Georgia Beverly Feb 09, 2018 11:08
[2018-02-09] MEDS: ENOXAPARIN SODIUM 40 MG/0.4 ML SYRINGE SQ SCH (17:41)
[2018-02-09] MEDS: CHLORHEXIDINE GLUCONATE 2 % 1 PACK (2 CLOTHS) TOP SCH (18:23)
[2018-02-09] MEDS: TEMAZEPAM 15 MG CAP PO PRN (19:54)
[2018-02-10] VITALS (9 sets, daily range): BP systolic 100–144; BP diastolic 55–78; PULSE 88–101; RESP 16–20; TEMP 97.5–98.4; O2SAT 96–99
[2018-02-10] MEDS: DOCUSATE SODIUM 50 MG/SENNA 8.6 MG TAB PO SCH ×2 (07:45→21:14)
[2018-02-10] MEDS: LISINOPRIL 10 MG TAB PO SCH (07:45)
[2018-02-10] MEDS: CARVEDILOL 6.25 MG TAB PO SCH ×2 (07:45→21:14)
[2018-02-10] MEDS: THIAMINE HCL 100 MG TAB PO SCH (07:45)
[2018-02-10] MEDS: ARIPiprazole 2 MG TAB PO SCH (07:46)
[2018-02-10] MEDS: ASPIRIN EC 81 MG TABEC PO SCH (07:46)
[2018-02-10] MEDS: FAMOTIDINE 20 MG TAB PO SCH ×2 (07:46→21:13)
[2018-02-10] MEDS: SODIUM CHLORIDE 0.9% FLUSH 10 ML FLUSH IV FLUSH SCH ×2 (07:47→21:18)
--- NOTE | 2018-02-10 14:28 | HHI.PR ---
Subjective Remarks Patient's physical activity is improving. She was able to walk 100 feet today. Her encephalopathy/delirium has not improved. This does not appear to be related any longer to delirium tremens. Objective Vital Signs Date Time Temp Pulse Resp B/P (MAP) Pulse Ox O2 Delivery O2 Flow Rate FiO2 02/10/18 12:00 97.9 98 18 126/60 (82) 98 02/10/18 08:00 98.0 99 18 144/61 (88) 99 02/10/18 04:00 98.1 88 16 101/55 (70) 97 02/10/18 03:53 90 02/10/18 00:00 98.4 98 16 100/58 (72) 96 02/09/18 20:00 97.6 110 16 128/60 (82) 93 02/09/18 16:09 97.3 105 17 98/53 (68) 98 I/O 02/09/18 02/09/18 02/09/18 02/10/18 02/10/18 02/10/18 07:00 15:00 23:00 07:00 15:00 23:00 Intake Total 240 ml 720 ml 240 ml Balance 240 ml 720 ml 240 ml Intake Oral 240 ml 720 ml 240 ml # Voids 3 3 2 # Bowel Movements 1 0 Result Diagram: 02/07/18 1221 Objective Remarks GENERAL: NAD, A&Ox0 HEAD: Normocephalic. NECK: Supple, trachea midline. No lymphadenopathy. EYES: No scleral icterus. No injection or drainage. CARDIOVASCULAR: Regular rate and rhythm without murmurs, gallops, or rubs. RESPIRATORY: Breath sounds equal bilaterally. No accessory muscle use. GASTROINTESTINAL: Abdomen soft, non-tender, nondistended. MUSCULOSKELETAL: No cyanosis, or edema. SKIN: Warm and dry. NEURO: No focal neurological deficitis. A/P Problem List: (1) Delirium ICD Code: R41.0 - Disorientation, unspecified (2) EtOH dependence ICD Code: F10.20 - EtOH dependence Status: Acute (3) Cardiomyopathy ICD Code: I42.9 - Cardiomyopathy, unspecified (4) DTs (delirium tremens) ICD Code: F10.231 - Alcohol dependence with withdrawal delirium Status: Acute (5) Alcohol withdrawal ICD Code: F10.239 - Alcohol dependence with withdrawal, unspecified Status: Acute (6) Anxiety ICD Code: F41.9 - Anxiety Status: Acute Assessment and Plan 47-year-old female admitted with delirium tremens Encephalopathy Delirium Not improving through time Continue thiamine Transient versus permanent Longer duration becomes more concerning for permanent etiology Discontinue Abilify, lorazepam, and trazodone Monitor for improvement Alcohol dependence Patient counseled to quit Outpatient rehab for alcohol abuse would be a good option Alcohol withdrawal Delirium tremens Resolved All benzodiazepines were discontinued Acute resp failure secondary to bilateral pneumonia Pulm edema Secondhand smoke exposure Resolved status post cefepime and azithromycin. Cardiomyopathy Pulmonary edema Likely related to alcohol Original EF was 20-25% Repeat EF is 40% Continue to avoid alcohol Like this pending Cardiology following Continue Coreg, lisinopril, aspirin, and Lasix Transaminitis Likely related to alcohol Follow LFTs Acute dehydration Resolved Hypokalemia Hypomagnesemia Hyponatremia Monitor electrolytes Replace as needed DVT prophylaxis Lovenox Problem Qualifiers (1) Cardiomyopathy: Qualified Codes: I42.9 - Cardiomyopathy, unspecified (2) Alcohol withdrawal: Qualified Codes: F10.231 - Alcohol dependence with withdrawal delirium Steffen Reeves MD Feb 10, 2018 14:28
[2018-02-10] MEDS: ENOXAPARIN SODIUM 40 MG/0.4 ML SYRINGE SQ SCH (15:04)
--- NOTE | 2018-02-10 16:11 | HHI.PR ---
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 mental status changes most likely due to etoh Plan repeat MRI brain Diagnosis/Plan: Subjective Subjective Comments No acute events reported patient has been more confused Active Medications Current Medications Medications (Trade) Dose Ordered Sig/Sarah Route Start Time Stop Time Status Last Admin (NS Flush) 2 ml UNSCH PRN IV FLUSH 01/24/18 05:45 02/06/18 04:54 (NS Flush) 2 ml BID IV FLUSH 01/24/18 09:00 02/09/18 08:39 (Tylenol) 650 mg Q6H PRN PO 01/24/18 05:45 (Zofran Odt) 4 mg Q6H PRN PO 01/24/18 06:00 (Duoneb Neb) 1 ampule Q2HR NEB PRN INH 01/24/18 05:45 01/26/18 08:07 ([facility] [place] Nursing Information) 1 Q361D XX 01/24/18 05:45 01/24/18 20:30 (Chlorhexidine 2% Cloth) Taper DAILY@04 TOP 01/25/18 04:00 01/21/19 03:59 02/03/18 04:00 (Chlorhexidine 2% Cloth) 3 pack UNSCH PRN TOP 01/24/18 05:45 (Bouchra-Colace) 1 tab BID PO 01/24/18 09:00 02/10/18 07:45 (Milk Of Magnesia Liq) 30 ml Q12H PRN PO 01/24/18 05:45 (Senokot) 17.2 mg Q12H PRN PO 01/24/18 05:45 (Dulcolax Supp) 10 mg DAILY PRN RECTAL 01/24/18 05:45 (Lactulose Liq) 30 ml DAILY PRN PO 01/24/18 05:45 (Vitamin B1) 100 mg DAILY PO 01/28/18 09:00 02/10/18 07:45 (Prinivil) 10 mg DAILY PO 01/31/18 09:00 Future hold 02/10/18 07:45 (Pepcid) 20 mg BID PO 01/31/18 21:00 02/10/18 07:46 (Pill Splitter) 1 ea UNSCH PRN OTHER 02/01/18 10:30 (Brethine Inj) 1 mg UNSCH PRN SQ 02/01/18 14:00 (Coreg) 6.25 mg BID PO 02/02/18 11:15 02/10/18 07:45 (Ecotrin Ec) 81 mg DAILY PO 02/02/18 21:15 02/10/18 07:46 (Lovenox Inj) 40 mg Q24H SQ 02/03/18 16:00 02/10/18 15:04 Allergies Allergies Coded Allergies No Known Allergies (Unverified05/08/15) Exam I&O / VS 02/10/18 02/10/18 02/11/18 15:00 23:00 07:00 # Bowel Movements 1 Vital Signs Date Time Temp Pulse Resp B/P (MAP) Pulse Ox O2 Delivery O2 Flow Rate FiO2 02/10/18 12:00 97.9 98 18 126/60 (82) 98 02/10/18 08:00 98.0 99 18 144/61 (88) 99 02/10/18 04:00 98.1 88 16 101/55 (70) 97 02/10/18 03:53 90 02/10/18 00:00 98.4 98 16 100/58 (72) 96 02/09/18 20:00 97.6 110 16 128/60 (82) 93 Exam Comments alert, follow commands, disoriented to date and place. speech is fluent PERRL, extraoccular motility normal MOTOR --no focal weakness. Nestor Quigley MD PhD Feb 10, 2018 16:11
[2018-02-10] MEDS ORDERED: LORazepam 2 MG/ML VIAL IV PUSH PRN (16:30)
[2018-02-10] MEDS ORDERED: GADODIAMIDE PF 287 MG/ML 5 ML VIAL (for RAD MRI) IVCONTRAST ONE (18:27)
--- NOTE | 2018-02-10 21:30 | RADRPT ---
EXAM DATE: 02/10/2018 6:30 PM EDT AGE/SEX: 47 years / Female INDICATIONS: Altered mental status. CLINICAL DATA: This is the patient's initial encounter. Patient reports that signs and symptoms have been present for 1 day and indicates a pain score of 0/10. MEDICAL/SURGICAL HISTORY: . Cardiomyopathy. ETOH abuse. section. Lumpectomy x2 COMPARISON: [facility] [place], MRI BRAIN W/O CONTRAST, 02/02/2018. [facility] [place], CT BRAIN W/O CONTRAST, 02/02/2018. . TECHNIQUE: Multiplanar, multisequence examination of the brain was performed without and with 12 ml O mniscan (gadodiamide) contrast as a single exam dose. FINDINGS: Cerebrum: The ventricles are normal for age. No evidence of midline shift, mass lesion, hemorrhage or acute infarction. No extraaxial fluid collections are seen. The pituitary gland and suprasellar cistern are normal in configuration. White Matter: No significant signal abnormalities are seen in the white matter. Posterior Fossa: Again noted is a 6 mm focus of increased signal within the central brenda on the diffu rashaad weighted images and FLAIR images. This does demonstrate enhancement. The cerebellum and brainste m are intact. The 4th ventricle is midline. The cerebellopontine angle is unremarkable. The cerebe llar tonsils are normal in position. Diffusion Imaging: No focal areas of restricted diffusion are seen. No evidence of acute infarction . Extracranial: The visualized portions of the orbits are unremarkable. There is right frontal and eth moid sinus disease. Post Contrast: No abnormal areas of parenchymal or dural enhancement. No evidence of blood-brain ba rrier breakdown. CONCLUSION: 1. Persistent small focus of signal abnormality within the central brenda likely related to a recent i nfarct. This is unchanged in appearance when compared to the prior exam. 2. Right frontal and ethmoid sinus disease. Electronically signed by: Stone Evans MD 02/10/2018 9:28 PM EDT
[2018-02-10] MEDS ORDERED: HALOPERIDOL LACTATE 5 MG/ML AMP IM ONE (23:15)
[2018-02-11] VITALS (9 sets, daily range): BP systolic 100–158; BP diastolic 52–80; PULSE 60–109; RESP 16–20; TEMP 97.4–98.7; O2SAT 96–100
[2018-02-11] MEDS: CHLORHEXIDINE GLUCONATE 2 % 1 PACK (2 CLOTHS) TOP SCH ×2 (04:00→20:35)
--- NOTE | 2018-02-11 07:36 | HHI.PR ---
Subjective Remarks Patient seen and examined this morning. Vitals are stable. Intermittent tachycardia overnight. She is pleasantly confused this morning. Her father is at bedside. This morning she is a surgery that she had last night. She denies chest pain or difficulty breathing. She knows where she is and she knows what year it is. She still restraints. Reports that she wants restraints so she can leave. Objective Vital Signs Date Time Temp Pulse Resp B/P (MAP) Pulse Ox O2 Delivery O2 Flow Rate FiO2 02/11/18 04:00 97.4 91 20 123/80 (94) 97 02/11/18 00:00 97.4 93 18 158/70 (99) 98 02/11/18 00:00 90 02/10/18 21:15 Room Air 02/10/18 20:03 101 02/10/18 20:00 98.1 100 20 136/78 (97) 98 02/10/18 16:02 99 02/10/18 16:00 97.5 94 18 130/62 (84) 99 02/10/18 12:00 98 02/10/18 12:00 97.9 98 18 126/60 (82) 98 02/10/18 08:00 98.0 99 18 144/61 (88) 99 I/O 02/10/18 02/10/18 02/10/18 02/11/18 02/11/18 02/11/18 07:00 15:00 23:00 07:00 15:00 23:00 Intake Total 240 ml Balance 240 ml Intake Oral 240 ml # Voids 2 1 2 # Bowel Movements 1 Result Diagram: 02/07/18 1221 Imaging Last Impressions Brain MRI 02/10/18 0000 Signed Impressions: CONCLUSION: 1. Persistent small focus of signal abnormality within the central brenda likely related to a recent infarct. This is unchanged in appearance when compared to the prior exam. 2. Right frontal and ethmoid sinus disease. Chest X-Ray 02/09/18 0000 Signed Impressions: CONCLUSION: No acute cardiopulmonary abnormality is identified. Neck Magnetic Resonance Angiography 02/03/18 0000 Signed Impressions: CONCLUSION: 1. No hemodynamically significant carotid artery stenosis identified. 2. The vertebral circulation is patent bilaterally. Percent stenosis is calculated using the diameter of the stenotic region over t he diameter of the normal distal internal carotid artery Head Magnetic Resonance Angiography 02/03/18 Signed Impressions: CONCLUSION: 1. Negative MRA examination. No large or central vessel occlusion identified. Head CT 02/02/18 Signed Impressions: CONCLUSION: 1. Low-density left basal ganglia could be lacunar infarct in the right clinic al setting. 2. Otherwise unremarkable CT brain. CT Angiography 02/02/18 Signed Impressions: CONCLUSION: 1. No pulmonary embolus is identified. 2. Small areas of atelectasis within the lung bases. 3. Probable fatty infiltration of the liver. Chest Ultrasound 01/31/18 Signed Impressions: CONCLUSION: 1. Inadequate fluid. Thoracentesis not performed. Lower Extremity Ultrasound 01/26/18 Signed Impressions: CONCLUSION: 1. No evidence of DVT. Liver Ultrasound 01/24/18 Signed Impressions: CONCLUSION: 1. No evidence of gallstones or biliary tract obstruction. 2. Hepatomegaly with increased echogenicity throughout the liver suggestive of fatty infiltration and/or hepatocellular disease. Other Results GENERAL: Well-appearing, no acute distress SKIN: Warm and dry. HEAD: Normocephalic. EYES: No scleral icterus. No injection or drainage. NECK: Supple, trachea midline. No JVD or lymphadenopathy. CARDIOVASCULAR: Regular rate and rhythm without murmurs, gallops, or rubs. RESPIRATORY: Breath sounds equal bilaterally. No accessory muscle use. GASTROINTESTINAL: Abdomen soft, non-tender, nondistended. MUSCULOSKELETAL: No cyanosis, or edema. Neuro: Alert to person and place, does not answer questions appropriately A/P Problem List: (1) Alcohol withdrawal ICD Code: F10.239 - Alcohol dependence with withdrawal, unspecified Status: Acute (2) DTs (delirium tremens) ICD Code: F10.231 - Alcohol dependence with withdrawal delirium Status: Acute (3) LFT elevation ICD Code: R79.89 - LFT elevation Status: Acute (4) EtOH dependence ICD Code: F10.20 - EtOH dependence Status: Acute (5) Cardiomyopathy ICD Code: I42.9 - Cardiomyopathy, unspecified Assessment and Plan 47-year-old female admitted with DTs Encephalopathy Delirium The patient is Abilify, lorazepam, and trazodone have all been discontinued Mental status is not appear to be improving at this time The patient has been reevaluated by neurology who ordered a repeat brain MRI which shows persistent small focus of single abnormality within the central brenda likely related to recent infarct. This is unchanged compared to prior study. 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 LifeVest has been ordered for the patient. Patient will require Lexiscan prior to discharge, but needs to be mentally stable so and not requiring restraints. Transaminitis Likely related to alcohol, continue to follow LFTs DVT prophylaxis with Lovenox Discharge Planning Patient to be discharged home once mental status stabilizes. Case management is assisting with this. Patient continues to work with PT and OT. Problem Qualifiers (1) Alcohol withdrawal: Qualified Codes: F10.231 - Alcohol dependence with withdrawal delirium (2) Cardiomyopathy: Qualified Codes: I42.9 - Cardiomyopathy, unspecified Shruti Henry MD Feb 11, 2018 07:36
[2018-02-11] MEDS: SODIUM CHLORIDE 0.9% FLUSH 10 ML FLUSH IV FLUSH SCH ×2 (09:00→20:35)
[2018-02-11] MEDS: FAMOTIDINE 20 MG TAB PO SCH ×2 (09:18→20:35)
[2018-02-11] MEDS: ASPIRIN EC 81 MG TABEC PO SCH (09:18)
[2018-02-11] MEDS: CARVEDILOL 6.25 MG TAB PO SCH ×2 (09:18→20:35)
[2018-02-11] MEDS: LISINOPRIL 10 MG TAB PO SCH (09:18)
[2018-02-11] MEDS: THIAMINE HCL 100 MG TAB PO SCH (09:18)
[2018-02-11] MEDS: DOCUSATE SODIUM 50 MG/SENNA 8.6 MG TAB PO SCH ×2 (09:18→20:35)
[2018-02-11] MEDS: ENOXAPARIN SODIUM 40 MG/0.4 ML SYRINGE SQ SCH (15:53)
--- NOTE | 2018-02-11 18:11 | HHI.PR ---
Review/Management Diagnosis most likely small area of central pontine myelinolysis from ETOH abuse vs small infarct mental status changes most likely due to etoh Plan continue asa thiamine Pt counselled to stop etoh use Diagnosis/Plan: Subjective Subjective Comments No acute events reported Active Medications Current Medications Medications (Trade) Dose Ordered Sig/Sarah Route Start Time Stop Time Status Last Admin (NS Flush) 2 ml UNSCH PRN IV FLUSH 01/24/18 05:45 02/06/18 04:54 (NS Flush) 2 ml BID IV FLUSH 01/24/18 09:00 02/10/18 21:18 (Tylenol) 650 mg Q6H PRN PO 01/24/18 05:45 (Zofran Odt) 4 mg Q6H PRN PO 01/24/18 06:00 (Duoneb Neb) 1 ampule Q2HR NEB PRN INH 01/24/18 05:45 01/26/18 08:07 ([facility] [place] [facility] [place] 1 Q361D XX 01/24/18 05:45 01/24/18 20:30 (Chlorhexidine 2% Cloth) Taper DAILY@04 TOP 01/25/18 04:00 01/21/19 03:59 02/03/18 04:00 (Chlorhexidine 2% Cloth) 3 pack UNSCH PRN TOP 01/24/18 05:45 (Bouchra-Colace) 1 tab BID PO 01/24/18 09:00 02/11/18 09:18 (Milk Of Magnesia Liq) 30 ml Q12H PRN PO 01/24/18 05:45 (Senokot) 17.2 mg Q12H PRN PO 01/24/18 05:45 (Dulcolax Supp) 10 mg DAILY PRN RECTAL 01/24/18 05:45 (Lactulose Liq) 30 ml DAILY PRN PO 01/24/18 05:45 (Vitamin B1) 100 mg DAILY PO 01/28/18 09:00 02/11/18 09:18 (Prinivil) 10 mg DAILY PO 01/31/18 09:00 Future hold 02/11/18 09:18 (Pepcid) 20 mg BID PO 01/31/18 21:00 02/11/18 09:18 (Pill Splitter) 1 ea UNSCH PRN OTHER 02/01/18 10:30 (Brethine Inj) 1 mg UNSCH PRN SQ 02/01/18 14:00 (Coreg) 6.25 mg BID PO 02/02/18 11:15 02/11/18 09:18 (Ecotrin Ec) 81 mg DAILY PO 02/02/18 21:15 02/11/18 09:18 (Lovenox Inj) 40 mg Q24H SQ 02/03/18 16:00 02/11/18 15:53 Allergies Allergies Coded Allergies No Known Allergies (Unverified05/08/15) Exam I&O / VS Vital Signs Date Time Temp Pulse Resp B/P (MAP) Pulse Ox O2 Delivery O2 Flow Rate FiO2 02/11/18 12:00 98.0 97 16 100/52 (68) 98 02/11/18 12:00 88 02/11/18 09:43 99 02/11/18 08:00 98.0 87 16 131/58 (82) 100 02/11/18 04:00 97.4 91 20 123/80 (94) 97 02/11/18 00:00 97.4 93 18 158/70 (99) 98 02/11/18 00:00 90 02/10/18 21:15 Room Air 02/10/18 20:03 101 02/10/18 20:00 98.1 100 20 136/78 (97) 98 Exam Comments alert, follow commands, disoriented to date and place. speech is fluent PERRL, extraoccular motility normal MOTOR --no focal weakness. Nestor Quigley MD PhD Feb 11, 2018 18:11
[2018-02-12] VITALS (13 sets, daily range): BP systolic 93–146; BP diastolic 50–66; PULSE 82–106; RESP 16–20; TEMP 97.2–98.5; O2SAT 96–100
[2018-02-12] MEDS: CARVEDILOL 6.25 MG TAB PO SCH ×2 (07:17→20:34)
[2018-02-12] MEDS: THIAMINE HCL 100 MG TAB PO SCH (07:17)
[2018-02-12] MEDS: ASPIRIN EC 81 MG TABEC PO SCH (07:17)
[2018-02-12] MEDS: LISINOPRIL 10 MG TAB PO SCH (07:17)
[2018-02-12] MEDS: DOCUSATE SODIUM 50 MG/SENNA 8.6 MG TAB PO SCH ×2 (07:17→20:34)
[2018-02-12] MEDS: FAMOTIDINE 20 MG TAB PO SCH ×2 (07:17→20:35)
[2018-02-12] MEDS: SODIUM CHLORIDE 0.9% FLUSH 10 ML FLUSH IV FLUSH SCH ×2 (07:24→20:35)
--- NOTE | 2018-02-12 09:45 | HHI.PR ---
Subjective Remarks Patient seen and examined this morning. Vitals are stable. Intermittent tachycardia overnight. Agitated overnight. Got out of restraints. Was found on the floor praying. Received haloperidol and IV ativan overnight. This am she is calm and cooperative. She denies CP or difficulty breathing. Wants to go home. Speaking nonsensically. Objective Vital Signs Date Time Temp Pulse Resp B/P (MAP) Pulse Ox O2 Delivery O2 Flow Rate FiO2 02/12/18 09:21 97.4 101 19 113/64 (80) 98 02/12/18 07:12 97.6 90 20 136/63 (87) 99 02/12/18 04:00 97.2 100 20 139/60 (86) 100 02/12/18 04:00 106 02/12/18 00:21 89 02/12/18 00:00 98.5 82 20 93/50 (64) 99 02/11/18 20:30 109 02/11/18 20:00 97.4 108 20 118/64 (82) 97 02/11/18 18:18 98 21 02/11/18 16:00 98.0 101 16 126/56 (79) 98 02/11/18 12:00 98.0 97 16 100/52 (68) 98 02/11/18 12:00 88 02/11/18 09:43 99 I/O 02/11/18 02/11/18 02/11/18 02/12/18 02/12/18 02/12/18 07:00 15:00 23:00 07:00 15:00 23:00 Intake Total 580 ml 720 ml Balance 580 ml 720 ml Intake Oral 580 ml 720 ml # Voids 2 3 3 # Bowel Movements 2 Imaging Last Impressions Brain MRI 02/10/18 0000 Signed Impressions: CONCLUSION: 1. Persistent small focus of signal abnormality within the central brenda likely related to a recent infarct. This is unchanged in appearance when compared to the prior exam. 2. Right frontal and ethmoid sinus disease. Chest X-Ray 02/09/18 0000 Signed Impressions: CONCLUSION: No acute cardiopulmonary abnormality is identified. Neck Magnetic Resonance Angiography 02/03/18 0000 Signed Impressions: CONCLUSION: 1. No hemodynamically significant carotid artery stenosis identified. 2. The vertebral circulation is patent bilaterally. Percent stenosis is calculated using the diameter of the stenotic region over t he diameter of the normal distal internal carotid artery Head Magnetic Resonance Angiography 02/03/18 Signed Impressions: CONCLUSION: 1. Negative MRA examination. No large or central vessel occlusion identified. Head CT 02/02/18 Signed Impressions: CONCLUSION: 1. Low-density left basal ganglia could be lacunar infarct in the right clinic al setting. 2. Otherwise unremarkable CT brain. CT Angiography 02/02/18 Signed Impressions: CONCLUSION: 1. No pulmonary embolus is identified. 2. Small areas of atelectasis within the lung bases. 3. Probable fatty infiltration of the liver. Chest Ultrasound 01/31/18 Signed Impressions: CONCLUSION: 1. Inadequate fluid. Thoracentesis not performed. Lower Extremity Ultrasound 01/26/18 Signed Impressions: CONCLUSION: 1. No evidence of DVT. Liver Ultrasound 01/24/18 Signed Impressions: CONCLUSION: 1. No evidence of gallstones or biliary tract obstruction. 2. Hepatomegaly with increased echogenicity throughout the liver suggestive of fatty infiltration and/or hepatocellular disease. Objective Remarks GENERAL: Well-appearing, no acute distress SKIN: Warm and dry. HEAD: Normocephalic. EYES: No scleral icterus. No injection or drainage. NECK: Supple, trachea midline. No JVD or lymphadenopathy. CARDIOVASCULAR: Regular rate and rhythm without murmurs, gallops, or rubs. RESPIRATORY: Breath sounds equal bilaterally. No accessory muscle use. GASTROINTESTINAL: Abdomen soft, non-tender, nondistended. MUSCULOSKELETAL: No cyanosis, or edema. A/P Problem List: (1) Alcohol withdrawal ICD Code: F10.239 - Alcohol dependence with withdrawal, unspecified Status: Acute (2) DTs (delirium tremens) ICD Code: F10.231 - Alcohol dependence with withdrawal delirium Status: Acute (3) LFT elevation ICD Code: R79.89 - LFT elevation Status: Acute (4) EtOH dependence ICD Code: F10.20 - EtOH dependence Status: Acute (5) Cardiomyopathy ICD Code: I42.9 - Cardiomyopathy, unspecified Assessment and Plan 47-year-old female admitted with DTs Encephalopathy Delirium - The patients Abilify, lorazepam, and trazodone have all been discontinued. Abilify was recommended by psych on 02/01, was d/c on 02/10. - Mental status is not appear to be improving at this time, per neuro mental status change most likely due to etoh - The patient has been reevaluated by neurology who ordered a repeat brain MRI which shows persistent small focus of single abnormality within the central brenda likely related to recent infarct. This is unchanged compared to prior study. - Patient was previously evaluated by psychiatry. They recommended using CIWA for any breakthrough withdrawal symptoms to avoid "re-toxification" following the . Was also advised to limit use of restraints and to use a patient sitter. I have ordered a patient sitter. 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 LifeVest has been ordered for the patient. Patient will require Lexiscan prior to discharge, but needs to be mentally stable so and not requiring restraints. Transaminitis Likely related to alcohol, continue to follow LFTs DVT prophylaxis with Lovenox Discharge Planning Patient to be discharged home once mental status stabilizes. Case management is assisting with this. Patient continues to work with PT and OT. Problem Qualifiers (1) Alcohol withdrawal: Qualified Codes: F10.231 - Alcohol dependence with withdrawal delirium (2) Cardiomyopathy: Qualified Codes: I42.9 - Cardiomyopathy, unspecified Shruti Henry MD Feb 12, 2018 09:45
[2018-02-12] MEDS: ENOXAPARIN SODIUM 40 MG/0.4 ML SYRINGE SQ SCH (16:00)
[2018-02-12] MEDS: CHLORHEXIDINE GLUCONATE 2 % 1 PACK (2 CLOTHS) TOP SCH (20:34)
[2018-02-13] VITALS (11 sets, daily range): BP systolic 54–118; BP diastolic 29–67; PULSE 73–103; RESP 16–18; TEMP 97.5–99; O2SAT 95–100
[2018-02-13] MEDS: THIAMINE HCL 100 MG TAB PO SCH (08:12)
[2018-02-13] MEDS: ASPIRIN EC 81 MG TABEC PO SCH (08:12)
[2018-02-13] MEDS: FAMOTIDINE 20 MG TAB PO SCH ×2 (08:12→21:51)
[2018-02-13] MEDS: CARVEDILOL 6.25 MG TAB PO SCH (08:12)
[2018-02-13] MEDS: LISINOPRIL 10 MG TAB PO SCH (08:13)
[2018-02-13] MEDS: SODIUM CHLORIDE 0.9% FLUSH 10 ML FLUSH IV FLUSH SCH ×2 (08:13→21:52)
[2018-02-13] MEDS: DOCUSATE SODIUM 50 MG/SENNA 8.6 MG TAB PO SCH ×2 (08:13→21:51)
[2018-02-13] MEDS ORDERED: ALPRAZolam 0.25 MG TAB PO PRN (11:45)
--- NOTE | 2018-02-13 11:52 | HHI.PR ---
Subjective Remarks Feeling better. No complaint of chest pain. Wants to try to get up and ambulate more however feels unsteady. No headaches. No difficulty with swallowing. Objective Vitals Vital Signs Date Time Temp Pulse Resp B/P (MAP) Pulse Ox O2 Delivery O2 Flow Rate FiO2 02/13/18 10:15 104/51 (68) 02/13/18 09:55 84 113/59 (77) 100 02/13/18 09:50 Nasal Cannula 2.00 02/13/18 09:50 54/29 (37) 02/13/18 08:00 98.1 93 17 118/57 (77) 97 02/13/18 07:37 Room Air 02/13/18 07:30 Room Air 02/13/18 07:30 87 02/13/18 04:45 99.0 80 16 115/52 (73) 98 02/13/18 04:01 91 02/13/18 00:05 98.2 78 16 107/56 (73) 95 02/12/18 23:49 93 02/12/18 20:58 96 21 02/12/18 20:45 98.4 95 16 97/54 (68) 97 02/12/18 19:50 96 02/12/18 16:47 98.1 92 16 95/51 (66) 96 02/12/18 12:00 98.0 89 18 146/66 (92) 97 I/O 02/12/18 02/12/18 02/12/18 02/13/18 02/13/18 02/13/18 07:00 15:00 23:00 07:00 15:00 23:00 Intake Total 720 ml 480 ml Balance 720 ml 480 ml Intake Oral 720 ml 480 ml # Voids 3 2 # Bowel Movements 2 1 Objective Remarks GENERAL: This is a well-nourished, well-developed patient, in no apparent distress. CARDIOVASCULAR: Regular rate and rhythm RESPIRATORY: Clear to auscultation. Breath sounds equal bilaterally. No wheezes , rales, or rhonchi. GASTROINTESTINAL: Abdomen soft, non-tender, nondistended. Normal active bowel sounds MUSCULOSKELETAL: Extremities without clubbing, cyanosis, or edema. NEURO: Alert & Oriented x3 to person, place, time Moves all ext x4 A/P Assessment and Plan 47-year-old female admitted with DTs Alcoholic encephalopathy Delirium resolving, improving - The patients Abilify, lorazepam, and trazodone have all been discontinued. Abilify was recommended by psych on 02/01, was d/c on 02/10. - Mental status appear to be improving at this time, per neuro mental status change most likely due to etoh - The patient has been reevaluated by neurology who ordered a repeat brain MRI which shows persistent small focus of single abnormality within the central brenda likely related to recent infarct. This is unchanged compared to prior study. - Patient was previously evaluated by psychiatry. They recommended using CIWA for any breakthrough withdrawal symptoms to avoid "re-toxification" at this time , patient seems to be doing well. Will provide low-dose Xanax. 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 LifeVest has been ordered for the patient. Patient will require Lexiscan prior to discharge, but needs to be mentally stable so and not requiring restraints. Will decrease dosage of lisinopril and Coreg due to her hypotensive episode this morning Transaminitis Likely related to alcohol, continue to follow LFTs Transient hypotension Decrease doses of lisinopril and Coreg. DVT prophylaxis with Lovenox Discharge Planning Home when medically stable Renetta White MD Feb 13, 2018 11:52
[2018-02-13] MEDS: ENOXAPARIN SODIUM 40 MG/0.4 ML SYRINGE SQ SCH (16:00)
--- NOTE | 2018-02-13 17:53 | HHI.PR ---
Subjective Remarks Seems better today . No leg edema. Off O2 and Sats 99. Up in bed and eating. Confused. Objective Vital Signs Date Time Temp Pulse Resp B/P (MAP) Pulse Ox O2 Delivery O2 Flow Rate FiO2 02/13/18 16:00 97.5 103 18 98/53 (68) 96 02/13/18 12:00 98.0 84 18 97/54 (68) 95 02/13/18 10:15 104/51 (68) 02/13/18 09:55 84 113/59 (77) 100 02/13/18 09:50 Nasal Cannula 2.00 02/13/18 09:50 54/29 (37) 02/13/18 08:00 98.1 93 17 118/57 (77) 97 02/13/18 07:37 Room Air 02/13/18 07:30 Room Air 02/13/18 07:30 87 02/13/18 04:45 99.0 80 16 115/52 (73) 98 02/13/18 04:01 91 02/13/18 00:05 98.2 78 16 107/56 (73) 95 02/12/18 23:49 93 02/12/18 20:58 96 21 02/12/18 20:45 98.4 95 16 97/54 (68) 97 02/12/18 19:50 96 I/O 02/12/18 02/12/18 02/12/18 02/13/18 02/13/18 02/13/18 07:00 15:00 23:00 07:00 15:00 23:00 Intake Total 720 ml 480 ml Balance 720 ml 480 ml Intake Oral 720 ml 480 ml # Voids 3 2 # Bowel Movements 2 1 Objective Remarks GENERAL: This is a moderately obese, middle-aged, white female who is awake. HEENT: Head is normocephalic. Pupils reactive. Sclerae were clear. Throat no inflammation. Nasal mucosa was clear. NECK: Supple. No venous distention. No thyromegaly or lymphadenopathy. CHEST: Equal movements with decreased breath sounds at bases.Occ wheeze . HEART: Sounds are regular, S1 and S2. No murmur. ABDOMEN: Soft, obese without masses. No organomegaly or tenderness. EXTREMITIES: No edema. Peripheral pulses are well felt. NEUROLOGIC: Reflexes are 1+. No deficits but confused. SKIN: no lesions. Assessment and Plan Assessment and Plan ASSESSMENT: 1. Bilateral pneumonia resolved 2. Respiratory failure. 3. Ethanolism. 4. Abnormal liver functions. 5. Delirium tremens. 6. Hyponatremia. 7. Encephalopathy. Plan : 1. IS q3h. 2. CBC,BMP. 3. Ensure 1 can BID 4. PO diet as tolerated 5. Albuterol Nebs qid PRN 6. PT evaluation 7. Cont Pepcid 20 mg BID Ahsan Ayala MD Feb 13, 2018 17:53
[2018-02-13] MEDS: CARVEDILOL 3.125 MG TAB PO SCH (21:51)
[2018-02-14] VITALS (8 sets, daily range): BP systolic 89–135; BP diastolic 50–69; PULSE 77–101; RESP 16–18; TEMP 97.3–99; O2SAT 96–99
[2018-02-14] MEDS: CHLORHEXIDINE GLUCONATE 2 % 1 PACK (2 CLOTHS) TOP SCH (04:00)
[2018-02-14] MEDS ORDERED: LISINOPRIL 5 MG TAB PO SCH (09:00)
[2018-02-14] MEDS: ASPIRIN EC 81 MG TABEC PO SCH (09:14)
[2018-02-14] MEDS: DOCUSATE SODIUM 50 MG/SENNA 8.6 MG TAB PO SCH ×2 (09:14→20:28)
[2018-02-14] MEDS: SODIUM CHLORIDE 0.9% FLUSH 10 ML FLUSH IV FLUSH SCH ×2 (09:14→20:30)
[2018-02-14] MEDS: THIAMINE HCL 100 MG TAB PO SCH (09:14)
[2018-02-14] MEDS: FAMOTIDINE 20 MG TAB PO SCH ×2 (09:14→20:28)
[2018-02-14] MEDS: CARVEDILOL 3.125 MG TAB PO SCH ×2 (09:14→20:28)
--- NOTE | 2018-02-14 14:57 | HHI.PR ---
Subjective Remarks Follow-up visit alcoholic encephalopathy, cardiomyopathy, transaminitis. Patient seen and examined today. Awake and alert, oriented. Has been ambulating with physical therapy today. States that she is doing well. She is very thankful and pleasant. Denies pain and discomfort. Denies SOB/ dyspnea. Denies chest pain, palpitations, headaches, dizziness. Denies fevers, chills, n/ v/d. Denies dysuria. Objective Vitals Vital Signs Date Time Temp Pulse Resp B/P (MAP) Pulse Ox O2 Delivery O2 Flow Rate FiO2 02/14/18 12:00 97.3 96 16 117/59 (78) 99 02/14/18 10:33 98 21 02/14/18 08:00 97.9 87 16 112/55 (74) 97 02/14/18 07:20 81 02/14/18 07:20 Room Air 02/14/18 04:00 99.0 91 18 99/53 (68) 97 02/14/18 00:01 98.2 101 17 89/50 (63) 96 02/13/18 20:00 98.7 84 17 111/54 (73) 98 02/13/18 16:00 97.5 103 18 98/53 (68) 96 I/O 02/13/18 02/13/18 02/13/18 02/14/18 02/14/18 02/14/18 06:59 14:59 22:59 06:59 14:59 22:59 Intake Total 480 ml 300 ml 240 ml Output Total 650 ml Balance 480 ml -350 ml 240 ml Intake Oral 480 ml 300 ml 240 ml Output Urine Total 650 ml # Voids 2 3 # Bowel Movements 1 3 Imaging Last Impressions Brain MRI 02/10/18 0000 Signed Impressions: CONCLUSION: 1. Persistent small focus of signal abnormality within the central brenda likely related to a recent infarct. This is unchanged in appearance when compared to the prior exam. 2. Right frontal and ethmoid sinus disease. Chest X-Ray 02/09/18 0000 Signed Impressions: CONCLUSION: No acute cardiopulmonary abnormality is identified. Neck Magnetic Resonance Angiography 02/03/18 0000 Signed Impressions: CONCLUSION: 1. No hemodynamically significant carotid artery stenosis identified. 2. The vertebral circulation is patent bilaterally. Percent stenosis is calculated using the diameter of the stenotic region over t he diameter of the normal distal internal carotid artery Head Magnetic Resonance Angiography 02/03/18 Signed Impressions: CONCLUSION: 1. Negative MRA examination. No large or central vessel occlusion identified. Head CT 02/02/18 Signed Impressions: CONCLUSION: 1. Low-density left basal ganglia could be lacunar infarct in the right clinic al setting. 2. Otherwise unremarkable CT brain. CT Angiography 02/02/18 Signed Impressions: CONCLUSION: 1. No pulmonary embolus is identified. 2. Small areas of atelectasis within the lung bases. 3. Probable fatty infiltration of the liver. Chest Ultrasound 01/31/18 Signed Impressions: CONCLUSION: 1. Inadequate fluid. Thoracentesis not performed. Lower Extremity Ultrasound 01/26/18 Signed Impressions: CONCLUSION: 1. No evidence of DVT. Liver Ultrasound 01/24/18 Signed Impressions: CONCLUSION: 1. No evidence of gallstones or biliary tract obstruction. 2. Hepatomegaly with increased echogenicity throughout the liver suggestive of fatty infiltration and/or hepatocellular disease. Objective Remarks GENERAL: This is a well-nourished, well-developed patient, in no apparent distress. SKIN: Warm and dry. HEENT: Normocephalic. Pupils equal round and reactive. Nose without bleeding. Airway patent. NECK: Trachea midline. No JVD. Supple. CARDIOVASCULAR: Regular rate and rhythm without murmurs, gallops, or rubs. RESPIRATORY: Clear to auscultation. Breath sounds equal bilaterally. No wheezes , rales, or rhonchi. GASTROINTESTINAL: Abdomen soft, non-tender, nondistended. Bowel Sounds normoactive x4. MUSCULOSKELETAL: Extremities without clubbing, cyanosis, or edema. NEUROLOGICAL: Awake and alert. Oriented to place, person. No focal neuro deficit. Moves all extremities. Normal speech. A/P Assessment and Plan 47-year-old female past medical history of alcohol dependence admitted with DTs Alcoholic encephalopathy Delirium resolving, improving -Abilify, lorazepam, and trazodone have all been discontinued. Abilify was recommended by psych on 02/01, was d/c on 02/10. -Mental status appear to be improving at this time, mental status change most likely due to ETOH -Neurology consulted, ordered a repeat brain MRI which shows persistent small focus of single abnormality within the central brenda likely related to recent infarct. This is unchanged compared to prior study. -Patient was previously evaluated by psychiatry. They recommended using CIWA for any breakthrough withdrawal symptoms to avoid "re-toxification" at this time, patient seems to be doing well. -Will provide low-dose Xanax as needed for any anxiety -Significantly improved mental status. Patient is coherent and more receptive to treatment plans. 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 We consulted cardiology if Lexiscan is still needed for the patient. Appreciate recommendation. -Decrease dosage of lisinopril and Coreg due to her hypotensive episode. If persistent may need to do orthostatic BP. This is probably positional since patient has prolonged hospitalization being in bed Transaminitis -Likely related to alcohol, continue to follow LFTs -Improving DVT prophylaxis with Lovenox Discharge Planning Plan to DC home when cleared by cardiology. May need Lexiscan. Kristen Alcantar Feb 14, 2018 14:57
[2018-02-14] MEDS: ENOXAPARIN SODIUM 40 MG/0.4 ML SYRINGE SQ SCH (17:17)
[2018-02-15] VITALS (8 sets, daily range): BP systolic 99–138; BP diastolic 51–65; PULSE 75–95; RESP 17–18; TEMP 97.8–98.6; O2SAT 96–100
[2018-02-15] MEDS: CHLORHEXIDINE GLUCONATE 2 % 1 PACK (2 CLOTHS) TOP SCH ×2 (04:00→20:59)
--- NOTE | 2018-02-15 08:21 | PD.CARD.PN ---
Subjective Subjective Remarks Patient is awake, oriented, and pleasant. She denies any chest pain, shortness of breath, or palpitations. Plans to stay away from alcohol. (Charles Bazzi) Objective Medications Current Medications Medications (Trade) Dose Ordered Sig/Sarah Route Start Time Stop Time Status Last Admin (NS Flush) 2 ml UNSCH PRN IV FLUSH 01/24/18 05:45 02/06/18 04:54 (NS Flush) 2 ml BID IV FLUSH 01/24/18 09:00 02/14/18 20:30 (Tylenol) 650 mg Q6H PRN PO 01/24/18 05:45 (Zofran Odt) 4 mg Q6H PRN PO 01/24/18 06:00 (Duoneb Neb) 1 ampule Q2HR NEB PRN INH 01/24/18 05:45 01/26/18 08:07 ([facility] 1 Q361D XX 01/24/18 05:45 01/24/18 20:30 (Chlorhexidine 2% Cloth) 3 pack Taper DAILY@04 TOP 01/25/18 04:00 01/21/19 03:59 02/03/18 04:00 (Chlorhexidine 2% Cloth) 3 pack UNSCH PRN TOP 01/24/18 05:45 (Bouchra-Colace) 1 tab BID PO 01/24/18 09:00 02/14/18 20:28 (Milk Of Magnesia Liq) 30 ml Q12H PRN PO 01/24/18 05:45 (Senokot) 17.2 mg Q12H PRN PO 01/24/18 05:45 (Dulcolax Supp) 10 mg DAILY PRN RECTAL 01/24/18 05:45 (Lactulose Liq) 30 ml DAILY PRN PO 01/24/18 05:45 (Vitamin B1) 100 mg DAILY PO 01/28/18 09:00 02/14/18 09:14 (Pepcid) 20 mg BID PO 01/31/18 21:00 02/14/18 20:28 (Pill Splitter) 1 ea UNSCH PRN OTHER 02/01/18 10:30 (Brethine Inj) 1 mg UNSCH PRN SQ 02/01/18 14:00 (Ecotrin Ec) 81 mg DAILY PO 02/02/18 21:15 02/14/18 09:14 (Lovenox Inj) 40 mg Q24H SQ 02/03/18 16:00 02/14/18 17:17 (Xanax) 0.125 mg Q8H PRN PO 02/13/18 11:45 (Prinivil) 2.5 mg DAILY PO 02/14/18 09:00 (Coreg) 3.125 mg Q12HR PO 02/13/18 21:00 02/14/18 20:28 Vital Signs / I&O Vital Signs Date Time Temp Pulse Resp B/P (MAP) Pulse Ox O2 Delivery O2 Flow Rate FiO2 02/15/18 07:35 84 02/15/18 07:33 Room Air 02/15/18 04:00 97.8 93 18 116/65 (82) 99 02/15/18 00:01 98.2 90 18 111/55 (73) 97 02/14/18 20:00 98.0 95 17 129/58 (81) 98 02/14/18 16:00 98.2 81 16 121/69 (86) 98 02/14/18 12:00 97.3 96 16 117/59 (78) 99 02/14/18 10:33 98 21 I/O 02/14/18 02/14/18 02/14/18 02/15/18 02/15/18 02/15/18 07:00 15:00 23:00 07:00 15:00 23:00 Intake Total 240 ml 600 ml 420 ml Balance 240 ml 600 ml 420 ml Intake Oral 240 ml 600 ml 420 ml # Voids 3 3 6 # Bowel Movements 2 2 Physical Exam GENERAL: Well-developed well-nourished. In no acute distress. NECK: No carotid bruits. No JVD. CARDIOVASCULAR: Regular rate and rhythm. No murmur appreciated. RESPIRATORY: No accessory muscle use. Clear to auscultation. Breath sounds equal bilaterally. MUSCULOSKELETAL: No clubbing or cyanosis. No edema. NEUROLOGICAL: Awake and alert. Normal speech. Imaging Last Impressions Brain MRI 02/10/18 0000 Signed Impressions: CONCLUSION: 1. Persistent small focus of signal abnormality within the central brenda likely related to a recent infarct. This is unchanged in appearance when compared to the prior exam. 2. Right frontal and ethmoid sinus disease. Chest X-Ray 6/7/18 0000 Signed Impressions: CONCLUSION: No acute cardiopulmonary abnormality is identified. Neck Magnetic Resonance Angiography 02/03/18 Signed Impressions: CONCLUSION: 1. No hemodynamically significant carotid artery stenosis identified. 2. The vertebral circulation is patent bilaterally. Percent stenosis is calculated using the diameter of the stenotic region over t he diameter of the normal distal internal carotid artery Head Magnetic Resonance Angiography 02/03/18 Signed Impressions: CONCLUSION: 1. Negative MRA examination. No large or central vessel occlusion identified. Head CT 02/02/18 Signed Impressions: CONCLUSION: 1. Low-density left basal ganglia could be lacunar infarct in the right clinic al setting. 2. Otherwise unremarkable CT brain. CT Angiography 02/02/18 Signed Impressions: CONCLUSION: 1. No pulmonary embolus is identified. 2. Small areas of atelectasis within the lung bases. 3. Probable fatty infiltration of the liver. Chest Ultrasound 01/31/18 Signed Impressions: CONCLUSION: 1. Inadequate fluid. Thoracentesis not performed. Lower Extremity Ultrasound 01/26/18 Signed Impressions: CONCLUSION: 1. No evidence of DVT. Liver Ultrasound 01/24/18 Signed Impressions: CONCLUSION: 1. No evidence of gallstones or biliary tract obstruction. 2. Hepatomegaly with increased echogenicity throughout the liver suggestive of fatty infiltration and/or hepatocellular disease. (Charles Bazzi) Assessment and Plan Problem List: (1) Cardiomyopathy ICD Codes: I42.9 - Cardiomyopathy, unspecified Assessment and Plan 47 yo F with no known cardiac history and alcohol dependence presented to ED in alcohol withdrawal. cardiomyopathy: EF 20-25% on initial echo 01/27, likely nonischemic; repeat echo 02/01 showed improved EF 40% (although patient was on Levophed and dopamine at the time) Now status post recovery from delirium tremens in ICU. We will plan for Lexiscan today for ischemic evaluation now that patient is clinically improved. LifeVest ordered On carvedilol 3.125 with orthostasis and lisinopril 2.5 mg with hold parameters. (Charles Bazzi) Assessment and Plan Addendum: will increase coreg to 6.25mg bid today and lisinopril to 5mg daily (Ramirez Quinteros DO) Problem Qualifiers (1) Cardiomyopathy: Qualified Codes: I42.9 - Cardiomyopathy, unspecified Charles Bazzi Feb 15, 2018 08:21 Ramirez Quinteros DO Feb 15, 2018 08:24
[2018-02-15] MEDS: ASPIRIN EC 81 MG TABEC PO SCH (08:26)
[2018-02-15] MEDS: FAMOTIDINE 20 MG TAB PO SCH ×2 (08:27→20:58)
[2018-02-15] MEDS: THIAMINE HCL 100 MG TAB PO SCH (08:27)
[2018-02-15] MEDS: DOCUSATE SODIUM 50 MG/SENNA 8.6 MG TAB PO SCH ×2 (08:27→20:59)
[2018-02-15] MEDS: LISINOPRIL 5 MG TAB PO SCH (09:00)
[2018-02-15] MEDS: CARVEDILOL 3.125 MG TAB PO SCH ×2 (09:00→20:58)
[2018-02-15] MEDS ORDERED: REGADENOSON INJ 0.4 MG/5 ML SYR ONE (09:35)
--- NOTE | 2018-02-15 10:47 | RADRPT ---
EXAM DATE: 02/15/2018 10:34 AM EDT AGE/SEX: 47 years / Female INDICATIONS:Angina. . Mid chest pain for one day. CLINICAL DATA: This is the patient's initial encounter. Patient reports that signs and symptoms have been present for 1 day and indicates a pain score of 2/10. MEDICAL/SURGICAL HISTORY: Non-responsive. section. COMPARISON: No prior exams available for comparison. No external comparison. DOSE: 26.5 mCi Tc 99m Myoview at rest 8.7 mCi [id number] at stress 0.4 mg Lexiscan STRESS SYMPTOMS: None. EJECTION FRACTION: 56 % TECHNIQUE: The patient underwent pharmacologic stress with infusion of prescribed dose. Continuous ECG tracing was monitored during stress. Gated SPECT imaging was performed after stress and conventi onal SPECT imaging was performed at rest. The examination was performed on a SPECT/CT scanner, both attenuation and non-corrected datasets were reviewed. FINDINGS: Distribution: The maximum perfused segment at stress is in the anterior wall. Perfusion Study: The pattern of perfusion at stress is within normal limits, with regional variatio ns perfusion within 25%. The sum stress score is 0. No evidence of redistribution.. Gated Study: There are intact wall motion and wall thickening without hypokinetic or dyskinetic segm ents. The ejection fraction is calculated at 56%. RISK CATEGORY: Low (<1% Annual Motality Rate) CONCLUSION: 1. No evidence of stress-induced ischemia. 2. Intact wall motion with 56% ejection fraction. Electronically signed by: Brendan River MD 02/15/2018 10:45 AM EDT
--- NOTE | 2018-02-15 15:01 | HHI.PR ---
Subjective Remarks Follow-up visit alcoholic encephalopathy, cardiomyopathy, transaminitis. Patient seen and examined today. States that she is doing well. She wants to go home. Patient states that she will go home with her . Verbalized that she will not drink anymore alcohol. Denies pain and discomfort. Denies SOB/ dyspnea. Denies chest pain, palpitations, headaches, dizziness. Denies fevers, chills, n/v/d. Denies dysuria. Objective Vitals Vital Signs Date Time Temp Pulse Resp B/P (MAP) Pulse Ox O2 Delivery O2 Flow Rate FiO2 02/15/18 08:00 98.1 87 17 117/58 (77) 100 02/15/18 07:35 84 02/15/18 07:33 Room Air 02/15/18 04:00 97.8 93 18 116/65 (82) 99 02/15/18 00:01 98.2 90 18 111/55 (73) 97 02/14/18 20:00 98.0 95 17 129/58 (81) 98 02/14/18 16:00 98.2 81 16 121/69 (86) 98 I/O 02/14/18 02/14/18 02/14/18 02/15/18 02/15/18 02/15/18 06:59 14:59 22:59 06:59 14:59 22:59 Intake Total 240 ml 600 ml 420 ml Balance 240 ml 600 ml 420 ml Intake Oral 240 ml 600 ml 420 ml # Voids 3 3 6 # Bowel Movements 2 2 Imaging Last Impressions Myocardial Perfusion Scan Nuc Med 02/15/18 0000 Signed Impressions: CONCLUSION: 1. No evidence of stress-induced ischemia. 2. Intact wall motion with 56% ejection fraction. Brain MRI 02/10/18 0000 Signed Impressions: CONCLUSION: 1. Persistent small focus of signal abnormality within the central brenda likely related to a recent infarct. This is unchanged in appearance when compared to the prior exam. 2. Right frontal and ethmoid sinus disease. Chest X-Ray 02/09/18 0000 Signed Impressions: CONCLUSION: No acute cardiopulmonary abnormality is identified. Neck Magnetic Resonance Angiography 02/03/18 0000 Signed Impressions: CONCLUSION: 1. No hemodynamically significant carotid artery stenosis identified. 2. The vertebral circulation is patent bilaterally. Percent stenosis is calculated using the diameter of the stenotic region over t he diameter of the normal distal internal carotid artery Head Magnetic Resonance Angiography 02/03/18 Signed Impressions: CONCLUSION: 1. Negative MRA examination. No large or central vessel occlusion identified. Head CT 02/02/18 Signed Impressions: CONCLUSION: 1. Low-density left basal ganglia could be lacunar infarct in the right clinic al setting. 2. Otherwise unremarkable CT brain. CT Angiography 02/02/18 Signed Impressions: CONCLUSION: 1. No pulmonary embolus is identified. 2. Small areas of atelectasis within the lung bases. 3. Probable fatty infiltration of the liver. Chest Ultrasound 01/31/18 Signed Impressions: CONCLUSION: 1. Inadequate fluid. Thoracentesis not performed. Lower Extremity Ultrasound 01/26/18 Signed Impressions: CONCLUSION: 1. No evidence of DVT. Liver Ultrasound 01/24/18 Signed Impressions: CONCLUSION: 1. No evidence of gallstones or biliary tract obstruction. 2. Hepatomegaly with increased echogenicity throughout the liver suggestive of fatty infiltration and/or hepatocellular disease. Objective Remarks GENERAL: This is a well-nourished, well-developed patient, in no apparent distress. SKIN: Warm and dry. HEENT: Normocephalic. Pupils equal round and reactive. Nose without bleeding. Airway patent. NECK: Trachea midline. No JVD. Supple. CARDIOVASCULAR: Regular rate and rhythm without murmurs, gallops, or rubs. RESPIRATORY: Clear to auscultation. Breath sounds equal bilaterally. No wheezes , rales, or rhonchi. GASTROINTESTINAL: Abdomen soft, non-tender, nondistended. Bowel Sounds normoactive x4. MUSCULOSKELETAL: Extremities without clubbing, cyanosis, or edema. NEUROLOGICAL: Awake and alert. Oriented to place, person. No focal neuro deficit. Moves all extremities. Normal speech. A/P Assessment and Plan 47-year-old female past medical history of alcohol dependence admitted with DTs Alcoholic encephalopathy Delirium resolving, improving -Abilify, lorazepam, and trazodone have all been discontinued. Abilify was recommended by psych on 02/01, was d/c on 02/10. -Mental status appear to be improving at this time, mental status change most likely due to ETOH -Neurology consulted, ordered a repeat brain MRI which shows persistent small focus of single abnormality within the central brenda likely related to recent infarct. This is unchanged compared to prior study. -Patient was previously evaluated by psychiatry. They recommended using CIWA for any breakthrough withdrawal symptoms to avoid "re-toxification" at this time, patient seems to be doing well. -Will provide low-dose Xanax as needed for any anxiety -Significantly improved mental status. Patient is coherent and more receptive to treatment plans. 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 Father is agreeable to shoulder cost if needed. -Cardiology reconsulted. Lexiscan as ordered. ECHO ordered to determine need for LifeVest -Decrease dosage of lisinopril and Coreg due to hypotensive episode. If persistent may need to do orthostatic BP. This is probably positional since patient has prolonged hospitalization being in bed Transaminitis -Likely related to alcohol, continue to follow LFTs -Improving DVT prophylaxis with Lovenox Discharge Planning Plan to DC home when cleared by cardiology, post Lexiscan. Pending ECHO Kristen Alcantar Feb 15, 2018 3:01 pm
[2018-02-15] MEDS ORDERED: ECASA81 PO (15:49)
[2018-02-15] MEDS ORDERED: LISI-519 PO (15:49)
[2018-02-15] MEDS ORDERED: CARV3.125 PO (15:49)
[2018-02-15] MEDS ORDERED: FAMO20TA2 PO (15:49)
[2018-02-15] MEDS ORDERED: THIA100 PO (15:49)
[2018-02-15] MEDS: SODIUM CHLORIDE 0.9% FLUSH 10 ML FLUSH IV FLUSH SCH ×2 (16:23→20:59)
[2018-02-15] MEDS: ENOXAPARIN SODIUM 40 MG/0.4 ML SYRINGE SQ SCH (16:23)
[2018-02-16 00:01] VITALS: BP 118/55; PULSE 86; RESP 17; TEMP 98.5; O2SAT 99
[2018-02-16 04:00] VITALS: BP 119/60; PULSE 86; RESP 18; TEMP 98.3; O2SAT 99
[2018-02-16 07:50] VITALS: BP 136/63; PULSE 77; RESP 14; TEMP 97.4; O2SAT 98
--- NOTE | 2018-02-16 08:20 | HHI.PR ---
Subjective Remarks Follow-up visit alcoholic encephalopathy, cardiomyopathy, transaminitis. Patient seen and examined today. Patient states she slept Coumadin early last night. No acute issues overnight. Denies pain and discomfort. Denies SOB/ dyspnea. Denies chest pain, palpitations, headaches, dizziness. Denies fevers, chills, n/v/d. Denies dysuria. Objective Vitals Vital Signs Date Time Temp Pulse Resp B/P (MAP) Pulse Ox O2 Delivery O2 Flow Rate FiO2 02/16/18 08:13 Room Air 02/16/18 07:50 97.4 77 14 136/63 (87) 98 02/16/18 04:00 98.3 86 18 119/60 (79) 99 02/16/18 00:01 98.5 86 17 118/55 (76) 99 02/15/18 23:59 75 02/15/18 20:00 82 02/15/18 20:00 98.4 92 18 99/51 (67) 96 02/15/18 16:00 98.6 80 17 138/61 (86) 98 02/15/18 12:00 97.9 95 17 115/54 (74) 100 02/15/18 10:30 21 I/O 02/15/18 02/15/18 02/15/18 02/16/18 02/16/18 02/16/18 07:00 15:00 23:00 07:00 15:00 23:00 Intake Total 420 ml 360 ml Balance 420 ml 360 ml Intake Oral 420 ml 360 ml # Voids 6 4 4 # Bowel Movements 2 3 Imaging Last Impressions Myocardial Perfusion Scan Nuc Med 02/15/18 0000 Signed Impressions: CONCLUSION: 1. No evidence of stress-induced ischemia. 2. Intact wall motion with 56% ejection fraction. Brain MRI 02/10/18 0000 Signed Impressions: CONCLUSION: 1. Persistent small focus of signal abnormality within the central brenda likely related to a recent infarct. This is unchanged in appearance when compared to the prior exam. 2. Right frontal and ethmoid sinus disease. Chest X-Ray 02/09/18 0000 Signed Impressions: CONCLUSION: No acute cardiopulmonary abnormality is identified. Neck Magnetic Resonance Angiography 02/03/18 Signed Impressions: CONCLUSION: 1. No hemodynamically significant carotid artery stenosis identified. 2. The vertebral circulation is patent bilaterally. Percent stenosis is calculated using the diameter of the stenotic region over t he diameter of the normal distal internal carotid artery Head Magnetic Resonance Angiography 02/03/18 Signed Impressions: CONCLUSION: 1. Negative MRA examination. No large or central vessel occlusion identified. Head CT 02/02/18 Signed Impressions: CONCLUSION: 1. Low-density left basal ganglia could be lacunar infarct in the right clinic al setting. 2. Otherwise unremarkable CT brain. CT Angiography 02/02/18 Signed Impressions: CONCLUSION: 1. No pulmonary embolus is identified. 2. Small areas of atelectasis within the lung bases. 3. Probable fatty infiltration of the liver. Chest Ultrasound 01/31/18 Signed Impressions: CONCLUSION: 1. Inadequate fluid. Thoracentesis not performed. Lower Extremity Ultrasound 01/26/18 Signed Impressions: CONCLUSION: 1. No evidence of DVT. Liver Ultrasound 01/24/18 Signed Impressions: CONCLUSION: 1. No evidence of gallstones or biliary tract obstruction. 2. Hepatomegaly with increased echogenicity throughout the liver suggestive of fatty infiltration and/or hepatocellular disease. Objective Remarks GENERAL: This is a well-nourished, well-developed patient, in no apparent distress. SKIN: Warm and dry. HEENT: Normocephalic. Pupils equal round and reactive. Nose without bleeding. Airway patent. NECK: Trachea midline. No JVD. Supple. CARDIOVASCULAR: Regular rate and rhythm without murmurs, gallops, or rubs. RESPIRATORY: Clear to auscultation. Breath sounds equal bilaterally. No wheezes , rales, or rhonchi. GASTROINTESTINAL: Abdomen soft, non-tender, nondistended. Bowel Sounds normoactive x4. MUSCULOSKELETAL: Extremities without clubbing, cyanosis, or edema. NEUROLOGICAL: Awake and alert. Oriented to place, person. No focal neuro deficit. Moves all extremities. Normal speech. A/P Assessment and Plan 47-year-old female past medical history of alcohol dependence admitted with DTs Alcoholic encephalopathy Delirium resolving, improving -Abilify, lorazepam, and trazodone have all been discontinued. Abilify was recommended by psych on 02/01, was d/c on 02/10. -Mental status appear to be improving at this time, mental status change most likely due to ETOH -Neurology consulted, ordered a repeat brain MRI which shows persistent small focus of single abnormality within the central brenda likely related to recent infarct. This is unchanged compared to prior study. -Patient was previously evaluated by psychiatry. They recommended using CIWA for any breakthrough withdrawal symptoms to avoid "re-toxification" at this time, patient seems to be doing well. -Low-dose Xanax as needed for any anxiety -Significantly improved mental status. Patient is coherent and more receptive to treatment plans. 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 Father is agreeable to shoulder cost if needed. -Cardiology reconsulted. Lexiscan showed no ischemia. ECHO ordered to determine need for LifeVest -Continue lisinopril and Coreg, monitor for hypotension Transaminitis -Likely related to alcohol, continue to follow LFTs -Improving DVT prophylaxis with Lovenox Discharge Planning Plan to DC home when cleared by cardiology, post Lexiscan. Pending ECHO Kristen Alcantar Feb 16, 2018 08:20
[2018-02-16] MEDS: LISINOPRIL 5 MG TAB PO SCH (08:33)
[2018-02-16] MEDS: SODIUM CHLORIDE 0.9% FLUSH 10 ML FLUSH IV FLUSH SCH (08:33)
[2018-02-16] MEDS: THIAMINE HCL 100 MG TAB PO SCH (08:33)
[2018-02-16] MEDS: ASPIRIN EC 81 MG TABEC PO SCH (08:33)
[2018-02-16] MEDS: FAMOTIDINE 20 MG TAB PO SCH (08:33)
[2018-02-16] MEDS: DOCUSATE SODIUM 50 MG/SENNA 8.6 MG TAB PO SCH (08:34)
[2018-02-16] MEDS: CARVEDILOL 3.125 MG TAB PO SCH (08:34)
[2018-02-16 11:10] VITALS: BP 106/58; PULSE 86; RESP 18; TEMP 97.8; O2SAT 99
--- NOTE | 2018-02-16 12:38 | HHI.PR ---
Subjective Remarks Doing well . wants to go home. No SOB. Off O2 and Sats 99. Objective Vital Signs Date Time Temp Pulse Resp B/P (MAP) Pulse Ox O2 Delivery O2 Flow Rate FiO2 02/16/18 11:10 97.8 86 18 106/58 (74) 99 02/16/18 08:13 Room Air 02/16/18 07:50 97.4 77 14 136/63 (87) 98 02/16/18 04:00 98.3 86 18 119/60 (79) 99 02/16/18 00:01 98.5 86 17 118/55 (76) 99 02/15/18 23:59 75 02/15/18 20:00 82 02/15/18 20:00 98.4 92 18 99/51 (67) 96 02/15/18 16:00 98.6 80 17 138/61 (86) 98 I/O 02/15/18 02/15/18 02/15/18 02/16/18 02/16/18 02/16/18 07:00 15:00 23:00 07:00 15:00 23:00 Intake Total 420 ml 360 ml Balance 420 ml 360 ml Intake Oral 420 ml 360 ml # Voids 6 4 4 # Bowel Movements 2 3 Objective Remarks GENERAL: This is a moderately obese, middle-aged, white female who is awake. HEENT: Head is normocephalic. Pupils reactive. Sclerae were clear. Throat no inflammation. Nasal mucosa was clear. NECK: Supple. No venous distention. No thyromegaly or lymphadenopathy. CHEST: Equal movements with decreased breath sounds at bases. HEART: Sounds are regular, S1 and S2. No murmur. ABDOMEN: Soft, without masses. No organomegaly or tenderness. EXTREMITIES: No edema. Peripheral pulses are well felt. NEUROLOGIC: Reflexes are 1+. No deficits . SKIN: no lesions. Assessment and Plan Assessment and Plan ASSESSMENT: 1. Bilateral pneumonia resolved 2. Respiratory failure. 3. Ethanolism. 4. Abnormal liver functions. 5. Delirium tremens. 6. Hyponatremia. 7. Encephalopathy. Plan : 1. Home today 2. PFT . 3. Labs in 2 weeks 4. PO diet as tolerated 5. D/C Albuterol Nebs 6. F/U as OP in 3 weeks Ahsan Ayala MD Feb 16, 2018 12:38
--- NOTE | 2018-02-16 14:59 | ECHRPT ---
Indication: ef chf CONCLUSIONS Contrast enhanced echocardiography with Definity agent was perfomred for improved endocardial border visualization. Normal left ventricular size and wall thickness. The left ventricular systolic function is normal wi th an estimated ejection fraction in the range of 60-65%. Left ventricular diastolic function parameters a re normal. BP: / HR: Rhythm: MEASUREMENTS (Male / Female) Normal Values Technical Quality: 2D ECHO LV Diastolic Diameter PLAX 4.6 cm 4.2 - 5.9 / 3.9 - 5.3 cm LV Systolic Diameter PLAX 3.4 cm IVS Diastolic Thickness 0.9 cm 0.6 - 1.0 / 0.6 - 0.9 cm LVPW Diastolic Thickness 0.9 cm 0.6 - 1.0 / 0.6 - 0.9 cm LV Relative Wall Thickness 0.4 RV Internal Dim ED PLAX 2.0 cm FINDINGS LEFT VENTRICLE Contrast enhanced echocardiography with Definity agent was perfomred for improved endocardial border visualization. Normal left ventricular size and wall thickness. The left ventricular systolic function is normal wi th an estimated ejection fraction in the range of 60-65%. Left ventricular diastolic function parameters a re normal. Demar Carpio MD, FACC (Electronically Signed) Final Date:16 February 2018 14:58
--- NOTE | 2018-02-16 15:23 | HHI.DCPOC ---
Discharge Care Plan Diagnosis: (1) Alcoholic encephalopathy (2) Anxiety (3) Cardiomyopathy (4) Delirium Your Health Problems Are: Anxiety Goals to Promote Your Health * To prevent worsening of your condition and complications * To maintain your health at the optimal level Directions to Meet Your Goals Take your medications as prescribed Follow your dietary instruction Follow activity as directed Keep your appointments as scheduled Take your immunizations and boosters as scheduled If your symptoms worsen call your PCP, if no PCP go to Urgent Care Center or Emergency Room Smoking is Dangerous to Your Health. Avoid second hand smoke Call the 24-hour hour crisis hotline for domestic abuse at Kristen Alcantar Feb 16, 2018 15:23
--- NOTE | 2018-02-16 15:29 | HHI.DS ---
Discharge Summary Admission Date January 24, 2018 at 03:30 Discharge Date: Feb 16, 2018 Admitting Diagnosis Delirium tremors, alcohol withdrawal, hypomagnesemia, hypokalemia, a (1) Alcoholic encephalopathy ICD Code: G31.2 - Degeneration of nervous system due to alcohol; F10.20 - Alcohol dependence, uncomplicated (2) Anxiety ICD Code: F41.9 - Anxiety Status: Acute (3) Cardiomyopathy ICD Code: I42.9 - Cardiomyopathy, unspecified (4) Delirium ICD Code: R41.0 - Disorientation, unspecified (5) EtOH dependence ICD Code: F10.20 - EtOH dependence Status: Acute Procedures None Brief History - From Admission 47-year-old female with past medical history of alcohol dependence who presents to [facility] emergency department due to concern for alcohol withdrawal. She states that she and her share a 1.5 L of vodka chased with rubia servando every 2.5 days. She stopped drinking on Tuesday. She has been tremulous, has experienced some hallucinations and therefore her father brought her in. She states she intends to quit drinking indefinitely. She has been nauseous and vomited x1, nonbloody nonbilious. She denies headache or fall. CIWA was 20 upon presentation to the ED. She has received ativan 4 mg IV. She has also received 1 L normal saline bolus, Compazine 10 mg IV, magnesium 2 g IV. Imaging Last Impressions Myocardial Perfusion Scan Nuc Med 02/15/18 0000 Signed Impressions: CONCLUSION: 1. No evidence of stress-induced ischemia. 2. Intact wall motion with 56% ejection fraction. Brain MRI 02/10/18 0000 Signed Impressions: CONCLUSION: 1. Persistent small focus of signal abnormality within the central brenda likely related to a recent infarct. This is unchanged in appearance when compared to the prior exam. 2. Right frontal and ethmoid sinus disease. Chest X-Ray 02/09/18 0000 Signed Impressions: CONCLUSION: No acute cardiopulmonary abnormality is identified. Neck Magnetic Resonance Angiography 02/03/18 0000 Signed Impressions: CONCLUSION: 1. No hemodynamically significant carotid artery stenosis identified. 2. The vertebral circulation is patent bilaterally. Percent stenosis is calculated using the diameter of the stenotic region over t he diameter of the normal distal internal carotid artery Head Magnetic Resonance Angiography 02/03/18 Signed Impressions: CONCLUSION: 1. Negative MRA examination. No large or central vessel occlusion identified. Head CT 02/02/18 Signed Impressions: CONCLUSION: 1. Low-density left basal ganglia could be lacunar infarct in the right clinic al setting. 2. Otherwise unremarkable CT brain. CT Angiography 02/02/18 Signed Impressions: CONCLUSION: 1. No pulmonary embolus is identified. 2. Small areas of atelectasis within the lung bases. 3. Probable fatty infiltration of the liver. Chest Ultrasound 01/31/18 Signed Impressions: CONCLUSION: 1. Inadequate fluid. Thoracentesis not performed. Lower Extremity Ultrasound 01/26/18 Signed Impressions: CONCLUSION: 1. No evidence of DVT. Liver Ultrasound 01/24/18 Signed Impressions: CONCLUSION: 1. No evidence of gallstones or biliary tract obstruction. 2. Hepatomegaly with increased echogenicity throughout the liver suggestive of fatty infiltration and/or hepatocellular disease. PE at Discharge GENERAL: This is a well-nourished, well-developed patient, in no apparent distress. SKIN: Warm and dry. HEENT: Normocephalic. Pupils equal round and reactive. Nose without bleeding. Airway patent. NECK: Trachea midline. No JVD. Supple. CARDIOVASCULAR: Regular rate and rhythm without murmurs, gallops, or rubs. RESPIRATORY: Clear to auscultation. Breath sounds equal bilaterally. No wheezes , rales, or rhonchi. GASTROINTESTINAL: Abdomen soft, non-tender, nondistended. Bowel Sounds normoactive x4. MUSCULOSKELETAL: Extremities without clubbing, cyanosis, or edema. NEUROLOGICAL: Awake and alert. Oriented to place, person. No focal neuro deficit. Moves all extremities. Normal speech. Pt update on day of discharge Follow-up visit alcoholic encephalopathy, cardiomyopathy, transaminitis. Patient seen and examined today. Patient states she slept early last night. No acute issues overnight. Denies pain and discomfort. Denies SOB/ dyspnea. Denies chest pain, palpitations, headaches, dizziness. Denies fevers, chills, n/ v/d. Denies dysuria. Hospital Course Patient is a 47-year-old female with past medical history of alcohol dependence admitted to with delirium tremens. Patient found to have alcoholic encephalopathy. Neurology consulted, ordered a repeat brain MRI which shows persistent small focus of single abnormality within the central brenda likely related to recent infarct. This is unchanged compared to prior study. Patient was evaluated by psychiatry and recommended [place] protocol for withdrawal symptoms. She was placed previously on Abilify, lorazepam, trazodone which has been discontinued or in her mental status have significantly improved. She is placed on low-dose Xanax as needed for anxiety. She continues to improve her mental status. Patient hospitalization was complicated by acute respiratory failure secondary to bilateral pneumonia, pulmonary edema. She has completed course of cefepime and azithromycin which she significantly improved. 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 She was placed on vasopressors during her hospitalization and the repeat echo showed EF of 40%. Cardiology was consulted and they deemed it is necessary that during improved mental status Lexiscan will be done for the patient. Lexiscan showed no ischemia. Repeat echo was done and showed EF of 60-65%. Patient does not need LifeVest to go home. She will continue to take carvedilol as recommended by boom worker for the cardiomyopathy and follow-up with him at the outpatient. She is advised to follow-up with her PCP and continue to abstain from alcohol use. Patient has met maximal benefits of hospitalization. Clinically stable for discharge. She has hyperlipidemia but unable to start on statin secondary to transaminitis. Consider following up with PCP to start statin medication if transaminitis is resolved. Lifestyle changes been recommended abstaining from alcohol, dietary changes, exercise. Pt Condition on Discharge: Stable Discharge Disposition: Discharge Home Discharge Time: <= 30 minutes Discharge Instructions DIET: Follow Instructions for: Heart Healthy Diet Activities you can perform: Regular-No Restrictions Follow up Referrals: Cardiology, Interventional - 2 Weeks with Minor,Demar Etienne MD PCP Follow-up - 2-3 Days New Medications: Aspirin DR (Aspirin DR) 81 Mg Tabdr 81 MG PO DAILY for Blood Clot Prevention, #30 TAB Carvedilol (Coreg) 3.125 Mg Tab 6.25 MG PO Q12HR for Blood Pressure Management, #60 TAB Famotidine (Famotidine) 20 Mg Tab 20 MG PO BID for Dyspepsia, #60 TAB Lisinopril (Lisinopril) 5 Mg Tab 5 MG PO DAILY for Blood Pressure Management, #30 TAB Thiamine HCl (Gnp Vitamin B-1) 100 Mg Tab 100 MG PO DAILY for Alcohol Detox, #30 TAB Kristen Alcantar Feb 16, 2018 15:29 Carol Shoemaker MD Feb 16, 2018 18:48
== END 2018-02-16 16:01 | disposition home or self-care (01) | DRG 896 ==
LOC: PHED 02:21 → PHEDA 03:30 → PHEDH 08:05 → PHICU 13:23 → HCVI 01-27 23:40 → HCIS 01-31 10:25 → HIMN 01-31 10:40 → N06A 02-03 17:10
PROVIDERS: ADMIT Hospitalist; ATTEND Hospitalist
PROC: 02HV33Z Insertion of Infusion Device into Superior Vena Cava, Percutaneous Approach (ICD-10-PCS; principal; 2018-02-01)
DX: F10.231 Alcohol dependence with withdrawal delirium (principal); J18.9 Pneumonia, unspecified organism; J96.00 Acute respiratory failure, unspecified whether with hypoxia or hypercapnia; J81.1 Chronic pulmonary edema; I42.6 Alcoholic cardiomyopathy; G31.2 Degeneration of nervous system due to alcohol; E87.1 Hypo-osmolality and hyponatremia; G37.2 Central pontine myelinolysis; I95.9 Hypotension, unspecified; F39 Unspecified mood [affective] disorder; E83.42 Hypomagnesemia; Z78.1 Physical restraint status; K70.10 Alcoholic hepatitis without ascites; E86.0 Dehydration; E87.6 Hypokalemia; Z77.22 Contact with and (suspected) exposure to environmental tobacco smoke (acute) (chronic); R74.0 Nonspecific elevation of levels of transaminase and lactic acid dehydrogenase [LDH]; R73.9 Hyperglycemia, unspecified; F41.9 Anxiety disorder, unspecified; E78.5 Hyperlipidemia, unspecified; I34.0 Nonrheumatic mitral (valve) insufficiency; F32.9 Major depressive disorder, single episode, unspecified
CPT/HCPCS: 36556; 36600; 70450; 70544; 70548; 70551; 70553; 71045; 71275; 76604; 76705; 76937; 78452; 80048; 80053; 80061; 80074; 80307; 81001; 82140; 82550; 82607; 82746; 82805; 82948; 83605; 83690; 83735; 83880; 84100; 84443; 84484; 84702; 85025; 85610; 85730; 86592; 87641; 93005; 93017; 93306; 93308; 93970; 94640; 94664; 95819; 96374; 96375; A9502; A9579; J0456; J0692; J0780; J1630; J1650; J1940; J2060; J2250; J2785; J3411; J3475; J3480; J7030; J7050; Q9967